=== PATIENT | male | born 1955 | race Caucasian/White ===

== ENCOUNTER 2016-07-22 06:11 | Emergency (ER) | payer OTHER ==
[2016-07-22] MEDS ORDERED: DUONEB (A & A) INH ONE ×2 (06:25→08:02)
--- NOTE | 2016-07-22 07:06 | PROVIDER DOCUMENTATION ---
HPI-Respiratory General - General Chief Complaint: Shortness of Breath Stated Complaint: SOB/COPD Time Seen by Provider: 07/22/16 06:55 Source: patient Allergies/Adverse Reactions: Patient Allergies Allergy/AdvReac Type Severity Reaction Status Date / Time No Known Allergies Allergy Verified 07/09/16 09:13 Home Medications: Home Medication List Medication Instructions Recorded Confirmed Last Taken Type Carvedilol [Coreg] 12.5 mg PO BID 01/11/16 07/22/16 06/25/16 09:00 History 12.5 mg Furosemide [Lasix] 40 mg PO DAILY 01/11/16 07/22/16 06/25/16 08:00 History 40 mg Glimepiride [Amaryl] 4 mg PO BID 01/11/16 07/22/16 06/25/16 08:00 History 4 mg Insulin Aspart [Novolog Flexpen] 20 units PO DAILY 01/11/16 07/22/16 06/25/16 11 :00 History LISINOpril [Prinivil] 20 mg PO DAILY 01/11/16 07/22/16 06/25/16 08:00 History 20 mg Metformin HCl [Glucophage Xr] 2 tab PO BID 01/11/16 07/22/16 06/25/16 08:00 History 2 tabs Potassium Chloride [Klor-Con 10] 1 tab PO DAILY 01/11/16 07/22/16 06/25/16 09: 00 History 1 tab Albuterol 2.5MG/Ipratrop 0.5MG 3 ml INH RTQ6H #120 neb 04/05/16 07/22/16 Rx [Duoneb (A & A)] Fluticasone/Salmeterol [Advair 1 each IH BID #1 disk.w.dev 05/13/16 07/22/16 Unknown Rx 250-50 Diskus] Sitagliptin Phosphate [Januvia] 100 mg PO DAILY #30 tablet 06/30/16 07/22/16 Unknown Rx Doxycycline Hyclate 100 mg PO Q12H #20 tablet 07/22/16 Unknown Rx Ipratropium/Albuterol INH 2 puff INH RTQ6H #1 inhaler 07/22/16 Unknown Rx [Combivent Respimat Inhaler] Prednisone 20 mg PO BID #10 tablet 07/22/16 Unknown Rx - History of Present Illness-Resp Nature of Presenting Problem: has had nasal giselle, drainage, cough with green sputum for 3 days. SOB with coughing. Was worse this am. No fever. no CP Quality of Pain: reports: none Severity in ED: reports: mild Onset/Duration: reports: 3 days ago Timing: reports: getting worse Context: denies: recent foreign travel, insect bite (possible tick), recent chemotherapy Exposure: reports: unknown cause Cough Quality/Degree: reports: productive cough Episode Frequency: occasional episodes Current Respiratory Medication Therapy: Initiated see nurses note Modifying Factors: improves with: coughing Associated Symptoms: reports: cough, nasal congestion, shortness of breath, sore throat (sore throat only with cough). denies: fever/chills, flu-like symptoms, headache Similar Symptoms Previously?: Yes Recently seen or treated by another doctor?: No Review of Systems - Adult - REVIEW OF SYSTEMS - ADULT Constitutional: reports: no symptoms reported Eyes: reports: no symptoms reported Ears, Nose, Mouth & Throat: reports: see HPI Cardiovascular: reports: no symptoms reported, edema (no worse than usual) Respiratory: reports: see HPI Gastrointestinal: reports: no symptoms reported Genitourinary: reports: no symptoms reported Musculoskeletal: reports: no symptoms reported Neurological: reports: no symptoms reported Psychiatric: reports: no symptoms reported Endocrine: reports: no symptoms reported Hematologic/Lymphatic: reports: no symptoms reported Allergic/Immunologic: reports: no symptoms reported Past History - Adult - PAST MEDICAL HISTORY-ADULT Review of Records: reports: Medications Reviewed Cardiovascular: reports: CAD, CHF, HTN, hyperlipidemia, [place] Respiratory: reports: asthma, COPD Gastrointestinal: reports: GERD Musculoskeletal: reports: chronic pain Psychiatric: reports: anxiety Endocrine/Immune: reports: Diabetes - PRIOR SURGERIES/PROCEDURES Surgical/Procedure History: reports: cardiac stent - PRIOR HOSPITALIZATIONS Prior Hospitalizations: reports: for other non-related - IMMUNIZATION STATUS Childhood Immunizations: See Nurse Assessment Flu Vaccine: See Nurse Assessment - FAMILY HISTORY Family History: reviewed, not pertinent - SOCIAL HISTORY Smoking: quit greater than 1 year Alcohol Use Frequency: sober (former use) Physical Exam-General - PHYSICAL EXAM-ADULT Initial Vital Signs Reviewed: Yes - CONSTITUTIONAL General Appearance: appears well, alert, no apparent distress - EYES Eyes: PERRL/EOMI, pink conjunctivae - HEAD, EARS, NOSE, MOUTH & THROAT HENMT: normocephalic/atraumatic, moist mucous membranes, normal ENT inspection, pharynx normal - NECK Neck: non-tender, full range of motion, supple - RESPIRATORY Respiratory: lungs clear, normal breath sounds, no respiratory distress - CARDIOVASCULAR Cardiovascular: no gallop, no murmur, tachycardia, other (3+ pretibial edema bilat) - GASTROINTESTINAL (ABDOMEN) Abdominal Exam: non tender, soft - GENITOURINARY Male Genitalia: deferred Rectal Exam: deferred - MUSCULOSKELETAL Back Exam: normal inspection, no CVA tenderness, no vertebral tenderness Extremity: normal range of motion, non-tender, pedal edema (3+ bilat). negative : no pedal edema - SKIN Integumentary: normal color, normal turgor, warm/dry - NEUROLOGIC Neurologic: pallet stone positioner II-XII nml as tested, grossly normal, no motor/sensory deficits - PSYCHIATRIC Psych/Mental Status: normal mood/affect, normal thought content, normal thought process, oriented x 3 Progress - PLAN OF CARE/RESULTS Progress/Plan/Lab Results: Laboratory Tests 07/22/16 07/22/16 07/22/16 06:15 06:15 06:15 WBC 9.35 RBC 4.94 Hgb 13.2 L Hct 41.2 L MCV 83.4 MCH 26.7 L MCHC 32.0 L RDW Std Deviation 14.2 Plt Count 248 MPV 11.4 H Immature Gran % (Auto) 0.4 Neut % (Auto) 62.8 Lymph % (Auto) 21.6 [place] % (Auto) 8.7 Eos % (Auto) 5.5 Baso % (Auto) 1.0 H Immature Gran # (Auto) 0.04 Neut # (Auto) 5.88 Lymph # (Auto) 2.02 [place] # (Auto) 0.81 H Eos # (Auto) 0.51 Baso # (Auto) 0.09 Segmented Neutrophils 67 Lymphocytes 20 L Monocytes 8 Eosinophils 5 Sodium 136 Potassium 3.8 Chloride 96 L Carbon Dioxide 29 Anion Gap 11 BUN 12 Creatinine 0.9 Estimated GFR/1.73 m2 > 60 BUN/Creatinine Ratio 13 Glucose 389 H Calculated Osmolality 288 Calcium 9.2 Yce-M-Vkwopuqlpcl Pept 243 H Orders Category Date Time Status Oxygen Therapy- ED Nursing DIRECTED Care 07/22/16 06:27 Active Saline Loc DIRECTED Care 07/22/16 06:27 Active CHEST-2 VIEWS [RAD] Stat Exams 07/22/16 07:08 Draft BASIC METABOLIC PANEL [CHEM] Stat Lab 07/22/16 06:15 Completed CBC WITH DIFF [HEME] Stat Lab 07/22/16 06:15 Completed PRO B-NATRIURETIC PEPTIDE Stat Lab 07/22/16 06:15 Completed Albuterol 2.5MG/Ipratrop 0.5MG [Duoneb (A & A)] Med 07/22/16 06:25 Discontinued 3 ml INH NOW ONE Albuterol 2.5MG/Ipratrop 0.5MG [Duoneb (A & A)] Med 07/22/16 08:02 Discontinued 3 ml INH NOW ONE Albuterol [Albuterol Neb] Med 07/22/16 08:02 Discontinued 5 mg INH NOW ONE Budesonide [Pulmicort] Med 07/22/16 08:02 Discontinued 0.5 mg INH NOW ONE Methylprednisolone Sod Succ [Solu-Medrol] Med 07/22/16 08:02 Discontinued 125 mg IV NOW ONE Aerosol Treatments Stat Oth 07/22/16 06:27 Completed Pulse Oximetry Stat Oth 07/22/16 06:27 Active Vital Signs Temp Pulse Resp BP Pulse Ox 07/22/16 08:30 86 20 98 07/22/16 06:36 80 19 97 07/22/16 06:13 97.7 F 117 H 14 204/102 94 L No Known Allergies Allergy (Verified 07/09/16 09:13) Carvedilol [Coreg] 12.5 mg PO BID 01/11/16 Furosemide [Lasix] 40 mg PO DAILY 01/11/16 Glimepiride [Amaryl] 4 mg PO BID 01/11/16 Insulin Aspart [Novolog Flexpen] 20 units PO DAILY 01/11/16 LISINOpril [Prinivil] 20 mg PO DAILY 01/11/16 Metformin HCl [Glucophage Xr] 2 tab PO BID 01/11/16 Potassium Chloride [Klor-Con 10] 1 tab PO DAILY 01/11/16 Albuterol 2.5MG/Ipratrop 0.5MG [Duoneb (A & A)] 3 ml INH RTQ6H #120 neb Fluticasone/Salmeterol [Advair 250-50 Diskus] 1 each IH BID #1 disk.w.dev Sitagliptin Phosphate [Januvia] 100 mg PO DAILY #30 tablet 06/30/16 Laboratory 07/22/16 07/22/16 07/22/16 06:15 06:15 06:15 WBC 9.35 RBC 4.94 Hgb 13.2 L Hct 41.2 L MCV 83.4 MCH 26.7 L MCHC 32.0 L RDW Std Deviation 14.2 Plt Count 248 MPV 11.4 H Immature Gran % (Auto) 0.4 Neut % (Auto) 62.8 Lymph % (Auto) 21.6 [place] % (Auto) 8.7 Eos % (Auto) 5.5 Baso % (Auto) 1.0 H Immature Gran # (Auto) 0.04 Neut # (Auto) 5.88 Lymph # (Auto) 2.02 [place] # (Auto) 0.81 H Eos # (Auto) 0.51 Baso # (Auto) 0.09 Segmented Neutrophils 67 Lymphocytes 20 L Monocytes 8 Eosinophils 5 Sodium 136 Potassium 3.8 Chloride 96 L Carbon Dioxide 29 Anion Gap 11 BUN 12 Creatinine 0.9 Estimated GFR/1.73 m2 > 60 BUN/Creatinine Ratio 13 Glucose 389 H Calculated Osmolality 288 Calcium 9.2 Snb-B-Tvbusqkkiui Pept 243 H - XRAY 1 XRAY Study: Chest Impression: Normal XRAY Interpretation: COPD, no infiltrates Departure - Departure Time of Disposition Order: 10:30 DIAGNOSIS: COPD exacerbation Disposition: HOME 01 Certified Medical Emergency: Emergent Condition: Good Additional Instructions: ED Follow Up Instructions: You have been treated by a care provider in the Emergency Department. These instructions are being provided to you so you can have an understanding of how to care for yourself upon discharge. Upon discharge from the Emergency Department, you are responsible for making arrangements for follow-up care by a physician of your choice. Take all prescribed medications as directed. Return to the Emergency Department immediately for any new or worsening symptoms. You may call the Physician Referral phone number at [phone] to obtain a list of Physicians who are taking new patients. Prescriptions: Ipratropium/Albuterol INH [Combivent Respimat Inhaler] 2 puff INH RTQ6H #1 inhaler Doxycycline Hyclate 100 mg PO Q12H #20 tablet Prednisone 20 mg PO BID #10 tablet Instructions: Chronic Obstructive Pulmonary Disease Exacerbation, [id number]
[2016-07-22 07:32] LABS: EOS# 0.51 X1000 (0.0-0.7); EOS% 5.5 % (0.0-10.0); HEMATOCRIT 41.2 % (42.0-52.0); HEMOGLOBIN 13.2 g/dL (14.0-18.0); IMM GRAN# 0.04 X1000 (0.0-0.04); IMM GRAN% 0.4 % (0.0-0.5); LYMPH# 2.02 X1000 (1.2-3.4); LYMPH% 21.6 % (20.5-51.1); MANUAL DIFF NEEDED? YES; MCH 26.7 PG (27-31); MCV 83.4 FL (81-99); MONO# 0.81 X1000 (0.11-0.59); MONO% 8.7 % (1.7-9.3); MPV 11.4 FL (7.4-10.4); NEUT% 62.8 % (42.2-75.2); PLT 248 X1000 (130-400); RBC 4.94 XMIL (4.7-6.1)
[2016-07-22 07:39] LABS: AGAP 11; BUN 12 mg/dL (8-22); CALCIUM 9.2 mg/dL (8.8-10.2); CHLORIDE 96 mmol/L (98-107); COSMO 288; POTASSIUM 3.8 mmol/L (3.5-5.1); SODIUM 136 mmol/L (136-145); TCO2 29 mmol/L (25-35)
[2016-07-22] MEDS ORDERED: ALBUTEROL NEB INH ONE (08:02)
[2016-07-22] MEDS ORDERED: PULMICORT INH ONE (08:02)
[2016-07-22] MEDS ORDERED: SOLU-MEDROL IV ONE (08:02)
[2016-07-22 08:45] LABS: EOS 5 % (1-10); LYMPHS 20 % (21-51); MONO 8 % (1-9)
--- NOTE | 2016-07-22 09:50 | Diag Imaging Result Document ---
PROCEDURE NAME: CHEST-2 VIEWS - 07/22/2016 CHEST X-RAY 2 VIEWS, 07/22/2016: COMPARISON: 07/09/2016. FINDINGS: The lungs are normally expanded and clear. Heart size and mediastinal contours are normal. No pneumothorax or pleural effusion. IMPRESSION: Negative exam.
[2016-07-22 11:33] VITALS: BP 174/91
== END 2016-07-22 11:32 | disposition home or self-care (01) ==
LOC: P.ED 06:11
DX: J44.1 Chronic obstructive pulmonary disease with (acute) exacerbation (principal); R05 Cough; R06.02 Shortness of breath; R09.81 Nasal congestion; J02.9 Acute pharyngitis, unspecified; R60.9 Edema, unspecified; I25.10 Atherosclerotic heart disease of native coronary artery without angina pectoris; I50.9 Heart failure, unspecified; Z79.899 Other long term (current) drug therapy; E78.5 Hyperlipidemia, unspecified; I10 Essential (primary) hypertension; I25.2 Old myocardial infarction; G89.29 Other chronic pain; E11.9 Type 2 diabetes mellitus without complications; Z95.5 Presence of coronary angioplasty implant and graft; Z87.891 Personal history of nicotine dependence; Z79.4 Long term (current) use of insulin; Z79.51 Long term (current) use of inhaled steroids
CPT/HCPCS: 71020; 80048; 83880; 85025; 94640; J2930

== ENCOUNTER 2016-08-01 13:12 | Emergency (ER) | payer OTHER ==
[2016-08-01 13:30] VITALS: BP 166/88
--- NOTE | 2016-08-01 14:36 | PROVIDER DOCUMENTATION ---
HPI-Respiratory General - General Source: patient - History of Present Illness-Resp Quality of Pain: reports: aching Severity in ED: reports: mild Onset/Duration: reports: 3 days ago Timing: reports: still present, intermittent Exposure: reports: unknown cause Cough Quality/Degree: reports: moderate Episode Frequency: occasional episodes Current Respiratory Medication Therapy: Initiated see nurses note Modifying Factors: improves with: nothing Associated Symptoms: reports: cough, nasal congestion, nasal drainage, shortness of breath, wheezing. denies: chest pain/soreness, dizziness, earache , facial pain, fever/chills, flu-like symptoms, headache, heart racing, hurts to breathe, hyperventilating, lightheadedness, muscle/bodyaches, sinus pain, short of breath, sore throat, sweaty Similar Symptoms Previously?: Yes Recently seen or treated by another doctor?: No <Aislinn Agarwal - Last Filed: 08/01/16 14:30> <Therese Wharton - Last Filed: 08/01/16 15:28> - General Chief Complaint: Shortness of Breath Stated Complaint: SOB Time Seen by Provider: 08/01/16 14:20 Allergies/Adverse Reactions: Patient Allergies Allergy/AdvReac Type Severity Reaction Status Date / Time No Known Allergies Allergy Verified 08/01/16 13:22 Home Medications: Home Medication List Medication Instructions Recorded Confirmed Last Taken Type Carvedilol [Coreg] 12.5 mg PO BID 01/11/16 07/22/16 07/31/16 History Furosemide [Lasix] 40 mg PO DAILY 01/11/16 07/22/16 07/31/16 History Glimepiride [Amaryl] 4 mg PO BID 01/11/16 07/22/16 07/31/16 History Insulin Aspart [Novolog Flexpen] 20 units PO DAILY 01/11/16 07/22/16 07/31/16 History LISINOpril [Prinivil] 20 mg PO DAILY 01/11/16 07/22/16 07/31/16 History Metformin HCl [Glucophage Xr] 2 tab PO BID 01/11/16 07/22/16 07/31/16 History Potassium Chloride [Klor-Con 10] 1 tab PO DAILY 01/11/16 07/22/16 07/31/16 History Albuterol 2.5MG/Ipratrop 0.5MG 3 ml INH RTQ6H #120 neb 04/05/16 07/22/16 Rx [Duoneb (A & A)] Fluticasone/Salmeterol [Advair 1 each IH BID #1 disk.w.dev 05/13/16 07/22/16 Rx 250-50 Diskus] Sitagliptin Phosphate [Januvia] 100 mg PO DAILY #30 tablet 06/30/16 07/22/16 Rx Ipratropium/Albuterol INH 2 puff INH RTQ6H #1 inhaler 07/22/16 07/31/16 Rx [Combivent Respimat Inhaler] Aspirin [Aspirin EC] 1 tab PO DAILY 08/01/16 08/01/16 07/31/16 History Azithromycin [Zithromax Z-Ramon] 250 mg PO DIRECTED #1 pkg 08/01/16 Unknown Rx Insulin Glargine [Lantus] 100 units SQ QHS 08/01/16 08/01/16 07/31/16 History - History of Present Illness-Resp Nature of Presenting Problem: Pt is 61 y/o M presents to the ED with SOB. Pt states SOB worsened three days. Pt denies F. (Aislinn Agarwal) Review of Systems - Adult - REVIEW OF SYSTEMS - ADULT Constitutional: denies: chills, fever Eyes: denies: blurred vision, double vision Ears, Nose, Mouth & Throat: reports: sinus problem (drainage and congestion). denies: ear pain, nose pain, throat pain Cardiovascular: denies: chest pain, heart murmur, irregular heart rate Respiratory: reports: cough, shortness of breath, wheezing Gastrointestinal: denies: abdominal pain, diarrhea, nausea, vomiting Genitourinary: denies: dysuria, hesitency Musculoskeletal: denies: bone pain, joint pain, neck pain Integumentary: denies: hives, itching Neurological: denies: dizziness/vertigo, headache/migraines Psychiatric: reports: no symptoms reported Endocrine: reports: no symptoms reported Hematologic/Lymphatic: reports: no symptoms reported Allergic/Immunologic: reports: no symptoms reported All Other Systems: Reviewed and Negative <Aislinn Agarwal - Last Filed: 08/01/16 14:30> Past History - Adult - PAST MEDICAL HISTORY-ADULT Review of Records: reports: Nursing Assessment Review, Medications Reviewed, Social history reviewed & non-contributory. Major Childhood Illnesses: reports: denies history Cardiovascular: reports: CAD, CHF, HTN, hyperlipidemia, [place] Respiratory: reports: asthma, COPD Gastrointestinal: reports: GERD Obstetrical/Gynecological: reports: denies history Genitourinary: reports: denies history Musculoskeletal: reports: chronic pain Neurological: reports: denies history Psychiatric: reports: anxiety Endocrine/Immune: reports: Diabetes Diabetes Type: Type 2 Other Conditions: reports: denies history - PRIOR SURGERIES/PROCEDURES Surgical/Procedure History: reports: cardiac stent - PRIOR HOSPITALIZATIONS Prior Hospitalizations: reports: for other non-related - IMMUNIZATION STATUS Childhood Immunizations: See Nurse Assessment Flu Vaccine: See Nurse Assessment - FAMILY HISTORY Family History: reviewed, not pertinent - SOCIAL HISTORY Smoking: quit less than 1 year, cigarettes Provider spent 3-5 mins advising pt. on dangers of tobacco.: Discussed manners to quit use, and f/u contacts for add'l counseling. Substance Use: denies Living Situation: family <Aislinn Agarwal - Last Filed: 08/01/16 14:30> Physical Exam-General - PHYSICAL EXAM-ADULT Initial Vital Signs Reviewed: Yes - CONSTITUTIONAL General Appearance: appears well, alert, no apparent distress - EYES Eyes: PERRL/EOMI, pink conjunctivae, fundi clear, no AV nicking - HEAD, EARS, NOSE, MOUTH & THROAT HENMT: normocephalic/atraumatic, moist mucous membranes, normal ENT inspection, TMs normal, pharynx normal - NECK Neck: non-tender, full range of motion, supple, normal inspection - RESPIRATORY Respiratory: chest non-tender, no pleuratic chest pain, no respiratory distress , no accessory muscle use, wheezing, increased rate - CARDIOVASCULAR Cardiovascular: normal peripheral pulses, regular rate, rhythm, no edema, no gallop, no JVD, no murmur - GASTROINTESTINAL (ABDOMEN) Abdominal Exam: normal bowel sounds, non tender, soft, no organomegaly, no pulsatile mass - LYMPHATIC Lymphatic: no adenopathy - MUSCULOSKELETAL Back Exam: normal inspection, no CVA tenderness, no vertebral tenderness Extremity: normal range of motion, non-tender, normal gait, normal inspection, no pedal edema, no calf tenderness, normal capillary refill - SKIN Integumentary: normal color, normal turgor, warm/dry - NEUROLOGIC Neurologic: grossly normal - PSYCHIATRIC Psych/Mental Status: normal mood/affect, oriented x 3 <Aislinn Agarwal - Last Filed: 08/01/16 14:30> Progress <Aislinn Agarwal - Last Filed: 08/01/16 14:30> <Therese Wharton - Last Filed: 08/01/16 15:28> - PLAN OF CARE/RESULTS Progress/Plan/Lab Results: Orders Category Date Time Status BASIC METABOLIC PANEL [CHEM] Stat Lab 08/01/16 14:30 Ordered BNP [PRO B-NATRIURETIC PEPTIDE] Stat Lab 08/01/16 14:30 Ordered CBC WITH ELECTRONIC DIFF [HEME] Stat Lab 08/01/16 14:30 Ordered Vital Signs - 24 hr 08/01/16 13:25 Temperature 99.0 F Pulse Rate 79 Respiratory 24 Rate Blood Pressure 166/88 O2 Sat by Pulse 94 L Oximetry (Aislinn Agarwal) Vital Signs Temp Pulse Resp BP Pulse Ox 08/01/16 13:25 99.0 F 79 24 166/88 94 L No Known Allergies Allergy (Verified 08/01/16 13:22) Carvedilol [Coreg] 12.5 mg PO BID 01/11/16 Furosemide [Lasix] 40 mg PO DAILY 01/11/16 Glimepiride [Amaryl] 4 mg PO BID 01/11/16 Insulin Aspart [Novolog Flexpen] 20 units PO DAILY 01/11/16 LISINOpril [Prinivil] 20 mg PO DAILY 01/11/16 Metformin HCl [Glucophage Xr] 2 tab PO BID 01/11/16 Potassium Chloride [Klor-Con 10] 1 tab PO DAILY 01/11/16 Albuterol 2.5MG/Ipratrop 0.5MG [Duoneb (A & A)] 3 ml INH RTQ6H #120 neb Fluticasone/Salmeterol [Advair 250-50 Diskus] 1 each IH BID #1 disk.w.dev Sitagliptin Phosphate [Januvia] 100 mg PO DAILY #30 tablet 06/30/16 Ipratropium/Albuterol INH [Combivent Respimat Inhaler] 2 puff INH RTQ6H #1 inhaler 07/22/16 Aspirin [Aspirin EC] 1 tab PO DAILY 08/01/16 Insulin Glargine [Lantus] 100 units SQ QHS 08/01/16 Laboratory 08/01/16 08/01/16 08/01/16 14:40 14:40 14:40 WBC 9.24 RBC 4.64 L Hgb 12.5 L Hct 38.9 L MCV 83.8 MCH 26.9 L MCHC 32.1 L RDW Std Deviation 14.8 H Plt Count 260 MPV 10.9 H Immature Gran % (Auto) 0.5 Neut % (Auto) 64.6 Lymph % (Auto) 23.2 [place] % (Auto) 7.3 Eos % (Auto) 3.8 Baso % (Auto) 0.6 Immature Gran # (Auto) 0.05 H Neut # (Auto) 5.97 Lymph # (Auto) 2.14 [place] # (Auto) 0.67 H Eos # (Auto) 0.35 Baso # (Auto) 0.06 Sodium 138 Potassium 3.8 Chloride 101 Carbon Dioxide 29 Anion Gap 9 BUN 14 Creatinine 0.8 Estimated GFR/1.73 m2 > 60 BUN/Creatinine Ratio 18 Glucose 225 H Calculated Osmolality 283 Calcium 8.8 Uzx-C-Yhwbfykmshb Pept 328 H Orders Category Date Time Status BASIC METABOLIC PANEL [CHEM] Stat Lab 08/01/16 14:40 Completed BNP [PRO B-NATRIURETIC PEPTIDE] Stat Lab 08/01/16 14:40 Completed CBC WITH ELECTRONIC DIFF [HEME] Stat Lab 08/01/16 14:40 Completed Orders Category Date Time Status BASIC METABOLIC PANEL [CHEM] Stat Lab 08/01/16 14:40 Completed BNP [PRO B-NATRIURETIC PEPTIDE] Stat Lab 08/01/16 14:40 Completed CBC WITH ELECTRONIC DIFF [HEME] Stat Lab 08/01/16 14:40 Completed Albuterol 2.5MG/Ipratrop 0.5MG [Duoneb (A & A)] Med 08/01/16 15:27 Once 3 ml INH NOW ONE CefTRIAXONE [Rocephin] Med 08/01/16 15:27 Once 1 gm IM NOW ONE Lidocaine 1% Pf [Xylocaine-Mpf 1%] Med 08/01/16 15:27 Once 5 ml INJ NOW ONE Aerosol Treatments Routine Oth 08/01/16 15:27 Ordered Aerosol Treatments Stat Oth 08/01/16 15:27 Ordered (Therese Wharton) Departure <Aislinn Agarwal - Last Filed: 08/01/16 14:30> - Departure Time of Disposition Order: 15:27 Certified Medical Emergency: Emergent <Therese Wharton - Last Filed: 08/01/16 15:28> - Departure DIAGNOSIS: COPD exacerbation Disposition: HOME 01 Condition: Stable Additional Instructions: Follow up with your primary care physician ED Follow Up Instructions: You have been treated by a care provider in the Emergency Department. These instructions are being provided to you so you can have an understanding of how to care for yourself upon discharge. Upon discharge from the Emergency Department, you are responsible for making arrangements for follow-up care by a physician of your choice. Take all prescribed medications as directed. Return to the Emergency Department immediately for any new or worsening symptoms. You may call the Physician Referral phone number at [phone] to obtain a list of Physicians who are taking new patients. Prescriptions: Azithromycin [Zithromax Z-Ramon] 250 mg PO DIRECTED #1 pkg Attestation - Scribe Verification/Attestation Scribe:: Aislinn Agarwal Acting as Scribe for:: Therese Wharton Scribe documention review:: This chart was documented by a scribe and accurately reflects the service the provider performed and the decisions made by the provider. <Aislinn Agarwal - Last Filed: 08/01/16 14:30> Physician Attestation
[2016-08-01 14:45] LABS: MANUAL DIFF NEEDED? NO
[2016-08-01 14:52] LABS: BASO% 0.6 % (0.0-0.8); EOS# 0.35 X1000 (0.0-0.7); EOS% 3.8 % (0.0-10.0); HEMATOCRIT 38.9 % (42.0-52.0); HEMOGLOBIN 12.5 g/dL (14.0-18.0); IMM GRAN# 0.05 X1000 (0.0-0.04); IMM GRAN% 0.5 % (0.0-0.5); LYMPH# 2.14 X1000 (1.2-3.4); LYMPH% 23.2 % (20.5-51.1); MCH 26.9 PG (27-31); MCHC 32.1 g/dL (33-37); MCV 83.8 FL (81-99); MONO# 0.67 X1000 (0.11-0.59); MONO% 7.3 % (1.7-9.3); MPV 10.9 FL (7.4-10.4); NEUT% 64.6 % (42.2-75.2); PLT 260 X1000 (130-400); RBC 4.64 XMIL (4.7-6.1)
[2016-08-01 15:06] LABS: AGAP 9; BUN 14 mg/dL (8-22); CALCIUM 8.8 mg/dL (8.8-10.2); CHLORIDE 101 mmol/L (98-107); COSMO 283; POTASSIUM 3.8 mmol/L (3.5-5.1); SODIUM 138 mmol/L (136-145); TCO2 29 mmol/L (25-35)
[2016-08-01] MEDS ORDERED: DUONEB (A & A) INH ONE (15:27)
[2016-08-01] MEDS ORDERED: XYLOCAINE-MPF 1% INJ ONE (15:27)
[2016-08-01] MEDS ORDERED: ROCEPHIN IM ONE (15:27)
== END 2016-08-01 16:03 | disposition home or self-care (01) ==
LOC: P.ED 13:12
DX: J44.1 Chronic obstructive pulmonary disease with (acute) exacerbation (principal); R06.02 Shortness of breath; R05 Cough; R09.81 Nasal congestion; R06.2 Wheezing; I25.10 Atherosclerotic heart disease of native coronary artery without angina pectoris; I50.9 Heart failure, unspecified; I10 Essential (primary) hypertension; Z79.899 Other long term (current) drug therapy; E78.5 Hyperlipidemia, unspecified; I25.2 Old myocardial infarction; J45.909 Unspecified asthma, uncomplicated; G89.29 Other chronic pain; E11.9 Type 2 diabetes mellitus without complications; Z79.82 Long term (current) use of aspirin; Z79.4 Long term (current) use of insulin; Z95.5 Presence of coronary angioplasty implant and graft; Z87.891 Personal history of nicotine dependence
CPT/HCPCS: 80048; 83880; 85025; 94640; 96372; J0696

== ENCOUNTER 2016-11-20 19:27 | Inpatient (IN) ==
[2016-11-20] MEDS ORDERED: D5 1/2 NS 1,000 ML IV ONE ×2 (20:04→21:58)
[2016-11-20 20:11] LABS: MANUAL DIFF NEEDED? NO
[2016-11-20 20:17] LABS: BASO% 0.9 % (0.0-0.8); EOS# 0.33 X1000 (0.0-0.7); EOS% 3.3 % (0.0-10.0); HEMATOCRIT 38.3 % (42.0-52.0); HEMOGLOBIN 12.2 g/dL (14.0-18.0); IMM GRAN# 0.01 X1000 (0.0-0.04); IMM GRAN% 0.1 % (0.0-0.5); LYMPH# 1.39 X1000 (1.2-3.4); LYMPH% 14.1 % (20.5-51.1); MCH 25.7 PG (27-31); MCHC 31.9 g/dL (33-37); MCV 80.8 FL (81-99); MONO# 0.56 X1000 (0.11-0.59); MONO% 5.7 % (1.7-9.3); MPV 10.7 FL (7.4-10.4); NEUT% 75.9 % (42.2-75.2); PLT 381 X1000 (130-400); RBC 4.74 XMIL (4.7-6.1)
[2016-11-20] MEDS ORDERED: DUONEB (A & A) INH ONE (20:25)
[2016-11-20 20:29] LABS: AGAP 9; ALKALINE PHOSPHATASE 107 U/L (32-122); BUN 14 mg/dL (8-22); CHLORIDE 103 mmol/L (98-107); COSMO 280; GOT 13 U/L (10-34); GPT 6 U/L (10-44); POTASSIUM 3.6 mmol/L (3.5-5.1); SODIUM 141 mmol/L (136-145); TCO2 30 mmol/L (25-35); TOTAL PROTEIN 6.4 g/dL (6.3-8.3)
[2016-11-20 20:41] LABS: BILIRUBIN URINE NEGATIVE (NEGATIVE); BLOOD URINE 3+ (NEGATIVE); CLARITY VERY CLOUDY (CLEAR); COLOR YELLOW; GLUCOSE URINE NEGATIVE (NEGATIVE); LEUKOCYTES URINE 2+ (NEGATIVE); NITRITE URINE NEGATIVE (NEGATIVE); PH URINE 6.5; UROBILINOGEN URINE NORMAL
[2016-11-20 20:48] LABS: URINE CULTURE PL NEEDED? YES; URINE EPITHELIAL CELLS <10 /HPF (<10); URINE WBC TNTC /HPF (<10)
[2016-11-20 20:49] LABS: URINE CAST NONE SEEN /LPF; URINE CRYSTAL NONE SEEN /HPF; URINE SOURCE CLEAN CATCH
--- NOTE | 2016-11-20 21:43 | Diag Imaging Result Doc PS360 ---
EXAM: CHEST-1 VIEW - 11/20/2016 HISTORY: chf TECHNIQUE: Portable chest 8:57 PM COMPARISON: 11/12/2016 FINDINGS: Heart size appears within normal limits. There is been development of small left pleural effusion with left basilar atelectasis. The remainder lungs appear clear of acute changes. There is no gross vascular congestion identified. There is no pneumothorax seen. IMPRESSION: Development of small left pleural effusion and left basilar atelectasis. Electronically signed by Dirk Lu 11/20/2016 9:41 PM
[2016-11-20] MEDS ORDERED: COREG PO SCH (23:15)
[2016-11-21] MEDS: DUONEB (A & A) INH PRN ×3 (00:18→08:14)
[2016-11-21] MEDS ORDERED: PRINIVIL PO SCH (09:00)
[2016-11-21] MEDS: KLOR-CON PO SCH (09:40)
[2016-11-21] MEDS: COREG PO SCH ×2 (09:40→20:40)
[2016-11-21] MEDS: ASPIRIN PO SCH (09:40)
[2016-11-21] MEDS: DEMADEX PO SCH ×3 (09:40→17:32)
[2016-11-21] MEDS ORDERED: ALBUTEROL NEB INH PRN (10:24)
[2016-11-21 11:13] LABS: HEMOGLOBIN A1C 5.5 % (4.8-6.0)
[2016-11-21] MEDS: DUONEB (A & A) INH SCH ×4 (12:16→22:57)
[2016-11-21] MEDS: DIFLUCAN PO SCH (13:37)
[2016-11-21] MEDS: SOLU-MEDROL IV SCH ×2 (13:38→20:40)
[2016-11-21] MEDS: ATROVENT 0.03% NASAL SPRAY NAS SCH (13:38)
--- NOTE | 2016-11-21 15:01 | HISTORY AND PHYSICAL ---
PRIMARY CARE PHYSICIAN: Dr. Brandon Baird. CHIEF COMPLAINT: Of low blood sugar. HISTORY OF PRESENTING ILLNESS: This is a 61-year-old male who presented to [facility] ER via EMS after he was at home. He states yesterday morning around 11:30 he ate a turkey sandwich and around 12 o'clock took his insulin shot and started feeling shaky, weak. They called 911. When they arrived he was noted to have a blood sugar of 32 and he was given D50 amp en route. When he arrived to the emergency room he was noted to have a glucose of 71. Approximately 10 minutes later it dropped again to 58. He was placed on D5 and a half NS and admitted for further evaluation and treatment. PAST MEDICAL HISTORY: Coronary artery disease, congestive heart failure, hypertension, hyperlipidemia, DC, COPD, GERD, chronic pain, anxiety and diabetes type 2. PAST SURGICAL HISTORY: Heart stent placement. FAMILY HISTORY: Noncontributory. SOCIAL HISTORY: Currently lives with his . Denied any tobacco, alcohol or illicit drug use. ALLERGIES: He has no known drug allergies. MEDICATIONS: We will hold the following home medications. Amaryl 4 mg p.o. b.i.d., NovoLog FlexPen 20 units subcutaneous at breakfast and lunch, Lantus 80 units subcutaneous at bedtime, Glucophage XR 2 tablets p.o. b.i.d. We will continue his albuterol nebulizations q.4 hours p.r.n., aspirin 325 mg p.o. daily, Lipitor 40 mg p.o. at bedtime, Coreg 12.5 mg p.o. b.i.d., ipratropium bromide 1 spray nasally daily, Prinivil 20 mg p.o. daily, Klor-Con 10 mEq 1 p.o. daily and Demadex 20 mg p.o. t.i.d. LABORATORY DATA: Showed a white blood cell count of 9.88, hemoglobin of 12.2, hematocrit 38.3, platelets 381,000. Sodium 141, potassium 3.6, chloride 103, CO2 30, BUN of 14, creatinine 1, glucose of 71, but this was after EMS arrived at the home his blood sugar was 32 when he got an amp of D50 IV prior to arriving. Had a proBNP of 2049. His urine showed negative nitrites but 2+ white blood cells, 2+ bacteria and yeast. Chest x-ray showed development of a small left pleural effusion and left basilar atelectasis. REVIEW OF SYSTEMS: He denied any fever, chills, had some mild blurred vision and dizziness yesterday that has resolved at this time. He denied any chest pain, coughing, shortness of breath. He denied any abdominal pain, constipation, diarrhea, burning or hurting with urination. PHYSICAL EXAMINATION: VITAL SIGNS: On arrival he had a pulse of 71, respirations 20, blood pressure was 213/126, saturating 97% on 2 L. Blood pressure is currently at 161/87. GENERAL: This is a 61-year-old morbidly obese male who is lying in the bed and answers questions appropriately. HEENT: Normocephalic and atraumatic. Pupils are equal, round, reactive to light. The extraocular movements are intact. The oropharynx and nares are clear. NECK: Supple. LUNGS: Clear to auscultation bilaterally with equal lung expansion and chest wall movement. HEART: With regular rate and rhythm. No murmurs, rubs, or gallops. ABDOMEN: Soft, nontender, nondistended. Bowel sounds are present x4 quadrants. EXTREMITIES: No clubbing, cyanosis, or edema. NEUROLOGICAL: The cranial nerves 2-12 appear grossly intact. ASSESSMENT: 1. Diabetes type 2 with hypoglycemia secondary to insulin use. 2. Accelerated hypertension. 3. Candidiasis. 4. Gastroesophageal reflux disease. PLAN: He was admitted to the medical unit. Placed on a healthy heart diet. Will check a hemoglobin A1c. He has a urine culture pending. Will continue home medications as previously identified. It is noted his blood sugar is up to 130 this a.m. Will give Diflucan 100 mg p.o. daily. He will receive his antihypertensive this morning so will follow that once he receives his dosage to see if they improve. Dictated by DELTA Johnson for Demetrius Mirza MD cc: DO Demetrius Singletary MD
[2016-11-21] MEDS: APRESOLINE IV PRN (16:13)
[2016-11-21] MEDS: HUMULIN R (PARKWAY) SUBQ SCH ×2 (16:13→20:40)
[2016-11-21] MEDS: LIPITOR PO SCH (20:40)
[2016-11-22] MEDS: APRESOLINE IV PRN (00:14)
[2016-11-22] MEDS: DUONEB (A & A) INH SCH ×6 (02:55→23:44)
[2016-11-22] MEDS: SOLU-MEDROL IV SCH ×2 (04:13→11:57)
[2016-11-22] MEDS: HUMULIN R (PARKWAY) SUBQ SCH ×4 (06:18→21:10)
[2016-11-22 07:44] LABS: BASO% 0.1 % (0.0-0.8); HEMATOCRIT 35.1 % (42.0-52.0); HEMOGLOBIN 11.1 g/dL (14.0-18.0); IMM GRAN# 0.01 X1000 (0.0-0.04); IMM GRAN% 0.1 % (0.0-0.5); LYMPH# 0.83 X1000 (1.2-3.4); LYMPH% 12.2 % (20.5-51.1); MANUAL DIFF NEEDED? YES; MCH 25.3 PG (27-31); MCHC 31.6 g/dL (33-37); MCV 80.1 FL (81-99); MONO# 0.14 X1000 (0.11-0.59); MONO% 2.1 % (1.7-9.3); MPV 10.9 FL (7.4-10.4); NEUT% 85.5 % (42.2-75.2); PLT 378 X1000 (130-400); RBC 4.38 XMIL (4.7-6.1)
[2016-11-22 08:00] LABS: CALCIUM 8.7 mg/dL (8.8-10.2); POTASSIUM 4.2 mmol/L (3.5-5.1)
[2016-11-22] MEDS: ASPIRIN PO SCH (10:26)
[2016-11-22] MEDS: KLOR-CON PO SCH (10:27)
[2016-11-22] MEDS: ATROVENT 0.03% NASAL SPRAY NAS SCH (10:27)
[2016-11-22] MEDS: DEMADEX PO SCH ×3 (10:27→16:55)
[2016-11-22] MEDS: COREG PO SCH ×2 (10:28→21:09)
[2016-11-22] MEDS: PRINIVIL PO SCH ×2 (10:28→21:09)
[2016-11-22] MEDS: DIFLUCAN PO SCH (10:28)
[2016-11-22 11:05] LABS: BANDS 1 % (0-1); LYMPHS 12 % (21-51); MONO 2 % (1-9)
--- NOTE | 2016-11-22 12:30 | DISCHARGE SUMMARY ---
ADMISSION DATE: 11/20/2016 DISCHARGE DATE: 11/22/2016 DIAGNOSES: 1. Diabetes type 2 with hypoglycemia, secondary to insulin use. 2. Accelerated hypertension. 3. Candidiasis. 4. Gastroesophageal reflux disease. DIAGNOSTICS: 1. On 11/20/2016, chest x-ray revealed development of a small left pleural effusion. 2. Microbiology: Urine culture revealed yeast. DISCHARGE VITAL SIGNS: Blood pressure is 170/70 with a heart rate of 81, respirations are 20. Temperature is 97.6, O2 saturations are 97 and 98% on 2 L nasal cannula. DISCHARGE PHYSICAL EXAM: Cardiovascular: Regular rate and rhythm S1, S2 appreciated. Pulmonary: Breath sounds are clear with no increased work of breathing noted. Chest does rise and fall symmetrically with respiration. Gastrointestinal: Abdomen is soft, nontender, nondistended with bowel sounds in all 4 quadrants. Extremities: No clubbing, cyanosis, or edema. Calves are nontender. Pulses are palpable x4. DISCHARGE MEDICATIONS: Aspirin 325 daily. Albuterol nebulizers q.4 hours p.r.n., Coreg 12.5 p.o. b.i.d., lisinopril 20 mg daily, Klor-Con 10 1 tab daily, Demadex 1 tab 3 times a day. Lipitor 1 q.8 at bedtime. Prednisone taper 40 mg daily for 3 days, 30 mg daily for 3 days, 20 mg daily for 3 days, 10 mg daily for 3 days, then discontinue. Atrovent nose spray daily. Humulin R insulin. Pattern blood glucose with sliding scale insulins at a low dose scale. Diflucan 100 mg daily for 10 days. DISCHARGE ACTIVITY: Will be per PT and OT recommendations. FOLLOWUP: He will need to have a CMP and a CBC drawn in 3 days and call results to the medical authorization specialist. He is being discharged to rehab in stable condition. TIME SPENT: This is a greater than 30 minute discharge. Dictated by DELTA Spann for Rusty Reddy MD cc: DELTA Spann MD
--- NOTE | 2016-11-22 14:44 | PROGRESS NOTE ---
DATE: 11/22/2016 SUBJECTIVE: The patient feels better today. He is eating without any nausea or vomiting. He denies any chest pain or palpitations. OBJECTIVE: Vital Signs: Blood pressure is 170/70 with a heart rate of 81, respirations are 20. Temperature is 97.6 degrees oral. Oxygen saturations are 97-98% on 2 L nasal cannula. Cardiovascular: Regular rate and rhythm. S1 and S2 appreciated. Pulmonary: Breath sounds are clear with no increased work of breathing noted. Chest does rise and fall symmetrically with respiration. Gastrointestinal: Abdomen is soft, nontender, nondistended with bowel sounds in all 4 quadrants. Extremities: No clubbing, cyanosis, or edema. Calves are nontender. Pulses are palpable x4. Neurologic: He is alert and oriented x3. LABORATORY: WBC is 6.8 with a hemoglobin of 11.1, hematocrit 35.1, and platelets of 378,000. Sodium is 138, potassium 4.2, BUN 26, creatinine 1.3 with blood sugars in the range of 198-305. MICROBIOLOGY: Urine is growing yeast. ASSESSMENT: 1. Diabetes type 2 with hypoglycemia secondary to insulin use. 2. Accelerated hypertension. 3. Candidiasis. 4. Gastroesophageal reflux disease. 5. Acute kidney injury. PLAN: We will continue with pattern blood glucose and sliding scale insulin with the patient on a diabetic diet. We will continue his current medical regimen. We will trend labs in the morning. Further treatments. Dictated by DELTA Spann for Rusty Reddy MD cc: DELTA Spann MD
[2016-11-22] MEDS ORDERED: APRESOLINE PO SCH (21:00)
[2016-11-22] MEDS: LIPITOR PO SCH (21:08)
[2016-11-22] MEDS ORDERED: SOLU-MEDROL IV SCH (23:30)
[2016-11-23] MEDS: DUONEB (A & A) INH SCH ×6 (03:34→22:41)
[2016-11-23] MEDS: HUMULIN R (PARKWAY) SUBQ SCH ×4 (06:04→20:40)
[2016-11-23 08:18] LABS: HEMATOCRIT 34.4 % (42.0-52.0); HEMOGLOBIN 10.8 g/dL (14.0-18.0); MCH 25.3 PG (27-31); MCHC 31.4 g/dL (33-37); MCV 80.6 FL (81-99); RBC 4.27 XMIL (4.7-6.1)
[2016-11-23] MEDS: KLOR-CON PO SCH (08:36)
[2016-11-23] MEDS: COREG PO SCH ×2 (08:36→20:38)
[2016-11-23] MEDS: PRINIVIL PO SCH ×2 (08:36→20:37)
[2016-11-23] MEDS: APRESOLINE PO SCH ×2 (08:36→20:38)
[2016-11-23] MEDS: ASPIRIN PO SCH (08:36)
[2016-11-23 08:37] LABS: ALBUMIN 2.9 g/dL (3.5-5.0); CALCIUM 8.6 mg/dL (8.8-10.2); POTASSIUM 3.9 mmol/L (3.5-5.1); TOTAL BILIRUBIN 0.3 mg/dL (0.20-1.00)
[2016-11-23] MEDS: DIFLUCAN PO SCH (08:37)
[2016-11-23] MEDS: ATROVENT 0.03% NASAL SPRAY NAS SCH (08:42)
[2016-11-23] MEDS: LASIX IV SCH ×2 (08:42→20:38)
--- NOTE | 2016-11-23 11:16 | PROGRESS NOTE ---
DATE: 11/23/2016 SUBJECTIVE: The patient notes that he starting to feel better. He started to be able to get up and to ambulate to the restroom. Denies any current chest pains or palpitations. Denies any fevers or chills. Overall, states he is feeling better. OBJECTIVE: Vital Signs: On physical, temp 97, pulse 96, respiratory 18, BP 175/76 and 193/77, satting 100% on 2 L. General: Patient is awake, alert, overweight male, who is currently in mild respiratory distress which is an improvement from yesterday's exam. HEENT: Normocephalic, atraumatic. SUKI. Neck: Supple. CV: Regular rate and rhythm. Chest: Relatively clear. Abdomen: Soft. Extremities: Moves all extremities. Neurologic: No focal changes. Skin: Warm and dry. No rashes. ASSESSMENT: 1. Diabetes type 2 with hypoglycemia. 2. Chronic obstructive pulmonary disease with mild exacerbation. Continues to improve. We will continue to wean his Solu-Medrol. 3. Hyperglycemia secondary to Solu-Medrol and diabetes. 4. Hypertension. Blood pressures are better, although still elevated. The patient currently is on Coreg 12.5 twice a day. We have increased his hydralazine this morning to 50 twice a day. Continue lisinopril at 20 twice a day. 5. Candidiasis. 6. Chronic reflux. 7. Chronic edema in bilateral lower extremities. We will add intravenous Lasix today. PLAN: We will add IV Lasix, increase his blood pressure control. We will continue to follow, hopefully home in the a.m. cc: Rusty Reddy MD
[2016-11-23] MEDS: LIPITOR PO SCH (20:38)
[2016-11-24] MEDS: SOLU-MEDROL IV SCH (00:43)
[2016-11-24] MEDS: DUONEB (A & A) INH SCH ×6 (03:01→23:16)
[2016-11-24] MEDS: HUMULIN R (PARKWAY) SUBQ SCH ×4 (06:11→20:27)
[2016-11-24] MEDS: PRINIVIL PO SCH ×2 (07:59→20:27)
[2016-11-24] MEDS: DIFLUCAN PO SCH (07:59)
[2016-11-24] MEDS: LASIX IV SCH (08:00)
[2016-11-24] MEDS: COREG PO SCH ×2 (08:00→20:27)
[2016-11-24] MEDS: ASPIRIN PO SCH (08:00)
[2016-11-24] MEDS: ATROVENT 0.03% NASAL SPRAY NAS SCH (08:00)
[2016-11-24] MEDS: KLOR-CON PO SCH (08:00)
[2016-11-24] MEDS: APRESOLINE PO SCH ×2 (08:01→20:27)
--- NOTE | 2016-11-24 08:57 | PROGRESS NOTE ---
DATE: 11/24/2016 SUBJECTIVE: Patient notes he is starting to feel a little bit better. He is having less swelling in his right hand and less swelling in his bilateral lower extremities. He denies any chest pain, palpitations. States his breathing is getting easier. OBJECTIVE: Vital signs: Temperature 97, pulse 86, respiratory 18, BP 160/73, saturation 100% on 2 L. General: Patient is awake, alert. Currently in no real respiratory distress. Neck: Supple. CV: Regular rate. Chest: Relatively clear. Abdomen: Soft, obese, nondistended. Extremities: Moves all extremities. He has trace to 1+ edema in the lower extremities which is better than 2+ on yesterday's exam. LABS: No current labs today. We will repeat in the a.m. Blood sugars are improved at 229 from yesterday's 337. ASSESSMENT: 1. Acute renal insufficiency. Serum creatinine has gone up since Lasix. He will get one more dose this morning and then will DC it. 2. Bilateral lower extremity edema has improved. 3. Hypertension, stable. 4. Morbid obesity. 5. Accelerated hypertension has improved on Coreg and lisinopril. 6. Diabetes. PLAN: Hopefully patient can discharge home in the a.m. We will continue to follow. We will wean off Lasix and steroids today. Further orders as needed. cc: Rusty Reddy MD
[2016-11-24] MEDS: LIPITOR PO SCH (20:27)
[2016-11-25] MEDS: SOLU-MEDROL IV SCH (01:46)
[2016-11-25] MEDS: DUONEB (A & A) INH SCH ×3 (04:05→11:57)
[2016-11-25] MEDS: HUMULIN R (PARKWAY) SUBQ SCH ×2 (06:14→11:24)
[2016-11-25 06:34] LABS: HEMATOCRIT 35.6 % (42.0-52.0); HEMOGLOBIN 11.2 g/dL (14.0-18.0); MCH 25.7 PG (27-31); MCHC 31.5 g/dL (33-37); MCV 81.8 FL (81-99); MPV 10.9 FL (7.4-10.4); RBC 4.35 XMIL (4.7-6.1)
[2016-11-25 07:02] LABS: AGAP 6; ALBUMIN 2.8 g/dL (3.5-5.0); ALKALINE PHOSPHATASE 84 U/L (32-122); BUN 35 mg/dL (8-22); CALCIUM 8.4 mg/dL (8.8-10.2); CHLORIDE 100 mmol/L (98-107); COSMO 289; GOT 9 U/L (10-34); GPT 12 U/L (10-44); MAGNESIUM 2.4 mg/dL (1.5-2.7); POTASSIUM 4.5 mmol/L (3.5-5.1); SODIUM 136 mmol/L (136-145); TCO2 30 mmol/L (25-35); TOTAL PROTEIN 5.6 g/dL (6.3-8.3)
[2016-11-25] MEDS: ASPIRIN PO SCH (08:05)
[2016-11-25] MEDS: DIFLUCAN PO SCH (08:05)
[2016-11-25] MEDS: KLOR-CON PO SCH (08:05)
[2016-11-25] MEDS: ATROVENT 0.03% NASAL SPRAY NAS SCH (08:05)
[2016-11-25] MEDS: PRINIVIL PO SCH (08:05)
[2016-11-25] MEDS: APRESOLINE PO SCH (08:06)
[2016-11-25] MEDS: COREG PO SCH (08:06)
[2016-11-25 11:43] VITALS: BP 173/76
--- NOTE | 2016-11-26 12:47 | DISCHARGE SUMMARY ---
ADMISSION DATE: 11/20/2016 DISCHARGE DATE: 11/25/2016 DIAGNOSES: 1. Hypoglycemia secondary to insulin use. 2. Diabetes type 2 with chronic insulin use. 3. Accelerated hypertension. This has improved with Coreg and lisinopril. 4. Morbid obesity. 5. Bilateral lower extremity edema, improving. 6. Acute kidney injury that increased due to Lasix DIAGNOSTICS: 1. On 11/20/2016 chest x-ray revealed a small pleural effusion and left basilar atelectasis. 2. Urine culture revealed yeast. HOSPITAL COURSE: Mr. Grove presented to the emergency room feeling shaky and weak. He was found to have a blood sugar of 32. He was given D-50 en route. Blood sugar did return at 71; within 10 minutes it dropped to 58. He was given D 5 normal saline while blood sugars were trended; they have remained in the 190-250 range. This is on sliding scale insulin with no long-acting insulin. His creatinine did bump up to 1.4 on b.i.d. Lasix. Once Lasix was stopped, his creatinine is back down to 1.1. We did continue his home medications. His blood pressures were in the 190-200/80s range. Once we started his Coreg and Prinivil, blood pressures did come down. DISCHARGE PHYSICAL EXAM: Vital signs: Blood pressure 170/70 with a heart rate of 64, respirations are 18, temperature is 97.8 degrees with oxygen saturations of 97% to 100% on 2 L nasal cannula. Cardiovascular: Regular rate and rhythm. S1 and S2 appreciated. Pulmonary: Breath sounds are distant due to body habitus, but clear. No increased work of breathing noted. Gastrointestinal: Abdomen is soft, large, nondistended with bowel sounds in all 4 quadrants. Extremities: No clubbing, cyanosis. He does have 1+ lower extremity edema pretibial down to his foot. This has improved since admission. His calves are nontender. DISCHARGE MEDICATIONS: 1. Aspirin 325 daily. 2. Albuterol nebs q. 4 hours p.r.n. 3. Coreg 12.5 p.o. b.i.d. 4. Prinivil 20 daily. 5. Klor-Con 10 one tab daily. 6. Demadex 20 mg three times a day. 7. Lipitor 40 mg at bedtime. 8. Prednisone taper 40 mg twice a day for 3 days, then 40 mg once a day for 3 days, 30 mg once a day for 3 days, 20 mg once a day for 3 days, 10 mg once a day for 3 days, then discontinue. 9. Novolin-R per sliding scale as per his PCP. 10. Toujeo SoloSTAR 5 units subcutaneous at bedtime. 11. The patient was on 80 units of Toujeo insulin every night, and blood sugars have been in the mid 200s without long-acting insulin. The patient is on steroids at this time. Will decrease this insulin to 5 units at night. He can trend his blood sugars and, once the steroid taper is complete, meet with his primary care physician to decide on any change in doses. DISCHARGE ACTIVITY: As tolerated. FOLLOW UP: 1. He needs to see his primary care physician within a week. 2. He is being discharged home in stable condition with family members. TIME SPENT: This is a greater than 30 minute discharge. Dictated by DELTA Spann for Rusty Reddy MD cc: DELTA Spann MD MTDD
--- NOTE | 2016-11-30 18:26 | PROVIDER DOCUMENTATION ---
This chart was entered by Neris Palencia Scribe, acting as scribe for Andres Long MD. HPI-General Adult - General Chief Complaint: Low Blood Sugar Stated Complaint: unresponsive on scene, blood sugar issues Time Seen by Provider: 11/20/16 19:36 Source: patient Allergies/Adverse Reactions: Patient Allergies Allergy/AdvReac Type Severity Reaction Status Date / Time No Known Allergies Allergy Verified 10/25/16 12:57 Home Medications: Home Medication List Medication Instructions Recorded Confirmed Last Taken Type Carvedilol [Coreg] 12.5 mg PO BID 01/11/16 11/21/16 11/19/16 History LISINOpril [Prinivil] 20 mg PO DAILY 01/11/16 11/21/16 11/19/16 History Potassium Chloride [Klor-Con 10] 1 tab PO DAILY 01/11/16 11/21/16 10/02/16 09: 00 History 1 TAB Albuterol [Albuterol Neb] 2.5 mg INH Q4H PRN PRN #30 neb 09/16/16 11/21/1611/19 Rx ATORVAstatin [Lipitor] 1 tab PO QHS 11/20/16 11/20/16 11/19/16 History Torsemide [Demadex] 1 tab PO TID 11/20/16 11/20/16 11/20/16 History Aspirin 325 mg PO DAILY 11/21/16 11/21/16 Unknown History Fluconazole [Diflucan] 100 mg PO DAILY #10 tablet 11/22/16 Unknown Rx Insulin Regular, Human [Novolin R] See Protocol SUBQ AC + HS #1 vial 11/22/16 Unknown Rx Ipratropium 0.03% Nasal Booker 1 spray NICOLA DAILY bottle 11/22/16 Unknown Rx [Atrovent 0.03% Nasal Booker] Prednisone See Taper PO DIRECTED #54 tablet 11/22/16 Unknown Rx Insulin Glargine,Hum.rec.anlog 5 unit SQ HS #1 insuln.pen 11/25/16 Unknown Rx [Toujeo Solostar] - History of Present Illness -Gen Adult Nature of Presenting Problems: 61 Y/O M presents to ER by EMS with the complain of low blood sugar [employer]. pt is diabetic. EMS was called at pt home and that time pt had BS of 32. pt states that he takes insulin shot at home. pt state that he had not eaten anything form breakfast and after lunch he took his insulin shot. pt denies any other symptom. Onset/Duration: reports: just prior to arrival - Diabetes Related Context Context: reports: low blood sugar Review of Systems - Adult - REVIEW OF SYSTEMS - ADULT Constitutional: reports: no symptoms reported Eyes: reports: no symptoms reported Ears, Nose, Mouth & Throat: reports: no symptoms reported Cardiovascular: reports: no symptoms reported Respiratory: reports: no symptoms reported Gastrointestinal: reports: no symptoms reported Genitourinary: reports: no symptoms reported Musculoskeletal: reports: no symptoms reported Integumentary: reports: no symptoms reported Neurological: reports: no symptoms reported Psychiatric: reports: no symptoms reported Endocrine: reports: other (low blood sugar). denies: excessive sweating, increased thirst Hematologic/Lymphatic: reports: no symptoms reported Allergic/Immunologic: reports: no symptoms reported All Other Systems: Reviewed and Negative Past History - Adult - PAST MEDICAL HISTORY-ADULT Review of Records: reports: Old Records Reviewed, Nursing Assessment Review Major Childhood Illnesses: reports: denies history Cardiovascular: reports: CAD, CHF, HTN, hyperlipidemia, CT Respiratory: reports: asthma, COPD Gastrointestinal: reports: GERD Obstetrical/Gynecological: reports: denies history Genitourinary: reports: denies history Musculoskeletal: reports: chronic pain Neurological: reports: denies history Psychiatric: reports: anxiety Endocrine/Immune: reports: Diabetes Other Conditions: reports: denies history - PRIOR SURGERIES/PROCEDURES Surgical/Procedure History: reports: cardiac stent - PRIOR HOSPITALIZATIONS Prior Hospitalizations: reports: for other non-related - IMMUNIZATION STATUS Childhood Immunizations: See Nurse Assessment Flu Vaccine: See Nurse Assessment - FAMILY HISTORY Family History: reviewed, not pertinent Physical Exam-General - PHYSICAL EXAM-ADULT Initial Vital Signs Reviewed: Yes - CONSTITUTIONAL General Appearance: appears well, alert - EYES Eyes: PERRL/EOMI, pink conjunctivae - NECK Neck: non-tender, full range of motion, supple - RESPIRATORY Respiratory: lungs clear, wheezing - CARDIOVASCULAR Cardiovascular: normal peripheral pulses, regular rate, rhythm - MUSCULOSKELETAL Back Exam: no CVA tenderness, no vertebral tenderness - SKIN Integumentary: normal color, normal turgor, warm/dry - NEUROLOGIC Neurologic: grossly normal, no motor/sensory deficits - PSYCHIATRIC Psych/Mental Status: normal mood/affect, normal thought content, normal thought process, oriented x 3 Progress - PLAN OF CARE/RESULTS Progress/Plan/Lab Results: Vital Signs - 8 hr 11/20/16 19:29 Pulse Rate 71 Respiratory Rate 20 Blood Pressure 213/126 O2 Sat by Pulse Oximetry 97 Orders Category Date Time Status FSBS/Accucheck Result NOW Care 11/20/16 19:37 Active IV [Saline Loc] NOW Care 11/20/16 19:37 Active CBC WITH ELECTRONIC DIFF [HEME] Stat Lab 11/20/16 19:51 Ordered CMP [COMPREHENSIVE METABOLIC PANEL] [CHEM] Stat Lab 11/20/16 19:51 Ordered Result Diagrams: 11/25/16 06:25 11/25/16 06:25 - XRAY 1 XRAY Study: Chest Impression: See EMR Report XRAY Interpretation: development of small L pleural effusion and L basilair atelectasis - CONSULTS/PCP/HOSPITALIST Notification #1 *Consult/PCP/Hospitalist*: Dr. Romero Time Discussed: 22:03 Reason/Comments: discussed about patient Departure - Departure Date of Disposition Decision: 11/25/16 Time of Disposition Decision: 13:15 DIAGNOSIS: Hypoglycemia associated with diabetes Disposition: ADMITTED INPATIENT 09 Certified Medical Emergency: Emergent Condition: Fair - Critical Care Note This patient required my direct & personal management of CC.: No This chart was documented by the indicated scribe, (Neris Palencia Scribe) and accurately reflects the services I performed and decisions made by me, Andres Long MD, as attested by the provider's signature.
== END 2016-11-25 13:10 | disposition home health service (06) ==
LOC: P.ED 19:27 → P.MEDSURG 22:53 → SUATTDRO 22:53
PROVIDERS: ATTEND Family Medicine

== ENCOUNTER 2018-06-12 13:45 | Inpatient (IN) ==
[2018-06-12] MEDS ORDERED: LASIX IV ONE (14:15)
[2018-06-12 14:54] LABS: BASO# 0.05 X1000 (0.0-0.2); BASO% 0.6 % (0.0-0.8); EOS# 0.31 X1000 (0.0-0.7); EOS% 3.4 % (0.0-10.0); HEMATOCRIT 27.8 % (42.0-52.0); HEMOGLOBIN 8.5 g/dL (14.0-18.0); IMM GRAN# 0.02 X1000 (0.0-0.04); IMM GRAN% 0.2 % (0.0-0.5); LYMPH# 1.12 X1000 (1.2-3.4); LYMPH% 12.5 % (20.5-51.1); MCH 26.3 PG (27-31); MCHC 30.6 g/dL (33-37); MCV 86.1 FL (81-99); MONO# 0.63 X1000 (0.11-0.59); MPV 11.4 FL (7.4-10.4); NEUT# 6.86 X1000 (1.4-6.5); NEUT% 76.3 % (42.2-75.2); PLT 205 X1000 (130-400); RBC 3.23 XMIL (4.7-6.1); RDW 15.8 % (11.5-14.5); WBC 8.99 X1000 (4.8-10.8)
[2018-06-12 15:15] LABS: ALBUMIN 2.7 g/dL (3.5-5.0); CALCIUM 8.6 mg/dL (8.8-10.2); CREATININE 1.8 mg/dL (0.7-1.2); POTASSIUM 4.4 mmol/L (3.5-5.1); TOTAL BILIRUBIN 0.2 mg/dL (0.20-1.00)
--- NOTE | 2018-06-12 15:41 | Diag Imaging Result Doc PS360 ---
EXAM: CHEST-PORTABLE HISTORY: shortness of breath TECHNIQUE: Single view of the chest was performed portably. COMPARISON: 06/09/2018 FINDINGS: There is cardiomegaly and pulmonary vascular congestion. Left lower lobe airspace disease and left effusion is slightly increased when compared with prior study. Slight increase in airspace disease medial right lung base. IMPRESSION: Increasing left lower lobe airspace disease and left effusion. Slight increase in airspace disease right medial lung base. Electronically signed by Nimisha Orellana 06/12/2018 3:39 PM
--- NOTE | 2018-06-12 17:33 | PROVIDER DOCUMENTATION ---
This chart was entered by Aislinn Agarwal Scribe, acting as scribe for Montserrat Ivy MD. HPI-Respiratory General - General Chief Complaint: Return/Recheck Stated Complaint: SOB Time Seen by Provider: 06/12/18 14:05 Source: patient Allergies/Adverse Reactions: Patient Allergies Allergy/AdvReac Type Severity Reaction Status Date / Time No Known Allergies Allergy Verified 06/09/18 10:19 Home Medications: Home Medication List Medication Instructions Recorded Confirmed Last Taken Type Potassium Chloride [Klor-Con 10] 10 meq PO DAILY 01/11/16 05/28/18 09/27/17 07: 00 History Aspirin 325 mg PO DAILY 11/21/16 06/12/18 12/09/17 08:00 History Metformin E.r. [Glucophage Xr] 1,000 mg PO BID CC 04/14/17 05/28/18 09/27/17 19: 00 History Hydralazine [Apresoline] 100 mg PO TID@0900,1500,2100 05/27/17 06/12/18 07:30 History ATORVAstatin [Lipitor] 40 mg PO QHS 11/27/17 06/12/18 12/08/17 20:00 History Irbesartan 300 mg PO DAILY 11/27/17 05/28/18 Unknown History Umeclidinium Brm/Vilanterol Tr 1 puff IH DAILY 11/27/17 05/28/18 Unknown History [Anoro Ellipta 62.5-25 Mcg INH] Isosorbide Dinitrate [Isordil] 80 mg PO TID@0900,1500,2100 02/02/18 05/28/18 Unknown History Albuterol 2.5MG/Ipratrop 0.5MG 3 ml INH TID 05/28/18 05/28/18 Unknown History [Duoneb (A & A)] Clonidine [Catapres] 0.2 mg PO BID 05/28/18 06/12/18 Unknown History Ezetimibe [Zetia] 10 mg PO DAILY 05/28/18 05/28/18 Unknown History Furosemide [Lasix] 40 mg PO BID 05/28/18 05/28/18 Unknown History Insulin Glargine,Hum.rec.anlog 60 unit SQ QHS 05/28/18 05/28/18 Unknown History [Pam Jorge Solostar] Ipratropium/Albuterol Sulfate 3 ml IH Q4HR 05/28/18 05/28/18 Unknown History [Iprat-Albut 0.5-3(2.5) mg/3 ml] CefUROXIME [Ceftin] 250 mg PO Q12HR #14 tab 05/30/18 06/12/18 Unknown Rx Diltiazem C.d. [Cardizem Cd] 240 mg PO DAILY #30 cap 05/30/18 06/12/18 Unknown Rx Methylprednisolone [Medrol Dosepak] 4 mg PO DIRECTED #1 pkg 05/30/18 Unknown Rx Albuterol 2.5MG/Ipratrop 0.5MG 3 ml INH Q4H PRN PRN #60 neb 06/09/18 06/12/18 Unknown Rx [Duoneb] Metolazone [Zaroxolyn] 2.5 mg PO QAM #7 tab 06/09/18 Unknown Rx - History of Present Illness-Resp Nature of Presenting Problem: Patient is a 63 year old male who presents to the ED with shortness of breath and cough. Patient states symptoms stared yesterday and has worsened. Patient states was seen in ED 3 days ago for similar symptoms. Patient denies chest pain. Quality of Pain: reports: tightness Severity in ED: reports: mild Onset/Duration: reports: 24 hours ago Timing: reports: still present, getting worse Cough Quality/Degree: reports: mild Current Respiratory Medication Therapy: Initiated see nurses note Modifying Factors: improves with: exertion (worsen) Associated Symptoms: reports: cough, shortness of breath Similar Symptoms Previously?: Yes Recently seen or treated by another doctor?: Yes Review of Systems - Adult - REVIEW OF SYSTEMS - ADULT Constitutional: reports: no symptoms reported Eyes: reports: no symptoms reported Ears, Nose, Mouth & Throat: reports: no symptoms reported Cardiovascular: reports: no symptoms reported Respiratory: reports: cough, shortness of breath. denies: wheezing Gastrointestinal: reports: no symptoms reported Genitourinary: reports: no symptoms reported Musculoskeletal: reports: no symptoms reported Integumentary: reports: no symptoms reported Neurological: reports: no symptoms reported Psychiatric: reports: no symptoms reported Endocrine: reports: no symptoms reported Hematologic/Lymphatic: reports: no symptoms reported Allergic/Immunologic: reports: no symptoms reported All Other Systems: Reviewed and Negative Past History - Adult - PAST MEDICAL HISTORY-ADULT Review of Records: reports: Old Records Reviewed, Nursing Assessment Review, Medications Reviewed, Social history reviewed & non-contributory. Major Childhood Illnesses: reports: denies history Cardiovascular: reports: CAD, CHF, HTN, hyperlipidemia, [place] Respiratory: reports: asthma, COPD Gastrointestinal: reports: GERD, pancreatitis Obstetrical/Gynecological: reports: denies history Genitourinary: reports: denies history Musculoskeletal: reports: chronic pain Neurological: reports: denies history Psychiatric: reports: anxiety Endocrine/Immune: reports: Diabetes Other Conditions: reports: denies history - PRIOR SURGERIES/PROCEDURES Surgical/Procedure History: reports: cardiac stent - PRIOR HOSPITALIZATIONS Prior Hospitalizations: reports: for other non-related - IMMUNIZATION STATUS Childhood Immunizations: See Nurse Assessment Flu Vaccine: See Nurse Assessment - FAMILY HISTORY Family History: reviewed, not pertinent - SOCIAL HISTORY Smoking: cigarettes (former) Substance Use: denies Living Situation: family Physical Exam-General - PHYSICAL EXAM-ADULT Initial Vital Signs Reviewed: Yes - CONSTITUTIONAL General Appearance: alert, mild distress - HEAD, EARS, NOSE, MOUTH & THROAT HENMT: normal ENT inspection - NECK Neck: normal inspection - RESPIRATORY Respiratory: chest non-tender, wheezing (bilateral), increased rate - CARDIOVASCULAR Cardiovascular: normal peripheral pulses, regular rate, rhythm - GASTROINTESTINAL (ABDOMEN) Abdominal Exam: normal bowel sounds, non tender, soft - MUSCULOSKELETAL Back Exam: other (mild sacral edema) Extremity: non-tender, other (1 + pitting edema to bilateral lower extremities) - SKIN Integumentary: normal color, normal turgor, warm/dry - NEUROLOGIC Neurologic: grossly normal - PSYCHIATRIC Psych/Mental Status: normal mood/affect, oriented x 3 Progress - PLAN OF CARE/RESULTS Progress/Plan/Lab Results: Vital Signs - 8 hr 06/12/18 13:47 06/12/18 16:13 06/12/18 16:15 Temperature 98 F Pulse Rate 84 74 74 Respiratory Rate 18 20 16 Blood Pressure 111/66 179/77 159/99 O2 Sat by Pulse Oximetry 97 96 94 L Laboratory Results - last 24 hr 06/12/18 06/12/18 06/12/18 14:35 14:35 14:35 WBC RBC Hgb Hct MCV MCH MCHC RDW Std Deviation Plt Count MPV Immature Gran % (Auto) Neut % (Auto) Lymph % (Auto) [place] % (Auto) Eos % (Auto) Baso % (Auto) Immature Gran # (Auto) Neut # (Auto) Lymph # (Auto) [place] # (Auto) Eos # (Auto) Baso # (Auto) Sodium 143 Potassium 4.4 Chloride 103 Carbon Dioxide 29 Anion Gap 11 BUN 28 H Creatinine 1.8 H Estimated GFR/1.73 m2 38 BUN/Creatinine Ratio 16 Glucose 180 H Calculated Osmolality 295 Calcium 8.6 L Total Bilirubin 0.20 AST 18 ALT 15 Alkaline Phosphatase 91 Troponin T 0.102 H Hyx-Y-Pswhsrmrjgb Pept 1211 H Total Protein 5.0 L Albumin 2.7 L Globulin 2.0 Albumin/Globulin Ratio 1.0 06/12/18 14:35 WBC 8.99 RBC 3.23 L Hgb 8.5 L Hct 27.8 L MCV 86.1 MCH 26.3 L MCHC 30.6 L RDW Std Deviation 15.8 H Plt Count 205 MPV 11.4 H Immature Gran % (Auto) 0.2 Neut % (Auto) 76.3 H Lymph % (Auto) 12.5 L [place] % (Auto) 7.0 Eos % (Auto) 3.4 Baso % (Auto) 0.6 Immature Gran # (Auto) 0.02 Neut # (Auto) 6.86 H Lymph # (Auto) 1.12 L [place] # (Auto) 0.63 H Eos # (Auto) 0.31 Baso # (Auto) 0.05 Sodium Potassium Chloride Carbon Dioxide Anion Gap BUN Creatinine Estimated GFR/1.73 m2 BUN/Creatinine Ratio Glucose Calculated Osmolality Calcium Total Bilirubin AST ALT Alkaline Phosphatase Troponin T Hkz-P-Snmvrgysdty Pept Total Protein Albumin Globulin Albumin/Globulin Ratio Orders Category Date Time Status Admit - [facility] Routine AdmDCTranf 06/12/18 16:10 Active Neurological Check PRN Care 06/12/18 16:10 Active Saline Loc DIRECTED Care 06/12/18 16:10 Active Vital Signs Order ROUTINE Care 06/12/18 16:10 Active Z-Document. for Tele Applied ORDERED Care 06/12/18 16:15 Active CHEST-PORTABLE [RAD] Stat Exams 06/12/18 14:15 Completed CBC WITH DIFF [HEME] Stat Lab 06/12/18 14:35 Completed COMPREHENSIVE METABOLIC PANEL [CHEM] Stat Lab 06/12/18 14:35 Completed PRO B-NATRIURETIC PEPTIDE Stat Lab 06/12/18 14:35 Completed TROPONIN T Stat Lab 06/12/18 14:35 Completed Furosemide [Lasix] Med 06/12/18 14:15 Discontinued 80 mg IV NOW ONE Oxygen Device Routine Oth 06/12/18 16:15 Active Telemetry [OM.EQ] Routine Oth 06/12/18 16:10 Active Transfer/Admit Order [TRANSFER] Routine Transfer 06/12/18 16:09 Ordered Result Diagrams: 06/12/18 14:35 06/12/18 14:35 - XRAY 1 XRAY Study: Chest Impression: See EMR Report - CONSULTS/PCP/HOSPITALIST Notification #1 *Consult/PCP/Hospitalist*: Dr. Howell Time Discussed: 15:49 Reason/Comments: Dr. Ivy consulted with Dr. Howell about patient Consult Disposition: Will see in ED, Admit Departure - Departure Date of Disposition Decision: 06/12/18 Time of Disposition Decision: 15:49 DIAGNOSIS: Elevated troponin, COPD (chronic obstructive pulmonary disease), Nephrotic syndrome, COPD exacerbation, Edema Disposition: ADMITTED INPATIENT 09 Certified Medical Emergency: Emergent Condition: Stable - Critical Care Note This patient required my direct & personal management of CC.: No Attestation - Physician/ SHARIF Attestation The physician spent face to face time with patient:: Yes Advanced Practice Provider documentation review:: Supervising physician onsite and consulted in the evaluation and care of this patient. The physician did have a face to face encounter with the patient. This chart was documented by the indicated scribe, (Aislinn Agarwal Scribe) and accurately reflects the services I performed and decisions made by me, Montserrat Ivy MD, as attested by the provider's signature.
--- NOTE | 2018-06-12 19:18 | HISTORY AND PHYSICAL ---
PRIMARY CARE PHYSICIAN: Dr. Baird. CHIEF COMPLAINT: Shortness of breath and cough for the last few days that has progressively worsened. HISTORY OF PRESENTING ILLNESS: This is a 63-year-old male, well known to the hospitalist service presents to [facility] ER with complaints of worsening shortness of breath and a cough. Was apparently seen 3 days prior in the ED for similar symptoms daily and states that he continued to worsen. Workup in the emergency room showed O2 sat on room air of 97%. Laboratory data showed a BUN of 28, with a creatinine of 1.8. He has underlying chronic kidney disease stage 3B and this is actually an improvement from his creatinine on 05/30/2018 when he was 2.1. He does have an elevation in his troponin at 0.102. He denies any chest pain. This is most likely elevated due to him having chronic kidney disease. His chest x- ray showed increasing left lower lobe airspace disease. a left effusion, slight increase in airspace disease in the right medial lung base. So, he will be admitted to the medical unit for further evaluation and treatment. PAST MEDICAL HISTORY: COPD, CHF, chronic kidney disease stage 3B, hyperlipidemia, diabetes type 2, coronary artery disease, [place], hypertension, chronic reflux and chronic pain. PAST SURGICAL HISTORY: Heart stents in 2009. FAMILY HISTORY: Reviewed and noncontributory. SOCIAL HISTORY: Currently lives with family. Denies any tobacco use, stating he has been quit for 10 years. Denies any alcohol or illicit drug use. ALLERGIES: He has no known drug allergies. HOME MEDICATIONS: A current list will need to be obtained and restarted as appropriate after we review them. I will place an order for nursing to update and confirm home medications. LABORATORY DATA: Showed a white blood cell count of 8.99, hemoglobin 8.5, hematocrit 27.8, and this is around his baseline, with a platelet of 205,000. Sodium of 143, potassium 4.4, chloride 103, CO2 29, BUN of 28, creatinine 1.8, glucose 180, troponin 0.102, proBNP of 1211. A chest x-ray that showed increasing left lower lobe airspace disease and a left effusion, slight increase in airspace disease in the right medial lung base. REVIEW OF SYSTEMS: He denied any fever, chills, blurred vision, dizziness, chest pain. He had a mild nonproductive cough, shortness of breath. Denied any abdominal pain, constipation, diarrhea, burning or hurting with urination. PHYSICAL EXAMINATION: On arrival he had a temp of 98, pulse 84, respirations 18, blood pressure was 111/66, saturating 97% on room air. GENERAL: This is a 63-year-old male who is sitting on the side of the bed and answers questions appropriately. HEENT: Normocephalic, atraumatic. Normal ENT inspection. Oropharynx and nares were clear. EYES: Pupils are equal, round and reactive to light and accommodation. Extraocular movements are intact. NECK: Normal inspection. Normal range of motion. LUNGS: With wheezing throughout entire posterior lung vanessa. Equal lung expansion. Chest wall movement noted. HEART: With regular rate and rhythm. No murmurs, rubs or gallops. ABDOMEN: Soft, nontender, nondistended. Bowel sounds are present x 4 quadrants. MUSCULOSKELETAL: He has 5/5 strength x 4 extremities. NEUROLOGIC: The cranial nerves 2-12 are grossly intact. ASSESSMENT: 1. An acute chronic obstructive pulmonary disease exacerbation. 2. Elevated troponin without chest pain. 3. Chronic kidney disease stage 3B. 4. Diabetes type 2. PLAN: He is being admitted to the medical unit at [facility]. Placed on telemetry, O2 per protocol, diabetic diet. Again, we will have nursing update and confirm home medications, and then we will restart those as appropriate. Place on incentive spirometry. We will do serial cardiac enzymes. Place on Solu-Medrol 80 mg IV q.8 and wean as he improves. Placed on Rocephin 1 gram IV q.24 and azithromycin 500 IV q.24. Will recheck a CBC, BMP in the a.m. Further orders after seen by attending. Dictated by DELTA Johnson for Jc Howell MD cc: DELTA Johnson MD Thomas E. Lockard,
[2018-06-12] MEDS ORDERED: DUONEB (A & A) INH PRN (19:46)
[2018-06-12] MEDS ORDERED: TYLENOL PO PRN (23:23)
[2018-06-12] MEDS ORDERED: ZOFRAN IV PRN (23:23)
--- NOTE | 2018-06-13 00:03 | HISTORY AND PHYSICAL ---
HISTORY AND PHYSICAL ADDENDUM: The patient came in with shortness of breath. He is well-known to our service. He has COPD, diabetes, CAD, CHF, nephrotic syndrome. He came in with worsening shortness of breath. His chest x-ray unfortunately showed deterioration. There is left lower lobe airspace disease, pulmonary vascular congestion, effusion. The patient on exam has end- expiratory wheezes. He was admitted for treatment. 1. Congestive heart failure. We will continue diuresis. 2. Pneumonia. Since this is technically a hospital-acquired pneumonia, I am going to treat him with cefepime, and we will see how he does from that standpoint. I agree with azithromycin just for atypical coverage. 3. Chronic obstructive pulmonary disease exacerbation. We will continue steroids. We will have to be careful because he is diabetic. This is a [id number]-[facility] encounter note with Noreen Meyers. cc: Jc Howell MD
[2018-06-13] MEDS: DUONEB (A & A) INH SCH ×8 (00:22→23:11)
[2018-06-13 00:45] LABS: CK INDEX 1.5 (0.0-2.5); CK-MB 5.48 ng/mL (0.0-5.0)
[2018-06-13] MEDS: SOLU-MEDROL IV SCH ×4 (00:46→23:13)
[2018-06-13] MEDS: HUMULIN N INSULIN (PARKWAY) SUBQ SCH ×5 (00:46→21:37)
[2018-06-13] MEDS: MAXIPIME 1 GM in NS 50 ML IV SCH ×3 (00:46→23:14)
[2018-06-13] MEDS: ZITHROMAX 500 MG/NS 500 MG/250 ML IVPB IV SCH (01:19)
[2018-06-13 07:49] LABS: CALCIUM 8.8 mg/dL (8.8-10.2); CREATININE 1.8 mg/dL (0.7-1.2); POTASSIUM 4.6 mmol/L (3.5-5.1)
[2018-06-13 07:55] LABS: BASO# 0.02 X1000 (0.0-0.2); BASO% 0.2 % (0.0-0.8); EOS# 0.02 X1000 (0.0-0.7); EOS% 0.2 % (0.0-10.0); HEMATOCRIT 30.8 % (42.0-52.0); HEMOGLOBIN 9.6 g/dL (14.0-18.0); IMM GRAN# 0.04 X1000 (0.0-0.04); IMM GRAN% 0.4 % (0.0-0.5); LYMPH# 0.52 X1000 (1.2-3.4); LYMPH% 4.9 % (20.5-51.1); MCH 26.5 PG (27-31); MCHC 31.2 g/dL (33-37); MCV 85.1 FL (81-99); MONO% 0.9 % (1.7-9.3); MPV 10.8 FL (7.4-10.4); NEUT# 10.01 X1000 (1.4-6.5); NEUT% 93.4 % (42.2-75.2); PLT 230 X1000 (130-400); RBC 3.62 XMIL (4.7-6.1); RDW 15.3 % (11.5-14.5); WBC 10.71 X1000 (4.8-10.8)
[2018-06-13 08:04] LABS: ANISOCYTOSIS 2+; LYMPHS 3 % (21-51); MONO 1 % (1-9); SEGS 96 % (42-75)
[2018-06-13 08:28] LABS: CK INDEX 1.7 (0.0-2.5); CK-MB 6.31 ng/mL (0.0-5.0)
--- NOTE | 2018-06-13 15:20 | CONSULTATION ---
DATE OF CONSULTATION: 06/13/2018 SUMMARY: 1. Slightly elevated troponin, probably related to stress of noncardiac illness and renal dysfunction. Doubt acute coronary syndrome. 2. Chronic obstructive pulmonary disease exacerbation with left lower lobe pneumonia. 3. Atherosclerotic coronary disease. The patient is status post previous inferior myocardial infarction in 2009, treated with angioplasty/stenting of the right coronary. Left circumflex coronary and left anterior descending coronary at that time reported normal. The patient has not had recurrence of angina. 4. Chronic kidney disease with GFR in the 30s to 40s range. 5. Diabetes mellitus. 6. Hypertension. 7. Hyperlipidemia. 8. Obesity. RECOMMENDATIONS: 1. Continue medical management of patient's coronary atherosclerosis. Suggest adding low-dose metoprolol. 2. He does seem to have a component of cor pulmonale related to his COPD. Daily Lasix appropriate. 3. Regular cardiology followup needed on an outpatient basis. The patient indicates that he has an appointment with Dr. Tucker in the near future. Reassessment of coronary disease may be considered at that time. HISTORY: This 63-year-old white male with past history of COPD, chronic kidney disease, atherosclerotic coronary disease with previous inferior myocardial infarction and right coronary artery stent, obesity, hypertension, hyperlipidemia, and diabetes mellitus was admitted to the emergency room with shortness of breath and cough productive of yellow to green sputum. He was found to have left lower lobe pneumonia. Troponin was slightly elevated, prompting Cardiology consultation. He reports no recurrence of angina since his previous coronary angioplasty/stent procedure in 2009. He has been having problems with worsening shortness of breath of late, as well as some peripheral swelling. He has had cough productive of yellow to green sputum. He is not aware of any fever. He actually was just here in the hospital 2-1/2 weeks ago with presentation consistent with COPD exacerbation. Interestingly, his troponins were slightly elevated at that time as well. Echocardiography performed earlier this month indicated left ventricular ejection fraction of 55 to 60 percent with a focal area of akinesis in the basal inferior wall. There was mild tricuspid regurgitation and the estimated systolic PA pressure was 32 mmHg. Right ventricular function appeared to be normal. PAST MEDICAL HISTORY: 1. Chronic obstructive pulmonary disease. 2. Atherosclerotic coronary disease. The patient is status post previous inferior myocardial infarction in 2009. He subsequent;y had angioplasty/stenting of the right coronary artery. Left circumflex coronary and left anterior descending coronary reported normal at that time. 3. Chronic kidney disease. 4. Diabetes mellitus. 5. Hypertension. 6. Hyperlipidemia. 7. Obesity. 8. Nephrotic syndrome. 9. Obstructive sleep apnea. PAST SURGICAL HISTORY: None. ALLERGIES: He has no known drug allergies. MEDICATIONS PRIOR TO ADMISSION: As listed. 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 He is . He quit smoking 8 years ago and previously smoked 2 packs of cigarettes per day. He does not use alcohol. FAMILY HISTORY: Negative for premature coronary disease. REVIEW OF SYSTEMS: Pulmonary: Noteworthy for dyspnea and cough productive of yellow to green sputum. Gastrointestinal: Negative. Constitutional: Negative. Remainder of review of systems negative/noncontributory with 14 total systems reviewed. PHYSICAL EXAMINATION: General: This is an obese, older white male in no distress. Vital Signs: Blood pressure 177/74, heart rate 71 and regular, oxygen saturation 94% on nasal cannula oxygen at 2 L/minute. HEENT: Extraocular movements appear intact. Mucous membranes are moist. Neck: Supple without jugular venous distention and no carotid bruits. Chest: Auscultation of the chest reveals diminished breath sounds diffusely. Cardiac: Exam reveals a regular rate and rhythm without appreciable murmur or gallop. Abdomen: Soft, nontender. Bowel sounds are normal. Extremities: Demonstrate mild ankle edema bilaterally. Neurologic: Exam reveals him to be alert and fully oriented. Speech is fluent. He moves all 4 extremities equally well. Skin: Warm and dry. Psychiatric: Exam reveals his mood to be appropriate. PERTINENT DATA: Twelve-lead EKG obtained on admission demonstrates sinus rhythm with first-degree AV block. LABORATORY DATA: White blood cell count 10.71, hematocrit 30.8, hemoglobin 9.6, platelet count 230,000. Sodium 139, potassium 4.6, chloride 97, carbon dioxide 29, BUN 31, creatinine 1.8, glucose 196. CPK 368. Initial troponin T 0.083, followup troponin T 0.117, and third troponin T 0.095. ProB-natriuretic peptide level 1282. Albumin 2.7. cc: Jhonny Aguillon MD
[2018-06-13 16:42] LABS: CK INDEX 1.9 (0.0-2.5); CK-MB 7.38 ng/mL (0.0-5.0)
--- NOTE | 2018-06-13 20:14 | PROGRESS NOTE ---
DATE: 06/13/2018 SUBJECTIVE: He is still having some shortness of breath, productive cough, wheezing. OBJECTIVE: Vital signs: Blood pressure 187/70, heart rate 73, respiratory 16, temperature was 97.6 degrees, 98% on 2 L. Cardiovascular: Regular rate and rhythm. Pulmonary: Bilateral breath sounds clear to auscultation. Gastrointestinal: Soft, nontender, nondistended. Bowel sounds are positive. DIAGNOSTIC DATA: White count 10, hemoglobin 9, hematocrit 30, platelets 230,000. BUN 31, creatinine 1.8, glucose of 332. His next troponin is 0.071. PROBLEM LIST: 1. Congestive heart failure exacerbation, mild. We will continue diuresis. Probably repeat his chest x-ray tomorrow. He had one done yesterday. 2. Pneumonia. He is on empiric therapy with cefepime and azithromycin. 3. Acute chronic obstructive pulmonary disease (COPD) exacerbation. He is on breathing treatments, which we will continue, and steroids. I am not going to wean further. 4. Diabetes. He has not been on his regular medications. That probably explains some degree of his hyperglycemia. I will wean steroids as soon as we can. He is on glargine insulin and metformin. DISPOSITION: He will probably need another day or 2 here until he stabilizes. We will see how things go. cc: Jc Howell MD
[2018-06-13] MEDS: ISORDIL PO SCH (21:36)
[2018-06-13] MEDS: LIPITOR PO SCH (21:36)
[2018-06-13] MEDS: CATAPRES PO SCH (21:36)
[2018-06-13] MEDS: TOUJEO SOLOSTAR SUBQ SCH (21:36)
[2018-06-13] MEDS: APRESOLINE PO SCH (21:36)
[2018-06-14] MEDS: ZITHROMAX 500 MG/NS 500 MG/250 ML IVPB IV SCH (01:20)
[2018-06-14] MEDS: DUONEB (A & A) INH SCH ×6 (03:19→23:53)
[2018-06-14] MEDS: HUMULIN N INSULIN (PARKWAY) SUBQ SCH ×3 (06:23→22:00)
[2018-06-14 07:53] LABS: HEMATOCRIT 26.2 % (42.0-52.0); HEMOGLOBIN 8.2 g/dL (14.0-18.0); IMM GRAN# 0.01 X1000 (0.0-0.04); IMM GRAN% 0.2 % (0.0-0.5); LYMPH# 0.38 X1000 (1.2-3.4); LYMPH% 6.7 % (20.5-51.1); MCH 26.4 PG (27-31); MCHC 31.3 g/dL (33-37); MCV 84.2 FL (81-99); MONO# 0.21 X1000 (0.11-0.59); MONO% 3.7 % (1.7-9.3); MPV 11.5 FL (7.4-10.4); NEUT# 5.07 X1000 (1.4-6.5); NEUT% 89.4 % (42.2-75.2); PLT 190 X1000 (130-400); RBC 3.11 XMIL (4.7-6.1); RDW 15.1 % (11.5-14.5); WBC 5.67 X1000 (4.8-10.8)
[2018-06-14] MEDS: ANORO ELLIPTA 62.5-25 MCG INH INH SCH (07:54)
[2018-06-14 07:55] LABS: HEMOGLOBIN A1C 5.9 % (4.8-6.0)
[2018-06-14 07:57] LABS: CALCIUM 8.2 mg/dL (8.8-10.2); CREATININE 2.1 mg/dL (0.7-1.2); POTASSIUM 4.1 mmol/L (3.5-5.1)
--- NOTE | 2018-06-14 08:20 | Diag Imaging Result Doc PS360 ---
EXAM: CHEST-PORTABLE HISTORY: dyspnea TECHNIQUE: Single view of the chest was performed portably. COMPARISON: 06/12/2018 FINDINGS: There is cardiomegaly. Examination is technically suboptimal due to portable technique and body habitus with suboptimal visualization of the lung bases. Lung volumes appear reduced. Suspect persistent left effusion and airspace disease. Recommend follow-up with PA and lateral the patient is able. IMPRESSION: Suboptimal portable technique. Reduced lung volumes. Suspect persistent left lower lobe airspace disease and effusion. Recommend follow-up with PA and lateral patient is able. Electronically signed by Nimisha Orellana 06/14/2018 8:19 AM
[2018-06-14 09:22] LABS: LYMPHS 5 % (21-51); MONO 3 % (1-9); SEGS 92 % (42-75)
[2018-06-14] MEDS: GLUCOPHAGE XR PO SCH ×2 (10:58→18:51)
[2018-06-14] MEDS: ZAROXOLYN PO SCH (10:58)
[2018-06-14] MEDS: ISORDIL PO SCH ×3 (10:58→21:27)
[2018-06-14] MEDS: CATAPRES PO SCH ×2 (10:58→21:28)
[2018-06-14] MEDS: AVAPRO PO SCH (10:58)
[2018-06-14] MEDS: ASPIRIN PO SCH (10:59)
[2018-06-14] MEDS: ZETIA PO SCH (10:59)
[2018-06-14] MEDS: CARDIZEM CD PO SCH (10:59)
[2018-06-14] MEDS: APRESOLINE PO SCH ×3 (10:59→21:27)
[2018-06-14] MEDS: SOLU-MEDROL IV SCH ×3 (11:00→19:49)
[2018-06-14] MEDS: MAXIPIME 1 GM in NS 50 ML IV SCH ×2 (18:52→23:04)
--- NOTE | 2018-06-14 19:28 | PROGRESS NOTE ---
DATE: 06/14/2018 SUBJECTIVE: Patient has no focal complaints. OBJECTIVE: Vital Signs: Blood pressure is 159/59, heart rate of 70, respiratory rate of 20, temperature 97.6, 100% on 2 L. Cardiovascular: Regular rate and rhythm. Pulmonary: Bilateral breath sounds. Clear to auscultation. GI: Was soft, nontender, nondistended. Bowel sounds are positive. EXTREMITIES: He still has 1+ pitting edema. LABS: White count 5, hemoglobin and hematocrit 8 and 26, platelets 190. BUN and creatinine are 42 and 2.1. Blood sugars still very high 405. His A1c though was only 5.9. PROBLEM LIST: 1. Mild congestive heart failure exacerbation. We will continue treatment he is on low-dose metoprolol. He is on Lasix. 2. Chronic obstructive pulmonary disease exacerbation. Will continue breathing treatments, steroids, antibiotics and follow. 3. Pneumonia. Looks a bit worse on x-ray today. He is on cefepime and azithromycin. We will continue to monitor. I do think we need to work on some pulmonary toilet. Spirometry and ambulation if possible. 4. Diabetes is not completely under control, granted he is on steroids with active infection, so we may need to adjust his medicines accordingly. DISPOSITION: Pending his clinical status. We will continue to follow. cc: Jc Howell MD
[2018-06-14] MEDS ORDERED: HUMULIN R (PARKWAY) SUBQ SCH (21:00)
[2018-06-14] MEDS: LIPITOR PO SCH (21:27)
[2018-06-14] MEDS: HUMULIN R (PARKWAY) SUBQ SCH (22:01)
[2018-06-14] MEDS: TOUJEO SOLOSTAR SUBQ SCH (22:01)
[2018-06-15] MEDS: ZITHROMAX 500 MG/NS 500 MG/250 ML IVPB IV SCH (01:07)
[2018-06-15] MEDS: SOLU-MEDROL IV SCH ×2 (03:13→13:04)
[2018-06-15] MEDS: DUONEB (A & A) INH SCH ×6 (03:34→22:30)
[2018-06-15] MEDS: HUMULIN R (PARKWAY) SUBQ SCH ×4 (06:23→20:43)
[2018-06-15 07:27] LABS: HEMATOCRIT 26.1 % (42.0-52.0); HEMOGLOBIN 8.1 g/dL (14.0-18.0); IMM GRAN# 0.01 X1000 (0.0-0.04); IMM GRAN% 0.2 % (0.0-0.5); LYMPH# 0.35 X1000 (1.2-3.4); LYMPH% 5.6 % (20.5-51.1); MCH 26.5 PG (27-31); MCV 85.3 FL (81-99); MONO# 0.26 X1000 (0.11-0.59); MONO% 4.2 % (1.7-9.3); MPV 11.6 FL (7.4-10.4); NEUT# 5.58 X1000 (1.4-6.5); PLT 194 X1000 (130-400); RBC 3.06 XMIL (4.7-6.1); RDW 15.3 % (11.5-14.5)
[2018-06-15] MEDS: ANORO ELLIPTA 62.5-25 MCG INH INH SCH (07:27)
[2018-06-15 07:36] LABS: CALCIUM 8.3 mg/dL (8.8-10.2); CREATININE 2.2 mg/dL (0.7-1.2); POTASSIUM 4.2 mmol/L (3.5-5.1)
[2018-06-15 08:17] LABS: ANISOCYTOSIS 2+; LYMPHS 5 % (21-51); MONO 3 % (1-9); SEGS 92 % (42-75)
[2018-06-15] MEDS: ZAROXOLYN PO SCH (09:12)
[2018-06-15] MEDS: GLUCOPHAGE XR PO SCH ×2 (09:12→17:22)
[2018-06-15] MEDS: CARDIZEM CD PO SCH (09:12)
[2018-06-15] MEDS: AVAPRO PO SCH (09:15)
[2018-06-15] MEDS: APRESOLINE PO SCH ×3 (09:15→20:39)
[2018-06-15] MEDS: ZETIA PO SCH (09:16)
[2018-06-15] MEDS: ASPIRIN PO SCH (09:16)
[2018-06-15] MEDS: ISORDIL PO SCH ×3 (09:16→20:39)
[2018-06-15] MEDS: CATAPRES PO SCH ×2 (09:16→20:39)
[2018-06-15] MEDS: MAXIPIME 1 GM in NS 50 ML IV SCH ×2 (13:03→23:29)
[2018-06-15] MEDS: LASIX IV SCH (17:21)
--- NOTE | 2018-06-15 17:27 | PROGRESS NOTE ---
DATE: 06/15/2018 SUBJECTIVE: Patient has no major complaints. He feels like his swelling is worse though. OBJECTIVE: Vital signs: Blood pressure 168/66, heart rate 64, respiratory rate 20, temperature 97.4 degrees, 100% on nasal cannula. Cardiovascular: Regular rate and rhythm. Pulmonary: Bilateral breath sounds. Clear to auscultation with some persistent end-expiratory wheezing. GI: Soft, nontender, nondistended. Bowel sounds are positive. LABORATORY DATA: White count is 6, hemoglobin and hematocrit 8 and 26, platelets 194,000. Creatinine is 2.2 with his BUN up to 51. PROBLEM LIST: 1. Congestive heart failure. He is on Lasix which he is complaining his swelling is worse, which is probably not helping the situation here. But I am going to decrease his Solu-Medrol and we will continue diuresis for the time being. 2. Chronic obstructive pulmonary disease exacerbation. Continue nebulizer treatments, steroids, and follow closely. 3. Type 2 diabetes. We will continue insulin regimen and follow. 4. Pneumonia. He is on cefepime and azithromycin. We will continue pulmonary toilet and monitor. DISPOSITION: Pending improvement in clinical status. It may be another day or 2, will see. cc: Jc Howell MD
[2018-06-15] MEDS: TOUJEO SOLOSTAR SUBQ SCH (20:37)
[2018-06-15] MEDS: LIPITOR PO SCH (20:39)
[2018-06-16] MEDS: SOLU-MEDROL IV SCH ×2 (00:36→12:00)
[2018-06-16] MEDS: ZITHROMAX 500 MG/NS 500 MG/250 ML IVPB IV SCH (02:00)
[2018-06-16] MEDS: DUONEB (A & A) INH SCH ×6 (03:18→23:07)
[2018-06-16] MEDS: LASIX IV SCH ×2 (04:38→17:01)
[2018-06-16] MEDS: HUMULIN R (PARKWAY) SUBQ SCH ×4 (06:17→22:04)
[2018-06-16] MEDS: ANORO ELLIPTA 62.5-25 MCG INH INH SCH (07:46)
[2018-06-16 08:06] LABS: CALCIUM 8.1 mg/dL (8.8-10.2); CREATININE 2.3 mg/dL (0.7-1.2); POTASSIUM 4.2 mmol/L (3.5-5.1)
[2018-06-16 08:07] LABS: HEMATOCRIT 26.1 % (42.0-52.0); HEMOGLOBIN 8.1 g/dL (14.0-18.0); IMM GRAN# 0.03 X1000 (0.0-0.04); IMM GRAN% 0.5 % (0.0-0.5); LYMPH# 0.37 X1000 (1.2-3.4); LYMPH% 6.5 % (20.5-51.1); MCH 26.6 PG (27-31); MCV 85.6 FL (81-99); MONO# 0.28 X1000 (0.11-0.59); MONO% 4.9 % (1.7-9.3); MPV 11.7 FL (7.4-10.4); NEUT# 5.04 X1000 (1.4-6.5); NEUT% 88.1 % (42.2-75.2); PLT 193 X1000 (130-400); RBC 3.05 XMIL (4.7-6.1); RDW 15.2 % (11.5-14.5); WBC 5.72 X1000 (4.8-10.8)
[2018-06-16] MEDS: AVAPRO PO SCH (08:08)
[2018-06-16] MEDS: GLUCOPHAGE XR PO SCH ×2 (08:08→17:01)
[2018-06-16] MEDS: CARDIZEM CD PO SCH (08:08)
[2018-06-16] MEDS: APRESOLINE PO SCH ×3 (08:08→22:06)
[2018-06-16] MEDS: ASPIRIN PO SCH (08:09)
[2018-06-16] MEDS: ZAROXOLYN PO SCH (08:09)
[2018-06-16] MEDS: ISORDIL PO SCH ×3 (08:09→22:05)
[2018-06-16] MEDS: ZETIA PO SCH (08:09)
[2018-06-16] MEDS: CATAPRES PO SCH ×2 (08:09→22:06)
[2018-06-16 09:05] LABS: ANISOCYTOSIS 1+; LYMPHS 6 % (21-51); MONO 2 % (1-9); SEGS 92 % (42-75)
[2018-06-16] MEDS: MAXIPIME 1 GM in NS 50 ML IV SCH (12:00)
--- NOTE | 2018-06-16 21:39 | PROGRESS NOTE ---
DATE: 06/16/2018 SUBJECTIVE: Patient has no focal complaints. He is still having some swelling but it is a little bit better. OBJECTIVE: Blood pressure is 144/53, heart rate 58, respiratory rate 18, temperature 97.2 degrees, 96% on 2 L.Cardiovascular: Regular rate and rhythm. Pulmonary: Bilateral breath sounds. Clear to auscultation. GI: Soft, nontender, nondistended. Bowel sounds were positive. LABORATORY DATA: White count 5, hemoglobin and hematocrit 8 and 26, platelets 193,000. BUN and creatinine of 60 and 2.3. PROBLEM LIST: 1. CHF with exacerbation also in the setting of nephrotic syndrome. We will continue diuretics and follow closely. 2. Chronic obstructive pulmonary disease exacerbation. We will continue nebulizer treatments. I am going to wean steroids. 3. Diabetes is not completely controlled. We will continue to monitor although overall blood sugars have at least been below 200. 4. Pneumonia. He is on cefepime and azithromycin. We will continue to follow. DISPOSITION: Pending clinical status. Possible discharge in next couple of days. cc: Jc Howell MD
[2018-06-16] MEDS: TOUJEO SOLOSTAR SUBQ SCH (22:05)
[2018-06-16] MEDS: LIPITOR PO SCH (22:06)
[2018-06-16] MEDS: ZITHROMAX PO SCH (22:06)
[2018-06-17] MEDS: MAXIPIME 1 GM in NS 50 ML IV SCH ×2 (00:47→12:06)
[2018-06-17] MEDS: SOLU-MEDROL IV SCH ×2 (00:47→15:20)
[2018-06-17] MEDS: DUONEB (A & A) INH SCH ×6 (03:22→23:31)
[2018-06-17] MEDS: LASIX IV SCH ×2 (04:24→17:37)
[2018-06-17] MEDS: HUMULIN R (PARKWAY) SUBQ SCH ×4 (06:19→21:07)
[2018-06-17] MEDS: PROTONIX PO SCH (06:19)
[2018-06-17 06:52] LABS: CALCIUM 8.3 mg/dL (8.8-10.2); CREATININE 2.5 mg/dL (0.7-1.2); POTASSIUM 4.5 mmol/L (3.5-5.1)
[2018-06-17 06:56] LABS: HEMATOCRIT 28.1 % (42.0-52.0); HEMOGLOBIN 8.5 g/dL (14.0-18.0); IMM GRAN# 0.04 X1000 (0.0-0.04); IMM GRAN% 0.6 % (0.0-0.5); LYMPH# 0.44 X1000 (1.2-3.4); LYMPH% 6.3 % (20.5-51.1); MCH 25.6 PG (27-31); MCHC 30.2 g/dL (33-37); MCV 84.6 FL (81-99); MONO# 0.44 X1000 (0.11-0.59); MONO% 6.3 % (1.7-9.3); MPV 11.9 FL (7.4-10.4); NEUT# 6.08 X1000 (1.4-6.5); NEUT% 86.8 % (42.2-75.2); PLT 222 X1000 (130-400); RBC 3.32 XMIL (4.7-6.1); RDW 15.1 % (11.5-14.5)
[2018-06-17 07:12] LABS: LYMPHS 4 % (21-51); MONO 4 % (1-9); SEGS 92 % (42-75)
[2018-06-17 07:13] LABS: POIKILOCYTOSIS 1+
[2018-06-17 07:14] LABS: OVALOCYTES 1+
[2018-06-17] MEDS: ZETIA PO SCH (08:39)
[2018-06-17] MEDS: ISORDIL PO SCH ×3 (08:39→21:08)
[2018-06-17] MEDS: GLUCOPHAGE XR PO SCH ×2 (08:39→17:37)
[2018-06-17] MEDS: ASPIRIN PO SCH (08:40)
[2018-06-17] MEDS: ZAROXOLYN PO SCH (08:40)
[2018-06-17] MEDS: APRESOLINE PO SCH ×3 (08:40→21:08)
[2018-06-17] MEDS: CATAPRES PO SCH ×2 (08:40→21:09)
[2018-06-17] MEDS: AVAPRO PO SCH (08:40)
[2018-06-17] MEDS: CARDIZEM CD PO SCH (08:43)
--- NOTE | 2018-06-17 15:41 | Diag Imaging Result Doc PS360 ---
EXAM: US ABDOMEN-COMPLETE 06/17/2018 HISTORY: abdominal pain TECHNIQUE: Abdominal ultrasound COMMENT: The head and body the pancreas are unremarkable. The visualized portions of the aorta and inferior vena cava are within normal limits. There is very poor detail seen in portions of the liver due to the patient's body habitus. The kidneys are without evidence of hydronephrosis or mass. There is antegrade flow in the portal vein. The common bile duct measures less than 6 mm. The spleen is slightly enlarged measuring almost 15 cm in greatest dimension. The gallbladder is clear and nontender. There is a left pleural effusion. IMPRESSION: Left pleural effusion. Mild splenomegaly. Electronically signed by Brian Madera 06/17/2018 3:39 PM
[2018-06-17] MEDS ORDERED: LACTULOSE PO PRN (17:48)
[2018-06-17] MEDS ORDERED: ALBUMIN 25% IV ONE (18:29)
[2018-06-17] MEDS: ANORO ELLIPTA 62.5-25 MCG INH INH SCH (20:00)
[2018-06-17] MEDS: HEPARIN SUBQ SCH (21:07)
[2018-06-17] MEDS: ZITHROMAX PO SCH (21:08)
[2018-06-17] MEDS: TOUJEO SOLOSTAR SUBQ SCH (21:08)
[2018-06-17] MEDS: LIPITOR PO SCH (21:09)
[2018-06-17] MEDS: MIRALAX PO SCH (21:19)
[2018-06-18] MEDS: MAXIPIME 1 GM in NS 50 ML IV SCH ×2 (00:54→11:52)
--- NOTE | 2018-06-18 01:13 | PROGRESS NOTE ---
DATE: 06/17/2018 OBJECTIVE: Blood pressure is 137/47, heart rate 62, respiratory rate 20, temperature 97.7 degrees, 97% on 2 L. Cardiovascular: Regular rate and rhythm. Pulmonary: Bilateral breath sounds. Clear to auscultation. Gastrointestinal: Soft, nontender, nondistended. Bowel sounds are positive. LABORATORY DATA: White count is 7, hemoglobin 8, hematocrit 28, platelets 222,000. BUN has climbed to 72, and creatinine has climbed to 2.5. PROBLEM LIST: 1. Acute congestive heart failure exacerbation, which I believe is diastolic. We will continue diuresis. Unfortunately, he is developing cardiorenal syndrome, or at least some intravascular depletion, that may be affecting his creatinine, renal function, but according his last echo, he does not have CHF and he does not have diastolic dysfunction. This was an echo by Dr. Tucker this year, so his right-sided pressures are not particularly elevated, either, so I guess his real major issue now is his nephrotic syndrome which I think is contributing to his persistent swelling. We have to be careful with that. We may give him some albumin. 2. Chronic obstructive pulmonary disease exacerbation. Continue to wean steroids. Breathing has improved somewhat. 3. Diabetes. Still not completely under control, but we will continue to follow. Should improve his steroids are weaned. 4. Pneumonia, putative gram-negative type pneumonia. He is on cefepime and azithromycin. DISPOSITION: Hopefully home soon within the next couple days. We will continue to follow. cc: Jc Howell MD
[2018-06-18] MEDS: SOLU-MEDROL IV SCH ×2 (03:53→15:03)
[2018-06-18] MEDS: DUONEB (A & A) INH SCH ×6 (04:00→22:55)
[2018-06-18] MEDS: HUMULIN R (PARKWAY) SUBQ SCH ×4 (06:24→22:59)
[2018-06-18] MEDS: PROTONIX PO SCH (06:25)
[2018-06-18 07:21] LABS: CALCIUM 8.4 mg/dL (8.8-10.2); CREATININE 2.4 mg/dL (0.7-1.2); POTASSIUM 4.5 mmol/L (3.5-5.1)
[2018-06-18 07:27] LABS: HEMATOCRIT 26.1 % (42.0-52.0); HEMOGLOBIN 8.1 g/dL (14.0-18.0); IMM GRAN# 0.03 X1000 (0.0-0.04); IMM GRAN% 0.6 % (0.0-0.5); LYMPH# 0.33 X1000 (1.2-3.4); LYMPH% 6.7 % (20.5-51.1); MCH 26.6 PG (27-31); MCV 85.6 FL (81-99); MONO# 0.48 X1000 (0.11-0.59); MONO% 9.8 % (1.7-9.3); MPV 12.2 FL (7.4-10.4); NEUT# 4.05 X1000 (1.4-6.5); NEUT% 82.9 % (42.2-75.2); PLT 184 X1000 (130-400); RBC 3.05 XMIL (4.7-6.1); RDW 15.1 % (11.5-14.5); WBC 4.89 X1000 (4.8-10.8)
[2018-06-18] MEDS: ANORO ELLIPTA 62.5-25 MCG INH INH SCH (08:12)
[2018-06-18] MEDS: AVAPRO PO SCH (08:33)
[2018-06-18] MEDS: ISORDIL PO SCH ×3 (08:33→21:35)
[2018-06-18] MEDS: APRESOLINE PO SCH ×3 (08:33→21:36)
[2018-06-18] MEDS: ASPIRIN PO SCH (08:33)
[2018-06-18] MEDS: GLUCOPHAGE XR PO SCH ×2 (08:34→16:33)
[2018-06-18] MEDS: CATAPRES PO SCH ×2 (08:34→21:35)
[2018-06-18] MEDS: CARDIZEM CD PO SCH (08:34)
[2018-06-18] MEDS: ZETIA PO SCH (08:34)
[2018-06-18] MEDS: MIRALAX PO SCH (08:34)
[2018-06-18] MEDS: HEPARIN SUBQ SCH ×2 (08:34→21:37)
[2018-06-18] MEDS ORDERED: LASIX IV SCH (09:00)
--- NOTE | 2018-06-18 19:00 | PROGRESS NOTE ---
DATE: 06/18/2018 SUBJECTIVE: Patient has no focal complaints. OBJECTIVE: Vital Signs: Blood pressure is 158/60, heart rate 64, respiratory rate 20, temperature 97.6, 100% on 2 L. Cardiovascular: Regular rate and rhythm. Pulmonary: Bilateral breath sounds. Clear to auscultation. Gastrointestinal: Soft, nontender, nondistended. Bowel sounds are positive. Extremity: No clubbing or cyanosis. Lymphatic: No peripheral edema. Neurologic: Nonfocal. He still has some pitting edema, but is a little bit better. He still has not had a bowel movement and I think that is what is contributing to his abdominal distention. LABORATORY DATA: His white count is 4, hemoglobin and hematocrit 8 and 26, platelets 184,000. BUN and creatinine are 76 and 2.4, glucose 229. PROBLEM LIST: 1. Acute diastolic heart failure. We will continue diuretics. Got to be careful because he has nephrotic syndrome and he has kidney failure. His creatinine has been relatively stable. His BUN is a bit elevated. His last echocardiogram showed an EF of 55-60%, with no diastolic dysfunction. So, not clear he has true CHF, but he is definitely volume overloaded. 2. COPD exacerbation. We will continue to wean steroids. His wheezing is better today and he is down to very minimal steroids. 3. Diabetes, which has been a major issue. We will continue to follow, probably going to be an issue as long as he has been on that. 4. Nephrotic syndrome, which can be a complicated issue to manage, likely related to diabetes, hypertension. We will continue to follow. 5. Pneumonia, gram-negative type. He is on cefepime and azithromycin. DISPOSITION: Likely home in the next 1 to 2 days pending his clinical status. cc: Jc Howell MD
[2018-06-18] MEDS: LASIX IV SCH (21:35)
[2018-06-18] MEDS: ZITHROMAX PO SCH (21:36)
[2018-06-18] MEDS: LIPITOR PO SCH (21:37)
[2018-06-18] MEDS: TOUJEO SOLOSTAR SUBQ SCH (21:37)
[2018-06-19] MEDS: MAXIPIME 1 GM in NS 50 ML IV SCH ×2 (01:11→12:41)
[2018-06-19] MEDS: DUONEB (A & A) INH SCH ×6 (03:30→22:56)
[2018-06-19] MEDS: SOLU-MEDROL IV SCH ×2 (04:09→16:49)
[2018-06-19] MEDS: PROTONIX PO SCH (06:42)
[2018-06-19] MEDS: HUMULIN R (PARKWAY) SUBQ SCH ×5 (06:42→22:26)
[2018-06-19 07:19] LABS: HEMATOCRIT 26.6 % (42.0-52.0); HEMOGLOBIN 8.3 g/dL (14.0-18.0); IMM GRAN# 0.03 X1000 (0.0-0.04); IMM GRAN% 0.5 % (0.0-0.5); LYMPH# 0.38 X1000 (1.2-3.4); LYMPH% 6.4 % (20.5-51.1); MCH 26.4 PG (27-31); MCHC 31.2 g/dL (33-37); MCV 84.7 FL (81-99); MONO# 0.52 X1000 (0.11-0.59); MONO% 8.8 % (1.7-9.3); MPV 12.2 FL (7.4-10.4); NEUT# 5.01 X1000 (1.4-6.5); NEUT% 84.3 % (42.2-75.2); PLT 203 X1000 (130-400); RBC 3.14 XMIL (4.7-6.1); RDW 15.1 % (11.5-14.5); WBC 5.94 X1000 (4.8-10.8)
[2018-06-19 07:32] LABS: CALCIUM 8.5 mg/dL (8.8-10.2); POTASSIUM 4.6 mmol/L (3.5-5.1)
[2018-06-19] MEDS: ANORO ELLIPTA 62.5-25 MCG INH INH SCH (08:21)
[2018-06-19] MEDS: LASIX IV SCH ×2 (09:39→21:48)
[2018-06-19] MEDS: HEPARIN SUBQ SCH ×2 (09:39→21:49)
[2018-06-19] MEDS: MIRALAX PO SCH (09:39)
[2018-06-19] MEDS: CARDIZEM CD PO SCH (09:40)
[2018-06-19] MEDS: CATAPRES PO SCH ×2 (09:40→21:51)
[2018-06-19] MEDS: ISORDIL PO SCH ×3 (09:40→21:50)
[2018-06-19] MEDS: GLUCOPHAGE XR PO SCH ×2 (09:41→16:50)
[2018-06-19] MEDS: ZETIA PO SCH (09:41)
[2018-06-19] MEDS: APRESOLINE PO SCH ×3 (09:42→21:50)
[2018-06-19] MEDS: ASPIRIN PO SCH (09:42)
[2018-06-19] MEDS: AVAPRO PO SCH (09:42)
[2018-06-19] MEDS: TOUJEO SOLOSTAR SUBQ SCH (21:50)
[2018-06-19] MEDS: ZITHROMAX PO SCH (21:50)
[2018-06-19] MEDS: LIPITOR PO SCH (21:50)
--- NOTE | 2018-06-19 23:46 | PROGRESS NOTE ---
DATE: 06/19/2018 SUBJECTIVE: The patient himself notes he is feeling okay. States that he wants to stay in the hospital until he is completely well. PHYSICAL EXAMINATION: Vital Signs: Temperature 97.6, pulse 63, respiratory rate 18, blood pressure 176/86. General: Patient is an awake, alert, morbidly obese male, who is currently in no respiratory distress. Very pleasant to talk with. Sitting on the side of the bed, with legs draped over the edge. HEENT: Normocephalic. Cardiovascular: Regular rate. Chest: Clear. No crackles, although diminished breath sounds bilaterally. Abdomen: Soft, nondistended. Obese. Extremities: Moves all extremities. He has 1+ edema in his bilateral hands, left greater than right. ASSESSMENT: 1. [id number] diastolic congestive heart failure. 2. Chronic obstructive pulmonary disease exacerbation. 3. Diabetes. 4. Nephrotic syndrome. 5. Pneumonia. PLAN: Overall, patient has actually improved. He is very close to his baseline. Discussed with him that unfortunately, given his chronic nephrotic syndrome, as well as COPD and obesity, that it is unlikely that he will ever "be well," and that he will chronically have issues with his medical problems. We will continue to tune him up, and hopefully home over the next few days. cc: Rusty Reddy MD
[2018-06-20] MEDS: MAXIPIME 1 GM in NS 50 ML IV SCH ×3 (00:11→23:26)
[2018-06-20] MEDS: SOLU-MEDROL IV SCH ×2 (03:00→16:51)
[2018-06-20] MEDS: DUONEB (A & A) INH SCH ×6 (03:27→23:15)
[2018-06-20] MEDS: PROTONIX PO SCH ×2 (05:43→06:16)
[2018-06-20] MEDS: HUMULIN R (PARKWAY) SUBQ SCH ×4 (06:18→23:12)
[2018-06-20] MEDS: ANORO ELLIPTA 62.5-25 MCG INH INH SCH (07:40)
[2018-06-20 07:48] LABS: HEMATOCRIT 28.4 % (42.0-52.0); HEMOGLOBIN 8.9 g/dL (14.0-18.0); MCH 26.3 PG (27-31); MCHC 31.3 g/dL (33-37); MPV 11.6 FL (7.4-10.4); RBC 3.38 XMIL (4.7-6.1); RDW 14.9 % (11.5-14.5); WBC 7.25 X1000 (4.8-10.8)
[2018-06-20 08:03] LABS: ALBUMIN 2.8 g/dL (3.5-5.0); CALCIUM 8.6 mg/dL (8.8-10.2); CREATININE 1.8 mg/dL (0.7-1.2); POTASSIUM 4.8 mmol/L (3.5-5.1); TOTAL BILIRUBIN 0.2 mg/dL (0.20-1.00)
[2018-06-20] MEDS: ISORDIL PO SCH ×3 (09:38→22:03)
[2018-06-20] MEDS: CATAPRES PO SCH ×2 (09:39→22:04)
[2018-06-20] MEDS: ASPIRIN PO SCH (09:39)
[2018-06-20] MEDS: CARDIZEM CD PO SCH (09:39)
[2018-06-20] MEDS: HEPARIN SUBQ SCH ×2 (09:39→22:06)
[2018-06-20] MEDS: ZETIA PO SCH (09:39)
[2018-06-20] MEDS: LASIX IV SCH ×2 (09:39→23:13)
[2018-06-20] MEDS: GLUCOPHAGE XR PO SCH ×2 (09:40→16:51)
[2018-06-20] MEDS: APRESOLINE PO SCH ×3 (09:40→22:05)
[2018-06-20] MEDS: MIRALAX PO SCH (09:40)
[2018-06-20] MEDS: AVAPRO PO SCH (09:44)
[2018-06-20] MEDS ORDERED: INSULIN PEN NEEDLES ONE (21:58)
[2018-06-20] MEDS: ZITHROMAX PO SCH (22:04)
[2018-06-20] MEDS: LIPITOR PO SCH (22:05)
[2018-06-20] MEDS: TOUJEO SOLOSTAR SUBQ SCH (22:05)
--- NOTE | 2018-06-20 23:39 | PROGRESS NOTE ---
DATE: 06/20/2018 SUBJECTIVE: Patient notes that he is feeling a little bit better still having some swelling in his left hand as well as bilateral feet although notes that overall has improved. PHYSICAL: Temperature 95 degrees, pulse 61, respiratory 20, BP 158/77.General: Patient is awake, alert, currently in no distress. HEENT: Normocephalic. Neck: Supple. CV: Regular rate. Chest: Clear. Abdomen: Soft, nondistended. Extremities: Moves all extremities. ASSESSMENT: 1. Acute diastolic heart failure . 2. Chronic obstructive pulmonary disease with mild exacerbation. 3. Diabetes. 4. Nephrotic syndrome. 5. Pneumonia with gram-negative rods. PLAN: Will continue patient in the hospital, continue IV Lasix, continue to follow. Overall he is improving and very close to his baseline. Hopefully can be discharged home over the next day or 2. cc: Rusty Reddy MD
[2018-06-21] MEDS: DUONEB (A & A) INH SCH ×2 (03:43→07:31)
[2018-06-21] MEDS: SOLU-MEDROL IV SCH (04:25)
[2018-06-21 05:48] VITALS: BP 163/59
[2018-06-21] MEDS: HUMULIN R (PARKWAY) SUBQ SCH (06:15)
[2018-06-21] MEDS: PROTONIX PO SCH (06:42)
[2018-06-21] MEDS: ANORO ELLIPTA 62.5-25 MCG INH INH SCH (07:32)
[2018-06-21] MEDS: MIRALAX PO SCH (08:35)
[2018-06-21] MEDS: HEPARIN SUBQ SCH (08:36)
[2018-06-21] MEDS: AVAPRO PO SCH (08:36)
[2018-06-21] MEDS: ZETIA PO SCH (08:36)
[2018-06-21] MEDS: ISORDIL PO SCH (08:36)
[2018-06-21] MEDS: GLUCOPHAGE XR PO SCH (08:36)
[2018-06-21] MEDS: APRESOLINE PO SCH (08:36)
[2018-06-21] MEDS: ASPIRIN PO SCH (08:36)
[2018-06-21] MEDS: CATAPRES PO SCH (08:36)
[2018-06-21] MEDS: CARDIZEM CD PO SCH (08:36)
[2018-06-21] MEDS: LASIX IV SCH (08:46)
--- NOTE | 2018-06-22 04:45 | DISCHARGE SUMMARY ---
ADMISSION DATE: 06/12/2018 DISCHARGE DATE: 06/21/2018 DIAGNOSES: 1. Acute on chronic obstructive pulmonary disease exacerbation, resolved. 2. Chronic kidney disease stage IIIB. 3. Diabetes mellitus type 2. 4. Nephrotic syndrome. 5. Acute diastolic heart failure. 6. Pneumonia. DIAGNOSTICS: 1. On 06/12/2018, chest x-ray reveals increasing left lower lobe airspace disease and left effusion. 2. Abdominal ultrasound revealed left pleural effusion and mild splenomegaly. CONSULTS: Dr. Jhonny Aguillon, cardiology. HOSPITAL COURSE: Mr. Grove presented to the emergency room complaining of progressive shortness of breath and cough over 3 to 4 days. He was found to be in acute COPD exacerbation for which he was treated with steroids to taper as well as DuoNebs and incentive spirometer. Thankfully, he has improved. He was initially placed on Rocephin and azithromycin for antibiotic coverage. He was discharged on Zithromax and Omnicef. In regards to his heart failure exacerbation, he was treated with Lasix and a low-dose beta elaine, metoprolol. We monitored blood sugars and covered with sliding scale insulin. Thankfully, today he is ready for discharge. PHYSICAL EXAMINATION: Discharge Vital Signs: Blood pressure is 160/59, with a heart rate of 67, respirations 18, temperature is 97.8 degrees oral, with O2 saturations that are 98-100% on 2 L nasal cannula. Cardiovascular: Regular rate and rhythm. S1 and S2 are appreciated. He has no lower extremity edema with peripheral pulses palpable x4 extremities. Pulmonary: He had diminished breath sounds throughout. Chest rises and falls symmetrically with respiration. Chest wall is nontender to palpation. Gastrointestinal: Abdomen is soft, nontender, and nondistended with bowel sounds in all 4 quadrants. Neurologic: He is alert and oriented x3. DISCHARGE MEDICATIONS: Cardizem 240 mg p.o. daily, Zetia 10 mg p.o. daily, Lasix 80 mg p.o. b.i.d., hydralazine 100 mg p.o. t.i.d., irbesartan 300 mg p.o. daily, Isordil 80 mg p.o. t.i.d., Glucophage XR 1000 mg p.o. b.i.d., Protonix 40 mg p.o. daily, Klor-Con 10 p.o. daily, Minipress 2 mg p.o. b.i.d., Aldactone 25 mg p.o. b.i.d., Anoro Ellipta inhaler 62.5/25 one puff daily, Omnicef 300 mg p.o. b.i.d. for 5 days, azithromycin 500 mg p.o. at bedtime for 3 days. FOLLOWUP: 1. Dr. Brandon Baird on July 05 at [address] Jhonny Aguillon on June 23 at 10:45 a.m. 3. The patient will be followed by Vishal Todd. 4. He has been instructed to call to be seen sooner or return to the ER for chest pain, palpitations, any syncope or dizziness, any increasing shortness of breath, a temperature greater than 101, or for any questions or concerns that he may have. DISPOSITION: He is being discharged home in stable condition with family members. TIME SPENT: This is a greater than 30 minute discharge. Dictated by DELTA Spann for Rusty Reddy MD This chart was documented by, DELTA Spann and accurately reflects the services performed, treatment plan and medical decisions as attested by the providers signature Rusty Reddy MD. cc: DELTA Spann MD
--- NOTE | 2018-06-22 05:28 | PROGRESS NOTE ---
DATE: 06/21/2018 SUBJECTIVE: Patient overall notes that he is feeling fine. Overall, his symptoms have improved. PLAN: We will discharge patient home. He will follow up outpatient with primary care. Certainly, may need to consider IV infusions of Lasix at home. Patient has chronic congestive heart failure as well as nephrotic syndrome. We will discharge him home. Continue his Lasix as well as other medicines. He will follow up outpatient with primary care. cc: Rusty Reddy MD
== END 2018-06-21 11:04 | disposition home health service (06) | DRG 177 ==
LOC: P.ED 13:45 → SUATTDRO 16:39 → P.EDIPHOLD 16:39
PROVIDERS: ATTEND Family Medicine
CPT/HCPCS: 36415; 71010; 71020; 71045; 71046; 76700; 80048; 80053; 82550; 82553; 82948; 83036; 83605; 83880; 84484; 85025; 85027; 85379; 85610; 85730; 93005; 94640; 94668; 94761; 94799; 96374; 99284; 99285; A9270; J0456; J0692; J1644; J1815; J1940; J2920; J2930; P9047; XXXXX

== ENCOUNTER 2018-09-22 13:16 | Inpatient (IN) ==
[2018-09-22 13:47] LABS: BASO# 0.03 X1000 (0.0-0.2); BASO% 0.2 % (0.0-0.8); EOS# 0.07 X1000 (0.0-0.7); EOS% 0.6 % (0.0-10.0); HEMATOCRIT 27.6 % (42.0-52.0); HEMOGLOBIN 8.9 g/dL (14.0-18.0); IMM GRAN# 0.17 X1000 (0.0-0.04); IMM GRAN% 1.4 % (0.0-0.5); LYMPH# 0.56 X1000 (1.2-3.4); LYMPH% 4.6 % (20.5-51.1); MCH 27.3 PG (27-31); MCHC 32.2 g/dL (33-37); MCV 84.7 FL (81-99); MONO# 0.61 X1000 (0.11-0.59); MPV 10.7 FL (7.4-10.4); NEUT# 10.78 X1000 (1.4-6.5); NEUT% 88.2 % (42.2-75.2); PLT 304 X1000 (130-400); RBC 3.26 XMIL (4.7-6.1); RDW 14.9 % (11.5-14.5); WBC 12.22 X1000 (4.8-10.8)
[2018-09-22 13:59] LABS: INR 0.85
[2018-09-22 14:13] LABS: ALBUMIN 2.8 g/dL (3.5-5.0); CALCIUM 7.7 mg/dL (8.8-10.2); POTASSIUM 4.7 mmol/L (3.5-5.1); TOTAL BILIRUBIN 0.2 mg/dL (0.20-1.00); TOTAL PROTEIN 5.3 g/dL (6.3-8.3)
--- NOTE | 2018-09-22 14:19 | Diag Imaging Result Doc PS360 ---
EXAM: CHEST-2 VIEWS - 09/22/2018 HISTORY: SOB TECHNIQUE: Chest two views COMPARISON: 09/11/2018, 07/10/2018, 06/09/2018, 05/28/2018 FINDINGS: Heart size appears within normal limits. There is chronic atelectasis/scarring at the left lower lobe. There is subsegmental atelectasis at the lateral left base. There is no discrete acute consolidation, vascular congestion, pleural effusion, or pneumothorax identified. IMPRESSION: Chronic atelectasis/scarring at left lower lobe. Subsegmental atelectasis at lateral left base. No other discrete acute changes. Electronically signed by Dirk Lu 09/22/2018 2:17 PM
[2018-09-22 14:36] LABS: CK INDEX 3.1 (0.0-2.5); CK-MB 7.14 ng/mL (0.0-5.0)
[2018-09-22] MEDS ORDERED: ROCEPHIN 1 GM in NS 50 ML IV ONE ×2 (14:47→15:22)
[2018-09-22] MEDS ORDERED: LASIX IV ONE (14:47)
[2018-09-22] MEDS ORDERED: MOTRIN LIQUID ONE (15:03)
[2018-09-22] MEDS ORDERED: SOLU-MEDROL IV ONE (15:22)
[2018-09-22] MEDS ORDERED: DUONEB (A & A) INH ONE (15:22)
[2018-09-22 15:45] LABS: BE 2.8 mmoll (-3.0-3.0); BLOOD TYPE ARTERIAL; HCO3-(ACT) 27.1 mmoll (20.0-26.0); METHB 1.5 % (0.0-1.5); O2(CT) 12.4 mL/dL (15.0-23.0); O2HB 95.7 % (95.0-99.0); PCO2(98.6) 40 mmHg (35-45); PO2(98.6) 93 mmHg (60-100); SAMPLE BLOOD; SAO2 99.2 % (95.0-100.0); THB 9.1 g/dL (11.5-17.4); pH(98.6) 7.44 (7.35-7.45)
[2018-09-22 15:49] LABS: ALLEN TEST YES; MODALITY CANNULA
--- NOTE | 2018-09-22 16:36 | PROVIDER DOCUMENTATION ---
This chart was entered by Aislinn Agarwal Scribe, acting as scribe for Camilo Hernandez MD. HPI-Respiratory General - General Chief Complaint: Shortness of Breath Stated Complaint: SOB Time Seen by Provider: 09/22/18 14:32 Source: patient Allergies/Adverse Reactions: Patient Allergies Allergy/AdvReac Type Severity Reaction Status Date / Time morphine AdvReac ANAPHYLAXIS Verified 09/22/18 13:24 Home Medications: Home Medication List Medication Instructions Recorded Confirmed Last Taken Type Potassium Chloride [Klor-Con 10] 10 meq PO DAILY 01/11/16 06/13/18 09/27/17 07:00 History Aspirin 325 mg PO DAILY 11/21/16 06/12/18 12/09/17 08:00 History Metformin E.r. [Glucophage Xr] 1,000 mg PO BID CC 04/14/17 06/13/18 09/27/17 19:00 History Hydralazine [Apresoline] 100 mg PO TID@0900,1500,2100 05/27/17 06/12/18 09/28/17 07:30 History ATORVAstatin [Lipitor] 40 mg PO QHS 11/27/17 06/12/18 12/08/17 20:00 History Irbesartan 300 mg PO DAILY 11/27/17 06/13/18 Unknown History Isosorbide Dinitrate [Isordil] 80 mg PO TID@0900,1500,2100 02/02/18 06/13/18 Unknown History Ezetimibe [Zetia] 10 mg PO DAILY 05/28/18 06/13/18 Unknown History Furosemide [Lasix] 80 mg PO BID 05/28/18 06/15/18 Unknown History Insulin Glargine,Hum.rec.anlog 60 unit SQ QHS 05/28/18 06/13/18 Unknown History [Toujeo Max Solostar] Ipratropium/Albuterol Sulfate 3 ml IH Q4HR 05/28/18 06/13/18 Unknown History [Iprat-Albut 0.5-3(2.5) mg/3 ml] Diltiazem HCl [Cartia Xt] 240 mg PO DAILY 06/13/18 06/13/18 Unknown History Pantoprazole [Protonix] 40 mg PO DAILY@0700 06/15/18 06/15/18 Unknown History Prazosin [Minipress] 2 mg PO BID 06/15/18 06/15/18 Unknown History Acetaminophen [Tylenol] 650 mg PO Q6H PRN PRN tablet 06/21/18 Unknown Rx Albuterol 2.5MG/Ipratrop 0.5MG 3 ml INH Q4H PRN PRN neb 06/21/18 Unknown Rx [Duoneb (A & A)] Azithromycin [Zithromax] 500 mg PO QHS #3 tab 06/21/18 Unknown Rx CefDINIR [Omnicef] 300 mg PO BID #10 cap 06/21/18 Unknown Rx Diltiazem C.d. [Cardizem Cd] 240 mg PO DAILY capsule 06/21/18 Unknown Rx Spironolactone [Aldactone] 25 mg PO BID #60 tab 06/21/18 Unknown Rx Umeclidinium/Vilanterol [Anoro 1 puff INH RTDAILY inhaler 06/21/18 Unknown Rx Ellipta 62.5-25 Mcg INH] Albuterol 2.5MG/Ipratrop 0.5MG 3 ml .SEE ORDER Q4-6H PRN PRN #120 09/11/18 Unknown Rx [Duoneb (A & A)] neb Azithromycin [Zithromax Z-Ramon] 250 mg PO DIRECTED #1 pkg 09/11/18 Unknown Rx Benzonatate [Tessalon] 100 mg PO TID PRN PRN #30 cap 09/11/18 Unknown Rx Budesonide [Pulmicort] 0.5 mg INHALATION BID #60 ampul.neb 09/11/18 Unknown Rx Montelukast [Singulair] 10 mg PO DAILY #30 tab 09/11/18 Unknown Rx Prednisone 50 mg PO DAILY #5 tab 09/11/18 Unknown Rx - History of Present Illness-Resp Nature of Presenting Problem: Patient is a 63 year old male who presents to the ED via EMS with shortness of breath, cough and weight gain. Patient states he is currently on 40 mg of Lasix daily. Denies chest pain. Quality of Pain: reports: tightness Severity in ED: reports: mild Onset/Duration: reports: gradual Timing: reports: still present Cough Quality/Degree: reports: moderate, productive cough, sputum Episode Frequency: frequent episodes Current Respiratory Medication Therapy: Initiated see nurses note Associated Symptoms: reports: cough, shortness of breath, other (weight gain) Similar Symptoms Previously?: Yes Recently seen or treated by another doctor?: Yes Review of Systems - Adult - REVIEW OF SYSTEMS - ADULT Constitutional: reports: weight gain. denies: chills, fever Eyes: reports: no symptoms reported Ears, Nose, Mouth & Throat: reports: no symptoms reported Cardiovascular: reports: no symptoms reported. denies: chest pain, heart murmur, irregular heart rate Respiratory: reports: see HPI, cough, shortness of breath. denies: wheezing Gastrointestinal: reports: no symptoms reported Genitourinary: reports: no symptoms reported Musculoskeletal: reports: no symptoms reported Integumentary: reports: no symptoms reported Neurological: reports: no symptoms reported Psychiatric: reports: no symptoms reported Endocrine: reports: no symptoms reported Hematologic/Lymphatic: reports: no symptoms reported Allergic/Immunologic: reports: no symptoms reported All Other Systems: Reviewed and Negative Past History - Adult - PAST MEDICAL HISTORY-ADULT Review of Records: reports: Nursing Assessment Review, Medications Reviewed, Social history reviewed & non-contributory. Major Childhood Illnesses: reports: denies history Cardiovascular: reports: CAD, CHF, HTN, hyperlipidemia, [place] Respiratory: reports: asthma, COPD Gastrointestinal: reports: GERD, pancreatitis Obstetrical/Gynecological: reports: denies history Genitourinary: reports: kidney disease Musculoskeletal: reports: chronic pain Neurological: reports: denies history Psychiatric: reports: anxiety Endocrine/Immune: reports: Diabetes Other Conditions: reports: denies history - PRIOR SURGERIES/PROCEDURES Surgical/Procedure History: reports: cardiac stent - PRIOR HOSPITALIZATIONS Prior Hospitalizations: reports: for other non-related - IMMUNIZATION STATUS Childhood Immunizations: See Nurse Assessment Flu Vaccine: See Nurse Assessment - FAMILY HISTORY Family History: reviewed, not pertinent - SOCIAL HISTORY Smoking: cigarettes (former) Substance Use: denies Living Situation: family Physical Exam-General - PHYSICAL EXAM-ADULT Initial Vital Signs Reviewed: Yes - CONSTITUTIONAL General Appearance: alert, no apparent distress. negative: lethargic, slow to respond - RESPIRATORY Respiratory: chest non-tender, rales. negative: respiratory distress, crackles, rhonchi - CARDIOVASCULAR Cardiovascular: normal peripheral pulses, regular rate, rhythm. negative: tachycardia, systolic murmur - GASTROINTESTINAL (ABDOMEN) Abdominal Exam: normal bowel sounds, non tender, soft. negative: distended, rebound - MUSCULOSKELETAL Extremity: non-tender, normal inspection. negative: deformity, erythema - SKIN Integumentary: normal color, normal turgor, warm/dry. negative: diaphoresis, ecchymosis, erythema, jaundice - NEUROLOGIC Neurologic: grossly normal. negative: aphasia, facial droop - PSYCHIATRIC Psych/Mental Status: normal mood/affect, oriented x 3. negative: anxious Progress - PLAN OF CARE/RESULTS Progress/Plan/Lab Results: Vital Signs - 8 hr 09/22/18 13:17 09/22/18 15:30 09/22/18 15:57 Temperature 98.1 F Pulse Rate 87 78 78 Respiratory Rate 22 18 22 Blood Pressure 192/83 179/80 O2 Sat by Pulse Oximetry 100 98 99 Laboratory Results - last 24 hr 09/22/18 09/22/18 09/22/18 13:30 13:30 13:30 WBC 12.22 H RBC 3.26 L Hgb 8.9 L Hct 27.6 L MCV 84.7 MCH 27.3 MCHC 32.2 L RDW Std Deviation 14.9 H Plt Count 304 MPV 10.7 H Immature Gran % (Auto) 1.4 H Neut % (Auto) 88.2 H Lymph % (Auto) 4.6 L Winkler % (Auto) 5.0 Eos % (Auto) 0.6 Baso % (Auto) 0.2 Immature Gran # (Auto) 0.17 H Neut # (Auto) 10.78 H Lymph # (Auto) 0.56 L Winkler # (Auto) 0.61 H Eos # (Auto) 0.07 Baso # (Auto) 0.03 PT INR PTT (Actin FS) Specimen Type Sample Site pH pCO2 pO2 HCO3 Base Excess Oxyhemoglobin ABG O2 Sat (Calculated) ABG O2 Saturation ABG Carboxyhemoglobin ABG Methemoglobin Lincoln Test A-a O2 Difference Total Hemoglobin Lactate Liter Flow Blood Gas Modality FiO2 % Sodium 138 Potassium 4.7 Chloride 102 Carbon Dioxide 22 L Anion Gap 14 BUN 33 H Creatinine 2.0 H Estimated GFR/1.73 m2 34 BUN/Creatinine Ratio 17 Glucose 235 H Calculated Osmolality 291 Calcium 7.7 L Total Bilirubin 0.20 AST 16 ALT 13 Alkaline Phosphatase 88 Creatine Kinase 231 H Creatine Kinase Index 3.1 H CK-MB (CK-2) 7.14 H Troponin T Qod-M-Pnrgzyhdlyn Pept 5695 H Total Protein 5.3 L Albumin 2.8 L Globulin 3.0 Albumin/Globulin Ratio 1.0 09/22/18 09/22/18 09/22/18 13:30 13:30 15:17 WBC RBC Hgb Hct MCV MCH MCHC RDW Std Deviation Plt Count MPV Immature Gran % (Auto) Neut % (Auto) Lymph % (Auto) Winkler % (Auto) Eos % (Auto) Baso % (Auto) Immature Gran # (Auto) Neut # (Auto) Lymph # (Auto) Winkler # (Auto) Eos # (Auto) Baso # (Auto) PT 12.0 INR 0.85 PTT (Actin FS) 23.0 Specimen Type ARTERIAL Sample Site R RADIAL pH 7.44 pCO2 40 pO2 93 HCO3 27.1 H Base Excess 2.8 Oxyhemoglobin 95.7 ABG O2 Sat (Calculated) 12.4 L ABG O2 Saturation 99.2 ABG Carboxyhemoglobin 2.10 ABG Methemoglobin 1.5 Lincoln Test YES A-a O2 Difference 57.0 Total Hemoglobin 9.1 L Lactate 2.40 H Liter Flow 2.0 Blood Gas Modality CANNULA FiO2 % 28.0 Sodium Potassium Chloride Carbon Dioxide Anion Gap BUN Creatinine Estimated GFR/1.73 m2 BUN/Creatinine Ratio Glucose Calculated Osmolality Calcium Total Bilirubin AST ALT Alkaline Phosphatase Creatine Kinase Creatine Kinase Index CK-MB (CK-2) Troponin T 0.077 Geb-W-Bfinqpolnti Pept Total Protein Albumin Globulin Albumin/Globulin Ratio Orders Category Date Time Status Cardiac Monitoring DIRECTED Care 09/22/18 13:25 Active Oxygen Therapy- ED Nursing DIRECTED Care 09/22/18 13:25 Active Saline Loc NOW Care 09/22/18 13:25 Active CHEST-2 VIEWS [RAD] Stat Exams 09/22/18 13:25 Completed ABG [RESP] Routine Lab 09/22/18 15:17 Completed BLOOD CULTURE [BLDCUL] Stat Lab 09/22/18 14:48 Ordered CBC WITH ELECTRONIC DIFF [HEME] Stat Lab 09/22/18 13:30 Completed CK PROFILE [SP CHEM] Stat Lab 09/22/18 13:30 Completed COMPREHENSIVE METABOLIC PANEL [CHEM] Stat Lab 09/22/18 13:30 Completed PRO B-NATRIURETIC PEPTIDE Stat Lab 09/22/18 13:30 Completed PROTIME WITH INR [COAG] Stat Lab 09/22/18 13:30 Completed PTT [COAG] Stat Lab 09/22/18 13:30 Completed TROPONIN T Stat Lab 09/22/18 13:30 Completed Albuterol 2.5MG/Ipratrop 0.5MG [Duoneb (A & A)] Med 09/22/18 15:22 Discontinued 3 ml INH NOW ONE CefTRIAXONE [Rocephin] 1 gm Med 09/22/18 14:47 Discontinued 0.9% Sodium Chloride Inj [Ns] 50 ml IV NOW CefTRIAXONE [Rocephin] 1 gm Med 09/22/18 15:22 Discontinued 0.9% Sodium Chloride Inj [Ns] 50 ml IV NOW Furosemide [Lasix] Med 09/22/18 14:47 Discontinued 40 mg IV NOW ONE Ibuprofen [Motrin Liquid] Med 09/22/18 15:03 Discontinued 200 mg .ROUTE .STK-MED ONE Methylprednisolone Sod Succ [Solu-Medrol] Med 09/22/18 15:22 Discontinued 125 mg IV NOW ONE Aerosol Treatments Routine Oth 09/22/18 15:23 Active Aerosol Treatments Stat Oth 09/22/18 15:23 Active CP/SOB/Palp >45 yrs of Age Stat Oth 09/22/18 13:24 Ordered EKG [EKG] Stat Ther 09/22/18 13:25 Ordered Result Diagrams: 09/22/18 13:30 09/22/18 13:30 - EKG 1 Time of EKG reading by physician:: 13:12 EKG Read and Signed by:: Camilo Hernandez EKG Interpretation (*Must complete 3 of following elements*): Abnormal Rate: 91 Rhythm: atrial fibrillation Comments: abnormal ECG - XRAY 1 XRAY Study: Chest Impression: See EMR Report ( EXAM: CHEST-2 VIEWS - 09/22/2018 HISTORY: SOB TECHNIQUE: Chest two views COMPARISON: 09/11/2018, 07/10/2018, 06/09/2018, 05/28/2018 FINDINGS: Heart size appears within normal limits. There is chronic atelectasis/scarring at the left lower lobe. There is subsegmental atelectasis at the lateral left base. There is no discrete acute consolidation, vascular congestion, pleural effusion, or pneumothorax identified. IMPRESSION: Chronic atelectasis/scarring at left lower lobe. Subsegmental atelectasis at lateral left base. No other discrete acute changes. Electronically signed by Dirk Lu 09/22/2018 2:17 PM 09/22/18 1417 Interpreting Physician: Dirk Lu MD Dictated Date/Time: 09/22/18 1413 cc: Ty Hernandez DO;) - CONSULTS/PCP/HOSPITALIST Notification #1 *Consult/PCP/Hospitalist*: Dr. Voss Time Discussed: 16:29 Departure - Departure Date of Disposition Decision: 09/22/18 Time of Disposition Decision: 16:34 DIAGNOSIS: COPD exacerbation, Chronic anemia, Renal insufficiency, CHF (congestive heart failure) Disposition: ADMITTED INPATIENT 09 Certified Medical Emergency: Emergent Condition: Stable Referrals and Follow-Ups: Brandon Baird DO [Primary Care Provider] - - Critical Care Note This patient required my direct & personal management of CC.: No Attestation - Physician/ SHARIF Attestation The physician spent face to face time with patient:: Yes Advanced Practice Provider documentation review:: Supervising physician onsite and consulted in the evaluation and care of this patient. The physician did have a face to face encounter with the patient. This chart was documented by the indicated scribe, (Aislinn Agarwal Scribe) and ac curately reflects the services I performed and decisions made by me, Camilo Hernandez MD, as attested by the provider's signature.
[2018-09-22] MEDS ORDERED: DUONEB (A & A) INH PRN (17:01)
[2018-09-22] MEDS ORDERED: ZOFRAN IV PRN (17:01)
[2018-09-22] MEDS: MAXIPIME 1 GM in NS 50 ML IV SCH (17:47)
[2018-09-22] MEDS: LOVENOX SUBQ SCH (17:49)
[2018-09-22] MEDS ORDERED: TYLENOL PO PRN (18:03)
[2018-09-22] MEDS: ZYVOX 600 MG/D5W 600 MG/300 ML IVPB IV SCH (18:49)
--- NOTE | 2018-09-22 19:15 | EKG Report ---
Test Performed on : 09/22/2018 1:12:35 PM Test Reason : SOB Blood Pressure : / mmHG Vent. Rate : 091 BPM Atrial Rate : 096 BPM P-R Int : 000 ms QRS Dur : 090 ms QT Int : 370 ms P-R-T Axes : 000 069 066 degrees QTc Int : 455 ms Atrial fibrillation. Abnormal ECG When compared with ECG of 09-JUN-2018 13:47, Atrial fibrillation. has replaced Sinus rhythm. Unconfirmed Result
[2018-09-22] MEDS: DUONEB (A & A) INH SCH (19:30)
[2018-09-22] MEDS: ISORDIL PO SCH (20:13)
[2018-09-22] MEDS: LIPITOR PO SCH (20:14)
[2018-09-22] MEDS: LASIX IV SCH (20:15)
[2018-09-22] MEDS: APRESOLINE PO SCH (20:15)
[2018-09-22] MEDS: TOUJEO SOLOSTAR SUBQ SCH (20:15)
[2018-09-23] MEDS: DUONEB (A & A) INH SCH ×6 (00:03→20:32)
[2018-09-23] MEDS: MAXIPIME 1 GM in NS 50 ML IV SCH ×2 (05:24→16:37)
[2018-09-23] MEDS: ZYVOX 600 MG/D5W 600 MG/300 ML IVPB IV SCH ×2 (06:09→17:34)
[2018-09-23] MEDS: PRILOSEC PO SCH (06:15)
[2018-09-23 07:15] LABS: BASO# 0.01 X1000 (0.0-0.2); BASO% 0.1 % (0.0-0.8); HEMATOCRIT 26.4 % (42.0-52.0); HEMOGLOBIN 8.4 g/dL (14.0-18.0); IMM GRAN# 0.15 X1000 (0.0-0.04); IMM GRAN% 1.5 % (0.0-0.5); LYMPH# 0.58 X1000 (1.2-3.4); LYMPH% 5.9 % (20.5-51.1); MCH 26.6 PG (27-31); MCHC 31.8 g/dL (33-37); MCV 83.5 FL (81-99); MONO# 0.36 X1000 (0.11-0.59); MONO% 3.7 % (1.7-9.3); MPV 10.6 FL (7.4-10.4); NEUT# 8.76 X1000 (1.4-6.5); NEUT% 88.8 % (42.2-75.2); PLT 316 X1000 (130-400); RBC 3.16 XMIL (4.7-6.1); RDW 14.6 % (11.5-14.5); WBC 9.86 X1000 (4.8-10.8)
[2018-09-23 07:33] LABS: CREATININE 2.1 mg/dL (0.7-1.2); POTASSIUM 4.8 mmol/L (3.5-5.1)
[2018-09-23 09:00] LABS: HYPOCHROM 1+; LYMPHS 8 % (21-51); MONO 2 % (1-9); SEGS 90 % (42-75)
[2018-09-23 09:01] LABS: BURR CELLS 1+
--- NOTE | 2018-09-23 09:24 | HISTORY AND PHYSICAL ---
DATE OF EVALUATION: 09/22/2018 at 4:30 p.m. CHIEF COMPLAINT: Shortness of breath. HISTORY OF PRESENT ILLNESS: This is a 63-year-old male with multiple admissions to [facility], [place], who presented to the emergency department complaining of 2-day history of shortness of breath. He reports that he noticed some yellowish-greenish sputum production, along with mild grade fever, but he did not check temperature. For the last 7 days, he noticed more swelling in both legs as well. he was checking his weight; he apparently has gained 10 to 15 pounds during the last 2 months. Here in the ER, he was found to be in mild respiratory distress. The x-ray showed possible left lower lobe pneumonia. So, we were called for admission. PAST MEDICAL HISTORY: 1. COPD, but not on any oxygen. 2. Congestive heart failure. 3. Chronic kidney disease stage IIIB. 4. Hyperlipidemia. 5. Diabetes mellitus type 2. 6. Coronary artery disease. 7. History of previous [place]. 8. Hypertension. 9. Gastroesophageal reflux disease. PAST SURGICAL HISTORY: Patient had stents placed in 2009. SOCIAL HISTORY: Patient does not smoke tobacco, he quit smoking 10 years ago approximately. He denies drinking any alcohol or abusing any illicit drugs. Patient lives with number. ALLERGIES: The patient is allergic to morphine. REVIEW OF SYSTEMS: The patient reports having had weight gain, fevers at night for the last 2 days. PHYSICAL EXAMINATION: Vital Signs: Temperature 98.1 degrees, heart rate 87, respiratory rate 22, blood pressure 132/80, O2 saturation 98% 2 L nasal cannula. General examination: This is a chronically ill-appearing, 63-year-old male, lying in bed in no acute distress. HEENT: Head is normocephalic, atraumatic. Neck: No JVD noted. No carotid bruits. No lymphadenopathy. No thyromegaly. Cardiovascular exam: S1, S2 heard. No murmurs, gallops or rubs. Regular rate and rhythm. Respiratory exam: Coarse breath sounds and crackles noted in both pulmonary bases. Patient is not using any accessory muscles or having work of breathing. Abdomen: Soft, nontender to palpation. Bowel sounds present. No organomegaly. Extremities: 2+ pedal edema of the mid legs. Peripheral pulses present, but faint. Neurological exam: Patient alert and oriented x3. Moves 4 extremities. LABORATORY DATA: White cell count is 12.22, hemoglobin 8.9, hematocrit 27.7, platelets 304. ABG that shows pH 7.44 with pCO2 40, PO2 93. BMP remarkable for creatinine 2.0 and glucose 234. ASSESSMENT: 1. Acute hypoxemic respiratory failure. 2. Left lower lobe pneumonia. 3. Congestive heart failure exacerbation. 4. Uncontrolled hypertension. 5. Diabetes mellitus type 2. 6. CKD stage 3b PLAN: The patient basically is being admitted to the hospital for left lower lobe pneumonia that has triggered this acute respiratory failure. In that regard, we are going to order broad spectrum antibiotics, in this case Zyvox and cefepime. We will provide breathing treatments. Also because he was reporting gaining weight on physical examination and also it seems that he has a mild CHF exacerbation, will start Lasix 60 mg IV twice daily. We will monitor in's and out's strictly. For diabetes mellitus, type 2, we will do sliding scale insulin and Accu-Cheks before meals and also at bedtime. We are going to check hemoglobin A1c as well. We will do diabetic diet. For his chronic atrial fibrillation, we will continue with Cardizem CD. We will continue with aspirin. We will monitor this patient closely. cc: Obed Avendaño MD [facility]OSPITALKim
[2018-09-23] MEDS: ISORDIL PO SCH ×3 (10:42→20:55)
[2018-09-23] MEDS: AVAPRO PO SCH (10:43)
[2018-09-23] MEDS: KLOR-CON PO SCH (10:43)
[2018-09-23] MEDS: ZETIA PO SCH (10:43)
[2018-09-23] MEDS: SINGULAIR PO SCH (10:43)
[2018-09-23] MEDS: ASPIRIN PO SCH (10:43)
[2018-09-23] MEDS: CARDIZEM CD PO SCH (10:43)
[2018-09-23] MEDS: APRESOLINE PO SCH ×3 (10:44→20:49)
[2018-09-23] MEDS: LASIX IV SCH ×2 (10:44→20:50)
[2018-09-23] MEDS: HUMALOG (PARKWAY) SUBQ SCH ×3 (11:12→20:50)
[2018-09-23] MEDS ORDERED: LABETALOL IV PRN (11:14)
[2018-09-23 11:33] LABS: HEMOGLOBIN A1C 5.6 % (4.8-6.0)
--- NOTE | 2018-09-23 12:53 | PROGRESS NOTE ---
DATE: 09/23/2018 SUBJECTIVE: Patient reports still feeling short of breath. A little bit better in comparing with yesterday. Denies any chest pain or any shortness of breath. OBJECTIVE: Vital Signs: Temperature 97.3, heart rate 70, respiratory rate 18, blood pressure 192/93, O2 saturation 100% 2 L nasal cannula. General examination: This is a chronically ill appearing, morbidly obese, 63-year-old male, lying in bed in no acute distress. Cardiovascular exam: S1, S2 heard. Tachycardic. No murmurs, gallops, or rubs noted. Respiratory exam: Wheezing and rhonchi in both pulmonary vanessa, mostly noted in both bases. The patient is not using any accessory muscles or having work of breathing. Abdomen: Soft, a little bit distended, but nontender to palpation. No signs of peritoneal irritation. Extremities: 3+ pitting edema in both lower extremities. Peripheral pulses present in both legs. Neurological exam: Patient alert and oriented x3. Moves 4 extremities. LABORATORY DATA REVIEWED: White cell count 9.86, hemoglobin 8.4, hematocrit 26.4, platelets 316 with BMP that shows creatinine at baseline 2.1 with glucose 201. ASSESSMENT AND PLAN: 1. Acute hypoxemic respiratory failure secondary to lower lobe pneumonia. The x-ray done on admission showed chronic atelectasis versus scarring in the left lower lobe. Considering that he has mild degree of fever and elevation of white cell count, and considering all his comorbidities, we are treating this like a left lower lobe pneumonia. The patient is currently on Zyvox and cefepime. White cell count is back to normal today. He is not spiking any fever. He reports still feeling some shortness of breath. His physical examination disclosed still some rhonchi and minimal wheezing in both pulmonary bases. We will continue with DuoNeb every 4 hours as scheduled and every 2 hours as needed. Considering her diabetes, I do not prefer to start any steroids. We will continue to monitor this patient closely. 2. Congestive heart failure exacerbation. The patient reports that during the last few weeks he started noticing weight gain, and his lower extremities get more swollen. The proBNP was elevated at 5000. In order to rule out any acute coronary syndrome, likely factor that could have triggered this problem, we have checked troponins 3 times and those are within normal limits. At this point, we are going to continue with Lasix 60 mg intravenous every 12 hours. His usual doses of Lasix at home is 40 mg oral daily. We will continue to monitor. 3. Chronic kidney disease stage IIIB. Will continue checking basic metabolic panel daily. I think this patient is on his baseline. 4. Diabetes mellitus type 2. We will continue with sliding scale insulin and Accu-Cheks before meals and also at bedtime. Hemoglobin A1c is still pending. 5. Uncontrolled hypertension. Blood pressure is still high. I am not quite sure he received his home doses of medications. I am going to add labetalol 20 mg intravenous every 6 hours as needed to systolic blood pressure greater than 180 or diastolic greater than 100. We will continue to monitor this patient closely. 6. Hyperlipidemia. We will continue home medications. cc: Obed Avendaño MD
[2018-09-23] MEDS: LOVENOX SUBQ SCH (17:34)
[2018-09-23] MEDS: LIPITOR PO SCH (20:49)
[2018-09-23] MEDS: TOUJEO SOLOSTAR SUBQ SCH (20:50)
[2018-09-24] MEDS: DUONEB (A & A) INH SCH ×7 (00:10→23:56)
[2018-09-24] MEDS: PRILOSEC PO SCH ×2 (05:05→06:06)
[2018-09-24] MEDS: MAXIPIME 1 GM in NS 50 ML IV SCH ×2 (05:05→17:18)
[2018-09-24] MEDS: ZYVOX 600 MG/D5W 600 MG/300 ML IVPB IV SCH ×2 (05:48→17:18)
[2018-09-24] MEDS: HUMALOG (PARKWAY) SUBQ SCH ×4 (06:06→21:24)
[2018-09-24 07:18] LABS: BASO# 0.02 X1000 (0.0-0.2); BASO% 0.2 % (0.0-0.8); EOS# 0.14 X1000 (0.0-0.7); EOS% 1.2 % (0.0-10.0); HEMATOCRIT 27.9 % (42.0-52.0); HEMOGLOBIN 8.9 g/dL (14.0-18.0); IMM GRAN# 0.13 X1000 (0.0-0.04); IMM GRAN% 1.1 % (0.0-0.5); LYMPH# 2.06 X1000 (1.2-3.4); LYMPH% 17.3 % (20.5-51.1); MCHC 31.9 g/dL (33-37); MCV 84.5 FL (81-99); MONO% 10.1 % (1.7-9.3); MPV 10.4 FL (7.4-10.4); NEUT# 8.38 X1000 (1.4-6.5); NEUT% 70.1 % (42.2-75.2); PLT 367 X1000 (130-400); RDW 14.8 % (11.5-14.5); WBC 11.93 X1000 (4.8-10.8)
[2018-09-24 07:36] LABS: CREATININE 2.3 mg/dL (0.7-1.2); POTASSIUM 4.1 mmol/L (3.5-5.1)
[2018-09-24] MEDS: ISORDIL PO SCH ×3 (09:28→21:22)
[2018-09-24] MEDS: KLOR-CON PO SCH (09:29)
[2018-09-24] MEDS: SINGULAIR PO SCH (09:29)
[2018-09-24] MEDS: LASIX PO SCH (09:29)
[2018-09-24] MEDS: CATAPRES PO SCH ×2 (09:29→21:22)
[2018-09-24] MEDS: APRESOLINE PO SCH ×3 (09:29→21:22)
[2018-09-24] MEDS: ZETIA PO SCH (09:29)
[2018-09-24] MEDS: CARDIZEM CD PO SCH (09:29)
[2018-09-24] MEDS: ASPIRIN PO SCH (09:29)
[2018-09-24] MEDS: AVAPRO PO SCH (09:29)
--- NOTE | 2018-09-24 11:49 | PROGRESS NOTE ---
DATE: 09/24/2018 SUBJECTIVE: As per the patient, he is feeling a little bit better, but he is still short of breath. His blood pressure is still uncontrolled. I checked his previous home medications, and it looks like he was on clonidine before, which for some reason has been stopped. Usually, he was taking 0.2 mg twice a day, but at this moment I will start him on 0.1 mg twice a day to see how he does, and hopefully we will increase it if the blood pressure is still elevated. OBJECTIVE: Vital Signs: Temperature 97.8 degrees, pulse 66, respiratory rate 18, blood pressure 186/85, oxygen saturation 98 on 2 L of nasal cannula. HEENT: Head normocephalic. No trauma. PERRLA. Neck: Supple. No JVD. No masses. Central trachea. Chest: Decreased breath sounds globally with prolonged expiratory phase and bilateral wheezing and rhonchi in both pulmonary vanessa. Abdomen: Soft, protuberant, a little bit distended. No tenderness to palpation. No signs of peritoneal irritation. Extremities: There is 3+ pitting edema. No clubbing. No cyanosis. Neurological: The patient is alert and oriented x3. No focal deficits. LABORATORY DATA: WBC 11.9, hemoglobin 8.9, hematocrit 27.9, platelets 367,000. Sodium 141, potassium 4.1, chloride 105, bicarbonate 24, BUN 44, creatinine 2.3, glucose 101, calcium 8. ASSESSMENT AND PLAN: 1. Acute on chronic hypoxemic respiratory failure, likely secondary to left lower lobe pneumonia and chronic obstructive pulmonary disease. Continue with the same management. I believe he is getting better. He has been placed on Zyvox and cefepime. No fever. 2. Congestive heart failure exacerbation. This patient has been placed on Lasix 60 mg intravenously twice a day. Since his BUN and creatinine are going up, will stop the intravenous treatment, and I will put him back on his home dose of 40 mg by mouth daily to see how he does. If we keep a negative balance, probably we can continue with these. So far, we have a negative balance of almost 2.4 liters. 3. Chronic kidney disease stage IIIB. Will continue with the same management, but I will decrease the dose of Lasix. Will monitor. 4. Type 2 diabetes. Continue sliding scale insulin and pattern blood sugar. Hemoglobin A1c 5.6, so the blood sugar is being well controlled. 5. Chronic obstructive pulmonary disease exacerbation. Continue with the same management. 6. Uncontrolled hypertension. Like I mentioned before, his blood pressure is still high. I checked his previous hospitalization, and he has been on clonidine before, but I do not know why this medication has been stopped prior to this hospitalization. I will restart this patient on clonidine 0.1 mg twice a day to see how he does. If his blood pressure is still elevated, I will probably increase it to 0.2 mg twice a day and monitor. I will stop the labetalol as needed, and I will put him on hydralazine as needed due to his history of chronic obstructive pulmonary disease. 7. Hyperlipidemia. Continue with home medications. cc: Demetrius Mirza MD
[2018-09-24] MEDS: LOVENOX SUBQ SCH (17:18)
[2018-09-24] MEDS: LIPITOR PO SCH (21:22)
[2018-09-24] MEDS: TOUJEO SOLOSTAR SUBQ SCH (21:22)
[2018-09-25] MEDS: DUONEB (A & A) INH SCH ×6 (03:49→23:05)
[2018-09-25] MEDS: APRESOLINE IV PRN (04:12)
[2018-09-25] MEDS: PRILOSEC PO SCH (06:02)
[2018-09-25] MEDS: HUMALOG (PARKWAY) SUBQ SCH ×4 (06:02→20:44)
[2018-09-25] MEDS: MAXIPIME 1 GM in NS 50 ML IV SCH ×2 (06:02→17:23)
[2018-09-25 07:37] LABS: BASO# 0.04 X1000 (0.0-0.2); BASO% 0.4 % (0.0-0.8); EOS# 0.29 X1000 (0.0-0.7); EOS% 2.7 % (0.0-10.0); HEMATOCRIT 26.8 % (42.0-52.0); HEMOGLOBIN 8.4 g/dL (14.0-18.0); IMM GRAN# 0.05 X1000 (0.0-0.04); IMM GRAN% 0.5 % (0.0-0.5); LYMPH# 1.74 X1000 (1.2-3.4); LYMPH% 16.5 % (20.5-51.1); MCH 26.8 PG (27-31); MCHC 31.3 g/dL (33-37); MCV 85.6 FL (81-99); MONO# 0.94 X1000 (0.11-0.59); MONO% 8.9 % (1.7-9.3); MPV 10.5 FL (7.4-10.4); PLT 278 X1000 (130-400); RBC 3.13 XMIL (4.7-6.1); RDW 14.9 % (11.5-14.5); WBC 10.56 X1000 (4.8-10.8)
[2018-09-25 07:52] LABS: CALCIUM 7.8 mg/dL (8.8-10.2); CREATININE 2.3 mg/dL (0.7-1.2); POTASSIUM 4.2 mmol/L (3.5-5.1)
--- NOTE | 2018-09-25 08:50 | Diag Imaging Result Doc PS360 ---
EXAM: CHEST-2 VIEWS HISTORY: hypoxia TECHNIQUE: PA and Lateral chest x-ray COMPARISON: 09/22/2018 FINDINGS: The cardiomediastinal silhouette is within normal limits. The pulmonary vasculature is not congested. There is stable left pleural effusion or thickening and stable left basilar opacity. No pneumothorax. Pulmonary vasculature is not congested. IMPRESSION: Stable left pleural fluid/thickening and left basilar opacity. No new findings. Electronically signed by Nimisha Orellana 09/25/2018 8:48 AM
[2018-09-25] MEDS ORDERED: ALDACTONE PO SCH (09:00)
[2018-09-25] MEDS: ZYVOX 600 MG/D5W 600 MG/300 ML IVPB IV SCH ×2 (10:06→20:45)
[2018-09-25] MEDS: ISORDIL PO SCH ×3 (10:11→20:43)
[2018-09-25] MEDS: CARDIZEM CD PO SCH (10:11)
[2018-09-25] MEDS: APRESOLINE PO SCH ×3 (10:12→20:44)
[2018-09-25] MEDS: KLOR-CON PO SCH (10:12)
[2018-09-25] MEDS: CATAPRES PO SCH ×2 (10:12→20:44)
[2018-09-25] MEDS: ZETIA PO SCH (10:12)
[2018-09-25] MEDS: AVAPRO PO SCH (10:12)
[2018-09-25] MEDS: SINGULAIR PO SCH (10:12)
[2018-09-25] MEDS: ASPIRIN PO SCH (10:12)
[2018-09-25] MEDS: LASIX PO SCH (10:13)
--- NOTE | 2018-09-25 14:24 | PROGRESS NOTE ---
DATE: 09/25/2018 SUBJECTIVE: The patient notes that he is feeling a lot better. He is having less swelling. Notes that his weight was 318 when he left the hospital last time on Lasix and Aldactone, had actually gotten down to 266. Stated that when he came back to the hospital this time he noted his weight was up to 281. Notes he stopped taking his Aldactone but he is unsure as to why. PHYSICAL: Vital Signs: Reviewed. Temperature 97.6 degrees, pulse 60, respiratory 18, BP 202/79. General: Patient is awake. He is in no current respiratory distress. He is sitting on side of the bed. He is very pleasant talk with. HEENT: Normocephalic. Neck: Supple. CV: Regular rate. Chest: Clear although distant. No crackles. No wheezing. Abdomen: Soft. Extremities: Moves all extremities. Neuro: No changes. ASSESSMENT: 1. Pneumonia. 2. Edema. 3. Obesity. 4. Chronic obstructive pulmonary disease. PLAN: Will continue patient in the hospital today. We will add back low-dose Aldactone at 12.5 mg. We will continue to follow his blood pressures and daily weights. Further orders as needed. Hopefully he can be discharged home over the next few days. cc: Rusty Reddy MD
[2018-09-25] MEDS: LOVENOX SUBQ SCH (17:24)
[2018-09-25] MEDS: LIPITOR PO SCH (20:44)
[2018-09-25] MEDS: TOUJEO SOLOSTAR SUBQ SCH (22:30)
[2018-09-26] MEDS: DUONEB (A & A) INH SCH ×6 (03:19→22:50)
[2018-09-26] MEDS: MAXIPIME 1 GM in NS 50 ML IV SCH ×2 (05:45→17:15)
[2018-09-26] MEDS: PRILOSEC PO SCH (06:18)
[2018-09-26] MEDS: APRESOLINE IV PRN (06:19)
[2018-09-26 06:51] LABS: HEMATOCRIT 26.8 % (42.0-52.0); HEMOGLOBIN 8.4 g/dL (14.0-18.0); MCH 26.8 PG (27-31); MCHC 31.3 g/dL (33-37); MCV 85.6 FL (81-99); RBC 3.13 XMIL (4.7-6.1); RDW 14.6 % (11.5-14.5); WBC 11.26 X1000 (4.8-10.8)
[2018-09-26] MEDS: HUMALOG (PARKWAY) SUBQ SCH ×4 (06:54→20:28)
[2018-09-26 07:11] LABS: ALBUMIN 2.6 g/dL (3.5-5.0); CALCIUM 7.7 mg/dL (8.8-10.2); CREATININE 2.2 mg/dL (0.7-1.2); POTASSIUM 4.4 mmol/L (3.5-5.1); TOTAL BILIRUBIN 0.2 mg/dL (0.20-1.00); TOTAL PROTEIN 5.3 g/dL (6.3-8.3)
[2018-09-26] MEDS: ZYVOX 600 MG/D5W 600 MG/300 ML IVPB IV SCH (08:26)
[2018-09-26] MEDS: ZETIA PO SCH (08:26)
[2018-09-26] MEDS: AVAPRO PO SCH (08:26)
[2018-09-26] MEDS: CARDIZEM CD PO SCH (08:26)
[2018-09-26] MEDS: KLOR-CON PO SCH (08:26)
[2018-09-26] MEDS: ASPIRIN PO SCH (08:27)
[2018-09-26] MEDS: LASIX PO SCH (08:27)
[2018-09-26] MEDS: APRESOLINE PO SCH ×3 (08:27→20:30)
[2018-09-26] MEDS: CATAPRES PO SCH ×2 (08:27→20:30)
[2018-09-26] MEDS: ALDACTONE PO SCH (08:27)
[2018-09-26] MEDS: SINGULAIR PO SCH (08:27)
[2018-09-26] MEDS: ISORDIL PO SCH ×3 (08:27→20:29)
[2018-09-26] MEDS: LOVENOX SUBQ SCH (17:15)
[2018-09-26] MEDS: TOUJEO SOLOSTAR SUBQ SCH (20:29)
[2018-09-26] MEDS: LIPITOR PO SCH (20:30)
[2018-09-26] MEDS: ZYVOX PO SCH (20:33)
--- NOTE | 2018-09-26 22:13 | PROGRESS NOTE ---
DATE: 09/26/2018 SUBJECTIVE: The patient states overall he is feeling a little bit better. Notes that his breathing is improved. He does not have any swelling of his left hand, lower extremity edema. Also is improved. PHYSICAL EXAMINATION: Vital Signs: Temperature 97.6, pulse 60, respiratory rate 20. BP is elevated at 172/61, but actually better than yesterday at 202. HEENT: Normocephalic. Neck: Supple. Cardiovascular: Regular rate. No murmurs. Chest: Greatly decreased but equal breath sounds bilaterally. Decreased due to body habitus. No current wheezing. No crackles. Abdomen: Soft, obese, nondistended. Extremities: Moves all extremities. He has trace edema bilateral lower extremities. ASSESSMENT: 1. Chronic diastolic congestive heart failure with acute worsening. 2. Acute on chronic respiratory failure. 3. Chronic kidney disease. 4. Morbid obesity. 5. Hypertension. 6. Chronic obstructive pulmonary disease. PLAN: Continue patient in the hospital. We will decrease his Aldactone to 25 mg from 12.5, see if this will help his blood pressure any better. Continue breathing treatments. Continue Lasix. Hopefully, he can discharge home over the next 1 or 2 days if he continues to improve. cc: Rusty Reddy MD
[2018-09-27] MEDS: DUONEB (A & A) INH SCH ×2 (03:10→07:35)
[2018-09-27] MEDS: MAXIPIME 1 GM in NS 50 ML IV SCH (05:34)
[2018-09-27] MEDS: PRILOSEC PO SCH ×2 (05:34→06:03)
[2018-09-27] MEDS: HUMALOG (PARKWAY) SUBQ SCH (06:16)
[2018-09-27 07:47] VITALS: BP 166/62
[2018-09-27] MEDS: ASPIRIN PO SCH (08:47)
[2018-09-27] MEDS: ZYVOX PO SCH (08:47)
[2018-09-27] MEDS: AVAPRO PO SCH (08:47)
[2018-09-27] MEDS: APRESOLINE PO SCH (08:47)
[2018-09-27] MEDS: ISORDIL PO SCH (08:48)
[2018-09-27] MEDS: SINGULAIR PO SCH (08:48)
[2018-09-27] MEDS: KLOR-CON PO SCH (08:48)
[2018-09-27] MEDS: LASIX PO SCH (08:49)
[2018-09-27] MEDS: ALDACTONE PO SCH (08:49)
[2018-09-27] MEDS: CARDIZEM CD PO SCH (08:49)
[2018-09-27] MEDS: CATAPRES PO SCH (08:49)
[2018-09-27] MEDS: ZETIA PO SCH (08:49)
[2018-09-27] MEDS ORDERED: OMNICEF PO SCH (09:00)
--- NOTE | 2018-09-28 07:36 | DISCHARGE SUMMARY ---
ADMISSION DATE: 09/23/2018 DISCHARGE DATE: 09/27/2018 DISCHARGE ADDENDUM: On discharge, patient is awake, alert. He is in no distress. He is tolerating oral antibiotics. He has been on Lasix and Aldactone for the past 2 days without any worsening of her symptoms. We will discharge him home. He will follow up outpatient with his primary care to continue treatment. cc: Rusty Redyd MD
--- NOTE | 2018-10-04 12:58 | DISCHARGE SUMMARY ---
ADMISSION DATE: 09/23/2018 DISCHARGE DATE: 09/27/2018 DISCHARGE DIAGNOSES: 1. Diastolic congestive heart failure. 2. Chronic kidney disease stage IIIB. 3. Hyperlipidemia. 4. Diabetes type 2. 5. Coronary artery disease. 6. Morbid obesity. 7. Chronic reflux. 8. Acute hypoxic respiratory failure secondary to left lower lobe pneumonia. 9. Left lower lobe pneumonia. 10. Uncontrolled hypertension. CONSULTATIONS: None. PROCEDURES: None. BRIEF HOSPITAL COURSE: The patient is a 63-year-old male who presented to the hospital with increased cough, congestion, shortness of breath. He has had multiple admissions over the past several months, and will continue to have multiple admissions in the future. He is morbidly obese, which is certainly affecting the breathing. He was admitted, diagnosed with left lower lobe pneumonia, placed on antibiotics. He had been on Aldactone in the past, but somehow this had been dropped off. Uncertain if he developed any electrolyte issues. The patient is completely unaware as to why this was stopped. While in the hospital, he was noted to have anasarca, which has been a problem for him in the past. He was started back on Aldactone, and had a marked urine output. His electrolytes were followed during the next 2 to 3 days without any complications. He was on IV Lasix. This was changed over to p.o. Lasix. He continued to have good urine output, continued to have improved breathing. PLAN: The patient will be discharged home. He will follow up outpatient with his primary care. He will continue Lasix and Aldactone currently. He also will be discharged home on antibiotics. Discussed with the patient to check his blood pressures, blood sugars, and check his weight daily. Follow up with his primary care if these change. MEDICATIONS: Zyvox 600 twice a day for 5 days, Omnicef 300 twice a day for 5 days, Lasix 40, Aldactone 12.5. He will continue aspirin, metformin, hydralazine at 100 three times a day. Continue irbesartan at 300, Lipitor, isosorbide, diltiazem 240, insulin, Protonix, Singulair, and budesonide. Discussed with him to leave his potassium off until he follows up with his primary care to have his potassium level rechecked in the next few days. cc: Rusty Reddy MD
== END 2018-09-27 10:27 | disposition home health service (06) | DRG 291 ==
LOC: P.ED 13:16 → P.MEDSURG 17:52 → SUATTDRO 17:52 → INTOOBSV 17:52
PROVIDERS: ATTEND Family Medicine
CPT/HCPCS: 71020; 71046; 80048; 80053; 82550; 82553; 82805; 82948; 83036; 83735; 83880; 84443; 84484; 85025; 85027; 85610; 85730; 87040; 89220; 93005; 94640; 94761; 96365; 96367; 96372; 96375; 99285; A9270; J0360; J0692; J0696; J1650; J1815; J1940; J2020; J2930; XXXXX

== ENCOUNTER 2019-04-30 11:42 | Inpatient (IN) ==
[2019-04-30] MEDS ORDERED: ASPIRIN PO ONE (11:54)
[2019-04-30 12:20] LABS: BASO% 1.3 % (0.0-0.8); EOS% 6.5 % (0.0-10.0); HEMATOCRIT 27.9 % (42.0-52.0); HEMOGLOBIN 8.5 g/dL (14.0-18.0); IMM GRAN# 0.02 X1000 (0.0-0.04); IMM GRAN% 0.3 % (0.0-0.5); LYMPH# 1.04 X1000 (1.2-3.4); LYMPH% 13.5 % (20.5-51.1); MCH 26.1 PG (27-31); MCHC 30.5 g/dL (33-37); MCV 85.6 FL (81-99); MONO# 0.67 X1000 (0.11-0.59); MONO% 8.7 % (1.7-9.3); NEUT# 5.39 X1000 (1.4-6.5); NEUT% 69.7 % (42.2-75.2); PLT 225 X1000 (130-400); RBC 3.26 XMIL (4.7-6.1); RDW 14.1 % (11.5-14.5); WBC 7.72 X1000 (4.8-10.8)
--- NOTE | 2019-04-30 12:34 | Diag Imaging Result Doc PS360 ---
CHEST-2 VIEWS - 04/30/2019 INDICATION: sob chf COMPARISON: 04/04/2019 FINDINGS: There is a small focal infiltrate at the lateral left lung base probably in the left lower lobe. This is similar to prior. Heart size is normal. No pneumothorax or pleural effusion. IMPRESSION: Small focal infiltrate at the lateral left lung base. Recommend treatment for pneumonia and follow-up until clear. Electronically signed by Alden Arenas 04/30/2019 12:31 PM
--- NOTE | 2019-04-30 12:36 | EKG Report ---
Test Performed on : 04/30/2019 12:00:44 PM Test Reason : sob chest pressure Blood Pressure : / mmHG Vent. Rate : 082 BPM Atrial Rate : 082 BPM P-R Int : 264 ms QRS Dur : 090 ms QT Int : 376 ms P-R-T Axes : 040 042 097 degrees QTc Int : 439 ms Sinus rhythm. with 1st degree AV block. Otherwise normal ECG When compared with ECG of 24-DEC-2018 21:06, T wave inversion no longer evident in Lateral leads Unconfirmed Result
[2019-04-30 12:40] LABS: ALBUMIN 3.1 g/dL (3.5-5.0); CALCIUM 7.7 mg/dL (8.8-10.2); CREATININE 2.5 mg/dL (0.7-1.2); POTASSIUM 4.9 mmol/L (3.5-5.1); TOTAL BILIRUBIN 0.3 mg/dL (0.20-1.00)
[2019-04-30 12:47] LABS: INR 0.95; PROTIME 13.1 Seconds (11.0-16.0); PTT 32.6 Seconds (22.3-41.8)
--- NOTE | 2019-04-30 12:48 | PROVIDER DOCUMENTATION ---
HPI-General Adult - General Chief Complaint: Shortness of Breath Stated Complaint: SOB Time Seen by Provider: 04/30/19 12:41 Source: patient Allergies/Adverse Reactions: Patient Allergies Allergy/AdvReac Type Severity Reaction Status Date / Time morphine AdvReac ANAPHYLAXIS Verified 04/30/19 12:27 Home Medications: Home Medication List Medication Instructions Recorded Confirmed Last Taken Type Aspirin 325 mg PO DAILY 11/21/16 04/30/19 12/08/18 08:00 History Hydralazine [Apresoline] 100 mg PO TID@0900,1500,2100 05/27/17 04/30/19 09/28/17 07:30 History ATORVAstatin [Lipitor] 40 mg PO QHS 11/27/17 04/30/19 12/07/18 21:00 History Irbesartan 300 mg PO DAILY 11/27/17 04/30/19 Unknown History Isosorbide Dinitrate [Isordil] 80 mg PO TID@0900,1500,2100 02/02/18 04/30/19 Unknown History Albuterol 2.5MG/Ipratrop 0.5MG 3 ml INH Q4H PRN PRN neb 06/21/18 04/30/19 Unknown Rx [Duoneb (A & A)] Diltiazem C.d. [Cardizem Cd] 240 mg PO DAILY capsule 06/21/18 04/30/19 Unknown Rx Umeclidinium/Vilanterol [Anoro 1 puff INH RTDAILY inhaler 06/21/18 04/30/19 Unknown Rx Ellipta 62.5-25 Mcg INH] Budesonide [Pulmicort] 0.5 mg INHALATION BID #60 ampul.neb 09/11/18 04/30/19 Unknown Rx Ezetimibe [Zetia] 10 tab PO DAILY 09/22/18 04/30/19 12/08/18 08:00 History Linezolid [Zyvox] 600 mg PO BID #10 tab 09/27/18 04/30/19 Unknown Rx Insulin Glargine,Hum.rec.anlog 20 units SQ DAILY 12/15/18 04/30/19 Unknown History [Toujeo Max Solostar] Ipratropium/Albuterol Sulfate 3 ml INHALATION Q4HR #60 ampul.neb 12/24/18 04/30/19 Unknown Rx [Iprat-Albut 0.5-3(2.5) mg/3 ml] Prednisone 20 mg PO DIRECTED #18 tab 01/29/19 04/30/19 Unknown Rx - History of Present Illness -Gen Adult Nature of Presenting Problems: Pt. is 64 yom that presents with c/o SOB. Pt. states his oxygen is not helping and he cannot lay down. He reports some sinus congestion and cough. He denies any other complaints. He states his feet are beginning to swell. He reports chest tightness to triage but denies at time of exam. Location of Pain/Injury: reports: none. denies: head, face, mouth, neck, chest, upper extremity, hand(s), abdomen, back, pelvis, genitalia, lower extremity, feet, upper body, lower body, generalized, other Pain Radiation: reports: no radiation. denies: arm(s), back, buttocks, chest, epigastric, feet, groin, jaw, flank (L), legs (lower), LLQ, LUQ, neck, periumbilical, flank (R), RLQ, RUQ, shoulder(s), scapula, scrotal, sternal n otch, suprapubic, legs (upper), urethral, vaginal, other Quality of Pain: reports: none. denies: aching, indigestion, throbbing Severity: reports: moderate. denies: mild, severe Onset/Duration: reports: gradual, 2 days ago Timing: reports: still present. denies: improving, intermittent, getting worse Context/Activities at Onset: reports: none. denies: light activity, moderate activity, vigorous activity, recent emotional stress, recent physical stress, recent trauma history, possible bad food, cold exposure, eating, out of country travel, rest, sleep, sexual activity, other Modifying Factors: worse with: coughing, lying down Associated Symptoms: reports: chest pain, cough, shortness of breath. denies: denies symptoms, anxiety, arm pain, back/neck pain, constipation, diaphoresis, diarrhea, dizziness, EENT symptoms, fatigue, fever/chills, genitourinary problem s, headaches, heartburn, joint pain, loss of appetite, malaise, muscle aches, sinus congestion/drainage, nausea, rash, seizure, sensory/motor loss, pain with inspiration, swelling/mass in abdomen, syncope, vomiting, weakness, trouble walking, other Similar Symptoms Previously?: Yes Recently seen or treated by another doctor?: No Review of Systems - Adult - REVIEW OF SYSTEMS - ADULT Constitutional: reports: no symptoms reported Eyes: reports: no symptoms reported Ears, Nose, Mouth & Throat: reports: see HPI, sinus problem. denies: ear pain, loose teeth, throat pain Cardiovascular: reports: see HPI, chest pain. denies: irregular heart rate, syncope Respiratory: reports: see HPI, cough, dyspnea on exertion, shortness of breath. denies: hemoptysis, pleurisy, wheezing Gastrointestinal: reports: no symptoms reported Genitourinary: reports: no symptoms reported Musculoskeletal: reports: no symptoms reported Integumentary: reports: no symptoms reported Neurological: reports: no symptoms reported Psychiatric: reports: no symptoms reported Past History - Adult - PAST MEDICAL HISTORY-ADULT Review of Records: reports: Old Records Reviewed, Nursing Assessment Review, Medications Reviewed, Social history reviewed & non-contributory. Major Childhood Illnesses: reports: denies history Cardiovascular: reports: CAD, CHF, HTN, hyperlipidemia, [place] Respiratory: reports: asthma, COPD Gastrointestinal: reports: GERD, pancreatitis Obstetrical/Gynecological: reports: denies history Genitourinary: reports: denies history Musculoskeletal: reports: chronic pain Neurological: reports: denies history Psychiatric: reports: anxiety Endocrine/Immune: reports: Diabetes Other Conditions: reports: denies history - PRIOR SURGERIES/PROCEDURES Surgical/Procedure History: reports: cardiac stent - PRIOR HOSPITALIZATIONS Prior Hospitalizations: reports: for other non-related - IMMUNIZATION STATUS Childhood Immunizations: See Nurse Assessment Flu Vaccine: See Nurse Assessment - FAMILY HISTORY Family History: reviewed, not pertinent - SOCIAL HISTORY Smoking: quit greater than 1 year Physical Exam-General - PHYSICAL EXAM-ADULT Initial Vital Signs Reviewed: Yes - CONSTITUTIONAL General Appearance: alert, moderate distress, obese. negative: anxious, lethargic, obtunded, combative - EYES Eyes: PERRL/EOMI, pink conjunctivae - HEAD, EARS, NOSE, MOUTH & THROAT HENMT: normocephalic/atraumatic, moist mucous membranes, TMs normal, pharynx normal. negative: angioedema, frontal tenderness, maxillary tenderness - NECK Neck: non-tender, full range of motion, supple, normal inspection - RESPIRATORY Respiratory: crackles (Bilaterally). negative: rales, rhonchi, stridor - CARDIOVASCULAR Cardiovascular: normal peripheral pulses, regular rate, rhythm, no edema - GASTROINTESTINAL (ABDOMEN) Abdominal Exam: normal bowel sounds - LYMPHATIC Lymphatic: no adenopathy - MUSCULOSKELETAL Back Exam: normal inspection, no CVA tenderness, no vertebral tenderness Extremity: swelling. negative: deformity, erythema, inflammation, tenderness Peripheral Pulses: radial (R): 2+, radial (L): 2+ - SKIN Integumentary: pallor. negative: cyanosis, jaundice, tenderness - NEUROLOGIC Neurologic: grossly normal, no motor/sensory deficits - PSYCHIATRIC Psych/Mental Status: normal mood/affect, normal thought content, normal thought process, oriented x 3. negative: anxious, paranoid, tearful Progress - PLAN OF CARE/RESULTS Progress/Plan/Lab Results: Vital Signs - 8 hr 04/30/19 11:50 Temperature 98 F Pulse Rate 84 Respiratory Rate 20 Blood Pressure 188/84 O2 Sat by Pulse Oximetry 96 Laboratory Results - last 24 hr 04/30/19 04/30/19 04/30/19 12:08 12:08 12:08 WBC 7.72 RBC 3.26 L Hgb 8.5 L Hct 27.9 L MCV 85.6 MCH 26.1 L MCHC 30.5 L RDW Std Deviation 14.1 Plt Count 225 MPV 11.0 H Immature Gran % (Auto) 0.3 Neut % (Auto) 69.7 Lymph % (Auto) 13.5 L Moca % (Auto) 8.7 Eos % (Auto) 6.5 Baso % (Auto) 1.3 H Immature Gran # (Auto) 0.02 Neut # (Auto) 5.39 Lymph # (Auto) 1.04 L Moca # (Auto) 0.67 H Eos # (Auto) 0.50 Baso # (Auto) 0.10 PT 13.1 INR 0.95 PTT (Actin FS) 32.6 Sodium 141 Potassium 4.9 Chloride 107 Carbon Dioxide 21 L Anion Gap 13 BUN 35 H Creatinine 2.5 H Estimated GFR/1.73 m2 26 BUN/Creatinine Ratio 14 Glucose 118 H Calculated Osmolality 290 Calcium 7.7 L Total Bilirubin 0.30 AST 17 ALT 15 Alkaline Phosphatase 87 Creatine Kinase 339 H Troponin T Total Protein 5.0 L Albumin 3.1 L Globulin 2.0 Albumin/Globulin Ratio 2.0 04/30/19 12:08 WBC RBC Hgb Hct MCV MCH MCHC RDW Std Deviation Plt Count MPV Immature Gran % (Auto) Neut % (Auto) Lymph % (Auto) Moca % (Auto) Eos % (Auto) Baso % (Auto) Immature Gran # (Auto) Neut # (Auto) Lymph # (Auto) Moca # (Auto) Eos # (Auto) Baso # (Auto) PT INR PTT (Actin FS) Sodium Potassium Chloride Carbon Dioxide Anion Gap BUN Creatinine Estimated GFR/1.73 m2 BUN/Creatinine Ratio Glucose Calculated Osmolality Calcium Total Bilirubin AST ALT Alkaline Phosphatase Creatine Kinase Troponin T 0.117 H Total Protein Albumin Globulin Albumin/Globulin Ratio Orders Category Date Time Status Cardiac Monitoring DIRECTED Care 04/30/19 11:54 Active Oxygen Therapy- ED Nursing DIRECTED Care 04/30/19 11:54 Active Saline Loc NOW Care 04/30/19 11:54 Active CHEST-2 VIEWS [RAD] Stat Exams 04/30/19 11:54 Completed CBC WITH ELECTRONIC DIFF [HEME] Stat Lab 04/30/19 12:08 Completed CK PROFILE [SP CHEM] Stat Lab 04/30/19 12:08 Results COMPREHENSIVE METABOLIC PANEL [CHEM] Stat Lab 04/30/19 12:08 Results PRO B-NATRIURETIC PEPTIDE Stat Lab 04/30/19 12:08 Received PROTIME WITH INR [COAG] Stat Lab 04/30/19 12:08 Completed PTT [COAG] Stat Lab 04/30/19 12:08 Completed TROPONIN T Stat Lab 04/30/19 12:08 Completed Aspirin Med 04/30/19 11:54 Discontinued 325 mg PO NOW ONE CP/SOB/Palp >45 yrs of Age Stat Oth 04/30/19 11:54 Ordered EKG [EKG] Stat Ther 04/30/19 11:54 Draft Result Diagrams: 04/30/19 12:08 04/30/19 12:08 - EKG 1 Time of EKG reading by physician:: 12:03 EKG Read and Signed by:: Camilo Hernandez EKG Interpretation (*Must complete 3 of following elements*): Abnormal Rate: 82 Rhythm: Sinus with 1st degree block ST Wave: normal - XRAY 1 XRAY Study: Chest ([facility] - [address], [address], [place] [address] [place] [address] Department of Imaging Patient: KIRSTIE FRIEDMAN Date: 04/30/19#: [id number] : 1955DM Status: PRE ERAcct#: [id number] Age/Sex: 64/MRoom/Bed: Loc: P.ED Ordering Physician: Camilo Hernandez MD Family Physician: Brandon Baird DO Reason for Procedure: sob chf ____ Signed CHEST-2 VIEWS - 04/30/2019 INDICATION: sob chf COMPARISON: 04/04/2019 FINDINGS: There is a small focal infiltrate at the lateral left lung base probably in the left lower lobe. This is similar to prior. Heart size is normal. No pneumothorax or pleural effusion. IMPRESSION: Small focal infiltrate at the lateral left lung base. Recommend treatment for pneumonia and follow-up until clear. Electronically signed by Alden Arenas 04/30/2019 12:31 PM 04/30/19 1231 Interpreting Physician: Alden Arenas MD Dictated Date/Time: 04/30/19 1229 cc: Camilo Hernandez MD; Brandon Baird DO) XRAY Interpretation: See note - CONSULTS/PCP/HOSPITALIST Notification #1 *Consult/PCP/Hospitalist*: Dr. Reddy Time Discussed: 12:59 Reason/Comments: Admission Consult Disposition: Will see in ED, Admit Departure - Departure Date of Disposition Decision: 04/30/19 Time of Disposition Decision: 12:58 DIAGNOSIS: Chronic anemia, Elevated troponin LLL pneumonia Qualifiers: Pneumonia type: due to unspecified organism Qualified Code(s): J18.1 - Lobar pneumonia, unspecified organism COPD (chronic obstructive pulmonary disease) Qualifiers: COPD type: chronic bronchitis Chronic bronchitis type: unspecified Qualified Code(s): J42 - Unspecified chronic bronchitis Edema Qualifiers: Edema type: unspecified Qualified Code(s): R60.9 - Edema, unspecified Chronic renal insufficiency Qualifiers: Chronic kidney disease stage: unspecified stage Qualified Code(s): N18.9 - Chronic kidney disease, unspecified Disposition: ADMITTED INPATIENT 09 Certified Medical Emergency: Emergent Condition: Stable Referrals and Follow-Ups: Brandon Baird DO [Primary Care Provider] - - Critical Care Note This patient required my direct & personal management of CC.: No Attestation - Physician/ SHARIF Attestation Patient care was provided by Advanced Practice Provider:: Yes Advanced Practice Provider:: Marguerite Stark Advanced Practice Provider documentation review:: The Mid-level provider documentation, treatment plan and medical decision making was reviewed by the physician who agrees with all treatment and medical decision making by the MLP. The physician spent face to face time with patient:: No Advanced Practice Provider documentation review:: Supervising physician onsite and consulted in the evaluation and care of this patient. The physician did not have a face to face encounter with the patient.
[2019-04-30] MEDS ORDERED: ROCEPHIN 1 GM in NS 50 ML IV ONE (12:52)
[2019-04-30] MEDS ORDERED: ZITHROMAX 500 MG/NS 500 MG/250 ML IVPB IV ONE (12:52)
[2019-04-30 13:14] LABS: CK INDEX 2.7 (0.0-2.5); CK-MB 9.02 ng/mL (0.0-5.0)
[2019-04-30] MEDS ORDERED: DUONEB (A & A) INH PRN (13:31)
--- NOTE | 2019-04-30 14:40 | HISTORY AND PHYSICAL ---
PRIMARY CARE PROVIDER: Dr. Brandon Baird. PRIMARY EMPLOYEE BENEFITS INSURANCE AGENT: Dr. Tucker. CHIEF COMPLAINT: Sinus congestion, yellow phlegm. HISTORY OF PRESENT ILLNESS: Mr. Pascual Grove is a 64-year-old male with multiple medical admissions to [facility] with complaints of shortness of breath, but this time he is here with complaints of sinus congestion that has been going on for at least 6 days. He has been also coughing up yellow and green phlegm. Imaging shows he has a left lower lobe pneumonia. There is no obvious respiratory distress at this time. He does have expiratory wheezes. Troponin is elevated, but is chronically elevated. He denies any chest pain. There are no ST changes on the EKG. So, we will admit. We will treat for COPD exacerbation and pneumonia. PAST MEDICAL HISTORY: 1. COPD on 2 L of oxygen at home. 2. Reported congestive heart failure, but really it appears that maybe there is just some pulmonary artery hypertension with a reading of 32 mmHg. His EF was preserved at 55 to 60 percent, and there was no diastolic dysfunction from an echocardiogram report May 2018. 3. CKD stage IIIB. 4. Hyperlipidemia. 5. Diabetes mellitus type 2. 6. Coronary artery disease, history of SC and cardiac stents in 2019. 7. Hypertension. 8. GERD. 9. Chronic Troponinemia. SURGICAL HISTORY: Cardiac stents in 2009. SOCIAL HISTORY: Started smoking at the age of 18. He smoked over a pack per day. He said at least 1-1/2 packs per days until the year of 1998. He also used to drink a 6 pack of beer every other day, bu quit that 25+ years ago. Denies any illicit drug use. Lives at home with his . FAMILY HISTORY: Mother had breast cancer. Father had skin cancer and stroke. ALLERGIES: Morphine causes anaphylaxis. HOME MEDICATIONS: 1. Atorvastatin 40 mg p.o. nightly. 2. Apresoline 100 mg p.o. t.i.d. 3. Aspirin 325 mg p.o. daily. 4. Irbesartan 300 mg p.o. daily. 5. Isosorbide dinitrate 80 mg p.o. t.i.d. 6. Insulin glargine 20 units subcutaneous daily. 7. Zetia 10 mg p.o. daily. 8. Albuterol/Atrovent nebulizers as needed. 9. Ellipta 62.5/25 inhaled daily, 1 puff. 10. Cardizem 240 mg p.o. daily. 11. Prednisone taper that was back in January. 12. Pulmicort inhaled twice a day. 13. Back in September, he took Zyvox twice a day. REVIEW OF SYSTEMS: Fourteen point review of systems are complete and all were negative, except for those mentioned in above HPI. PHYSICAL EXAMINATION: VITAL SIGNS: Temperature 98.2 degrees, heart rate 85, respiratory rate 22, blood pressure 153/64, O2 saturation 96% on 2 L nasal cannula. GENERAL: Pascual Grove is a 64-year-old male. He is in no acute distress. He is able answer questions appropriately. HEENT: Atraumatic, normocephalic. Pupils equal, round, reactive to light. Extraocular movements intact. Mucous membranes moist. NECK: Trachea midline. CARDIOVASCULAR: S1, S2. Regular rate and rhythm. No rubs, gallops, or murmurs. He has 1+ pitting lower extremity edema, +2 dorsalis and radial pulses. Negative JVD or carotid bruits. PULMONARY: He has actually got expiratory wheezes noted throughout, decreased in the bases. No accessory muscle use or work of breathing noted. Tolerating nasal cannula. GI: Soft, round, nondistended. Positive bowel sounds x4. EXTREMITIES: Moves all extremities equally. Full range of motion. NEUROLOGIC: A and O x3. Follows commands. Sensory is intact. SKIN: Warm, dry, intact. LABORATORY DATA: White blood cells 7000, hemoglobin 8, hematocrit 27, platelet count 225. INR 0.95, PTT is 32.6. Sodium 141, potassium 4.9. BUN 35, creatinine 2.5, glucose 118, calcium 7.7, bilirubin 0.30. AST 17, ALT 15, CK 339, index 2.7, MB is 9.02. Troponin 0.117. ProBNP 1993. Albumin is 3.1. IMAGIN. Chest x-ray: Small focal infiltrate in the left lateral lung base. Recommend treatment for pneumonia and follow up until clear. 2. EKG: Sinus rhythm with a first-degree heart block. Rate is 82, QTc is 439. ASSESSMENT AND PLAN: 1. Complaints of sinus congestion, found to have a left lower lobe pneumonia. Symptoms for at least 6 days with yellow-green phlegm. Denies fever. Denies chest pains or shortness of breath. He does have some expiratory wheezes noted. We will get a sputum culture. Antibiotic coverage will consist of Rocephin 1 gram intravenous every 24 hours. 2. Chronic obstructive pulmonary disease with mild exacerbation secondary to the pneumonia. He is on antibiotic therapy and nebulizers. 3. Diabetes mellitus type 2. Pattern blood glucoses, home insulin dosing, We will add a sliding scale insulin, and he is on a diabetic diet. 4. Hyperlipidemia. Continue statin. 5. Chronic Troponinemia along with a history of coronary artery disease and myocardial infarction. Denies any chest pain. No ST changes on the electrocardiogram. Continue aspirin, statin and isosorbide. 6. Hypertension. Continue hydralazine, isosorbide, and irbesartan. 7. Deep venous thrombosis prophylaxis. Sequential compression devices. Dictated by DELTA Ya for Rusty Reddy MD cc: DELTA Ya MD
[2019-04-30] MEDS ORDERED: TYLENOL PO PRN (14:51)
[2019-04-30] MEDS ORDERED: ZOFRAN IV PRN (14:51)
[2019-04-30] MEDS ORDERED: FLU VACCINE IM ONE (15:07)
[2019-04-30] MEDS: APRESOLINE PO SCH ×2 (15:20→21:36)
[2019-04-30] MEDS: ISORDIL PO SCH ×2 (15:20→21:37)
[2019-04-30] MEDS: DUONEB (A & A) INH PRN ×3 (15:36→23:07)
[2019-04-30] MEDS: HUMULIN R (PARKWAY) SUBQ SCH ×2 (17:40→21:45)
[2019-04-30] MEDS: AYR NASAL SPRAY NAS PRN (18:43)
[2019-04-30] MEDS: PULMICORT INH SCH (19:42)
[2019-04-30] MEDS: LIPITOR PO SCH (21:37)
[2019-05-01] MEDS: AFRIN NASAL SPRAY NAS PRN ×2 (04:35→17:16)
[2019-05-01 06:43] LABS: MCH 26.4 PG (27-31); MCHC 30.8 g/dL (33-37); MCV 85.8 FL (81-99); MPV 11.4 FL (7.4-10.4); RBC 3.03 XMIL (4.7-6.1); RDW 14.1 % (11.5-14.5); WBC 7.83 X1000 (4.8-10.8)
[2019-05-01] MEDS: HUMULIN R (PARKWAY) SUBQ SCH ×4 (06:43→22:49)
[2019-05-01 07:09] LABS: CALCIUM 7.9 mg/dL (8.8-10.2); CREATININE 2.6 mg/dL (0.7-1.2); MAGNESIUM 1.5 mg/dL (1.5-2.7); POTASSIUM 4.7 mmol/L (3.5-5.1); TOTAL BILIRUBIN 0.3 mg/dL (0.20-1.00); TOTAL PROTEIN 4.8 g/dL (6.3-8.3)
[2019-05-01] MEDS: DUONEB (A & A) INH PRN ×2 (07:53→11:19)
[2019-05-01] MEDS: PULMICORT INH SCH ×2 (07:53→18:35)
[2019-05-01] MEDS: ANORO ELLIPTA 62.5-25 MCG INH INH SCH (07:56)
[2019-05-01] MEDS: ISORDIL PO SCH ×3 (08:30→21:52)
[2019-05-01] MEDS: AVAPRO PO SCH (08:31)
[2019-05-01] MEDS: CARDIZEM CD PO SCH (08:31)
[2019-05-01] MEDS: ZETIA PO SCH (08:32)
[2019-05-01] MEDS: APRESOLINE PO SCH ×3 (08:32→21:52)
[2019-05-01] MEDS: INSULIN PEN NEEDLES ONE ×2 (08:32→16:49)
[2019-05-01] MEDS: ASPIRIN PO SCH (08:32)
[2019-05-01] MEDS: TOUJEO SOLOSTAR SUBQ SCH (08:35)
[2019-05-01] MEDS: ROCEPHIN 1 GM in NS 50 ML IV SCH (11:36)
--- NOTE | 2019-05-01 12:57 | HISTORY AND PHYSICAL ---
ADDENDUM: Patient seen and examined by myself while in the ER. He actually has lost a significant amount of weight, approximately 50 pounds. He notes that he has been trying. He is watching his diet. Blood sugars have been much improved. His swelling actually is much better than the last time I saw him in the hospital. Both hands swelling has disappeared. He has 1+ edema in his lower extremities. However, he presented to the hospital with increased cough, congestion, and yellow sputum. His chest x-ray does not appear to have pneumonia. His notes that he has been sick for several days, and she has been unable to get him to come to the hospital. Currently, he is sitting up on the side of the bed. He is in no current respiratory distress. We are going to admit him to the hospital and place him on antibiotics. Continue his home medications, and follow. cc: Rusty Reddy MD
[2019-05-01] MEDS: DUONEB (A & A) INH SCH ×4 (14:23→22:44)
[2019-05-01] MEDS: LEVAQUIN 750 MG/D5W 750 MG/150 ML IVPB IV SCH (17:12)
--- NOTE | 2019-05-01 18:17 | PROGRESS NOTE ---
DATE: 05/01/2019 SUBJECTIVE: The patient reports breathing better, less cough. OBJECTIVE: Vital signs: Temperature 97.9 degrees, heart rate 64, respiratory rate 22, blood pressure 173/68, O2 saturation 100% on 2 L nasal cannula. On general examination this is a 64- year-old male lying in bed, in no acute distress.Cardiovascular: S1, S2 heard. No murmurs, gallops or rubs. Regular rate and rhythm. Respiratory exam: Expiratory wheezing in both pulmonary bases. The patient is not using any accessory muscles or having work of breathing. Abdomen is soft, nontender to palpation. Bowel sounds present. No organomegaly. Extremities: No clubbing, cyanosis or edema. Peripheral pulses present in both legs. Neurological: Patient alert and oriented x3. Moves all 4 extremities. LABORATORY DATA: Reviewed. ASSESSMENT AND PLAN: 1. Left lower lobe pneumonia. The patient is on Levaquin. We will add ceftriaxone to his current treatment. Patient clinically is feeling better. I am planning to continue with antibiotics and breathing treatments, and if tomorrow he is feeling better and white cell count and labs are okay, we will let him go home with oral antibiotics. 2. Chronic obstructive pulmonary disease exacerbation. We will continue with breathing treatments and antibiotics. 3. Diabetes mellitus type 2. We will continue with sliding scale insulin and Accu-Chek before meals and also at bedtime. 4. Hyperlipidemia. We will continue with the statin. 5. Hypertension. Blood pressure is a little bit elevated. We will continue to monitor. 6. Chronic troponinemia with history of coronary artery disease. At this point the patient is not complaining of any chest pain. No ST changes noted in the electrocardiogram. We will continue with aspirin, statin and isosorbide. 7. Disposition: We will continue to monitor this patient closely. cc: Obed Avendaño MD
[2019-05-01] MEDS: LIPITOR PO SCH (21:52)
[2019-05-01] MEDS: AYR NASAL SPRAY NAS PRN (23:09)
[2019-05-02] MEDS: DUONEB (A & A) INH SCH ×6 (02:50→23:30)
[2019-05-02 06:25] LABS: ALBUMIN 2.8 g/dL (3.5-5.0); CALCIUM 8.2 mg/dL (8.8-10.2); CREATININE 2.8 mg/dL (0.7-1.2); MAGNESIUM 1.5 mg/dL (1.5-2.7); POTASSIUM 4.4 mmol/L (3.5-5.1); TOTAL BILIRUBIN 0.2 mg/dL (0.20-1.00); TOTAL PROTEIN 5.3 g/dL (6.3-8.3)
[2019-05-02] MEDS: HUMULIN R (PARKWAY) SUBQ SCH ×4 (06:31→22:39)
[2019-05-02 06:34] LABS: BASO# 0.08 X1000 (0.0-0.2); BASO% 1.1 % (0.0-0.8); EOS# 0.45 X1000 (0.0-0.7); EOS% 6.3 % (0.0-10.0); HEMATOCRIT 26.1 % (42.0-52.0); IMM GRAN# 0.02 X1000 (0.0-0.04); IMM GRAN% 0.3 % (0.0-0.5); LYMPH% 18.1 % (20.5-51.1); MCH 26.2 PG (27-31); MCHC 30.7 g/dL (33-37); MCV 85.6 FL (81-99); MONO# 0.67 X1000 (0.11-0.59); MONO% 9.3 % (1.7-9.3); MPV 11.5 FL (7.4-10.4); NEUT# 4.66 X1000 (1.4-6.5); NEUT% 64.9 % (42.2-75.2); PLT 183 X1000 (130-400); RBC 3.05 XMIL (4.7-6.1); RDW 13.8 % (11.5-14.5); WBC 7.18 X1000 (4.8-10.8)
[2019-05-02] MEDS: PULMICORT INH SCH ×2 (07:48→20:01)
[2019-05-02] MEDS: ANORO ELLIPTA 62.5-25 MCG INH INH SCH (07:48)
[2019-05-02] MEDS: APRESOLINE PO SCH ×3 (09:54→20:29)
[2019-05-02] MEDS: ISORDIL PO SCH ×3 (09:56→20:30)
[2019-05-02] MEDS: CARDIZEM CD PO SCH (09:57)
[2019-05-02] MEDS: ZETIA PO SCH (09:57)
[2019-05-02] MEDS: AVAPRO PO SCH (09:57)
[2019-05-02] MEDS: TOUJEO SOLOSTAR SUBQ SCH (09:57)
[2019-05-02] MEDS: ASPIRIN PO SCH (09:57)
[2019-05-02] MEDS: AYR NASAL SPRAY NAS PRN (10:01)
--- NOTE | 2019-05-02 10:55 | PROGRESS NOTE ---
DATE: 05/02/2019 SUBJECTIVE: The patient reports breathing better. Less short of breath. Less cough. Still feeling some shortness of breath when he walks to the bathroom, OBJECTIVE: Vital Signs: Temperature 97.8 degrees, heart rate 63, respiratory rate 18, blood pressure 169/69, O2 saturation 100% on 2 L nasal cannula. General Examination: This is a 64-year- old, male, lying in bed, in no acute distress. Cardiovascular Examination: S1 and S2 heard. No murmurs, gallops, or rubs. Regular rate and rhythm. Respiratory Examination: Minimal expiratory wheezing and rhonchi in both pulmonary bases. Patient is not using any accessory muscles or having work of breathing. Abdomen: Soft, nontender to palpation. Bowel sounds present. No organomegaly. Extremities: No clubbing, cyanosis, or edema. Peripheral pulses present in both legs. Neurological Examination: The patient is alert and oriented x3. Moves 4 extremities. Laboratory Data: Reviewed. ASSESSMENT AND PLAN: 1. Left lower lobe pneumonia. Patient is on Levaquin and ceftriaxone. Clinically, the patient is feeling better but still a little bit short of breath when he walks around. I am planning to continue with current antibiotic management and breathing treatments. I think tomorrow, if he is feeling better and less short of breath, and also white cell count normal, we will discharge this patient. 2. Chronic obstructive pulmonary disease exacerbation. We will continue with breathing treatments; in this case, DuoNeb every 4 hours as scheduled and intravenous antibiotics. 3. Diabetes mellitus type 2. We will continue with sliding scale insulin, and Accu-Chek before meals and also at bedtime. 4. Hyperlipidemia. We will continue with the statin. 5. Hypertension. Blood pressure is a little bit elevated. The patient is on hydralazine and irbesartan. We will continue with current management. 6. Chronic troponinemia with history of coronary artery disease, stable. Not complaining of any chest pain. No ST-segment changes noted on the electrocardiogram. We will continue to monitor. 7. Disposition. I think if this patient continues to improve clinically, he will be discharged tomorrow. cc: Obed Avendaño MD
[2019-05-02] MEDS: LEVAQUIN 750 MG/D5W 750 MG/150 ML IVPB IV SCH (12:22)
[2019-05-02] MEDS: ROCEPHIN 1 GM in NS 50 ML IV SCH (14:08)
[2019-05-02] MEDS: LIPITOR PO SCH (20:30)
[2019-05-02] MEDS: AFRIN NASAL SPRAY NAS PRN (20:31)
[2019-05-03] MEDS: DUONEB (A & A) INH SCH ×2 (04:10→07:29)
[2019-05-03 04:22] VITALS: BP 162/64
[2019-05-03 06:22] LABS: BASO# 0.08 X1000 (0.0-0.2); EOS# 0.44 X1000 (0.0-0.7); EOS% 5.7 % (0.0-10.0); HEMATOCRIT 25.3 % (42.0-52.0); HEMOGLOBIN 7.8 g/dL (14.0-18.0); IMM GRAN# 0.02 X1000 (0.0-0.04); IMM GRAN% 0.3 % (0.0-0.5); LYMPH# 1.41 X1000 (1.2-3.4); LYMPH% 18.1 % (20.5-51.1); MCH 26.4 PG (27-31); MCHC 30.8 g/dL (33-37); MCV 85.5 FL (81-99); MONO# 0.81 X1000 (0.11-0.59); MONO% 10.4 % (1.7-9.3); MPV 11.3 FL (7.4-10.4); NEUT# 5.01 X1000 (1.4-6.5); NEUT% 64.5 % (42.2-75.2); PLT 190 X1000 (130-400); RBC 2.96 XMIL (4.7-6.1); RDW 13.8 % (11.5-14.5); WBC 7.77 X1000 (4.8-10.8)
[2019-05-03 06:32] LABS: ALBUMIN 2.7 g/dL (3.5-5.0); CALCIUM 8.3 mg/dL (8.8-10.2); CREATININE 2.9 mg/dL (0.7-1.2); MAGNESIUM 1.5 mg/dL (1.5-2.7); POTASSIUM 4.4 mmol/L (3.5-5.1); TOTAL BILIRUBIN 0.3 mg/dL (0.20-1.00); TOTAL PROTEIN 5.2 g/dL (6.3-8.3)
[2019-05-03] MEDS: HUMULIN R (PARKWAY) SUBQ SCH (06:54)
[2019-05-03] MEDS: PULMICORT INH SCH (07:29)
[2019-05-03] MEDS: ANORO ELLIPTA 62.5-25 MCG INH INH SCH (07:30)
[2019-05-03] MEDS: TOUJEO SOLOSTAR SUBQ SCH (09:07)
[2019-05-03] MEDS: ZETIA PO SCH (09:07)
[2019-05-03] MEDS: ISORDIL PO SCH (09:07)
[2019-05-03] MEDS: CARDIZEM CD PO SCH (09:08)
[2019-05-03] MEDS: AVAPRO PO SCH (09:08)
[2019-05-03] MEDS: APRESOLINE PO SCH (09:08)
[2019-05-03] MEDS: ASPIRIN PO SCH (09:08)
--- NOTE | 2019-05-04 07:57 | DISCHARGE SUMMARY ---
ADMISSION DATE: 04/30/2019 DISCHARGE DATE: 05/03/2019 ADMISSION DIAGNOSES: 1. Complaints of sinus congestion, found to have a left lower lobe pneumonia. 2. Chronic obstructive pulmonary disease mild exacerbation secondary to pneumonia. 3. Diabetes mellitus type 2. 4. Hyperlipidemia. 5. Chronic troponinemia along with a history of coronary artery disease and myocardial infarction. 6. Hypertension. DISCHARGE DIAGNOSES: 1. Left lower lobe pneumonia. 2. Chronic obstructive pulmonary disease exacerbation. 3. Diabetes mellitus type 2. 4. Hyperlipidemia. 5. Hypertension. 6. Chronic troponinemia with history of coronary artery disease, stable. CONSULTATIONS: 1. Case Management. 2. Home health care. 3. Palliative Care. 4. Social Service. 5. Social Work home health agency which is [facility]. HOSPITAL COURSE: On 04/30/2019, Mr. Pascual Grove, a 64-year-old male with multiple medical admissions to [facility] with complaints of shortness of breath, was having complaints of sinus congestion that had been going on for at least 6 days prior to admission. He was coughing up yellow-green phlegm. Imaging showed that he had a left lower lobe pneumonia. There was no other really obvious signs of respiratory distress. There was some expiratory wheezes noted. He denied any chest pain but had elevation in his troponins but reviewing past troponins, they have all been elevated. No ST changes were on his EKG, so he is being treated for COPD exacerbation and pneumonia. He was on Levaquin and ceftriaxone, only had a little bit of shortness of breath when he was walking around, but felt better. Breathing treatments made him feel better as well. Now he is discharged home. DISCHARGE VITAL SIGNS: Temperature 98.2 degrees, heart rate 64, respiratory rate 16, blood pressure 162/64, O2 saturation 98 to 100 percent on 2 L nasal cannula. DISCHARGE LABORATORY DATA: White blood cells 7000, hemoglobin 7, hematocrit 25, platelet count 190,000. Sodium 137, potassium 4.4, BUN 39, creatinine 2.9, glucose 141, calcium 8.3, magnesium 1.5. Bilirubin 0.30, AST 16, ALT 11, albumin 2.7. PERTINENT IMAGING: Chest x-ray, a small focal infiltrate in the at the lateral left lung base. EKG, sinus rhythm, first-degree AV block, rate 82. DISCHARGE MEDICATIONS: 1. Lipitor 40 mg p.o. nightly. 2. Hydralazine 100 mg p.o. t.i.d. 3. Aspirin 325 mg p.o. daily. 4. Isosorbide dinitrate 80 mg p.o. t.i.d. 5. Insulin glargine 20 units subcutaneous daily. 6. Zetia 10 mg p.o. daily. 7. Albuterol Atrovent. 8. Anoro Ellipta 62.5-25 mcg inhaled daily. 9. Cardizem 240 mg p.o. daily. 10. Cefdinir 300 mg p.o. twice daily for 10 days. 11. Medrol Dosepak. 12. Norvasc 5 mg p.o. twice daily. 13. Pulmicort inhaled. DISCHARGE DIET: Heart healthy, diabetic. DISCHARGE ACTIVITY: As tolerated. PHYSICIAN FOLLOWUP: Dr. Baird. DISCHARGE INSTRUCTIONS: If your condition changes, contact physician and/or return to the emergency department. Changes may include but are not limited to shortness of breath, increased fatigue, excessive bleeding, unexplained weight loss or gain, unmanageable pain, signs or symptoms of infection. DISCHARGE DISPOSITION: Home with [facility]. Dictated by DELTA Ya for Obed Avendaño MD Addendum: Patient seen and examined by myself. Agree with DELTA note. It reflects my assessment and plan. Patient is being discharged in stable condition. Will be seen by PCP in a week. cc: DELTA Ya MD [facility]
== END 2019-05-03 11:57 | disposition home health service (06) | DRG 194 ==
LOC: P.ED 11:42 → SUATTDRO 11:44 → P.MEDSURG 13:58
PROVIDERS: ATTEND Internal Medicine

== ENCOUNTER 2019-05-26 12:06 | Inpatient (IN) ==
[2019-05-26] MEDS ORDERED: DUONEB (A & A) ONE (12:26)
[2019-05-26] MEDS ORDERED: ALBUTEROL NEB ONE (12:26)
[2019-05-26] MEDS ORDERED: ALBUTEROL NEB INH ONE (12:31)
[2019-05-26] MEDS ORDERED: DUONEB (A & A) INH ONE (12:31)
[2019-05-26] MEDS ORDERED: PULMICORT INH ONE (12:31)
--- NOTE | 2019-05-26 12:34 | PROVIDER DOCUMENTATION ---
HPI-Respiratory General - General Chief Complaint: Shortness of Breath Stated Complaint: SOB Time Seen by Provider: 05/26/19 12:23 Source: patient Allergies/Adverse Reactions: Patient Allergies Allergy/AdvReac Type Severity Reaction Status Date / Time morphine AdvReac ANAPHYLAXIS Verified 04/30/19 12:27 Home Medications: Home Medication List Medication Instructions Recorded Confirmed Last Taken Type Aspirin 325 mg PO DAILY 11/21/16 04/30/19 12/08/18 08:00 History Hydralazine [Apresoline] 100 mg PO TID@0900,1500,2100 05/27/17 04/30/19 09/28/17 07:30 History ATORVAstatin [Lipitor] 40 mg PO QHS 11/27/17 04/30/19 12/07/18 21:00 History Isosorbide Dinitrate [Isordil] 80 mg PO TID@0900,1500,2100 02/02/18 04/30/19 Unknown History Diltiazem C.d. [Cardizem Cd] 240 mg PO DAILY capsule 06/21/18 04/30/19 Unknown Rx Umeclidinium/Vilanterol [Anoro 1 puff INH RTDAILY inhaler 06/21/18 04/30/19 Unknown Rx Ellipta 62.5-25 Mcg INH] Budesonide [Pulmicort] 0.5 mg INHALATION BID #60 ampul.neb 09/11/18 04/30/19 Unknown Rx Ezetimibe [Zetia] 10 tab PO DAILY 09/22/18 04/30/19 12/08/18 08:00 History Insulin Glargine,Hum.rec.anlog 20 units SQ DAILY 12/15/18 04/30/19 Unknown History [Toujeo Max Solostar] Ipratropium/Albuterol Sulfate 3 ml INHALATION Q4HR #60 ampul.neb 12/24/18 04/30/19 Unknown Rx [Iprat-Albut 0.5-3(2.5) mg/3 ml] Amlodipine [Norvasc] 5 mg PO BID #60 tab 05/03/19 Unknown Rx Cefdinir 300 mg PO BID #20 cap 05/03/19 Unknown Rx Methylprednisolone [Medrol Dosepak] 4 mg PO DIRECTED #1 pkg 05/03/19 Unknown Rx Albuterol 2.5MG/Ipratrop 0.5MG 3 ml INH Q4H PRN PRN #60 neb 05/21/19 Unknown Rx [Duoneb (A & A)] Azithromycin 250 mg PO DAILY #1 packet 05/21/19 Unknown Rx Methylprednisolone [Medrol Dosepak] 4 mg PO DIRECTED #1 pkg 05/21/19 Unknown Rx - History of Present Illness-Resp Nature of Presenting Problem: 64 YOM WITH FREQUENT ADMISSIONS FOR COPD/CHF, PRESENTS WITH SUDDEN ONSET SOB, SHIVERING AND CHILLS THAT BEGAN THIS MORNING. HE WAS SEEN ON 05/21 FOR COPD. HE WAS GIVEN ZPACK, MEDROL DOSE PACK AND REFIL OF HOME NEBS. HE REPORTS GENERALIZED PAIN ALL OVER. IT WAS REPORTED BY EMS THAT HE HAD CHEST PAIN HOWEVER HE REPORTS IT IS ALL OVER PAIN THAT COMES AND GOES Quality of Pain: reports: aching Severity in ED: reports: moderate Onset/Duration: reports: 1-3 hours ago Timing: reports: still present Context: reports: recent URI Cough Quality/Degree: reports: moderate, productive cough Episode Frequency: chronic episodes Current Respiratory Medication Therapy: Not Used A/A nebulizer, Not Used other oral steroid Modifying Factors: improves with: nothing Associated Symptoms: reports: cough, muscle/bodyaches, shortness of breath, short of breath, sweaty, wheezing, other (BODY ACHES) Similar Symptoms Previously?: Yes Recently seen or treated by another doctor?: No Review of Systems - Adult - REVIEW OF SYSTEMS - ADULT Constitutional: reports: no symptoms reported. denies: see HPI, chills, fever, fatique, night sweats, weight gain, weight loss, other Eyes: reports: no symptoms reported. denies: see HPI, discharge, dry eyes, decreased vision, blurred vision, double vision, eye pain, redness, other Ears, Nose, Mouth & Throat: reports: no symptoms reported. denies: see HPI, ear discharge, ear pain, hearing loss, tinnitus, epistaxis, sinus problem, nose pain, loose teeth, mouth/dental pain, mouth swelling, hoarseness, throat pain, throat swelling, other Cardiovascular: reports: chest pain (COMES WHEN THE WHOLE BODY ACHES HAPPEN) Respiratory: reports: see HPI, chronic cough, cough, excessive sputum production , shortness of breath, wheezing Gastrointestinal: reports: no symptoms reported. denies: see HPI, abdominal pain, hematemesis, constipation, diarrhea, difficulty swallowing, frequent heartburn, nausea, poor appetite, rectal bleeding, vomiting, other Genitourinary: reports: no symptoms reported. denies: see HPI, dysuria, discharge, frequency, flank pain, frequent UTI's, hematuria, hesitency, incontinence, urinary retention, urgency, other Musculoskeletal: reports: see HPI. denies: no symptoms reported, bone pain, albert k pain, frequent leg cramps, joint pain, joint swelling, muscle aches, muscle weakness, neck pain, other Integumentary: reports: no symptoms reported. denies: see HPI, hives, hair loss, itching, mole changes, nail changes, rash, skin sores/ulcer, skin thickening, other Neurological: reports: no symptoms reported. denies: see HPI, ataxia, dizzines s/vertigo, headache/migraines, loss of balance, numbness, paresthesia, seizure, slurred speech, syncope, tremors, other Psychiatric: reports: no symptoms reported. denies: see HPI, anxiety, anti- depressant use, alcohol/drug dependence, depression, emotional problems, insomn ia, panic attacks, suicidal thoughts, other Endocrine: reports: no symptoms reported. denies: see HPI, change in skin pigment, excessive sweating, goiter, cold intolerance, heat intolerance, increased hunger, increased thirst, polyuria, other Hematologic/Lymphatic: reports: no symptoms reported. denies: see HPI, blood clots, easy bruising, low blood count, lymphedema, prolonged bleeding, swollen lymph nodes, transfusions, other Allergic/Immunologic: reports: no symptoms reported. denies: see HPI, allergic reactions, allergic rhinitis, asthma, eczema, food allergy, frequent infections, hay fever, hives, positive PPD, urticaria, other Past History - Adult - PAST MEDICAL HISTORY-ADULT Review of Records: reports: Nursing Assessment Review, Social history reviewed & non-contributory. Major Childhood Illnesses: reports: denies history Cardiovascular: reports: CAD, CHF, HTN, hyperlipidemia, [place] Respiratory: reports: asthma, COPD Gastrointestinal: reports: GERD, pancreatitis Obstetrical/Gynecological: reports: denies history Genitourinary: reports: denies history Musculoskeletal: reports: chronic pain Neurological: reports: denies history Psychiatric: reports: anxiety Endocrine/Immune: reports: Diabetes Other Conditions: reports: denies history - PRIOR SURGERIES/PROCEDURES Surgical/Procedure History: reports: cardiac stent - PRIOR HOSPITALIZATIONS Prior Hospitalizations: reports: for other non-related - IMMUNIZATION STATUS Childhood Immunizations: See Nurse Assessment Flu Vaccine: See Nurse Assessment - FAMILY HISTORY Family History: reviewed, not pertinent Physical Exam-General - PHYSICAL EXAM-ADULT Initial Vital Signs Reviewed: Yes - CONSTITUTIONAL General Appearance: alert, moderate distress - EYES Eyes: PERRL/EOMI, pink conjunctivae - HEAD, EARS, NOSE, MOUTH & THROAT HENMT: normocephalic/atraumatic, moist mucous membranes, normal ENT inspection - NECK Neck: non-tender, full range of motion, supple - RESPIRATORY Respiratory: chest non-tender, respiratory distress (MODERATE IMPROVING WITH NEBS), wheezing - CARDIOVASCULAR Cardiovascular: normal peripheral pulses, no gallop, no JVD, no murmur, tachycardia - GASTROINTESTINAL (ABDOMEN) Abdominal Exam: normal bowel sounds, non tender, soft, no organomegaly, no pulsatile mass, other (OBESE) - LYMPHATIC Lymphatic: no adenopathy - MUSCULOSKELETAL Back Exam: normal inspection, no CVA tenderness, no vertebral tenderness Extremity: normal range of motion, non-tender Peripheral Pulses: radial (R): 2+, radial (L): 2+ - SKIN Integumentary: normal color, normal turgor, warm/dry - NEUROLOGIC Neurologic: grossly normal - PSYCHIATRIC Psych/Mental Status: normal mood/affect, oriented x 3 Progress - PLAN OF CARE/RESULTS Progress/Plan/Lab Results: Vital Signs - 8 hr 05/26/19 12:04 05/26/19 12:39 05/26/19 13:20 Temperature 101.4 F H Pulse Rate 105 H 94 H 93 H Respiratory Rate 27 H 14 16 Blood Pressure 204/63 155/69 O2 Sat by Pulse Oximetry 95 97 97 Laboratory Results - last 24 hr 05/26/19 05/26/19 05/26/19 12:14 12:15 12:15 WBC 10.62 RBC 3.17 L Hgb 8.4 L Hct 27.1 L MCV 85.5 MCH 26.5 L MCHC 31.0 L RDW Std Deviation 13.7 Plt Count 220 MPV 10.9 H Immature Gran % (Auto) 0.6 H Neut % (Auto) 95.1 H Lymph % (Auto) 2.7 L [place] % (Auto) 1.5 L Eos % (Auto) 0.1 Baso % (Auto) 0.0 Immature Gran # (Auto) 0.06 H Neut # (Auto) 10.10 H Lymph # (Auto) 0.29 L [place] # (Auto) 0.16 Eos # (Auto) 0.01 Baso # (Auto) 0.00 PT INR PTT (Actin FS) Specimen Type Sample Site pH pCO2 pO2 HCO3 Base Excess Oxyhemoglobin ABG O2 Sat (Calculated) ABG O2 Saturation ABG Carboxyhemoglobin ABG Methemoglobin [place] Test A-a O2 Difference Total Hemoglobin Lactate Liter Flow Blood Gas Modality FiO2 % Sodium 136 Potassium 4.6 Chloride 102 Carbon Dioxide 17 L Anion Gap 17 BUN 51 H Creatinine 2.6 H Estimated GFR/1.73 m2 25 BUN/Creatinine Ratio 20 Glucose 246 H Calculated Osmolality 294 Calcium 7.7 L Total Bilirubin 0.20 AST 15 ALT 15 Alkaline Phosphatase 90 Creatine Kinase 292 H Creatine Kinase Index 3.2 H CK-MB (CK-2) 9.23 H Troponin T High Sens Total Protein 5.5 L Albumin 3.2 L Globulin 2.0 Albumin/Globulin Ratio 1.0 Plasma Lactate Urine Source Urine Color Urine Turbidity Urine pH Ur Specific [place] Urine Protein Ur Glucose (Stick) Ur Ketones (Stick) Urine Blood Urine Nitrite Urine Bilirubin Urobilinogen Dipstick Urine Leukocytes Urine WBC (Auto) Urine RBC (Auto) U Epithel Cells (Auto) Urine Bacteria (Auto) Urine Crystals Small Round Cells Urine Casts Urine Yeast-like Cells Influenza A (Rapid) NEGATIVE Influenza B (Rapid) NEGATIVE 05/26/19 05/26/19 05/26/19 12:15 12:15 12:15 WBC RBC Hgb Hct MCV MCH MCHC RDW Std Deviation Plt Count MPV Immature Gran % (Auto) Neut % (Auto) Lymph % (Auto) [place] % (Auto) Eos % (Auto) Baso % (Auto) Immature Gran # (Auto) Neut # (Auto) Lymph # (Auto) [place] # (Auto) Eos # (Auto) Baso # (Auto) PT 13.0 INR 0.94 PTT (Actin FS) 25.2 Specimen Type Sample Site pH pCO2 pO2 HCO3 Base Excess Oxyhemoglobin ABG O2 Sat (Calculated) ABG O2 Saturation ABG Carboxyhemoglobin ABG Methemoglobin [place] Test A-a O2 Difference Total Hemoglobin Lactate Liter Flow Blood Gas Modality FiO2 % Sodium Potassium Chloride Carbon Dioxide Anion Gap BUN Creatinine Estimated GFR/1.73 m2 BUN/Creatinine Ratio Glucose Calculated Osmolality Calcium Total Bilirubin AST ALT Alkaline Phosphatase Creatine Kinase Creatine Kinase Index CK-MB (CK-2) Troponin T High Sens 66 H* Total Protein Albumin Globulin Albumin/Globulin Ratio Plasma Lactate 2.8 H Urine Source Urine Color Urine Turbidity Urine pH Ur Specific [place] Urine Protein Ur Glucose (Stick) Ur Ketones (Stick) Urine Blood Urine Nitrite Urine Bilirubin Urobilinogen Dipstick Urine Leukocytes Urine WBC (Auto) Urine RBC (Auto) U Epithel Cells (Auto) Urine Bacteria (Auto) Urine Crystals Small Round Cells Urine Casts Urine Yeast-like Cells Influenza A (Rapid) Influenza B (Rapid) 05/26/19 05/26/19 13:00 13:04 WBC RBC Hgb Hct MCV MCH MCHC RDW Std Deviation Plt Count MPV Immature Gran % (Auto) Neut % (Auto) Lymph % (Auto) [place] % (Auto) Eos % (Auto) Baso % (Auto) Immature Gran # (Auto) Neut # (Auto) Lymph # (Auto) [place] # (Auto) Eos # (Auto) Baso # (Auto) PT INR PTT (Actin FS) Specimen Type ARTERIAL Sample Site R RADIAL pH 7.42 pCO2 31 L pO2 97 HCO3 22.0 Base Excess -3.8 L Oxyhemoglobin 96.0 ABG O2 Sat (Calculated) 11.5 L ABG O2 Saturation 99.5 ABG Carboxyhemoglobin 1.90 ABG Methemoglobin 1.6 H [place] Test YES A-a O2 Difference 64.0 Total Hemoglobin 8.4 L Lactate 1.40 Liter Flow 2.0 Blood Gas Modality CANNULA FiO2 % 28.0 Sodium Potassium Chloride Carbon Dioxide Anion Gap BUN Creatinine Estimated GFR/1.73 m2 BUN/Creatinine Ratio Glucose Calculated Osmolality Calcium Total Bilirubin AST ALT Alkaline Phosphatase Creatine Kinase Creatine Kinase Index CK-MB (CK-2) Troponin T High Sens Total Protein Albumin Globulin Albumin/Globulin Ratio Plasma Lactate Urine Source CLEAN CATCH Urine Color YELLOW Urine Turbidity HAZY Urine pH 6.5 Ur Specific [place] 1.013 Urine Protein 600 A Ur Glucose (Stick) >1000 A Ur Ketones (Stick) NEGATIVE Urine Blood SMALL A Urine Nitrite NEGATIVE Urine Bilirubin NEGATIVE Urobilinogen Dipstick NORMAL Urine Leukocytes LARGE A Urine WBC (Auto) TNTC A Urine RBC (Auto) TNTC A U Epithel Cells (Auto) <10 Urine Bacteria (Auto) 1+ Urine Crystals NONE SEEN Small Round Cells NONE SEEN Urine Casts NONE SEEN Urine Yeast-like Cells PRESENT Influenza A (Rapid) Influenza B (Rapid) Orders Category Date Time Status Cardiac Monitoring DIRECTED Care 05/26/19 12:12 Active IV Insertion ORDERED Care 05/26/19 12:12 Completed Notify MD of + Sepsis Screen NOW Care 05/26/19 12:12 Active Notify Physician As Ordered Care 05/26/19 12:12 Active cxr [CHEST-PORTABLE] [RAD] Stat Exams 05/26/19 12:09 Ordered ABG [RESP] Routine Lab 05/26/19 13:00 Completed BLOOD CULTURE [BLDCUL] Stat Lab 05/26/19 12:12 Ordered BNP [PRO B-NATRIURETIC PEPTIDE] Stat Lab 05/26/19 12:15 Received CBC WITH DIFF [HEME] Stat Lab 05/26/19 12:15 Completed CK PROFILE [SP CHEM] Stat Lab 05/26/19 12:15 Completed COMPREHENSIVE METABOLIC PANEL [CHEM] Stat Lab 05/26/19 12:15 Completed Flu [INFLUENZA SCREEN PL] Stat Lab 05/26/19 12:14 Completed LACTATE, PLASMA [CHEM] Lab 05/26/19 15:15 Uncollected LACTATE, PLASMA [CHEM] Lab 05/26/19 18:15 Uncollected LACTATE, PLASMA [CHEM] Q3H Lab 05/26/19 12:15 Completed PROTIME WITH INR [COAG] Stat Lab 05/26/19 12:15 Completed PTT [COAG] Stat Lab 05/26/19 12:15 Completed TROPONIN T HIGH SENSITIVITY Stat Lab 05/26/19 12:15 Completed URINALYSIS W/POSS RFLX CULT [URINALYSIS] Stat Lab 05/26/19 13:04 Completed URINE CULTURE [RM] Routine Lab 05/26/19 13:38 Ordered URINE MANUAL MICROSCOPIC [URINALYSIS] Stat Lab 05/26/19 13:04 Completed Acetaminophen [Tylenol] Med 05/26/19 13:07 Discontinued 1,000 mg PO NOW ONE Albuterol 2.5MG/Ipratrop 0.5MG [Duoneb (A & A)] Med 05/26/19 12:26 Discontin ued 3 ml .ROUTE .STK-MED ONE Albuterol 2.5MG/Ipratrop 0.5MG [Duoneb (A & A)] Med 05/26/19 12:31 Discontinued 3 ml INH NOW ONE Albuterol [Albuterol Neb] Med 05/26/19 12:31 Discontinued 2.5 mg INH NOW ONE Albuterol [Albuterol Neb] Med 05/26/19 12:26 Discontinued 5 mg .ROUTE .STK-MED ONE Budesonide [Pulmicort] Med 05/26/19 12:31 Discontinued 0.25 mg INH NOW ONE CefTRIAXONE [Rocephin] 2 gm Med 05/26/19 13:32 Active 0.9% Sodium Chloride Inj [Ns] 50 ml IV NOW Methylprednisolone Sod Succ [Solu-Medrol] Med 05/26/19 13:17 Discontinued 125 mg IV NOW ONE Aerosol Treatments Routine Oth 05/26/19 12:31 Completed Aerosol Treatments Stat Oth 05/26/19 12:31 Completed Oxygen Device Stat Oth 05/26/19 12:12 Active 1320, D/W DR KEVIN THE PATIENT HAS CHRONIC CHF WITH FVO, WE WILL NOT GIVE THE 30MG KG BOLUS BUT WILLL GENTLY HYDRATE THE PATIENT. HE HAS NO ELEVATED WBC COUNT, IS NOT HYPOTENSIVE, NO ACUTE ELEVATION IN RENAL FUNCTION. THE RISK OF OVERLOAD IS HIGH IN THIS PATIENT Result Diagrams: 05/26/19 12:15 05/26/19 12:15 - EKG 1 Time of EKG reading by physician:: 12:16 EKG Read and Signed by:: Wiley Kevin Rate: 103 Rhythm: ST WITH 1ST DEGREE AV BLOCK [place]: normal QRS: normal [place] Interval: normal ST Wave: non-specific ST changes Prior EKG Comparison: changes noted (NOW TACHY) - CONSULTS/PCP/HOSPITALIST Notification #1 *Consult/PCP/Hospitalist*: DR KAUFMAN Time Discussed: 13:16 Consult Disposition: Admit Departure - Departure Date of Disposition Decision: 05/26/19 Time of Disposition Decision: 13:39 DIAGNOSIS: COPD (chronic obstructive pulmonary disease), CHF (congestive heart failure), Elevated troponin, Hypertension, UTI (urinary tract infection) Disposition: ADMITTED INPATIENT 09 Certified Medical Emergency: Emergent Condition: Fair Referrals and Follow-Ups: None,PCP [Primary Care Provider] - - Critical Care Note This patient required my direct & personal management of CC.: No Attestation - Physician/ SHARIF Attestation Patient care was provided by Advanced Practice Provider:: Yes Advanced Practice Provider:: Viviane Raza Advanced Practice Provider documentation review:: The Mid-level provider documentation, treatment plan and medical decision making was reviewed by the physician who agrees with all treatment and medical decision making by the MLP. The physician spent face to face time with patient:: No Advanced Practice Provider documentation review:: Supervising physician onsite a nd consulted in the evaluation and care of this patient. The physician did not have a face to face encounter with the patient.
[2019-05-26 12:46] LABS: EOS# 0.01 X1000 (0.0-0.7); EOS% 0.1 % (0.0-10.0); HEMATOCRIT 27.1 % (42.0-52.0); HEMOGLOBIN 8.4 g/dL (14.0-18.0); IMM GRAN# 0.06 X1000 (0.0-0.04); IMM GRAN% 0.6 % (0.0-0.5); LYMPH# 0.29 X1000 (1.2-3.4); LYMPH% 2.7 % (20.5-51.1); MCH 26.5 PG (27-31); MCV 85.5 FL (81-99); MONO# 0.16 X1000 (0.11-0.59); MONO% 1.5 % (1.7-9.3); MPV 10.9 FL (7.4-10.4); NEUT% 95.1 % (42.2-75.2); PLT 220 X1000 (130-400); RBC 3.17 XMIL (4.7-6.1); RDW 13.7 % (11.5-14.5); WBC 10.62 X1000 (4.8-10.8)
[2019-05-26 13:01] LABS: INFLUENZA A NEGATIVE (NEGATIVE); INFLUENZA B NEGATIVE (NEGATIVE)
[2019-05-26 13:02] LABS: INR 0.94
[2019-05-26 13:03] LABS: PTT 25.2 Seconds (22.3-41.8)
[2019-05-26] MEDS ORDERED: TYLENOL PO ONE (13:07)
[2019-05-26 13:14] LABS: URINE SOURCE CLEAN CATCH
[2019-05-26 13:14] LABS: ALBUMIN 3.2 g/dL (3.5-5.0); CALCIUM 7.7 mg/dL (8.8-10.2); CREATININE 2.6 mg/dL (0.7-1.2); POTASSIUM 4.6 mmol/L (3.5-5.1); TOTAL BILIRUBIN 0.2 mg/dL (0.20-1.00); TOTAL PROTEIN 5.5 g/dL (6.3-8.3)
[2019-05-26 13:15] LABS: BILIRUBIN URINE NEGATIVE (NEGATIVE); BLOOD URINE SMALL (NEGATIVE); COLOR YELLOW; GLUCOSE URINE >1000 mg/dL (NEGATIVE); KETONE URINE NEGATIVE (NEGATIVE); LEUKOCYTES URINE LARGE (NEGATIVE); NITRITE URINE NEGATIVE (NEGATIVE); PH URINE 6.5; PROTEIN URINE 600 mg/dL (NEGATIVE); SP GRAVITY URINE 1.013; TURBIDITY URINE HAZY (CLEAR); UROBILINOGEN URINE NORMAL (NORMAL)
[2019-05-26 13:17] LABS: BE -3.8 mmoll (-3.0-3.0); BLOOD TYPE ARTERIAL; METHB 1.6 % (0.0-1.5); O2(CT) 11.5 mL/dL (15.0-23.0); PCO2(98.6) 31 mmHg (35-45); PO2(98.6) 97 mmHg (60-100); SAMPLE BLOOD; SAO2 99.5 % (95.0-100.0); THB 8.4 g/dL (11.5-17.4); pH(98.6) 7.42 (7.35-7.45)
[2019-05-26] MEDS ORDERED: SOLU-MEDROL IV ONE (13:17)
[2019-05-26 13:19] LABS: ALLEN TEST YES; MODALITY CANNULA
[2019-05-26 13:31] LABS: CK INDEX 3.2 (0.0-2.5); CK-MB 9.23 ng/mL (0.0-5.0)
[2019-05-26] MEDS ORDERED: ROCEPHIN 2 GM in NS 50 ML IV ONE (13:32)
[2019-05-26 13:36] LABS: UR EPITHELIAL CELLS <10 /HPF (<10); URINE BACTERIA 1+ /HPF; URINE CASTS NONE SEEN; URINE RBC TNTC /HPF (<10); URINE WBC TNTC /HPF (<10); URINE YEAST PRESENT
[2019-05-26 13:37] LABS: URINE CRYSTALS NONE SEEN; URINE SMALL ROUND CELLS NONE SEEN
[2019-05-26 13:48] LABS: ANISOCYTOSIS 1+; LYMPHS 11 % (21-51); MONO 2 % (1-9); SEGS 87 % (42-75)
--- NOTE | 2019-05-26 13:56 | Diag Imaging Result Doc PS360 ---
EXAM: CHEST-PORTABLE 05/26/2019 HISTORY: SOB TECHNIQUE: AP portable erect at 1215 COMMENT: The inspiration is suboptimal. Compared to 05/21/2019 there is more ill-defined opacity in the medial lung bases which may be a function of the degree of inspiration. The possibility of minimal atelectasis or pneumonia cannot be excluded however. IMPRESSION: Questionable bibasilar atelectasis. Electronically signed by Brian Madera 05/26/2019 1:54 PM
[2019-05-26] MEDS ORDERED: DUONEB (A & A) INH PRN (15:06)
[2019-05-26] MEDS ORDERED: DUONEB (A & A) INH SCH (15:30)
[2019-05-26] MEDS ORDERED: DOXYCYCLINE 100 MG in NS 250 ML IV SCH (16:00)
[2019-05-26] MEDS ORDERED: HUMALOG (PARKWAY) SUBQ SCH (16:00)
--- NOTE | 2019-05-26 16:01 | EKG Report ---
Test Performed on : 05/26/2019 12:10:34 PM Test Reason : SOB/CP Blood Pressure : / mmHG Vent. Rate : 103 BPM Atrial Rate : 103 BPM P-R Int : 250 ms QRS Dur : 094 ms QT Int : 302 ms P-R-T Axes : 062 074 027 degrees QTc Int : 395 ms Sinus tachycardia. with 1st degree AV block. Nonspecific ST abnormality Abnormal ECG When compared with ECG of 21-MAY-2019 18:57, (Unconfirmed) ST now depressed in Inferior leads ST now depressed in Lateral leads Unconfirmed Result
[2019-05-26] MEDS: MAXIPIME 1 GM in NS 50 ML IV SCH ×2 (18:08→20:18)
[2019-05-26] MEDS: ZYVOX 600 MG/D5W 600 MG/300 ML IVPB IV SCH ×3 (18:08→20:18)
[2019-05-26] MEDS: DIFLUCAN 100 MG/NS 100 MG/50 ML IVPB IV SCH (18:25)
[2019-05-26] MEDS: DUONEB (A & A) INH SCH ×2 (19:42→22:42)
[2019-05-26] MEDS: HUMALOG SUBQ SCH (20:22)
[2019-05-26] MEDS ORDERED: SOLU-MEDROL IV SCH (22:00)
--- NOTE | 2019-05-26 22:37 | HISTORY AND PHYSICAL ---
ADDENDUM: Patient seen and examined by myself. Full note dictated and discussed with nurse practitioner. Patient presented to the hospital with increased cough, congestion, increased work of breathing. States he had been doing well until this morning, but since this morning he has been unable to catch his breath, unable to get restful. We are going to admit him to the hospital, treat as usual for COPD exacerbation and we will follow his congestive heart failure as well. cc: Rusty Reddy MD
--- NOTE | 2019-05-26 23:11 | HISTORY AND PHYSICAL ---
CHIEF COMPLAINT: Shortness of breath, fever, generalized body aches. HISTORY OF PRESENT ILLNESS: This is a 64-year-old gentleman with a history of COPD, congestive heart failure, who presents to the emergency room complaining of a sudden onset of shortness of breath, shivering chills and generalized body aches that began earlier in the morning. He was admitted to [facility] with pneumonia from April 30 to the and has had ER visits on May 16, May 21 and today for essentially the same symptoms. Chest x-rays have been clear with white count within normal limits. On the , he was given azithromycin, Medrol Dosepak and a prescription for his DuoNebs. Today, he states that symptoms have not improved since the visit on the . In fact, over the last 24 hours they have increased. He is noted to have a fever of 101.4 with a urinalysis with too numerous to count microscopic white blood cells and red blood cells with 1+ bacteria as well as yeast. He denies any voiding symptoms at this time. PAST MEDICAL HISTORY: 1. COPD with chronic use 2 L oxygen at home. 2. Chronic kidney disease stage IIIB. 3. Hyperlipidemia. 4. Coronary artery disease status post DC and stents in 2019. 5. Hypertension. 6. Gastroesophageal reflux disease. 7. Chronic elevated troponin. PAST SURGICAL HISTORY: Cardiac stents in 2009. SOCIAL HISTORY: He denies any alcohol, tobacco, or illicit drug use. He does live at home with his . ALLERGIES: Morphine which causes anaphylaxis. FAMILY HISTORY: Father had skin cancer and a stroke. Mother had breast cancer. HOME MEDICATIONS: A list will be obtained by the nursing staff and once verified we will review and restart as appropriate. REVIEW OF SYSTEMS: Discussed with the patient with pertinent positives stated in the HPI. He denied any syncope or dizziness, any palpitations, a productive cough, any palpitations, any nausea, vomiting, diarrhea, constipation, black or bloody vomitus or stools, any hematuria, dysuria, frequency or urgency. PHYSICAL EXAMINATION: GENERAL: This is a 64-year-old gentleman who is sitting up on the stretcher in the emergency room in no distress. VITAL SIGNS: Blood pressure is 133/77 with a heart rate of 90, respirations are 18, temperature is 99.5 degrees with O2 saturations 97% on 2 L nasal cannula. EYES: Pupils are equal, round, react to light. EOMs are intact. HENT: Head is normocephalic, atraumatic. Mucous membranes are moist. NECK: Supple with trachea midline. CARDIOVASCULAR: Regular rate and rhythm. S1, S2 are noted. No murmurs appreciated. He has bilateral lower extremity edema with peripheral pulses palpable x4 extremities. Calves are nontender. PULMONARY: He has expiratory wheezes scattered throughout all lung vanessa. Chest rises and falls symmetric with respiration. He has prolonged expiratory phase. Chest wall is nontender to palpation. GASTROINTESTINAL: Abdomen is soft, nontender, nondistended with bowel sounds in all 4 quadrants. NEUROLOGIC: He is alert and oriented x3. SKIN: Warm and dry. LABORATORIES: WBC is 10.6 with hemoglobin 8.4, hematocrit 27.1, platelets of 220,000. INR is 0.94. Sodium 136, potassium 4.6, BUN 51, creatinine 2.6 with a glucose of 246. Troponin is 66. Lactate is 2.8. Urinalysis has greater than 1000 glucose with too numerous to count microscopic white blood cells and red blood cells with 1+ bacteria and yeast. Influenza A and B are negative. Blood cultures are pending. Chest x-ray reveals questionable bibasilar atelectasis. ASSESSMENT AND PLAN: 1. Chronic obstructive pulmonary disease acute exacerbation. 2. Congestive heart failure. 3. Elevated troponin. 4. Hypertension. 5. Chronically elevated troponin. 6. Hypertension. 7. Urinary tract infection with yeast present. 8. Chronic kidney disease stage IIIB. 9. Diabetes mellitus type 2. 10. History of coronary artery disease. 11. Hypertension. 12. Questionable bibasilar atelectasis. PLAN: The patient will be admitted to the hospital placed on telemetry. We will continue with supplemental oxygen with incentive spirometer every 4 hours, DuoNebs q.4 hours with q.2 hours p.r.n. and steroids to taper. We will order a sputum culture as well as a urine culture. IV antibiotic coverage of cefepime and Zyvox, Diflucan. Pattern blood glucose with sliding scale insulin. We will have staff identify his home medications and once they are confirmed we will review and restart as appropriate. Plan was discussed with Dr. Reddy. Further treatments pending hospital course. Dictated by DELTA Spann for Rusty Reddy MD cc: DELTA Spann MD
[2019-05-26] MEDS ORDERED: HUMALOG SUBQ ONE (23:34)
[2019-05-27] MEDS: DUONEB (A & A) INH SCH ×7 (03:27→23:37)
--- NOTE | 2019-05-27 05:30 | Diag Imaging Result Doc PS360 ---
EXAM: CT THORAX W/O CONTRAST HISTORY: dyspnea. ? Pneumonia TECHNIQUE: CT chest without intravenous contrast COMPARISON: 12/03/2017 FINDINGS: No pleural effusions. No aortic aneurysm. No cardiomegaly. Mildly prominent mediastinal nodes. There are several partially calcified mediastinal and right hilar lymph nodes and there are scattered granuloma. No consolidation. Mild vascular distention. Atelectasis or scarring in the left lower lobe. IMPRESSION: 1.There is evidence of a prior granulomatous infection 2.Mildly prominent mediastinal nodes fairly similar to the prior exam 3.Left lower lobe scarring 4.A preliminary report was given at 11:52 PM on 05/26/2019 This exam was performed using automated exposure control, adjustment of mA or kV according to patient size, and/or use of iterative reconstruction technique. Electronically signed by Leno Cloud 05/27/2019 5:27 AM
[2019-05-27] MEDS: PRILOSEC PO SCH (06:21)
[2019-05-27] MEDS: HUMALOG SUBQ SCH ×4 (06:22→21:37)
[2019-05-27] MEDS ORDERED: PRILOSEC PO SCH (07:00)
[2019-05-27 07:40] LABS: HEMATOCRIT 25.3 % (42.0-52.0); HEMOGLOBIN 7.9 g/dL (14.0-18.0); IMM GRAN# 0.08 X1000 (0.0-0.04); IMM GRAN% 0.4 % (0.0-0.5); LYMPH# 0.42 X1000 (1.2-3.4); LYMPH% 2.3 % (20.5-51.1); MCH 26.1 PG (27-31); MCHC 31.2 g/dL (33-37); MCV 83.5 FL (81-99); MONO# 0.33 X1000 (0.11-0.59); MONO% 1.8 % (1.7-9.3); MPV 11.2 FL (7.4-10.4); NEUT% 95.5 % (42.2-75.2); PLT 200 X1000 (130-400); RBC 3.03 XMIL (4.7-6.1); RDW 13.4 % (11.5-14.5); WBC 18.43 X1000 (4.8-10.8)
[2019-05-27 07:58] LABS: MONO 2 % (1-9); SEGS 96 % (42-75)
--- NOTE | 2019-05-27 08:06 | Diag Imaging Result Doc PS360 ---
EXAM: LUNG SCAN / VQ HISTORY: R/O PE TECHNIQUE: Nuclear medicine ventilation/perfusion lung scan COMPARISON: Recent plain films and a prior VQ scan from 06/28/2017 FINDINGS: 40.1 mCi DTPA used for the ventilation images. 6.1 mCi MAA given intravenously for the perfusion images. There are patchy areas on the ventilation images. No wedge shaped perfusion defects. IMPRESSION: Low probability for pulmonary embolus. Electronically signed by Leno Cloud 05/27/2019 8:04 AM
[2019-05-27 08:20] LABS: ALB/GLOB RATIO 1.1; ALBUMIN 2.9 g/dL (3.5-5.0); CALCIUM 7.7 mg/dL (8.8-10.2); CREATININE 2.9 mg/dL (0.7-1.2); POTASSIUM 4.5 mmol/L (3.5-5.1); TOTAL BILIRUBIN 0.25 mg/dL (0.20-1.00); TOTAL PROTEIN 5.5 g/dL (6.3-8.3)
[2019-05-27] MEDS: SOLU-MEDROL IV SCH ×2 (08:40→21:38)
[2019-05-27] MEDS: MAXIPIME 1 GM in NS 50 ML IV SCH ×2 (08:40→21:28)
[2019-05-27] MEDS: ZYVOX 600 MG/D5W 600 MG/300 ML IVPB IV SCH ×2 (08:40→21:33)
[2019-05-27] MEDS: NORVASC PO SCH (12:40)
[2019-05-27] MEDS: LANTUS INSULIN SUBQ SCH (12:41)
[2019-05-27] MEDS ORDERED: ROCEPHIN 1 GM in NS 50 ML IV SCH (14:00)
--- NOTE | 2019-05-27 15:28 | PROGRESS NOTE ---
DATE: 05/27/2019 INTERVAL HISTORY: The patient reports some ongoing mild dyspnea, which is approaching baseline. No further fevers. No new complaints. No acute events overnight. Back pain improved. REVIEW OF SYSTEMS: Twelve point review of systems negative except as per interval history. LABS: WBC 18.4, hemoglobin 7.9, hematocrit 25.3, platelets 200,000. Sodium 133, potassium 4.5, BUN 69, creatinine 2.9, glucose 347-486. Troponin 57 which is trending down from previous. Blood and urine cultures negative so far. VITAL SIGNS: T-max 99.5 degrees today, 101.4 yesterday afternoon. Pulse 76, respirations 15, blood pressure 168/69, O2 saturation 100% on 2 L by nasal cannula. IMAGING: CT of the chest with prior granulomatous disease but nothing active. Left lower lobe scarring which is chronic. Mildly prominent mediastinal nodes similar to previous but no evidence of mass. Lung V/Q scan, low probability for pulmonary embolism. PHYSICAL EXAMINATION: General: No acute distress. Vitals: As above. HEENT: Normocephalic, atraumatic. Moist mucous membranes. No cervical adenopathy. Cardiovascular: Regular rate and rhythm. No murmurs noted. Pulmonary: Mildly decreased breath sounds throughout. Faint expiratory wheezing, improved from previous. Abdomen: Soft, nontender, nondistended. Bowel sounds positive. Extremities: Peripheral pulses intact. Trace bilateral lower extremity edema, unchanged. Neurologic: Cranial nerves grossly intact. No focal deficits identified. Psychiatric: Normal mood and affect. Awake, alert, and oriented x3. ASSESSMENT AND PLAN: 1. Chronic hypoxic respiratory failure, with chronic obstructive pulmonary disease exacerbation. The patient's oxygenation is pretty stable from home but has had some wheezing and dyspnea. Likely mild chronic obstructive pulmonary disease exacerbation. Improving with steroids and nebulizers, which we will continue. Judging from the medical record and patient's own history, he appears to have some level of dyspnea with exertion continuously. Beginning to approach baseline. 2. Likely urinary tract infection versus pyelonephritis. Patient with fever and tachycardia on admission. Not really much in the way of urinary symptoms but appeared to have sepsis and did have some mid back pain, although he did not have any danni costovertebral angle tenderness. Mid back pain is improved. He has had no further fevers and tachycardia has resolved with treatment with antibiotics. Currently on Zyvox and cefepime but given lack of evidence of pneumonia on CT, we will discontinue Zyvox and continue with just cefepime. We will see if his urine culture grows out anything. If it does not, then can likely go home on Levaquin or Rocephin. 3. Chronic kidney disease 4. Slight up-trend in creatinine today but essentially stable from previous. Monitor. 4. Mildly elevated troponin. This was only mildly elevated and trended down. It is similar to what he has had in the past, essentially a chronically elevated troponin since at least 2019. No evidence for acute coronary syndrome. 5. Diabetes mellitus. Patient with pretty significant hyperglycemia, which is likely because of steroids. Starting back on some long-acting insulin with Lantus. May end up having to go up on sliding scale as well. We will see what the Lantus does. A1c pending. 6. Leukocytosis, likely due to steroids. 7. Disposition. If respiratory status continues to stabilize, then likely home tomorrow on oral antibiotics and oral steroids.
[2019-05-27] MEDS: DIFLUCAN 100 MG/NS 100 MG/50 ML IVPB IV SCH (16:11)
[2019-05-28] MEDS: DUONEB (A & A) INH SCH ×6 (03:47→23:39)
[2019-05-28] MEDS: PRILOSEC PO SCH (06:18)
[2019-05-28] MEDS: HUMALOG SUBQ SCH ×6 (06:18→20:51)
[2019-05-28 07:18] LABS: HEMOGLOBIN A1C 7.7 % (4.8-6.0)
[2019-05-28] MEDS: NORVASC PO SCH (08:30)
[2019-05-28] MEDS: MAXIPIME 1 GM in NS 50 ML IV SCH ×2 (08:30→20:45)
[2019-05-28] MEDS: SOLU-MEDROL IV SCH ×2 (08:30→20:46)
[2019-05-28] MEDS: ZYVOX 600 MG/D5W 600 MG/300 ML IVPB IV SCH (08:30)
[2019-05-28] MEDS: LANTUS INSULIN SUBQ SCH (08:33)
[2019-05-28] MEDS ORDERED: NON-FORMULARY BULK MED INH PRN (14:57)
[2019-05-28] MEDS ORDERED: LASIX IV ONE (15:08)
[2019-05-28] MEDS ORDERED: VANCOMYCIN IV PER PHARMACY MISC SCH (15:15)
[2019-05-28] MEDS: APRESOLINE PO SCH ×2 (16:40→21:05)
[2019-05-28] MEDS: ISORDIL PO SCH ×2 (16:41→21:05)
[2019-05-28] MEDS: DIFLUCAN 100 MG/NS 100 MG/50 ML IVPB IV SCH (16:41)
[2019-05-28] MEDS: VANCOMYCIN 1,500 MG in NS 250 ML IV SCH (18:01)
[2019-05-28] MEDS: LIPITOR PO SCH (21:05)
[2019-05-29] MEDS: DUONEB (A & A) INH SCH ×6 (04:00→23:45)
[2019-05-29] MEDS: PRILOSEC PO SCH (06:12)
[2019-05-29] MEDS: HUMALOG SUBQ SCH ×4 (06:12→20:44)
[2019-05-29 07:15] LABS: BASO# 0.01 X1000 (0.0-0.2); BASO% 0.1 % (0.0-0.8); HEMATOCRIT 27.6 % (42.0-52.0); LYMPH# 0.54 X1000 (1.2-3.4); LYMPH% 3.6 % (20.5-51.1); MCH 26.8 PG (27-31); MCHC 32.6 g/dL (33-37); MCV 82.1 FL (81-99); MONO# 0.68 X1000 (0.11-0.59); MONO% 4.6 % (1.7-9.3); MPV 11.2 FL (7.4-10.4); NEUT# 13.35 X1000 (1.4-6.5); NEUT% 89.7 % (42.2-75.2); PLT 311 X1000 (130-400); RBC 3.36 XMIL (4.7-6.1); RDW 13.3 % (11.5-14.5); WBC 14.88 X1000 (4.8-10.8)
[2019-05-29 07:38] LABS: CALCIUM 8.1 mg/dL (8.8-10.2); CREATININE 2.9 mg/dL (0.7-1.2); POTASSIUM 4.2 mmol/L (3.5-5.1)
[2019-05-29] MEDS: MAXIPIME 1 GM in NS 50 ML IV SCH ×2 (08:33→20:44)
[2019-05-29] MEDS: CARDIZEM CD PO SCH (08:34)
[2019-05-29] MEDS: APRESOLINE PO SCH ×3 (08:34→20:43)
[2019-05-29] MEDS: LANTUS INSULIN SUBQ SCH (08:34)
[2019-05-29] MEDS: ISORDIL PO SCH ×3 (08:34→20:44)
[2019-05-29] MEDS: SOLU-MEDROL IV SCH ×2 (08:34→20:44)
[2019-05-29] MEDS: NORVASC PO SCH (08:34)
[2019-05-29] MEDS: ZETIA PO SCH (08:34)
[2019-05-29] MEDS ORDERED: INSULIN GLARGINE HUM REC ANLOG 20 UNIT SQ SCH (09:00)
[2019-05-29] MEDS ORDERED: NORVASC PO SCH (09:00)
[2019-05-29] MEDS: DIFLUCAN PO SCH (15:31)
[2019-05-29] MEDS ORDERED: XARELTO PO ONE (16:49)
[2019-05-29] MEDS: LIPITOR PO SCH (20:43)
[2019-05-29] MEDS: ELIQUIS PO SCH (20:43)
--- NOTE | 2019-05-29 21:43 | Extremity Venous Study ---
PROCEDURE NAME: Venous U/S Left Arm - 05/28/2019 PROCEDURE: Left upper extremity venous duplex and color flow imaging study using the GE vivid E9 Ultrasound System with a 9L-D transducer. REFERRING PHYSICIAN: Jc Howell MD PHYSICAL EDUCATION TEACHER: Marianne Pierre RVT. INDICATIONS: A 64-year-old male with swelling and pain left upper extremity suggestive of deep venous thrombosis. FINDINGS: The left internal jugular vein was compressible throughout its length without evidence of thrombus. The left subclavian axillary and brachial veins of the left arm were all compressible and had flow through them. There was evidence of a nonocclusive superficial venous thrombosis involving the cephalic vein superficially involving the distal upper arm on the left. It extended into the antecubital fossa. INTERPRETATION: No evidence of acute deep venous thrombosis involving the left upper extremity, but there is superficial venous thrombosis involving the distal cephalic vein, left arm and extending into the left antecubital fossa. cc: MD Jc Macedo MD
[2019-05-30] MEDS: DUONEB (A & A) INH SCH ×6 (04:08→23:34)
[2019-05-30] MEDS ORDERED: XARELTO PO SCH (06:00)
[2019-05-30] MEDS: PRILOSEC PO SCH (06:08)
[2019-05-30] MEDS: HUMALOG SUBQ SCH ×4 (06:08→21:16)
[2019-05-30] MEDS: VANCOMYCIN 1,500 MG in NS 250 ML IV SCH (06:08)
[2019-05-30 08:18] LABS: BASO# 0.02 X1000 (0.0-0.2); BASO% 0.2 % (0.0-0.8); EOS# 0.01 X1000 (0.0-0.7); EOS% 0.1 % (0.0-10.0); HEMOGLOBIN 8.7 g/dL (14.0-18.0); IMM GRAN# 0.46 X1000 (0.0-0.04); IMM GRAN% 4.3 % (0.0-0.5); LYMPH# 0.79 X1000 (1.2-3.4); LYMPH% 7.4 % (20.5-51.1); MCH 26.7 PG (27-31); MCHC 32.2 g/dL (33-37); MCV 82.8 FL (81-99); MONO# 0.46 X1000 (0.11-0.59); MONO% 4.3 % (1.7-9.3); MPV 11.5 FL (7.4-10.4); NEUT# 8.88 X1000 (1.4-6.5); NEUT% 83.7 % (42.2-75.2); PLT 281 X1000 (130-400); RBC 3.26 XMIL (4.7-6.1); RDW 13.6 % (11.5-14.5); WBC 10.62 X1000 (4.8-10.8)
[2019-05-30] MEDS: ZETIA PO SCH (08:36)
[2019-05-30] MEDS: ISORDIL PO SCH ×3 (08:36→21:17)
[2019-05-30] MEDS: CARDIZEM CD PO SCH (08:36)
[2019-05-30] MEDS: APRESOLINE PO SCH ×3 (08:37→21:16)
[2019-05-30] MEDS: NORVASC PO SCH (08:37)
[2019-05-30] MEDS: MAXIPIME 1 GM in NS 50 ML IV SCH (08:37)
[2019-05-30] MEDS: ELIQUIS PO SCH ×2 (08:37→21:17)
[2019-05-30] MEDS: SOLU-MEDROL IV SCH (08:37)
[2019-05-30] MEDS: DIFLUCAN PO SCH (08:37)
[2019-05-30] MEDS: LANTUS INSULIN SUBQ SCH (08:38)
[2019-05-30 09:27] LABS: CALCIUM 7.7 mg/dL (8.8-10.2); CREATININE 3.1 mg/dL (0.7-1.2); MAGNESIUM 2.1 mg/dL (1.5-2.7); POTASSIUM 4.6 mmol/L (3.5-5.1)
[2019-05-30] MEDS ORDERED: ROCEPHIN 2 GM in NS 50 ML IV SCH (11:15)
[2019-05-30] MEDS ORDERED: LANTUS INSULIN SUBQ ONE (11:31)
[2019-05-30] MEDS ORDERED: HUMULIN R IV ONE (15:50)
[2019-05-30] MEDS ORDERED: NS 1,000 ML IV ONE (15:51)
--- NOTE | 2019-05-30 18:13 | PROGRESS NOTE ---
DATE: 05/30/2019 SUBJECTIVE: He has no major complaints. OBJECTIVE: Blood pressure 173/54, heart rate 73, respiratory rate 22, temperature 97.8 degrees and 98% on 2 L.Cardiovascular: Regular rate and rhythm. Pulmonary: Bilateral breath sounds. Clear to auscultation. GI: Soft, nontender, and nondistended. Bowel sounds are positive. LABORATORY DATA: White count is 10, hemoglobin and hematocrit 8 and 27, and platelets 281,000. Sodium 131, creatinine is up to 3.1. Glucose is 302 and 439, just not very well controlled. His blood culture from the showed Streptococcus intermedius which is a Streptococcus angionisus group D strep that is not a contaminant. ASSESSMENT AND PLAN: 1. I have consulted Dr. Richter, and he is concerned about endocarditis. I do hear a possible soft systolic murmur, but he is fairly large so strep intermedius bacteremia with concern over endocarditis. Again, I agree with Dr. Richter. He is on Rocephin at high dose which he has further increased the dose to 2 g IV q.12 waiting on other treatments. 2. Acute on chronic renal failure. We will continue to monitor. We stopped anything really nephrotoxic on him. We will continue to follow. 3. Hypertension which is still not very well controlled. We will continue to monitor closely. 4. Diabetes which long-term control has been good, but he is still very hyperglycemic which may be infection or it may be related to the steroids. I have titrated up on his Lantus to 30 daily, and we will follow. 5. Chronic obstructive pulmonary disease exacerbation. We will wean steroids and follow. cc: cJ Howell MD [facility]ENTERKim
[2019-05-30] MEDS: ABREVA CREAM TOP SCH ×2 (18:29→21:16)
--- NOTE | 2019-05-30 20:56 | INFECTIOUS DISEASE CONSULT REP ---
DATE: 05/30/2019 CONCLUSION: The patient has a streptococcal bacteremia which I think could be due to endocarditis. The patient also has cold sores on his lips which are due to herpes simplex virus. The patient does have very poor oral hygiene and thus I think the possibility of a streptococcal endocarditis is certainly positive. RECOMMENDATIONS: I agree with treating the patient with Rocephin. I have increased the dose to 2 grams IV every 12 hours and I have also ordered an echocardiogram. Sputum culture has been ordered and it has not been collected and I told the head nurse to please get one collected as soon as possible. I have ordered Abreva cream to be put on the patient's lips every six hours. Some of the side effects of Rocephin, including rash and diarrhea have been explained to the patient who agrees with treatment. As mentioned above, I have increased the dose to 2 grams every 12 hours. DISCUSSION: The patient tells me for approximately five days he has been having cough of yellow sputum and some shivers and fevers. He has also become dyspneic and he has also noticed blisters on his lips. He also has generalized aching. Laboratory studies thus far show a CBC with a white count of 10,620, hemoglobin 8.7, platelet count is 281,000. The chest x-ray shows bibasilar atelectasis. The patient's creatinine is 3.1. GFR is 20. Liver function studies are negative. Urinalysis showed bacteria, yeast, and white cells. Urine culture grew yeast and both blood cultures grew Streptococcus intermedius. PAST MEDICAL HISTORY/REVIEW OF SYSTEMS: Eyes and Ears: Patient's hearing is good, but his vision, he says, is decreased. Neck: No stiffness. Respiratory: See present illness. Cardiac: No chest pain or palpitations. Gastrointestinal: No nausea, vomiting, or diarrhea. Genitourinary: No dysuria or flank pain. Neurologic: No seizures. No loss of motor or sensory function. PREVIOUS HOSPITALIZATIONS AND OPERATIONS: He has had placement of an arterial stent in the right groin. He has had a myocardial infarction and he has also been admitted with pneumonia. MEDICAL DISEASES: Positive for diabetes mellitus, hypertension, myocardial infarction, and peripheral vascular disease. INFECTIOUS DISEASE HISTORY: Positive for pneumonia. Negative for UTI. FAMILY HISTORY: Positive for hypertension, myocardial infarction, and cancer. SOCIAL HISTORY[place] . He has a dog as a pet. He has stopped smoking cigarettes 10 years ago. He stopped drinking alcoholic beverages 25 years ago and he has never used illicit drugs. 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 ALLERGIES: Morphine. HOME MEDICATIONS: Include, albuterol inhaler, Norvasc, Lipitor, Pulmicort, Cardizem, furosemide, hydralazine, insulin, and Isordil. The patient is also on Anoro Ellipta. PHYSICAL EXAMINATION: Vital Signs: Temperature is 98.1 degrees. Pulse 78, respirations 23, blood pressure is 193/60, patient weighs 280 pounds. General: This is an obese, middle-aged male. He is in no acute distress. Head/eyes/ears/nose/throat: He can hear my spoken words and he can see near objects. He has very poor oral hygiene. He is missing many teeth and many teeth are decayed. Neck: No meningismus. Lungs: Clear to auscultation. Cardiovascular: Regular heart rate with a systolic murmur. Abdomen: Soft and nontender. Neurologic: The patient is alert. He can move his extremities. There is no tremor. His sensation is intact to touch. Memory as regarding his medical history seemed to be intact also. Thank you for the consult. cc: Jeronimo Richter MD
[2019-05-30] MEDS: LIPITOR PO SCH (21:17)
[2019-05-30] MEDS: ROCEPHIN 2 GM in NS 50 ML IV SCH (23:39)
[2019-05-31] MEDS: ABREVA CREAM TOP SCH ×4 (03:18→20:39)
[2019-05-31] MEDS: DUONEB (A & A) INH SCH ×6 (03:57→23:47)
[2019-05-31] MEDS: PRILOSEC PO SCH (06:33)
[2019-05-31] MEDS: HUMALOG SUBQ SCH ×5 (06:34→23:56)
[2019-05-31] MEDS ORDERED: LANTUS INSULIN SUBQ SCH (09:00)
[2019-05-31 09:01] LABS: BASO# 0.06 X1000 (0.0-0.2); BASO% 0.4 % (0.0-0.8); EOS# 0.06 X1000 (0.0-0.7); EOS% 0.4 % (0.0-10.0); HEMATOCRIT 29.6 % (42.0-52.0); HEMOGLOBIN 9.5 g/dL (14.0-18.0); IMM GRAN% 5.2 % (0.0-0.5); LYMPH# 1.94 X1000 (1.2-3.4); LYMPH% 12.7 % (20.5-51.1); MCH 26.8 PG (27-31); MCHC 32.1 g/dL (33-37); MCV 83.4 FL (81-99); MONO# 1.65 X1000 (0.11-0.59); MONO% 10.8 % (1.7-9.3); NEUT# 10.78 X1000 (1.4-6.5); NEUT% 70.5 % (42.2-75.2); PLT 354 X1000 (130-400); RBC 3.55 XMIL (4.7-6.1); RDW 13.8 % (11.5-14.5); WBC 15.29 X1000 (4.8-10.8)
[2019-05-31] MEDS: ELIQUIS PO SCH ×2 (09:01→20:38)
[2019-05-31] MEDS: DIFLUCAN PO SCH (09:01)
[2019-05-31] MEDS: ZETIA PO SCH (09:01)
[2019-05-31] MEDS: APRESOLINE PO SCH ×3 (09:01→20:38)
[2019-05-31] MEDS: CARDIZEM CD PO SCH (09:01)
[2019-05-31] MEDS: ISORDIL PO SCH ×3 (09:01→20:38)
[2019-05-31] MEDS: NORVASC PO SCH (09:01)
[2019-05-31] MEDS: LANTUS INSULIN SUBQ SCH (09:03)
[2019-05-31 09:23] LABS: CALCIUM 8.2 mg/dL (8.8-10.2); CREATININE 2.8 mg/dL (0.7-1.2); POTASSIUM 4.1 mmol/L (3.5-5.1)
[2019-05-31] MEDS: ROCEPHIN 2 GM in NS 50 ML IV SCH ×2 (12:00→23:56)
--- NOTE | 2019-05-31 14:33 | Diag Imaging Result Doc PS360 ---
EXAM: CHEST-PORTABLE HISTORY: dyspnea TECHNIQUE: Two views COMPARISON: 05/26/2019 FINDINGS: The lungs are well expanded. The heart is not enlarged. The vessels are not distended. There are no infiltrates. No effusion identified. IMPRESSION: Negative exam. Electronically signed by Leno Cloud 05/31/2019 2:30 PM
[2019-05-31] MEDS: LONITEN PO SCH (15:00)
--- NOTE | 2019-05-31 16:48 | ECHO REPORT ---
ORDER DATE: 05/30/2019 INTERPRETING PHYSICIAN: Dr. Eber Huynh. ECHOCARDIOGRAPHIC MEASUREMENTS: 1. Interventricular septum: 1.3 cm. 2. Left ventricular posterior wall: 1.4 cm. 3. Diastolic diameter: 5.6 cm. 4. Left atrium: 4.7 cm. SUMMARY OF THE 2-DIMENSIONAL IMAGIN. Mitral valve was normal. 2. Tricuspid valve was normal. 3. Pulmonic valve was normal. 4. There is mild mitral regurgitation. 5. Mild tricuspid regurgitation. 6. Peak velocity across the tricuspid valve less than 2 meters per second. 7. There is no aortic stenosis or regurgitation. 8. Technically suboptimal study. 9. Normal left ventricular cavity size. 10. Estimated ejection fraction of 60%. 11. There is concentric left ventricular hypertrophy. 12. There is no pericardial effusion or obvious intracardiac mass or thrombus seen. cc: MD Jeronimo Caldera MD
[2019-05-31] MEDS: SOLU-MEDROL IV SCH (17:20)
--- NOTE | 2019-05-31 17:37 | PROGRESS NOTE ---
DATE: 05/31/2019 SUBJECTIVE: Patient has no major complaints. OBJECTIVE: Vital Signs: Blood pressure 202/55, heart rate 78, respiratory rate 18, temperature 97.6 degrees, and 97% on 2 L. Cardiovascular: Regular rate and rhythm. Pulmonary: Bilateral breath sounds. Clear to auscultation. He has diffuse end-expiratory wheezes. He has some rales. GI: Soft, nontender, and nondistended. Bowel sounds are positive. LABORATORY DATA: White count is 15, hemoglobin and hematocrit 9 and 29, and platelets 354,000. Creatinine is 2.8. PROBLEMS: 1. Streptococcus intermedius bacteremia. We are still waiting on repeat blood cultures. We are still waiting on his echo. We will continue to monitor ruling out endocarditis. 2. Acute on chronic renal failure, somewhat improved today. I stopped his Lasix but Dr. Richter is concerned about volume overload. He definitely has upper extremity swelling. I am going to stop his Norvasc. We may need to change him secondary blood pressure medications. 3. Hypertension is still not well controlled. He is on Lasix, Cardizem, hydralazine, and Imdur. We will add low minoxidil and see how he does for blood pressure control. 4. Type 2 diabetes is improved since we titrated on Lantus. I am going to resume steroid so we will continue to follow. 5. Chronic obstructive pulmonary disease exacerbation. We will continue steroids and monitor. 6. Right cephalic thrombophlebitis. He is on low-dose Xarelto. DISPOSITION: Pending clinical status. cc: Jc Howell MD
[2019-05-31] MEDS: LASIX IV SCH (19:00)
--- NOTE | 2019-05-31 20:31 | INFECTIOUS DISEASE PROGRESS NO ---
DATE: 05/31/2019 PRESENT ILLNESS: The patient has Streptococcal bacteremia which I think could be caused by endocarditis. He also has cold sores on his lips. And finally, he has very poor oral hygiene, which would also favor the patient having endocarditis. MEDICATIONS: The patient is receiving Rocephin. He also is getting fluconazole. PHYSICAL EXAMINATION: Vital Signs: Temperature is 97.6 degrees, pulse 78, respirations 18, blood pressure 202/55. General: This is a morbidly obese, middle-aged male. He seems to be having some dyspnea. Head/eyes/ears/nose/throat: He can hear my spoken words and see near objects. He has very poor oral hygiene. The blister-like lesions on his lips are getting better. Neck: No pain with movement. Lungs: Bilateral wheezes. Cardiovascular: Heart rate regular with a systolic murmur. Abdomen: Soft and nontender. Extremities: The patient has swelling in both arms. His legs are much less swollen. Neurologic: Patient is alert. He can move his extremities. There is no tremor. LABS AND X-RAY: The patient just had an x-ray now. His CBC shows a white count of 15,290, hemoglobin 9.5, platelet count 354,000. Creatinine is 2.8. GFR is 23. Repeat blood cultures are pending. ASSESSMENT AND PLAN: 1. The patient has Streptococcal bacteremia which could be due to endocarditis. On his vascular studies, he does have some superficial clots in the left arm which could explains the swelling in the left arm, but not the right arm. The patient's venous study was only of the left arm and not the right arm, so possibly the right arm has clots too. 2. Regarding his infection, I am going to continue with Rocephin 2 g IV every 12 hours pending the results of repeat blood cultures. Also, I am anxious to see the echocardiogram report to see if the patient has endocarditis. 3. As regarding his cold sores on his lips, I plan on continuing with Abreva cream. COMORBIDITIES: Patient is a diabetic. He also has hypertension, myocardial infarction, peripheral vascular disease, and morbid obesity. cc: Jeronimo Richter MD
[2019-05-31] MEDS: LIPITOR PO SCH (20:38)
[2019-06-01] MEDS: DUONEB (A & A) INH SCH ×6 (03:20→23:50)
[2019-06-01] MEDS: SOLU-MEDROL IV SCH ×2 (03:55→15:10)
[2019-06-01] MEDS: ABREVA CREAM TOP SCH ×4 (03:58→21:13)
[2019-06-01] MEDS: PRILOSEC PO SCH (06:29)
[2019-06-01] MEDS: HUMALOG SUBQ SCH ×4 (06:29→21:12)
[2019-06-01 07:44] LABS: BASO# 0.02 X1000 (0.0-0.2); BASO% 0.2 % (0.0-0.8); EOS# 0.01 X1000 (0.0-0.7); EOS% 0.1 % (0.0-10.0); HEMATOCRIT 28.5 % (42.0-52.0); HEMOGLOBIN 9.1 g/dL (14.0-18.0); IMM GRAN# 0.56 X1000 (0.0-0.04); IMM GRAN% 5.3 % (0.0-0.5); LYMPH# 0.38 X1000 (1.2-3.4); LYMPH% 3.6 % (20.5-51.1); MCH 26.5 PG (27-31); MCHC 31.9 g/dL (33-37); MCV 83.1 FL (81-99); MONO# 0.14 X1000 (0.11-0.59); MONO% 1.3 % (1.7-9.3); MPV 11.1 FL (7.4-10.4); NEUT# 9.46 X1000 (1.4-6.5); NEUT% 89.5 % (42.2-75.2); PLT 293 X1000 (130-400); RBC 3.43 XMIL (4.7-6.1); RDW 13.7 % (11.5-14.5); WBC 10.57 X1000 (4.8-10.8)
[2019-06-01 08:04] LABS: LYMPHS 6 % (21-51); MONO 2 % (1-9); SEGS 92 % (42-75)
[2019-06-01 08:05] LABS: CALCIUM 8.2 mg/dL (8.8-10.2); CREATININE 2.6 mg/dL (0.7-1.2)
[2019-06-01 08:15] LABS: POTASSIUM 4.8 mmol/L (3.5-5.1)
[2019-06-01] MEDS: CARDIZEM CD PO SCH (09:24)
[2019-06-01] MEDS: ISORDIL PO SCH ×3 (09:25→21:11)
[2019-06-01] MEDS: LONITEN PO SCH (09:25)
[2019-06-01] MEDS: ELIQUIS PO SCH ×2 (09:25→21:12)
[2019-06-01] MEDS: ZETIA PO SCH (09:25)
[2019-06-01] MEDS: LASIX IV SCH (09:25)
[2019-06-01] MEDS: APRESOLINE PO SCH ×3 (09:25→21:11)
[2019-06-01] MEDS: DIFLUCAN PO SCH (09:25)
[2019-06-01] MEDS: LANTUS INSULIN SUBQ SCH (09:28)
[2019-06-01] MEDS ORDERED: LONITEN PO ONE (11:18)
[2019-06-01] MEDS: ROCEPHIN 2 GM in NS 50 ML IV SCH (12:30)
--- NOTE | 2019-06-01 17:12 | INFECTIOUS DISEASE PROGRESS NO ---
DATE: 06/01/2019 PRESENT ILLNESS: Mr. Grove is being treated for a streptococcal bacteremia the origin of which is unclear. He does have poor oral hygiene, which may be the cause. Echocardiogram shows no evidence of obvious intracardiac mass or thrombus. MEDICATIONS: Mr. Grove is receiving ceftriaxone 2 g IV every 12 hours. based on his sterile blood cultures, today is day 2 of treatment for his bacteremia. Patient is also received Abreva to his cold sores. PHYSICAL EXAM: Vital Signs: Temperature is 97.5 degrees, pulse rate 70, respiratory rate 16, blood pressure 202/51. O2 saturation is 96% on 2 L nasal cannula. General: This is a chronically ill- appearing, obese, middle-aged gentleman. He is sitting up in the bed, currently in no acute distress. HEENT: Atraumatic, normocephalic. Oral mucous membranes are pink and moist. Dentition is poor. There are some areas of cold sores on his lips, which are mild. Neck: Supple. Trachea is midline. Cardiovascular: Heart rate and rhythm are regular. Normal sinus rhythm on the monitor. Systolic murmur noted. Respiratory: Lung sounds have wheezing throughout. No work of breathing is noted. Abdomen: Soft, obese and nontender. Bowel sounds are active. Integumentary: Skin is warm and dry. Extremities: Have 2+ edema noted to the upper extremities bilaterally with trace edema pretibially. Neurologic: He is awake, alert, oriented, able to move all extremities in bed independently without tremors. LABORATORY AND X-RAY: Today his white count is 10.5, hemoglobin 9.1, platelet count 293,000. Creatinine is 2.6 with a GFR of 25. Blood cultures initially grew Streptococcus intermedius, and they have shown no growth after 48 hours at last check. No imaging reports today. ASSESSMENT AND PLAN: Mr. Grove has a streptococcal bacteremia and is receiving Rocephin, which we will continue at this time. Based on his sterile blood cultures, today is day 2 of a 14-day treatment. The patient tells me they have had trouble drawing his blood. Also there are superficial clots in the left arm and possibly in the right, with considerable amount of edema to his bilateral upper extremities. Because he is a patient of Dr. Mart, we know that we do not want to put a PICC line in due to his low GFR. We will go ahead and consult Dr. Zarate for central line placement to finish out the treatment for his bacteremia. Also we will continue the Abreva, which is being applied to his cold sores. These plans been discussed with and recommended by Dr. Richter. COMORBIDITIES: For Mr. Grove include that he is obese with diabetes mellitus, uncontrolled hypertension, peripheral vascular disease and coronary artery disease. Dictated by DELTA Larson for Jeronimo Richter MD cc: Jeronimo Richter MD [facility]
[2019-06-01] MEDS ORDERED: ALBUMIN 25% IV SCH (21:00)
[2019-06-01] MEDS: ALBUMIN 25% IV SCH (21:11)
[2019-06-01] MEDS: LIPITOR PO SCH (21:14)
--- NOTE | 2019-06-02 02:47 | GENERAL SURGERY CONSULTATION ---
DATE: 06/01/2019 REASON FOR CONSULTATION: Evaluate for possible IV access. HISTORY OF PRESENT ILLNESS: This is a 64-year-old gentleman who has got multiple medical issues. He has left what sounds like iliac stents, has a history of myocardial infarction. He has had recurrent pneumonias and bacteremia. He denies any upper extremity venous access procedures. He had planned, given his bacteremia, to treat him with approximately 2 weeks of IV antibiotics. He has had difficulty with peripheral IVs and has chronic renal insufficiency prohibiting PICC line placement and I was consulted. MEDICAL HISTORY: 1. Coronary artery disease. 2. Chronic kidney disease. 3. COPD with 2 L nasal cannula at home. 4. Hyperlipidemia. 5. History of SD. 6. Hypertension. 7. Gastroesophageal reflux disease. SURGICAL HISTORY: 1. Coronary stents 2009. 2. He has had left lower extremity peripheral arterial stents as well. SOCIAL HISTORY: Denies any current tobacco, alcohol, or drugs. He lives at home with his . FAMILY HISTORY: Reviewed, breast cancer and skin cancer in his. REVIEW OF SYSTEMS: Ten-point review of systems was performed and negative other than what is mentioned HPI. PHYSICAL EXAMINATION: Vital signs: He is afebrile, pulse 71, blood pressure 190/51, it has been as high as 229. Oxygen saturation 100% on nasal cannula. General: He is alert, in no acute distress. HEENT: No scleral icterus. No cervical mass. Cardiovascular: Normal rate. Pulmonary: No increased work of breathing. He is on nasal cannula. Abdomen: Obese but soft, nontender. Integument: Warm and dry without jaundice. Psychiatric: Appropriate affect. Vascular: Peripheral, he has no upper extremity edema, he is well perfused. He does have some lower extremity edema. LABORATORY DATA: White count 10, hematocrit 28, platelets 293,000. Creatinine is 2.6. Glucose has been as high as 343. He has strep intermedius growing out in blood cultures from 05/26. I reviewed the imaging. ASSESSMENT AND PLAN: A 62-year-old gentleman who needs IV access. Dr. Howell, I have discussed with him, he is unsure whether he is going to need a tunneled catheter or possible PICC line. We are available and can place this as needed, but the plan is for him to be here through the weekend prior to discharge on IV antibiotics. He is on Eliquis. I would hold this in anticipation of tunnel catheter placement. We could plan to pursue this on Tuesday, if needed. Sooner if his condition indicates. We will continue to follow along. cc: Tobi Zarate MD
[2019-06-02] MEDS: DUONEB (A & A) INH SCH ×6 (03:09→22:51)
[2019-06-02] MEDS: ABREVA CREAM TOP SCH ×4 (06:21→23:25)
[2019-06-02] MEDS: HUMALOG SUBQ SCH ×4 (06:29→20:58)
[2019-06-02] MEDS: ROCEPHIN 2 GM in NS 50 ML IV SCH ×2 (06:29→17:00)
[2019-06-02] MEDS: SOLU-MEDROL IV SCH ×2 (06:29→17:01)
[2019-06-02] MEDS: PRILOSEC PO SCH (06:29)
[2019-06-02 07:19] LABS: BASO# 0.03 X1000 (0.0-0.2); BASO% 0.3 % (0.0-0.8); HEMATOCRIT 26.7 % (42.0-52.0); HEMOGLOBIN 8.5 g/dL (14.0-18.0); IMM GRAN# 0.58 X1000 (0.0-0.04); IMM GRAN% 4.8 % (0.0-0.5); LYMPH# 0.46 X1000 (1.2-3.4); LYMPH% 3.8 % (20.5-51.1); MCH 26.6 PG (27-31); MCHC 31.8 g/dL (33-37); MCV 83.4 FL (81-99); MONO% 7.5 % (1.7-9.3); NEUT# 10.03 X1000 (1.4-6.5); NEUT% 83.6 % (42.2-75.2); PLT 288 X1000 (130-400); RDW 13.7 % (11.5-14.5)
[2019-06-02 07:45] LABS: CALCIUM 7.9 mg/dL (8.8-10.2); CREATININE 2.9 mg/dL (0.7-1.2); POTASSIUM 4.8 mmol/L (3.5-5.1)
[2019-06-02] MEDS: ELIQUIS PO SCH ×2 (08:54→20:58)
[2019-06-02] MEDS: ZETIA PO SCH (08:54)
[2019-06-02] MEDS: ISORDIL PO SCH ×3 (08:54→20:58)
[2019-06-02] MEDS: CARDIZEM CD PO SCH (08:54)
[2019-06-02] MEDS: APRESOLINE PO SCH ×3 (08:54→20:58)
[2019-06-02] MEDS: DIFLUCAN PO SCH (08:54)
[2019-06-02] MEDS: LASIX IV SCH ×2 (08:55→17:01)
[2019-06-02] MEDS: ALBUMIN 25% IV SCH (08:55)
[2019-06-02] MEDS: LANTUS INSULIN SUBQ SCH (08:55)
[2019-06-02] MEDS: LONITEN PO SCH ×2 (08:58)
--- NOTE | 2019-06-02 15:39 | GENERAL SURGERY PROGRESS NOTE ---
DATE: 06/02/2019 SUBJECTIVE: Says he feels some better but still not feeling great enough. No fevers. OBJECTIVE: Vital signs: Pulse 72, blood pressure 189/51, oxygen saturation 100% on 2 L. General: He is alert. He is sitting in the chair. Cardiovascular: Normal rate. Pulmonary: No increased work of breathing. Extremities: Upper extremities are well-perfused. No edema LABORATORY: White count is 12, hematocrit is 26, creatinine is 2.9, glucose is as high as 315. ASSESSMENT/PLAN: A 64-year-old gentleman. He has got bacteremia related to pneumonia. He has got chronic renal insufficiency. Apparently, the plan is for intravenous antibiotics for approximately 14 days course. I have not heard the final on plans for intravenous access, whether he is going to stay inpatient and needs tunneled catheter or PICC line. I will be available for whatever the patient needs, could do this on Tuesday if needed. cc: Tobi Zarate MD
[2019-06-02] MEDS ORDERED: LANTUS INSULIN SUBQ ONE (16:32)
[2019-06-02] MEDS ORDERED: LONITEN PO ONE (16:32)
--- NOTE | 2019-06-02 16:53 | PROGRESS NOTE ---
DATE: 06/02/2019 SUBJECTIVE: Patient is doing okay. OBJECTIVE: Blood pressure is 212/62, heart rate of 79, respiratory 16, temperature 97.7 degrees, 99% on 2 L.Cardiovascular: Regular rate and rhythm. Pulmonary: Bilateral breath sounds clear to auscultation. GI: Soft, nontender, nondistended. Bowel sounds were positive. LAB: White count is 12, hemoglobin and hematocrit 8 and 26, platelets 288,000. BUN and creatinine are going up to 90 and 2.9, sugar 260. 1. Streptococcus intermedius bacteremia. Waiting on blood cultures. Echocardiogram is negative. So far repeat blood cultures are negative. He should be due for a Johnson on Tuesday. 2. Acute on chronic renal failure. His creatinine is stable but his BUN is steadily increasing. It is probably a combination of steroids and diuretics. We will continue to monitor. I may get a renal input shortly. 3. Hypertension is still just not well controlled. I have been steadily increasing Lasix, minoxidil, and his blood pressure is just not under control. 4. Chronic obstructive pulmonary disease exacerbation. He is still having a lot of wheezing so we are going to continue treatments. I am going to increase his steroids and we will see how things look. 5. Type 2 diabetes is also not completely under control but with the intravenous steroids there may be some issues there. We will titrate up on his Lantus and follow. cc: Jc Howell MD
[2019-06-02] MEDS: LIPITOR PO SCH (20:58)
[2019-06-03] MEDS: HUMALOG SUBQ SCH ×6 (00:27→21:05)
[2019-06-03] MEDS: SOLU-MEDROL IV SCH ×3 (00:27→16:23)
[2019-06-03] MEDS: DUONEB (A & A) INH SCH ×6 (03:25→23:07)
[2019-06-03] MEDS: ABREVA CREAM TOP SCH ×4 (04:27→21:03)
[2019-06-03] MEDS: PRILOSEC PO SCH (06:38)
[2019-06-03] MEDS: LASIX IV SCH ×3 (06:38→17:23)
[2019-06-03] MEDS: ROCEPHIN 2 GM in NS 50 ML IV SCH ×2 (06:38→16:23)
[2019-06-03] MEDS: ZETIA PO SCH (08:15)
[2019-06-03] MEDS: APRESOLINE PO SCH ×3 (08:15→21:04)
[2019-06-03] MEDS: DIFLUCAN PO SCH (08:15)
[2019-06-03] MEDS: CARDIZEM CD PO SCH (08:15)
[2019-06-03] MEDS: ISORDIL PO SCH ×3 (08:16→21:03)
[2019-06-03] MEDS: ELIQUIS PO SCH (08:16)
[2019-06-03] MEDS: LONITEN PO SCH (08:17)
[2019-06-03 08:47] LABS: BASO# 0.03 X1000 (0.0-0.2); BASO% 0.2 % (0.0-0.8); HEMATOCRIT 26.6 % (42.0-52.0); HEMOGLOBIN 8.8 g/dL (14.0-18.0); IMM GRAN# 0.78 X1000 (0.0-0.04); IMM GRAN% 6.3 % (0.0-0.5); LYMPH# 0.59 X1000 (1.2-3.4); LYMPH% 4.7 % (20.5-51.1); MCH 27.4 PG (27-31); MCHC 33.1 g/dL (33-37); MCV 82.9 FL (81-99); MONO# 0.23 X1000 (0.11-0.59); MONO% 1.8 % (1.7-9.3); MPV 11.2 FL (7.4-10.4); NEUT# 10.81 X1000 (1.4-6.5); PLT 335 X1000 (130-400); RBC 3.21 XMIL (4.7-6.1); RDW 13.8 % (11.5-14.5); WBC 12.44 X1000 (4.8-10.8)
[2019-06-03] MEDS ORDERED: LANTUS INSULIN SUBQ SCH (09:00)
[2019-06-03 09:22] LABS: CALCIUM 7.9 mg/dL (8.8-10.2); CREATININE 2.9 mg/dL (0.7-1.2); POTASSIUM 4.8 mmol/L (3.5-5.1)
[2019-06-03 09:47] LABS: BANDS 4 % (0-1); LYMPHS 2 % (21-51); MONO 4 % (1-9); SEGS 90 % (42-75)
--- NOTE | 2019-06-03 14:44 | GENERAL SURGERY PROGRESS NOTE ---
DATE: 06/03/2019 SUBJECTIVE: Clinically about the same. I do not see any fevers or tachycardia documented. Oxygen saturation 100% on 2 L. OBJECTIVE: General: He is alert. His right neck is without swelling. Upper extremities are well perfused. White count remains elevated at 12. His glucose is high at 447. ASSESSMENT/PLAN: This is a 64-year-old gentleman who has got bacteremia related to pneumonia. Plan is for outpatient antibiotics. He needs access. The PICC line is not an option given his chronic renal insufficiency. I will plan for Johnson catheter tomorrow, I have held his Eliquis. We discussed risks of bleeding, infection, damage to surrounding structures, vascular injury, pneumothorax, malfunction of the catheter. He understands and consents. cc: Tobi Zarate MD
--- NOTE | 2019-06-03 15:11 | INFECTIOUS DISEASE PROGRESS NO ---
DATE: 06/03/2019 PRESENT ILLNESS: The patient has streptococcal bacteremia. He also has cold sores on his lips. He also has poor oral hygiene, which could have been the origin of the patient's bacteremia. MEDICATIONS: This is the 4th day of Rocephin treatment with day 1 being the first day that the repeat blood cultures were drawn. Dr. Howell has placed the patient on fluconazole and he has managed it. PHYSICAL EXAMINATION: Vital Signs: Temperature is 98 degrees, pulse 81, respirations 16, blood pressure is 164/62. General: This is an obese, middle-aged male. He is less dyspneic than he was last week, but he still is somewhat dyspneic even at rest. Head/eyes/ears/nose/throat: He can hear my spoken words and see near objects. He has poor oral hygiene. He does not have any white patches on his tongue. All the blister-like lesions he had on his lips have cleared. Neck: No pain with movement. Lungs: There were bilateral wheezes and rhonchi. Cardiovascular: Heart rate is regular with a systolic murmur. Abdomen: Soft and nontender. Extremities: There is less swelling in both the patient's legs and arms. Neurologic: Patient is alert. He can move his extremities and there is no tremor. LAB AND X-RAY: There is no new radiographic study. The CBC shows a white count of 12,440, hemoglobin 8.8, platelet count 335,000, creatinine is 2.9. GFR is 22. Echocardiogram shows no vegetations. ASSESSMENT AND PLAN: Patient has streptococcal bacteremia. He has 10 more days of Rocephin starting from today. He does not require any more treatment of his lips because the cold sores have cleared. The patient is going to have placement of an IV catheter tomorrow to complete the patient's Rocephin therapy for his streptococcal bacteremia. It is uncertain whether the patient will have a PICC or a tunneled IV catheter site in the chest. COMORBIDITIES: The patient is a diabetic and he has hypertension, peripheral vascular disease, morbid obesity, and myocardial infarction. cc: Jeronimo Richter MD
[2019-06-03] MEDS ORDERED: HUMULIN R IV ONE (17:22)
--- NOTE | 2019-06-03 17:42 | PROGRESS NOTE ---
DATE: 06/03/2019 SUBJECTIVE: Patient has no major complaints. Breathing is okay. He does not look as labored to me. OBJECTIVE: Vital Signs: Blood pressure is 167/47, which is an improvement. Heart rate 82, respiratory rate 16, temperature 97.6 degrees, 100% on 2 L. Cardiovascular: Regular rate and rhythm. Pulmonary: Bilateral breath sounds clear to auscultation. GI: Soft, nontender, nondistended. Bowel sounds are positive. His right arm is less swollen. His left arm is still very swollen, but overall improved. LABORATORY DATA: White count is 12, hemoglobin 8 and hematocrit 26, platelets of 335,000. Sodium 131, glucose is 447, BUN 96 and creatinine 2.9. PROBLEM LIST: 1. Streptococcus intermedius bacteremia. Repeat blood cultures are negative. Echo was negative. Plan is for 12 days or 2 weeks total of Rocephin per Dr. Richter. Plan for Johnson tomorrow. 2. Acute on chronic renal failure. He has got worsening azotemia. Creatinine is stable. We are going to continue diuretics for now because he is still fairly volume overloaded. Nephrology is going to evaluate. I think the BUN going up is likely due to diuretics and then also possibly corticosteroids. 3. Hypertension. He is on Lasix, minoxidil, Cardizem and stopped his Norvasc because of the amount of swelling he was having, hydralazine, Isordil. The minoxidil is new. We may need to add more. DISPOSITION: 1. Pending clinical status. Home soon hopefully. 2. Type 2 diabetes is still not well controlled. We will titrate up on his insulin. cc: Jc Howell MD
[2019-06-03] MEDS: LIPITOR PO SCH (21:03)
[2019-06-04] MEDS: DUONEB (A & A) INH SCH ×6 (03:26→23:16)
[2019-06-04] MEDS: LASIX IV SCH ×2 (05:19→16:46)
[2019-06-04] MEDS: SOLU-MEDROL IV SCH ×2 (05:19→16:49)
[2019-06-04] MEDS: ROCEPHIN 2 GM in NS 50 ML IV SCH ×2 (05:19→16:41)
[2019-06-04] MEDS: PRILOSEC PO SCH (06:38)
[2019-06-04] MEDS: ABREVA CREAM TOP SCH ×4 (06:38→21:50)
[2019-06-04] MEDS: HUMALOG SUBQ SCH ×4 (06:39→21:51)
[2019-06-04] MEDS: ISORDIL PO SCH ×4 (08:27→21:50)
[2019-06-04] MEDS: APRESOLINE PO SCH ×4 (08:27→21:50)
[2019-06-04 08:46] LABS: CALCIUM 8.7 mg/dL (8.8-10.2); CREATININE 3.1 mg/dL (0.7-1.2); POTASSIUM 5.1 mmol/L (3.5-5.1)
[2019-06-04 08:59] LABS: BASO# 0.03 X1000 (0.0-0.2); BASO% 0.2 % (0.0-0.8); HEMATOCRIT 28.2 % (42.0-52.0); IMM GRAN# 0.99 X1000 (0.0-0.04); IMM GRAN% 5.2 % (0.0-0.5); LYMPH# 1.42 X1000 (1.2-3.4); LYMPH% 7.4 % (20.5-51.1); MCH 26.3 PG (27-31); MCHC 31.9 g/dL (33-37); MCV 82.5 FL (81-99); MONO# 1.06 X1000 (0.11-0.59); MONO% 5.5 % (1.7-9.3); MPV 11.1 FL (7.4-10.4); NEUT# 15.61 X1000 (1.4-6.5); NEUT% 81.7 % (42.2-75.2); PLT 346 X1000 (130-400); RBC 3.42 XMIL (4.7-6.1); RDW 13.7 % (11.5-14.5); WBC 19.11 X1000 (4.8-10.8)
[2019-06-04] MEDS: ZETIA PO SCH (09:03)
[2019-06-04] MEDS: DIFLUCAN PO SCH (09:03)
[2019-06-04] MEDS: LONITEN PO SCH (09:03)
[2019-06-04] MEDS: CARDIZEM CD PO SCH (09:03)
[2019-06-04 09:44] LABS: LYMPHS 1 % (21-51); MONO 3 % (1-9); SEGS 93 % (42-75)
[2019-06-04 09:46] LABS: HYPOCHROM 1+
--- NOTE | 2019-06-04 10:29 | Diag Imaging Result Doc PS360 ---
US RENAL 2 (RETROPER) COMPLETE - 06/04/2019 INDICATION: decreased renal function TECHNIQUE: COMPARISON: 06/17/2018 FINDINGS: The kidneys are normal in echotexture. No hydronephrosis. The right kidney measures 10.6 x 5.7 x 6.1 cm. The left kidney measures 13.2 x 7.3 x 6.1 cm. The urinary bladder is normal and filled with clear urine. IMPRESSION: Negative exam. Electronically signed by Alden Arenas 06/04/2019 10:26 AM
[2019-06-04] MEDS: ALBUMIN 25% IV SCH (11:04)
[2019-06-04 11:31] LABS: ALBUMIN 3.4 g/dL (3.5-5.0); CALCIUM 8.4 mg/dL (8.8-10.2); CREATININE 3.1 mg/dL (0.7-1.2); PHOSPHORUS 5.6 mg/dL (2.7-4.5)
[2019-06-04] MEDS ORDERED: XYLOCAINE 1%/EPI 1:100,000 ONE (12:14)
[2019-06-04] MEDS ORDERED: XYLOCAINE-MPF 2% ONE (12:20)
[2019-06-04] MEDS ORDERED: DIPRIVAN 1% ONE ×2 (12:20→14:11)
[2019-06-04] MEDS ORDERED: ROBINUL ONE (12:20)
[2019-06-04] MEDS ORDERED: NS 250 ML ONE (12:21)
[2019-06-04] MEDS ORDERED: FENTANYL ONE (12:21)
[2019-06-04] MEDS ORDERED: DUONEB (A & A) INH ONE (12:38)
[2019-06-04] MEDS ORDERED: VERSED ONE (12:44)
--- NOTE | 2019-06-04 13:02 | NEPHROLOGY CONSULTATION ---
DATE: 06/04/2019 REASON FOR ADMISSION: Fever with increased work of breathing and pneumonia. REASON FOR CONSULT: Acute kidney injury on chronic kidney disease stage 3B. Baseline creatinine previously known to be 1.8 to 2.4. CONSULTING PHYSICIAN: Dr. Howell. HISTORY OF PRESENT ILLNESS: This is a 64-year-old, white male who had been seen by our practice approximately 1 year ago for multiple medical issues with chronic kidney disease stage 3B. The patient has known cardiac stents with myocardial infarction in the past. Currently has been hospitalized for recurrent pneumonias and bacteremia. The patient has been treated by Dr. Jeronimo Richter and is currently on Rocephin 1 g and Diflucan per Dr. Howell for cold sore ulcers to his mouth. The patient is requiring outpatient IV antibiotics. He has poor IV access veins. Dr. Zarate has been consulted for placement of a Johnson catheter today for possible discharge. In the last 24 to 48 hours, it is noted that his BUN and creatinine have continued to elevate. He is being treated for bacteremia. He has a history of nephrotic syndrome dating back to April of 2017. He continues to have lower and upper extremity swelling, more greater than left upper arm than the right. He denies any nausea or vomiting, though poor appetite. No fever or chills. The patient's highest temperature during his hospital stay has been 98.6. Last temperature noted at 97.6. The patient has been receiving large doses of Lasix. He is also on Solu- Medrol. Renal ultrasound completed this a.m. shows the right kidney measuring 10.6, left measuring 13.2. We are awaiting urine electrolytes. The patient is awaiting to go down for Johnson catheter placement to surgery. His is at his bedside. PAST MEDICAL HISTORY: Chronic kidney disease stage 3B with previous history of acute kidney injury which had resolved, obesity, obstructive sleep apnea, COPD, hypertension, congestive heart failure, diabetes mellitus type 2, previous MIs with cardiac stenting, chronic reflux, chronic pain, home O2, history of congestive heart failure. SOCIAL HISTORY: He is . He lives with his spouse. She is currently at his bedside. Long history of tobacco abuse, quit approximately 2 years ago. Denies any alcohol or illicit drug use. FAMILY HISTORY: Notable for heart disease and hypertension. No end-stage renal disease. Father also had skin cancer and a stroke. Mother had breast cancer. ALLERGIES: Listed as morphine which causes anaphylaxis. HOME MEDICATIONS: Aspirin, hydralazine, Lipitor, Isordil, Cardizem CD, Anoro Ellipta, Pulmicort, Zetia, Toujeo Max SoloStar, ipratropium albuterol, Norvasc, DuoNeb ProAir, furosemide, and Trelegy Ellipta. REVIEW OF SYSTEMS: Times 10 with pertinent positives listed above in the HPI. VITAL SIGNS: Patient's most recent vital signs, temperature 97.7 degrees, blood pressure 209/67, heart rate 84, respirations 17. He is on 2 L nasal cannula. Last recorded saturation is 97%. He has had 650 in, 1200 out per Ashby. LABORATORY DATA: Sodium 139, potassium 5.1, chloride is 104, CO2 is 18, BUN 101, creatinine 3.1, glucose 145, his anion gap is 17, calcium 8.7. Previous albumin of 2.9. Albumin this a.m. is currently pending. His white count is up to 19.11, hemoglobin 9, hematocrit 28.2, with a platelet count of 346,000. The patient had a V/Q scan completed on his initial admission on 05/26/2019. BUN and creatinine have continued to climb since that period of time. Adequate urine output is documented. PHYSICAL EXAMINATION: General: This is a 64-year-old, elderly, white male who appears older than his stated age. He appears in no acute distress, though chronically ill. Skin is warm and dry. HEENT: Normocephalic, atraumatic. Conjunctivae are pale. Mucous membranes are dry. The patient appears to have some poor dentition. He also has cold sores noted to his exterior lips, left greater than right, also at the side creases bilateral. Neck: Supple. Trachea midline. He appears to have slight JVD. Cardiovascular: Regular rate and rhythm. S1, S2 noted. No appreciable gallop. Lungs: He has expiratory wheezes bilateral. No crackles noted. He remains on O2 support. Abdomen: Large, obese, soft, nontender. Positive bowel sounds. Genitourinary: Not inspected. Patient has a Ashby catheter in place. Extremities: Continues with 2+ lower extremity edema, also noted 2+ to the left upper hand greater than right. The patient states that he has a noted DVT to the left lower extremity secondary to an infiltrated IV since his admission. Neurological: He is alert and oriented to person and place, assist with exam. ASSESSMENT AND PLAN: 1. Acute kidney injury on chronic kidney disease stage 3B. Patient's baseline creatinine is noted at 1.8 to 2.4 since 2018. Creatinine has elevated over the last 48 hours, with a BUN of 101. He remains on Solu-Medrol. Adequate urine output has been documented. We await urine electrolytes. No indications for any intervention at this time. We will continue to monitor labs. 2. Electrolytes and acid-base balance. These are acceptable. CO2 of 18. We will monitor. Minimal tire changer the last 48 hours. 3. Anemia. This remains stable. 4. Bacteremia with sepsis. Patient remains on renal dosed antibiotics of Rocephin 1 g and Diflucan, followed by Dr. Richter and the primary care, with placement of a Johnson catheter this morning for home antibiotic use. I would like to thank you for allowing us to follow with this patient. Dictated by DELTA Sheffield for Artemio Mart MD Face to face encounter, data reviewed, discussed with Leonidas Greene on 06/04/19. I agree with the above assessment and plan of care. cc: DELTA Sheffield MD [facility] CENTERKim
[2019-06-04 13:52] LABS: UR CREAT RANDOM 72.3 mg/dL (14-26); UR PROT RANDOM 480.9 mg/dL
[2019-06-04] MEDS: NORCO-10 ONE ×2 (15:30→16:43)
--- NOTE | 2019-06-04 16:12 | Diag Imaging Result Doc PS360 ---
EXAM: CHEST-1 VIEW HISTORY: pneumonia TECHNIQUE: Single view COMPARISON: 05/31/2019 FINDINGS: The lungs are well expanded. There is a right jugular line on the current exam. The tip overlies the mid superior vena cava. No pneumothorax. The heart is not enlarged. The vessels are not distended. There are no infiltrates. No effusion identified. IMPRESSION: No definite pneumonia Electronically signed by Leno Cloud 06/04/2019 4:10 PM
[2019-06-04] MEDS: LANTUS INSULIN SUBQ SCH (16:44)
--- NOTE | 2019-06-04 17:21 | INFECTIOUS DISEASE PROGRESS NO ---
DATE: 06/04/2019 PRESENT ILLNESS: Patient has streptococcal bacteremia which I think could have arisen from his poor oral hygiene. MEDICATIONS: This is the 5th day of Rocephin treatment for the streptococcal bacteremia. PHYSICAL EXAMINATION: Vital Signs: Temperature is 98.1 degrees, pulse 74, respirations 16, blood pressure is 201/56. General: This is an obese, middle-aged male. He has just gotten out of surgery and he is a little sleepy. I saw him in the recovery room. Head/eyes/ears/nose/throat: He can hear my spoken words and see near objects. As mentioned above, he has very poor oral hygiene. He does not have any white coating of his tongue and the blister-like lesions on his lips have cleared. Neck: No pain with movement. Thorax: The patient has a right-sided Johnson catheter in place which was just put in at surgery. The site is not erythematous or bleeding. Lungs: Clear to auscultation. Cardiovascular: Heart rate is regular with a systolic murmur. Abdomen: Soft and nontender. Extremities: The patient's legs and arms are less edematous than they were when he came in. Neurologic: As mentioned above, he is lethargic. He was seen in the recovery room. He does not have a tremor. LAB AND X-RAY: There is no new radiographic study. CBC shows a white count of 19,110, hemoglobin 9, platelet count 346,000. Creatinine is 3.1. GFR is 20. ASSESSMENT AND PLAN: Patient has streptococcal bacteremia and will be treated for 9 more days with Rocephin. His white blood cell count is up today, so I am going to go ahead and order blood cultures and a portable chest x-ray. COMORBIDITIES: The patient is diabetic. He also has hypertension, peripheral vascular disease, morbid obesity, and a prior myocardial infarction. cc: Jeronimo Richter MD
--- NOTE | 2019-06-04 21:00 | OPERATIVE NOTE ---
PROCEDURE DATE: 06/04/2019 PREOPERATIVE DIAGNOSIS: Bacteremia. POSTOPERATIVE DIAGNOSIS: Bacteremia. PROCEDURE PERFORMED: Ultrasound-guided right internal jugular vein Johnson catheter placement 9- [place] with fluoroscopy less than 1 hour. ESTIMATED BLOOD LOSS: 20 mL. SPECIMENS: None. ANESTHESIA: MAC with local. INDICATIONS: A 60-year-old gentleman who had pneumonia and bacteremia and plans for outpatient antibiotics for treatment of his bacteremia. OPERATIVE FINDINGS: 1. Small internal jugular vein is compressed with no thrombus. 2. Final fluoroscopic image showed good position of the catheter in superior vena cava-atrial junction with no kinking of the catheter and no pneumothorax. OPERATIVE NOTE: Risks, benefits, and alternatives were discussed with patient who consented to the procedure, seen preoperatively, and the surgical site was confirmed. He was taken to the operating room and placed in supine position. Bilateral neck and chest prepped with Betadine and draped in usual fashion. After time-out, he was placed in Trendelenburg, and focused ultrasound was performed. We accessed the vein on first pass. Dark, nonpulsatile venous blood was noted on return. The vein was very compressible. The wire then threaded easily. As such, we re-accessed, and we were able to gain wire access on the next go. We made a counterincision in the chest and tunneled a 9-[place] catheter from the incision in chest. Incision was made larger in the neck, and the dilator peel-away introducer sheath was advanced, but prior to this we trimmed the catheter based off fluoroscopic images to the appropriate length. We passed the catheter, peeled away the sheath, and confirmed that we withdrew blood and flushed without resistance. We closed the incision in the neck and chest with 4-0 Monocryl and secured the catheter with nylon suture. Dermabond was applied on the neck, and dressing was applied to the chest. Sterile caps were applied and flushed with heparinized saline. He tolerated it well. He was awakened and transferred to recovery room. I spoke with family. cc: Tobi Zarate MD
[2019-06-04] MEDS: LIPITOR PO SCH (21:50)
[2019-06-05] MEDS: TYLENOL PO PRN ×4 (00:09→22:45)
[2019-06-05] MEDS: DUONEB (A & A) INH SCH ×6 (03:36→23:10)
[2019-06-05] MEDS: LASIX IV SCH ×2 (05:24→16:11)
[2019-06-05] MEDS: ABREVA CREAM TOP SCH ×4 (05:27→20:51)
[2019-06-05] MEDS: ROCEPHIN 2 GM in NS 50 ML IV SCH ×2 (05:27→16:11)
[2019-06-05] MEDS: SOLU-MEDROL IV SCH ×3 (05:27→18:26)
[2019-06-05] MEDS: PRILOSEC PO SCH (06:00)
[2019-06-05] MEDS: HUMALOG SUBQ SCH ×4 (06:00→20:52)
[2019-06-05 08:05] LABS: ALBUMIN 3.4 g/dL (3.5-5.0); CALCIUM 8.4 mg/dL (8.8-10.2); CREATININE 3.3 mg/dL (0.7-1.2); PHOSPHORUS 6.4 mg/dL (2.7-4.5); POTASSIUM 5.4 mmol/L (3.5-5.1)
[2019-06-05] MEDS: ISORDIL PO SCH ×3 (08:09→20:51)
[2019-06-05] MEDS: LONITEN PO SCH (08:10)
[2019-06-05] MEDS: CARDIZEM CD PO SCH (08:10)
[2019-06-05] MEDS: ZETIA PO SCH (08:10)
[2019-06-05] MEDS: APRESOLINE PO SCH ×3 (08:10→20:51)
[2019-06-05] MEDS: DIFLUCAN PO SCH (08:10)
[2019-06-05] MEDS: LANTUS INSULIN SUBQ SCH (08:11)
[2019-06-05] MEDS: ALBUMIN 25% IV SCH (10:31)
--- NOTE | 2019-06-05 11:33 | NEPHROLOGY PROGRESS NOTE ---
DATE: 06/05/2019 TIME SEEN: 0710 hours. SUBJECTIVE: Mr. Garcia is sitting up in a chair. He states that he has been unable to sleep in his bed during the night. He denies any discomfort. OBJECTIVE: Most Recent Vital Signs: Temperature 98.7 degrees, blood pressure 166/55, heart rate 79, respirations 18, he is on 2 L nasal cannula. Last recorded saturation 100%. He has had 1835 in. They have only collected 360 mL to void. LABORATORY DATA: This morning, sodium is 134, potassium is 5.4, chloride 100, CO2 19, his BUN is 119 with a creatinine of 3.3, glucose of 308. The patient has an anion gap of 15, calcium 8.4 phosphorus 6.4, albumin 3.4. Previous hemoglobin of 9. The patient had urine collection yesterday indicating a fractionated urea score of 22.25%. Blood cultures show no growth after 5 days. PHYSICAL EXAMINATION: General: This is a 64-year-old white male resting quietly in bed in a recliner. He appears chronically ill. He is in no acute distress. Skin: Warm and dry. HEENT: Normocephalic, atraumatic. Conjunctiva is pale. He has SUKI. Mucous membranes are dry. Neck: Supple. Trachea midline. Unable to determine JVD in the upright position. Cardiovascular: Regular rate and rhythm. No appreciable gallop. Lungs: Have continual expiratory wheezes bilateral. He remains on O2 support. Abdomen: Large, obese, soft, nontender. Positive bowel sounds. Genitourinary: Not inspected. The patient's total void in the last 24 hours is 1150. Extremities: Continues with 2+ lower extremity edema and left upper arm edema. Integumentary: Patient has a Johnson catheter to the right upper chest wall. ASSESSMENT AND PLAN: 1. Acute kidney injury on chronic kidney disease stage 3B/4. The patient's baseline creatinine is 1.8 to 2.4. His creatinine at this time is elevated to 3.3 with a BUN of 119. Chest x-ray yesterday morning showed definite pneumonia with no pulmonary edema. Urine output remains stable. I am treating his with albumin and furosemide in an attempt to mobilize some of the third-space fluid that has accumulated. Continue current care and monitor his B/Cr. rg 2. Electrolytes and acid-base balance. These remain fairly stable. The patient is acidotic. No indications for intervention. Anion gap is at 15. 3. Anemia. Hemoglobin remains stable at 9. 4. Bacteremia with sepsis. Patient remains on renal dosed antibiotics now to Johnson line preparation for home discharge. I would like to thank you for allowing us to follow with this patient. Dictated by DELTA Sheffield for Artemio Mart MD Face to face encounter, data reviewed, discussed with Leonidas Greene on 06/05/19. I agree with the above assessment and plan of care. cc: DELTA Sheffield MD [facility]
[2019-06-05] MEDS: DUONEB (A & A) INH PRN (14:39)
--- NOTE | 2019-06-05 15:42 | PROGRESS NOTE ---
DATE: 06/05/2019 SUBJECTIVE: The patient is breathing a little bit better but still somewhat wheezy, still somewhat swollen. OBJECTIVE: Vital signs: Blood pressure 198/52, heart rate 76, respiratory rate 18, temperature 97.8 degrees. Cardiovascular: Regular rate and rhythm. Pulmonary: Bilateral breath sounds. Clear to auscultation. GI: Soft, nontender, nondistended. Extremities: He has 2+ pitting edema. LABS: Creatinine is up to 3.3, BUN is 119, sugar of 308, potassium of 5.4. PROBLEM LIST: 1. Streptococcus intermedius bacteremia. He seems to be doing okay. He is on Rocephin. Dr. Richter has a plan where we are going to do 2 weeks of IV antibiotics. 2. Acute on chronic renal failure. He has worsening azotemia. He seems to be stable, but his BUN is getting worse. I think he may have nephrotic syndrome. I thought we had documented he had nephrotic syndrome, but I do not see a 24-hour urine, so I am going to do that. Nephrology is following and adjusting his medications. 3. Type 2 diabetes. He still has significant, not well, well controlled. I am slowly titrating up on his Lantus. So we will continue treatment and follow. 4. Disposition. Pending his clinical status. We will continue to follow closely. cc: Jc Howell MD
[2019-06-05] MEDS: LOKELMA POWDER PACKET PO SCH (16:11)
--- NOTE | 2019-06-05 17:24 | INFECTIOUS DISEASE PROGRESS NO ---
DATE: 06/05/2019 PRESENT ILLNESS: The patient has streptococcal bacteremia which I think might have originated from his poor oral hygiene. MEDICATIONS: This is day 6 of treatment with Rocephin 2 g IV every 12 hours. PHYSICAL EXAMINATION: Vital Signs: Temperature is 97.8 degrees, pulse 76, respirations 18, blood pressure 198/52. General: This is an obese, middle-aged male. He in no acute distress. Head/eyes/ears/nose/throat: He can hear my spoken words and see near objects. He has very poor oral hygiene. He does not have any white patches in his mouth. Neck: No stiffness. Thorax: Patient has a right-sided Johnson catheter in place. There is no erythema or bleeding. Lungs: Clear to auscultation. Cardiovascular: Heart rate is regular with a systolic murmur. Abdomen: Soft and nontender. Extremities: The patient's arms and legs are edematous but less than when he came in. Neurologic: The patient is alert. He can move his extremities. There is no tremor. LAB AND RADIOLOGY: Chest x-ray shows no pneumonia. There are no new laboratory studies today. The patient's echocardiogram did not show any vegetations present. ASSESSMENT AND PLAN: The patient has streptococcal bacteremia. He will need 8 more days of his Rocephin. I put in a consult for [facility] to supply his antibiotic at home and I have requested that the patient come to my office in 9 days. If everything is going well, we can consider removing his Johnson catheter, although the patient does have poor renal function and maybe the Johnson catheter needs to be continued. Some of the side effects of Rocephin including rash and diarrhea have been explained to the patient. He agrees with treatment. I think the patient needs to see either a dentist or an oral surgeon and most likely I think most of his teeth will have to be removed and also the patient will need to be instructed in good oral hygiene. COMORBIDITIES: The patient is a diabetic and he also has hypertension, peripheral vascular disease, morbid obesity, myocardial infarction, and poor oral hygiene. cc: Jeronimo Richter MD
[2019-06-05] MEDS: LIPITOR PO SCH (20:51)
[2019-06-06] MEDS: LOKELMA POWDER PACKET PO SCH ×3 (01:52→13:35)
[2019-06-06] MEDS: DUONEB (A & A) INH SCH ×6 (02:55→23:02)
[2019-06-06] MEDS: SOLU-MEDROL IV SCH ×2 (04:59→17:08)
[2019-06-06] MEDS: ROCEPHIN 2 GM in NS 50 ML IV SCH ×2 (04:59→17:08)
[2019-06-06] MEDS: LASIX IV SCH (04:59)
[2019-06-06] MEDS: PRILOSEC PO SCH (06:20)
[2019-06-06] MEDS: ABREVA CREAM TOP SCH ×4 (06:20→21:37)
[2019-06-06] MEDS: HUMALOG SUBQ SCH ×4 (06:20→21:37)
[2019-06-06] MEDS ORDERED: LASIX IV SCH (07:15)
[2019-06-06 07:46] LABS: BASO# 0.02 X1000 (0.0-0.2); BASO% 0.1 % (0.0-0.8); HEMATOCRIT 25.1 % (42.0-52.0); HEMOGLOBIN 8.1 g/dL (14.0-18.0); IMM GRAN# 0.53 X1000 (0.0-0.04); IMM GRAN% 3.8 % (0.0-0.5); LYMPH# 1.01 X1000 (1.2-3.4); LYMPH% 7.3 % (20.5-51.1); MCH 26.6 PG (27-31); MCHC 32.3 g/dL (33-37); MCV 82.6 FL (81-99); MONO# 0.37 X1000 (0.11-0.59); MONO% 2.7 % (1.7-9.3); MPV 11.2 FL (7.4-10.4); NEUT# 11.88 X1000 (1.4-6.5); NEUT% 86.1 % (42.2-75.2); PLT 250 X1000 (130-400); RBC 3.04 XMIL (4.7-6.1); RDW 13.9 % (11.5-14.5); WBC 13.81 X1000 (4.8-10.8)
[2019-06-06] MEDS ORDERED: LASIX 120 MG in NS 25 ML IV ONE (08:00)
[2019-06-06 08:34] LABS: BANDS 4 % (0-1); LARGE PLATELETS 1+; MONO 6 % (1-9); SEGS 90 % (42-75)
[2019-06-06 08:52] LABS: ALBUMIN 3.7 g/dL (3.5-5.0); CALCIUM 8.7 mg/dL (8.8-10.2); CREATININE 3.7 mg/dL (0.7-1.2); PHOSPHORUS 6.7 mg/dL (2.7-4.5); POTASSIUM 5.2 mmol/L (3.5-5.1)
[2019-06-06] MEDS: LONITEN PO SCH (08:56)
[2019-06-06] MEDS: LANTUS INSULIN SUBQ SCH (08:56)
[2019-06-06] MEDS: DIFLUCAN PO SCH (08:58)
[2019-06-06] MEDS: APRESOLINE PO SCH ×3 (08:58→21:35)
[2019-06-06] MEDS: ZETIA PO SCH (08:58)
[2019-06-06] MEDS: CARDIZEM CD PO SCH (08:58)
[2019-06-06] MEDS: ISORDIL PO SCH ×3 (08:58→21:36)
--- NOTE | 2019-06-06 09:28 | Diag Imaging Result Doc PS360 ---
CHEST-2 VIEWS - 06/06/2019 INDICATION: sob, ?pulm edema COMPARISON: 06/04/2019 FINDINGS: Stable tunneled central line. The lungs are clear. Heart size is normal. No pneumothorax or pleural effusion. IMPRESSION: Negative exam. Electronically signed by Alden Arenas 06/06/2019 9:26 AM
[2019-06-06] MEDS: ALBUMIN 25% IV SCH (09:44)
--- NOTE | 2019-06-06 11:52 | NEPHROLOGY PROGRESS NOTE ---
DATE: 06/06/2019 TIME SEEN: 0735. SUBJECTIVE: Mr. Grove remains quiet, resting in a chair. He states that he had a better night last night. He is more awake and alert. He is currently receiving a breathing treatment. LABORATORY DATA: His labs are currently pending. His white count is 13.81, hemoglobin 8.1, hematocrit 25.1, with a platelet count of 250,000. It is noted that the patient had a potassium of 5.4 yesterday, with a BUN of 119 and a creatinine of 3.3. OBJECTIVE: Most Recent Vital Signs: Temperature 98.2 degrees, blood pressure 193/56, heart rate 72, respirations 20. He is on 2 L nasal cannula. Last recorded saturation 96%. He has had 870 in, 1250 out to void. General: This is a 64-year-old, white male, who is currently resting quietly in a recliner. Skin: Warm and dry. HEENT: Normocephalic, atraumatic. Conjunctiva is pale. He has SUKI. Mucous membranes are dry. Neck: Supple. Trachea midline. Unable to determine JVD in the upright position. Cardiovascular: Regular rate and rhythm. No appreciable gallop. Lungs: Clear to auscultation bilaterally, though he does have an expiratory wheeze that clears with cough. Currently on O2 support. Abdomen: Large, obese, soft, nontender. Positive bowel sounds. Genitourinary: Not inspected. The patient has been voiding adequate amount, documented 1250 in the last 24 hours. Extremities: Continue with 2+ lower extremity edema and left upper arm edema. Integumentary: The patient has a Johnson catheter to the right upper chest wall. He does have some drainage noted to the left upper arm, clear serous. ASSESSMENT AND PLAN: 1. Acute kidney injury on chronic kidney disease stage 3b/4. The patient's baseline creatinine high of 2.4. BUN and creatinine were elevated yesterday. He did have a low FENa score. We will continue to monitor his BUN and creatinine. We will continue albumin and furosemide in attempt to mobilize his third space fluid. No changes at this time. 2. Electrolytes and acid-base balance. These are currently pending. These were stable yesterday. 3. Anemia. Hemoglobin has dropped to 8.1 from 9. We will check an anemia panel in the morning. 4. Bacteremia with sepsis. The patient now has a Johnson catheter. This is being followed by Dr. Richter and by Dr. Zarate and the primary care. I would like to thank you for allowing us to follow with this patient. Dictated by DELTA Sheffield for Artemio Mart MD Face to face encounter, data reviewed, discussed with Leonidas Greene on 06/06/19. I agree with the above assessment and plan of care. cc: DELTA Sheffield MD [facility]
[2019-06-06] MEDS: TYLENOL PO PRN ×2 (13:35→21:36)
[2019-06-06] MEDS ORDERED: ARIXTRA SUBQ ONE (15:43)
--- NOTE | 2019-06-06 16:21 | PROGRESS NOTE ---
DATE: 06/06/2019 SUBJECTIVE: Patient has no major complaints. OBJECTIVE: Blood pressure 179/56, heart rate 74, respiratory rate 18, temperature 97.5 degrees, and 96% on room air.Cardiovascular: Regular rate and rhythm. Pulmonary: Bilateral breath sounds clear with rhonchi and wheezing. GI: Soft, nontender, and nondistended. Bowel sounds are positive. LABORATORY DATA: White count is 13, hemoglobin and hematocrit 8 and 25, and platelets 250,000. Potassium 5.2, BUN is up to 133 with a creatinine of 3.7. Sugar 305. PROBLEM LIST: 1. Acute on chronic respiratory failure due to COPD. Volume overload. He looks like he is working harder to breathe. I am going to increase his Solu-Medrol. He is already on high- dose Lasix. He is getting breathing treatments around the clock, sometimes he needs them sooner than every 4 hours. I am going to get a pulmonary consult. His chest x-ray is clear. He does have a superficial thrombophlebitis, but no DVT. He has been on blood thinner since we diagnosed the superficial thrombophlebitis, but they may have been stopped because of his surgery. Now, with his progressive renal failure, I am going to put him on some Arixtra and we will see how he does. I have ordered V/Q scan. We cannot do a CTA because of his kidney insufficiency, and we will follow. I may go ahead and move him to the [facility]. 2. Streptococcus intermedius bacteremia. We will continue antibiotics. He is on Rocephin for a total of 2 weeks. 3. Type 2 diabetes is still not well controlled because of multiple issues. We are titrating up on his Lantus. 4. Acute on chronic renal failure. This continues to deteriorate unfortunately with everything going on. I think he probably does have nephrotic syndrome. We are collecting urine to evaluate that, and then also Dr. Mart is working on it. He may benefit from ultrafiltration. We will continue to follow closely. cc: Jc Howell MD
[2019-06-06] MEDS: LASIX 200 MG in NS 25 ML IV SCH (17:07)
[2019-06-06] MEDS: DUONEB (A & A) INH PRN (17:39)
[2019-06-06 18:01] LABS: UR CREATININE 70.1 mg/dL (14-26); UR CREATININE TOTAL 981.4 mg/24 (800-1800)
[2019-06-06 18:17] LABS: CREATININE 3.1 mg/dL (0.7-1.2)
--- NOTE | 2019-06-06 19:04 | Diag Imaging Result Doc PS360 ---
EXAM: LUNG SCAN / VQ 06/06/2019 HISTORY: hypoxia TECHNIQUE: Ventilation/perfusion scan, 40.4 mCi of technetium 99m DTPA aerosol and 5.8 mCi of technetium 99m MAA COMMENT: There is matched patchy defects in the posterior lower lobes bilaterally. This was not the case at the time the previous study of 05/27/2019. There are no unmatched defects. IMPRESSION: Low probability for pulmonary embolus. Electronically signed by Brian Madera 06/06/2019 7:01 PM
--- NOTE | 2019-06-06 19:49 | GENERAL SURGERY PROGRESS NOTE ---
DATE: 06/06/2019 SUBJECTIVE: He is doing well. Catheter is functioning fine with no issues. OBJECTIVE: On exam, he is alert. His catheter is in place. No cellulitis. No bruising. He is hooked to IV fluids and is functioning. No upper extremity edema. ASSESSMENT AND PLAN: This gentleman is status post tunnel catheter placement, is doing well. We will see him as an outpatient when he has completed his therapy, and we can remove the catheter in the office. cc: Tobi Zarate MD
--- NOTE | 2019-06-06 20:38 | INFECTIOUS DISEASE PROGRESS NO ---
DATE: 06/06/2019 PRESENT ILLNESS: Mr. Grove is being treated for a streptococcal bacteremia, which we think may have come from poor oral hygiene. MEDICATIONS: He is receiving Rocephin 2 g IV every 12 hours. Based on his sterile blood cultures, today is day 7 of a 14-day treatment for his bacteremia. PHYSICAL EXAMINATION: Vital Signs: Temperature is 97.5 degrees, pulse rate 74, respiratory rate 18, blood pressure 179/56, O2 saturation is 96% on 2 L nasal cannula. General: This is a chronically ill-appearing, middle-aged gentleman. He is sitting up in the chair, currently in no acute distress. HEENT: Atraumatic, normocephalic. Oral mucous membranes are pink and moist. Conjunctivae are pale. Neck: Supple. Trachea is midline. Cardiovascular: Heart rate is irregular. Appears to be sinus rhythm with ectopic beats on the monitor. Respiratory: Lung sounds have coarse wheezes bilaterally with work of breathing noted. He does have a congested cough and is unable to sleep in the bed due to shortness of breath. Abdomen: Soft, obese, and nontender. Bowel sounds are active. Extremities: Pitting edema 2+ to the left upper extremity and bilateral lower extremities. Integumentary: Johnson catheter in place to the right chest. That site is covered with an occlusive dressing, but no erythema or drainage is noted. Neurologic: Awake, alert, oriented, and able to move around in the chair independently. LABORATORY AND X-RAY: Today, his white count is 13.81, hemoglobin 8.1, platelet count 250,000. Creatinine 3.7, GFR 17. Blood cultures originally grew a strep intermedius and have been sterile since 05/30/2019. Chest x-ray today is negative with clear lungs. ASSESSMENT AND PLAN: Mr. Grove is being treated for streptococcal bacteremia and has finished 7 of the 14 days of treatment required for clearance of the bacteremia. He is receiving Rocephin which we will continue. After talking with Dr. Howell, the plan is to keep him here in the hospital for now due to his poor renal function and fluid overload, with some respiratory distress. These plans have been discussed with and recommended by Dr. Richter. COMORBIDITIES: For Mr. Grove include diabetes mellitus, peripheral vascular disease, poor oral hygiene, coronary artery disease, and acute kidney injury on chronic kidney disease. Dictated by DELTA Larson for Jeronimo Richter MD cc: Jeronimo Richter MD
[2019-06-06] MEDS: LIPITOR PO SCH (21:36)
[2019-06-07] MEDS: LOKELMA POWDER PACKET PO SCH ×3 (00:11→13:31)
[2019-06-07] MEDS: SOLU-MEDROL IV SCH ×3 (02:40→17:16)
[2019-06-07] MEDS: DUONEB (A & A) INH SCH ×5 (03:27→19:45)
[2019-06-07] MEDS: ABREVA CREAM TOP SCH ×2 (04:25→09:11)
--- NOTE | 2019-06-07 05:40 | PULMONOLOGY CONSULTATION ---
DATE: 06/06/2019 SUBJECTIVE: The patient is awake, alert, and conversant. He was initially met in the V/Q scanner, and then interview and exam took place when he returned to his room. He was diagnosed with COPD approximately 10 years ago. He has been on oxygen for the last 7 to 8 years. He has a history of chronic renal disease. He presented to the emergency room on 05/26/2019 with increasing shortness of breath along with fevers and chills. Subsequent blood cultures revealed 2 positive cultures for Streptococcus intermedius. No specific source was identified. It is currently felt to be related to poor oral hygiene. The patient has had difficulty with progressive renal dysfunction, and now has nephrotic range proteinuria. He is having periods of significant bronchospasm and wheezing. Currently, he reports his shortness of breath is near his baseline when he is at home. He underwent a V/Q scan on presentation to the hospital which revealed patchy areas on ventilation images without matched defects. He has repeated his V/Q scan today which reveals patchy defects in the bases, but no unmatched defects. PAST MEDICAL HISTORY: 1. Chronic obstructive pulmonary disease. 2. Morbid obesity. 3. Chronic hypoxemic respiratory failure. 4. Hypertension. 5. Diabetes. 6. Coronary artery disease with prior stent placement. 7. Acute on chronic renal disease. 8. Gastroesophageal reflux disease. SOCIAL HISTORY: Remote history of tobacco use but none for at least 10 years. No alcohol use. No drug use. FAMILY HISTORY: Positive for breast cancer, strokes, and skin cancers. REVIEW OF SYSTEMS: Notable for increasing upper and lower extremity edema, increasing shortness of breath, wheezing, and increasing cough. PHYSICAL EXAMINATION: General: Reveals a morbidly obese male with a BMI of 36, blood pressure 169/50, but has been as high as 212 systolic over the last 24 hours. HEENT: Pupils are equal and reactive. Oropharynx appears clear. Neck: Supple. Chest: Reveals wheezing bilaterally. Cardiac: S1-S2. Abdomen: Obese and soft. Extremities: Reveal upper and lower extremity edema. LABORATORIES: White blood count 13.8, hemoglobin 8.1, and platelet count 250,000. Sodium 136, potassium 5.2, chloride 101, bicarbonate 20, BUN 133, and creatinine 3.7. Urinalysis reveals 6.3 g of protein in 24 hours with a creatinine clearance of 22. IMPRESSION: A 64-year-old with: 1. Chronic obstructive pulmonary disease exacerbation. 2. Nephrotic range proteinuria. 3. Acute on chronic renal failure. 4. Djypmvjxz-ry-flfygfu blood pressure with significant hypertension. 5. Morbid obesity. 6. Abnormal V/Q scan. DISCUSSION: A 64-year-old with problems outlined above. He has significant wheezing and work of breathing. This would not be typical for a pulmonary embolus. V/Q scan is most consistent with bronchospasm. He is at increased risk for blood clots with his nephrotic range proteinuria. His current presentation may be complicated by hypertension, which may also give him a cardiac asthma component. I will keep this in mind as we follow his course to see if he has more symptoms with significant elevation in his systolic pressures. He may require dialysis to adequately control his blood pressure. PLAN: 1. Agree with steroids. 2. Agree with bronchodilators. 3. Antibiotics per Infectious Disease. 4. Anticipate the need for hemodialysis if his BUN and creatinine continue to climb, and his blood pressure remains uncontrolled. cc: Pascual Villafana MD
[2019-06-07] MEDS: LASIX 200 MG in NS 25 ML IV SCH ×2 (05:46→17:11)
[2019-06-07] MEDS: ROCEPHIN 2 GM in NS 50 ML IV SCH ×2 (05:52→17:13)
[2019-06-07] MEDS: PRILOSEC PO SCH (06:03)
[2019-06-07] MEDS: HUMALOG SUBQ SCH ×5 (06:03→21:38)
[2019-06-07 08:07] LABS: BASO# 0.01 X1000 (0.0-0.2); BASO% 0.1 % (0.0-0.8); HEMATOCRIT 25.3 % (42.0-52.0); IMM GRAN# 0.21 X1000 (0.0-0.04); IMM GRAN% 1.8 % (0.0-0.5); LYMPH# 0.33 X1000 (1.2-3.4); LYMPH% 2.8 % (20.5-51.1); MCH 26.3 PG (27-31); MCHC 31.6 g/dL (33-37); MCV 83.2 FL (81-99); MONO# 0.23 X1000 (0.11-0.59); MPV 11.7 FL (7.4-10.4); NEUT# 10.85 X1000 (1.4-6.5); NEUT% 93.3 % (42.2-75.2); PLT 235 X1000 (130-400); RBC 3.04 XMIL (4.7-6.1); RDW 14.2 % (11.5-14.5); WBC 11.63 X1000 (4.8-10.8)
[2019-06-07 08:40] LABS: IRON SATURATION 46 %; TIBC 138 ug/dL; TOTAL IRON 64 ug/dL (53-167); UNBOUND IRON 74 ug/dL (112-346)
[2019-06-07 08:42] LABS: ALBUMIN 3.7 g/dL (3.5-5.0); CALCIUM 8.4 mg/dL (8.8-10.2); CREATININE 3.6 mg/dL (0.7-1.2); PHOSPHORUS 6.7 mg/dL (2.7-4.5)
[2019-06-07] MEDS: ZETIA PO SCH (09:10)
[2019-06-07] MEDS: APRESOLINE PO SCH ×3 (09:10→21:39)
[2019-06-07] MEDS: DIFLUCAN PO SCH (09:10)
[2019-06-07] MEDS: ISORDIL PO SCH ×3 (09:10→21:39)
[2019-06-07] MEDS: CARDIZEM CD PO SCH (09:10)
[2019-06-07] MEDS: LONITEN PO SCH (09:11)
[2019-06-07] MEDS: ZAROXOLYN PO SCH (09:13)
[2019-06-07] MEDS: ARIXTRA SUBQ SCH (09:14)
[2019-06-07] MEDS: LANTUS INSULIN SUBQ SCH (09:14)
[2019-06-07 09:27] LABS: FERRITIN 872 ng/mL (30-400)
--- NOTE | 2019-06-07 13:33 | EKG Report ---
Test Performed on : 06/07/2019 1:21:57 PM Test Reason : Baseline EKG. H/o CAD Blood Pressure : / mmHG Vent. Rate : 079 BPM Atrial Rate : 088 BPM P-R Int : 000 ms QRS Dur : 092 ms QT Int : 378 ms P-R-T Axes : 000 090 095 degrees QTc Int : 433 ms Atrial fibrillation. Rightward axis Abnormal ECG When compared with ECG of 26-MAY-2019 12:10, (Unconfirmed) Atrial fibrillation. has replaced Sinus rhythm. Confirmed by Tyrone VELAZQUEZ, Kvng Duran ([id number]) on 06/07/2019 2:36:36 PM
--- NOTE | 2019-06-07 15:16 | NEPHROLOGY PROGRESS NOTE ---
DATE: 06/07/2019 TIME SEEN: 0720. SUBJECTIVE: Mr. Grove is sitting up in a chair. States that he had a better evening last night. His day did not do well, with increased work of breathing and just in general did not feel well. OBJECTIVE: Vital Signs: Temperature 97.5 degrees, blood pressure 173/60, heart rate 82, respirations 14. He is on 2 L nasal cannula. Last recorded saturation 99%. He has had 340 in, 2,000 out to void. Labs: Sodium is 134. His potassium is 5, chloride 98, CO2 23. His BUN is 135, creatinine is 3.6, glucose is 217. The patient has an anion gap of 13. His calcium is 8.4 phosphorus 6.7. His albumin is 3.7. The patient's total iron-binding capacity saturation is 46% with an iron of 64. I do not see any ferritin recorded. White count 11.63, hemoglobin 8, hematocrit 25.3, with a platelet count of 235,000. Blood cultures show no growth after 48 hours. PHYSICAL EXAMINATION: General: This is a 64-year-old white male. He is resting in a chair in the upright position. He has no acute distress. Skin: Warm and dry. HEENT: Normocephalic, atraumatic. Conjunctiva is pale. He has SUKI. Mucous membranes are dry. Neck: Supple. Trachea midline. Unable to determine JVD in the upright position. Cardiovascular: Regular rate and rhythm. No appreciable gallop, though he has a systolic murmur today. Lungs: Basically clear to auscultation anterior with an isolated expiratory wheeze. He does become dyspneic on exertion. Abdomen: This is large, obese, soft, nontender. Positive bowel sounds. Genitourinary: Patient has been voiding adequate amounts. He has had 2 L out yesterday with increase in his Lasix. Extremities: The patient has 2 to 3+ lower extremity edema up into the mid thighs and also edema has improved to the left arm, greater than right. Integumentary: Patient has a Johnson to the right IJ. Neurological: He is alert and oriented x3. ASSESSMENT AND PLAN: 1. Acute kidney injury on chronic kidney disease stage 4. The patient's BUN and creatinine continue to elevate, more than likely related to large doses of Lasix of 200 mg q.12 hours. We have also given him albumin. This completed yesterday. We will add Zaroxolyn 10 mg to his dose this a.m. and re-evaluate his labs in the a.m. Counseled that the only other option I have is dialysis. 2. Electrolytes and acid-base balance. These are acceptable. 3. Anemia. This is stable. 4. Increased work of breathing. Patient states that he is breathing well, though he does dyspneic on exertion. I would like to thank you for allowing us to follow with this patient. Dictated by DELTA Sheffield for Artemio Mart MD cc: DELTA Sheffield MD [facility]
--- NOTE | 2019-06-07 15:59 | EKG Report ---
Test Performed on : 06/07/2019 3:48:01 PM Test Reason : A-flutter Blood Pressure : / mmHG Vent. Rate : 084 BPM Atrial Rate : 084 BPM P-R Int : 282 ms QRS Dur : 100 ms QT Int : 358 ms P-R-T Axes : 066 073 099 degrees QTc Int : 423 ms Sinus rhythm. with sinus arrhythmia. with 1st degree AV block. Nonspecific ST and T wave abnormality Abnormal ECG When compared with ECG of 07-JUN-2019 13:21, Sinus rhythm. has replaced Atrial fibrillation. Confirmed by Tyrone VELAZQUEZ, Kvng Duran ([id number]) on 06/11/2019 5:53:02 PM
[2019-06-07] MEDS: PHOSLO PO SCH (17:15)
--- NOTE | 2019-06-07 17:40 | PROGRESS NOTE ---
DATE: 06/07/2019 INTERVAL HISTORY: No acute events overnight. His pressure was anywhere between 160-170 systolic. He does have increasing BUN and creatinine, hyperglycemia, hyperphosphatemia. He had 2 L of urine output yesterday. SUBJECTIVE: Mr. Grove is feeling slightly better than yesterday. He denies new complaints. He states he is still feeling a little short of breath. We discussed about kidney disease. We discussed about hypertension. We discussed about nephrotic syndrome. All of his questions have been answered. His family is at bedside. VITAL SIGNS: Temperature 97.8 degrees, pulse 70, respiratory rate 22, blood pressure 168/69. He is saturating 99% on 2 L nasal cannula. PHYSICAL EXAMINATION: General: Morbidly obese not in acute distress. HEENT: Oral cavity is moist. Lungs: Air entry bilaterally equal. He has bilateral end-expiratory wheeze. No rhonchi. Mild crackles in infrascapular region. Heart: S1, S2 normal. Regular. No murmur, rub, or gallop. Abdomen: Soft, obese. Dullness to percussion in lower quadrants in sitting position, likely because of ascites. Active bowel sounds. Extremities: He has lower extremity edema extending up to bilateral thigh level. INTAKE AND OUTPUT: Suggests 2 L of urine output yesterday. LABORATORY DATA: Suggestive of hemoglobin of 8, platelet of 235,000, WBC of 11.63. His BUN has increased to 135, creatinine of 3.6. His blood glucose is 389. He does have hyperphosphatemia with phosphorus of 6.7. No new microbiological positive data. His 24 hour urine had 6.3 g of protein. Lung V/Q scan performed yesterday had low probability for pulmonary embolism. ASSESSMENT AND PLAN: 1. Acute on chronic respiratory failure due to acute chronic obstructive pulmonary disease exacerbation. Triggers for chronic obstructive pulmonary disease exacerbation could include volume overload due to worsening kidney dysfunction, component of cardiac asthma. Chest x-ray did not have any consolidation to suggest pneumonia. Continue inhaled bronchodilators, intravenous methylprednisolone and intravenous ceftriaxone. Follow oxygen saturations closely. 2. Acute kidney injury on chronic kidney disease stage 3B with generalized anasarca. He has been started on high dose of intravenous Lasix which I will continue with close monitoring of input and output; continue Lokelma for hypokalemia; calcium acetate has been started for hyperphosphatemia. He may be heading towards needing ultrafiltration. 3. History of coronary artery disease requiring stent in year 2010, with ejection fraction of 60% and uncontrolled essential hypertension. Continue current dose of diltiazem, hydralazine, and metolazone. He is not listed to be taking beta blockers. I will continue him on his home atorvastatin and ezetimibe. 4. Insulin-dependent diabetes mellitus with now uncontrolled hyperglycemia likely in the setting of intravenous steroid use. Continue current dose of insulin glargine, add mealtime insulin and continue sliding scale insulin. 5. Deep venous thrombosis prophylaxis. He has been on fondaparinux renally dosed, for his superficial thrombophlebitis and superficial venous thrombosis involving distal cephalic vein extending to left antecubital fossa, 6. Others. He has EKG obtained for an irregular pulse suggests atrial fibrillation versus flutter. I will repeat his EKG. Plan of care discussed with the patient. His questions have been satisfactorily answered. cc: Duncan Prieto MD
[2019-06-07] MEDS: LIPITOR PO SCH (21:39)
[2019-06-07] MEDS: TYLENOL PO PRN (21:39)
[2019-06-08] MEDS: DUONEB (A & A) INH SCH ×7 (00:05→23:31)
--- NOTE | 2019-06-08 00:40 | PULMONOLOGY PROGRESS NOTE ---
DATE: 06/07/2019 SUBJECTIVE: The patient is awake, alert, and conversant. He reports he has decreased his liquid intake. He continues to have some dyspnea, but reports it is less severe than yesterday. OBJECTIVE: Vital Signs: The patient has been afebrile for the last 24 hours. Blood pressure with better control. BP 161/65, heart rate 88, oxygen saturation 100% on 2 L per nasal cannula. HEENT: Pupils are equal and reactive. Oropharynx appears clear. Neck: Supple. Chest: Reveals crackles bilaterally with diffuse wheeze. Cardiac: S1-S2. Abdomen: Obese and soft. Extremities: Reveal 2+ pitting edema but slight decrease in the hands and arms. LABORATORIES: White blood count 11.6, hemoglobin 8.0, platelet count 235,000. Sodium 134, potassium 5.0, chloride 98, BUN 135, creatinine 3.6. IMPRESSION: A 64-year-old with: 1. Chronic obstructive pulmonary disease exacerbation. 2. Mujepxnaa-ap-patnezu hypertension with improvement over the last 24 hours. 3. Nephrotic range proteinuria. 4. Acute on chronic renal failure. 5. Morbid obesity. PLAN: 1. Continue diuresis as tolerated. 2. Continue steroids. 3. Continue bronchodilators. 4. Prognosis is guarded. cc: Pascual Villafana MD
[2019-06-08] MEDS: LOKELMA POWDER PACKET PO SCH ×4 (01:40→21:09)
[2019-06-08] MEDS: SOLU-MEDROL IV SCH ×3 (01:40→17:05)
--- NOTE | 2019-06-08 02:09 | INFECTIOUS DISEASE PROGRESS NO ---
DATE: 06/07/2019 ASSESSMENT AND PLAN: The patient has a streptococcal bacteremia. He needs 6 more days of Rocephin. I have, in the orders, ordered that the patient will have his Rocephin discontinued after 6 more days of treatment. I am signing off on the patient's case. cc: Jeronimo Richter MD
[2019-06-08] MEDS: LASIX 200 MG in NS 25 ML IV SCH ×2 (05:30→16:24)
[2019-06-08] MEDS: ROCEPHIN 2 GM in NS 50 ML IV SCH ×2 (05:42→16:25)
[2019-06-08] MEDS: TYLENOL PO PRN ×2 (05:46→21:09)
[2019-06-08] MEDS: PRILOSEC PO SCH (06:19)
[2019-06-08] MEDS: HUMALOG SUBQ SCH ×7 (06:19→21:08)
[2019-06-08] MEDS ORDERED: DUONEB (A & A) ONE (07:18)
[2019-06-08 08:09] LABS: ALBUMIN 3.5 g/dL (3.5-5.0); CALCIUM 8.8 mg/dL (8.8-10.2); CREATININE 3.8 mg/dL (0.7-1.2); PHOSPHORUS 7.4 mg/dL (2.7-4.5); POTASSIUM 4.5 mmol/L (3.5-5.1)
[2019-06-08] MEDS: ISORDIL PO SCH ×3 (09:39→21:06)
[2019-06-08] MEDS: APRESOLINE PO SCH ×3 (09:39→21:07)
[2019-06-08] MEDS: PHOSLO PO SCH ×3 (09:39→16:26)
[2019-06-08] MEDS: CARDIZEM CD PO SCH (09:39)
[2019-06-08] MEDS: ARIXTRA SUBQ SCH (09:40)
[2019-06-08] MEDS: LONITEN PO SCH (09:40)
[2019-06-08] MEDS: ZETIA PO SCH (09:40)
[2019-06-08] MEDS: ZAROXOLYN PO SCH (09:40)
[2019-06-08] MEDS: LANTUS INSULIN SUBQ SCH (09:41)
--- NOTE | 2019-06-08 20:10 | PROGRESS NOTE ---
DATE: 06/08/2019 INTERVAL HISTORY: No acute events overnight. His vitals were unremarkable except hypertension. SUBJECTIVE: Mr. Grove is feeling the same. He is still feeling short of breath. He is needing oxygen. He is sitting at the edge of the bed. VITALS: Temperature 98 degrees, pulse 81, respiratory rate 20, blood pressure 150/54. He is saturating 100% on 2 L nasal cannula. PHYSICAL EXAMINATION: Morbidly obese in mild distress because of shortness of breath. Oral cavity is moist. He has bilateral end-expiratory wheezes, more pronounced on right infrascapular region. Inspiratory crackles as well. Rhonchi as well. S1, S2 normal, no murmur, rub or gallop. The abdomen is obese, soft, dullness to percussion bilateral lower quadrants in sitting position. He has a bilateral lower extremity edema. He is alert and oriented x3. Intake and output suggest he had 2.1 L urine yesterday with -1.9 L. LABORATORIES AND IMAGING: No CBC today. BMP suggestive of increasing BUN and creatinine, hyperglycemia. Microbiology: No new data. No new imaging. ASSESSMENT AND PLAN: 1. Acute on chronic respiratory failure due to acute chronic obstructive pulmonary disease exacerbation due to volume overload due to worsening kidney function and a component of cardiac arrhythmia. Continue inhaled bronchodilators, intravenous methylprednisolone, intravenous ceftriaxone and continue to monitor oxygen status. 2. Acute kidney injury on chronic kidney disease stage IIIB with generalized anasarca. This is likely progression of his chronic kidney disease. He has been on intravenous Lasix with adequate urine output. Nephrology team on board. I will continue Lokelma for hypokalemia, calcium acetate for hyperphosphatemia. He may need dialysis in future, depending on his kidney function. 3. History of coronary artery disease with stent in 2009, and ejection fraction of 60% and uncontrolled essential hypertension due to volume overload. Continue current diltiazem, hydralazine. He has also getting intravenous furosemide and oral metolazone, which I will continue. He is on isosorbide dinitrate, minoxidil, as well as atorvastatin and ezetimibe, which I will continue. 4. Insulin-dependent diabetes mellitus with now uncontrolled hyperglycemia due to intravenous steroid use. Continue current dose of insulin glargine, mealtime insulin sliding scale insulin. 5. Deep venous thrombosis (DVT) prophylaxis and history of superficial venous thrombosis. Continue fondaparinux for distal cephalic vein superficial venous thrombosis of left antecubital fossa. DISPOSITION: Continue to monitor the patient inside the hospital for his breathing status and need for intravenous diuretics. Plan of care discussed with patient and his family at bedside. Their questions have been satisfactorily answered. cc: Duncan Prieto MD
--- NOTE | 2019-06-08 20:19 | NEPHROLOGY PROGRESS NOTE ---
DATE: 06/08/2019 SUBJECTIVE: He states his shortness of breath is improved, and swelling has improved some today as well. Improved urine output. OBJECTIVE: Vital signs: Blood pressure 154/54, heart rate 81, respirations 20. Afebrile. General: Sitting up in a chair. No acute distress. Skin is warm and dry. Neck: Neck vein distention remains. Trachea is midline. Cardiovascular: Heart is regular. Lungs: Equal but coarse. Few scattered crackles. No wheezes. Abdomen: Soft, nontender. Bowel sounds are present. Extremities: With 3+ edema but clearly softer than yesterday with less edema in the arms. IMPRESSION: Chronic kidney disease with overlying prerenal azotemia. His volume status is improving, and his urine output is acceptable. I will continue the diuretic therapy for 1 more day. cc: Artemio Mart MD
[2019-06-08] MEDS: LIPITOR PO SCH (21:07)
[2019-06-09] MEDS: SOLU-MEDROL IV SCH ×3 (01:52→18:45)
[2019-06-09] MEDS: HUMALOG SUBQ SCH ×8 (01:58→21:43)
[2019-06-09] MEDS: DUONEB (A & A) INH SCH ×6 (03:32→22:46)
[2019-06-09] MEDS: ROCEPHIN 2 GM in NS 50 ML IV SCH ×2 (04:20→16:10)
[2019-06-09] MEDS: LASIX 200 MG in NS 25 ML IV SCH (05:09)
[2019-06-09] MEDS: PRILOSEC PO SCH (06:16)
[2019-06-09 09:10] LABS: ALBUMIN 3.4 g/dL (3.5-5.0); CALCIUM 8.2 mg/dL (8.8-10.2); CREATININE 3.8 mg/dL (0.7-1.2); PHOSPHORUS 7.8 mg/dL (2.7-4.5); POTASSIUM 4.6 mmol/L (3.5-5.1)
[2019-06-09] MEDS: ISORDIL PO SCH ×3 (09:32→21:42)
[2019-06-09] MEDS: APRESOLINE PO SCH ×3 (09:32→21:43)
[2019-06-09] MEDS: ZETIA PO SCH (09:33)
[2019-06-09] MEDS: LOKELMA POWDER PACKET PO SCH ×3 (09:33→21:42)
[2019-06-09] MEDS: ARIXTRA SUBQ SCH (09:33)
[2019-06-09] MEDS: ZAROXOLYN PO SCH (09:34)
[2019-06-09] MEDS: CARDIZEM CD PO SCH (09:35)
[2019-06-09] MEDS: LANTUS INSULIN SUBQ SCH ×2 (09:35→21:43)
[2019-06-09] MEDS: LONITEN PO SCH (09:35)
[2019-06-09] MEDS: PHOSLO PO SCH ×3 (09:35→16:14)
[2019-06-09] MEDS: TYLENOL PO PRN ×2 (09:54→21:46)
--- NOTE | 2019-06-09 12:30 | PROGRESS NOTE ---
DATE: 06/09/2019 INTERVAL HISTORY: No acute events overnight. He states that he was not able to lie down flat on the bed yesterday and had remained in the chair by the side of the bed most of the times, which caused swelling in his legs. SUBJECTIVE: He also states that the upper extremity swelling is decreasing, though he continues to have extreme swelling of bilateral lower extremities. We discussed about increasing insulin dose, continuing intravenous Lasix, worsening kidney numbers. His is at bedside. I answered all of their questions. VITALS: Temperature 97.5 degrees, pulse 79, respiratory rate 16, blood pressure 200/49. He is saturating 100% on 2 L nasal cannula. PHYSICAL EXAMINATION: Morbidly obese, not in any acute distress except because of shortness of breath. HEENT: Oral cavity is moist. Lungs: He has diffuse wheezes bilateral lung vanessa. Inspiratory crackles in infrascapular region. Heart: S1, S2 normal. Regular rhythm. Not tachycardic. No murmur, rub, or gallop. Abdomen: Soft. He has significant dullness to percussion in bilateral flank and hypogastric region suggestive of fluid. He also has positive fluid thrill. He has active bowel sounds. Extremities: He has extreme edema of bilateral lower extremity affecting up to thigh. Neurologic: He is alert and oriented x3. Input and output suggests -1.9 L yesterday, -1 L so far today. LABS: No CBC today. No BMP today. Microbiology, no new data. ASSESSMENT AND PLAN: 1. Acute on chronic respiratory failure due to acute chronic obstructive pulmonary disease exacerbation due to volume overload due to worsening kidney function and a component of cardiac asthma. Continue inhaled bronchodilators, intravenous methylprednisolone, intravenous ceftriaxone and continue to monitor oxygen saturation through nasal cannula. 2. Acute kidney injury on chronic kidney disease stage 3B with now progression towards probably stage 4 with nephrotic syndrome. He also has generalized anasarca because of hypoalbuminemia. Continue intravenous Lasix, metolazone as per Nephrology recommendations. Continue Lokelma for hypokalemia; calcium acetate for hyperphosphatemia. Appreciate Nephrology team's recommendation. 3. Streptococcal bacteremia likely originating form from poor dental hygiene. First day of negative blood culture is 05/30/2019. Continue intravenous ceftriaxone through right-sided chest Johnson catheter for total of 2 weeks. ID team on board. 3. History of coronary artery disease with stent in 2009, with ejection fraction of 60% and uncontrolled hypertension due to volume overload and intravenous steroid use. Continue diltiazem, hydralazine, isosorbide dinitrate, minoxidil. Continue atorvastatin and ezetimibe. 4. Insulin-dependent diabetes mellitus with uncontrolled hyperglycemia due to intravenous steroid use. I will add nighttime Lantus and increase mealtime insulin. Continue sliding scale insulin and morning tab Lantus. 5. DVT prophylaxis and history of superficial venous thrombosis of left antecubital fossa. Continue fondaparinux. DISPOSITION: I will continue to monitor patient inside the hospital. Plan of care extensively discussed with the patient and his daughter at bedside. He also has streptococcal bacteremia, which is likely originating from his poor dental hygiene. I will continue to monitor patient inside the hospital as we await further nephrology plan and improvement in the respiratory status and chronic obstructive pulmonary disease exacerbation. cc: Duncan Prieto MD MTDD
[2019-06-09] MEDS: CATAPRES PO SCH ×2 (16:21→16:23)
--- NOTE | 2019-06-09 19:53 | NEPHROLOGY PROGRESS NOTE ---
DATE: 06/09/2019 SUBJECTIVE: He is lying in bed at the time of my exam. He states that he does have some problem with shortness of breath when he tries to exert himself. Swelling is better overall, but he is still weeping some. OBJECTIVE: Blood pressure 178/56, heart rate 74, respirations 16, afebrile. Generally no acute distress. Skin is warm and dry. Neck veins are not visible. Heart is regular. Lungs are equal with a few scattered wheezes and crackles. Abdomen soft, nontender. Bowel sounds present. Extremities with 3+ edema, about the same as yesterday. No clubbing or cyanosis. IMPRESSION AND PLAN: Chronic kidney disease stage 4 with overlying prerenal azotemia. I will stop his diuretics today and observe over the weekend. Minoxidil may worsen his swelling, so I discontinued this medication. Added clonidine 0.1 t.i.d. and we will observe blood pressure and fluid retention. cc: Artemio Mart MD
[2019-06-09] MEDS: LIPITOR PO SCH (21:42)
[2019-06-10] MEDS: DUONEB (A & A) INH SCH ×6 (03:22→23:10)
[2019-06-10] MEDS: ROCEPHIN 2 GM in NS 50 ML IV SCH ×2 (06:19→16:54)
[2019-06-10] MEDS: PRILOSEC PO SCH (06:19)
[2019-06-10] MEDS: HUMALOG SUBQ SCH ×7 (06:20→21:05)
[2019-06-10] MEDS: SOLU-MEDROL IV SCH ×3 (06:20→21:05)
[2019-06-10 07:36] LABS: BASO# 0.01 X1000 (0.0-0.2); BASO% 0.1 % (0.0-0.8); HEMOGLOBIN 7.7 g/dL (14.0-18.0); IMM GRAN# 0.14 X1000 (0.0-0.04); IMM GRAN% 1.3 % (0.0-0.5); LYMPH# 0.74 X1000 (1.2-3.4); LYMPH% 6.6 % (20.5-51.1); MCH 26.4 PG (27-31); MCHC 32.1 g/dL (33-37); MCV 82.2 FL (81-99); MONO# 0.31 X1000 (0.11-0.59); MONO% 2.8 % (1.7-9.3); MPV 12.2 FL (7.4-10.4); NEUT# 9.98 X1000 (1.4-6.5); NEUT% 89.2 % (42.2-75.2); PLT 186 X1000 (130-400); RBC 2.92 XMIL (4.7-6.1); RDW 13.9 % (11.5-14.5); WBC 11.18 X1000 (4.8-10.8)
[2019-06-10] MEDS: APRESOLINE PO SCH ×3 (10:43→21:05)
[2019-06-10] MEDS: ZETIA PO SCH (10:44)
[2019-06-10] MEDS: ISORDIL PO SCH ×3 (10:45→21:05)
[2019-06-10] MEDS: CATAPRES PO SCH ×3 (10:45→16:55)
[2019-06-10] MEDS: PHOSLO PO SCH ×3 (10:46→16:55)
[2019-06-10] MEDS: LOKELMA POWDER PACKET PO SCH ×3 (10:46→21:04)
[2019-06-10] MEDS: ARIXTRA SUBQ SCH (10:48)
[2019-06-10] MEDS: CARDIZEM CD PO SCH (10:56)
[2019-06-10] MEDS: LANTUS INSULIN SUBQ SCH ×2 (11:10→21:05)
--- NOTE | 2019-06-10 15:19 | PROGRESS NOTE ---
DATE: 06/10/2019 The patient was admitted on 05/26/2019, came in with shortness of breath, fever, generalized body aches. A 64-year-old with history of COPD, congestive heart failure, presented to the emergency room complaining of sudden onset of shortness of breath, shivering chills, and generalized body aches early in the morning. He was admitted to [facility] with pneumonia April 30 through the . Had an ER visit on May 16, May 21, and then 05/26/2019. Chest x-rays have been clear. White blood cell count within normal limits. On the he was given azithromycin, Medrol Dosepak, and a prescription for DuoNeb. States his symptoms have not improved since his visit on the . In fact, in the last 24 hours they have increased. Noted to have a fever 101.4. Urinalysis [id number]-[id number]-count microscopic white blood cells, red blood cells, and 1+ bacteria. PAST MEDICAL HISTORY: 1. COPD, chronic use of 2 L at home. 2. Chronic kidney disease stage 3B. 3. Hyperlipidemia. 4. Coronary artery disease, status post myocardial infarction, stents placed in 2019. 5. Hypertension. 6. Gastroesophageal reflux disease. 7. Chronic elevated troponin. ADMISSION DIAGNOSES: 1. Chronic obstructive pulmonary disease, pulmonary disease, acute exacerbation. 2. Congestive heart failure. 3. Elevated troponin. 4. Hypertension. 5. Chronic elevated troponin. 6. Urinary tract infection with yeast present. 7. Chronic kidney disease stage 3B. 8. Diabetes mellitus type 2. 9. History of coronary artery disease. 10. Questionable bibasilar atelectasis. He reports that he is breathing a little better today. He remains afebrile. He was sitting at bedside. I think he spent the night in the recliner. He is breathing better in the recliner. OBJECTIVE: Vital signs: Temperature 97.5 degrees, pulse 80, respirations 16, blood pressure 176/55. HEENT: Pupils are equal and round. Lungs: Clear in all lung vanessa. Cardiovascular: Regular rhythm and rate without murmur or S3. Urine output was 1450 mL. IMAGING: Renal ultrasound done on the , negative exam. No sign of obstruction. ASSESSMENT AND PLAN: 1. Acute on chronic respiratory failure due to acute chronic obstructive pulmonary disease exacerbation due to volume overload due to worsening kidney function and component of cardiac asthma. Continue inhaled bronchodilators, intravenous methylprednisone, intravenous ceftriaxone, and supplementary O2 per nasal cannula. Clinically he seems better. 2. Acute kidney injury overlying chronic kidney disease stage 3B, now progressing towards probable stage 4 with nephrotic syndrome. He has generalized anasarca because of hypoalbuminemia. Continue intravenous Lasix, metolazone as per Nephrology. Continue to watch his potassium, calcium acetate for his hyperphosphatemia. 3. Streptococcal bacteremia. Likely originating from his poor dental hygiene. First day of negative cultures was 05/30/2019. Continue intravenous ceftriaxone through his right-sided chest Johnson catheter. 4. History of coronary artery disease, stent placed in 2009. ejection fraction 60%. Uncontrolled hypertension due to volume overload, intravenous steroid use. Continue diltiazem, hydralazine, isosorbide dinitrate, minoxidil. 5. Insulin-dependent diabetes mellitus type 2. Continue to monitor sugars, pattern scale. 6. Hypercholesterolemia. He is on atorvastatin. REVIEW OF ORDERS: Lipitor 40 mg a day, Lantus insulin 15 units subcutaneous at bedtime, calcium acetate 667 mg p.o. t.i.d., Klonopin 0.1 mg p.o. t.i.d., Cardizem CD 240 mg daily, Zetia 10 mg daily, Arixtra 2.5 mg subcutaneous daily, hydralazine 100 mg p.o. t.i.d., insulin glargine which is Lantus 50 units subcutaneous daily, isosorbide dinitrate 80 mg p.o. t.i.d., methylprednisone 40 mg IV q.8 hours, Prilosec 40 mg daily, ceftriaxone 2 g IV q.24 hours. LABORATORY: This morning, white count 11,180, hematocrit is 24, hemoglobin 7.7, with an MCV of 82. Blood sugars, the last several were 427, 500, 432, and the last was 264, so hopefully they will start coming down. Dr. Mart is following chronic kidney disease stage 4 with overlying prerenal azotemia, so stopped his diuretics and going to observe over the weekend. Minoxidil may worsen his swelling, so I discontinued that medication and added Klonopin 0.1 mg t.i.d. Blood pressure is improving. cc: Lincoln Rosas MD
[2019-06-10] MEDS: TYLENOL PO PRN (17:37)
[2019-06-10] MEDS: LIPITOR PO SCH (21:05)
[2019-06-11] MEDS: DUONEB (A & A) INH SCH ×6 (02:53→23:02)
[2019-06-11] MEDS: SOLU-MEDROL IV SCH ×3 (05:58→21:37)
[2019-06-11] MEDS: ROCEPHIN 2 GM in NS 50 ML IV SCH ×2 (05:58→16:50)
[2019-06-11] MEDS: PRILOSEC PO SCH ×2 (05:58→07:29)
[2019-06-11] MEDS: HUMALOG SUBQ SCH ×8 (05:58→21:39)
[2019-06-11 07:22] LABS: HEMATOCRIT 23.2 % (42.0-52.0); HEMOGLOBIN 7.5 g/dL (14.0-18.0); MCH 26.3 PG (27-31); MCHC 32.3 g/dL (33-37); MCV 81.4 FL (81-99); MPV 12.5 FL (7.4-10.4); RBC 2.85 XMIL (4.7-6.1); RDW 13.9 % (11.5-14.5); WBC 8.95 X1000 (4.8-10.8)
[2019-06-11 07:44] LABS: ALBUMIN 3.1 g/dL (3.5-5.0); CALCIUM 8.4 mg/dL (8.8-10.2); PHOSPHORUS 8.4 mg/dL (2.7-4.5); POTASSIUM 4.6 mmol/L (3.5-5.1)
--- NOTE | 2019-06-11 07:58 | Diag Imaging Result Doc PS360 ---
EXAM: CHEST-1 VIEW INDICATION: SOB TECHNIQUE: One view COMPARISON: 06/06/2019 FINDINGS: The right central line is stable. The lungs are grossly clear. There is no discrete pleural fluid collection or pneumothorax. The central vasculature may be slightly prominent suggesting possible mild pulmonary venous congestion. Cardiac silhouette is stable. IMPRESSION: Possible mild pulmonary venous congestion. Stable chest, otherwise. Electronically signed by Seven Jernigan 06/11/2019 7:56 AM
[2019-06-11] MEDS: ZETIA PO SCH (08:50)
[2019-06-11] MEDS: PHOSLO PO SCH ×3 (08:50→16:45)
[2019-06-11] MEDS: CATAPRES PO SCH ×4 (08:50→16:45)
[2019-06-11] MEDS: APRESOLINE PO SCH ×3 (08:50→21:35)
[2019-06-11] MEDS: CARDIZEM CD PO SCH (08:50)
[2019-06-11] MEDS: LOKELMA POWDER PACKET PO SCH ×2 (08:51→14:09)
[2019-06-11] MEDS: ARIXTRA SUBQ SCH (08:51)
[2019-06-11] MEDS: LANTUS INSULIN SUBQ SCH ×2 (08:51→21:39)
[2019-06-11] MEDS: TYLENOL PO PRN ×2 (09:03→16:53)
--- NOTE | 2019-06-11 09:26 | NEPHROLOGY PROGRESS NOTE ---
DATE: 06/11/2019 TIME SEEN: 0740. SUBJECTIVE: Mr. Grove is sitting up in a chair. He states that he has not had a good weekend, that he has continued to get increased work of breathing. States that he is trying to watch his fluid volume intake. He has been reminded that he is on a 1 L fluid restriction. OBJECTIVE: His most recent vital signs, temperature 97.6 degrees, blood pressure 162/47, heart rate 65, respirations are 14, up to 18 during exertion. He is on 2 L nasal cannula. Last recorded saturation 99%. He has had 600 in. He has had 775 out to void. Laboratory Data: Sodium is 134, potassium 4.6, chloride is 95, CO2 is 21, BUN 187, creatinine 4, glucose 135, the patient has an anion gap of 18 which has remained stable for about the last 48-72 hours, his calcium is 8.4, phosphorus 8.4, albumin is 3.1. The patient has a hemoglobin of 7.5, hematocrit 23.2, platelet count of 164,000, with a white count of 8.95. Physical Examination: General: This is a 64-year-old, white male. He is resting quietly in a chair. He appears in moderate distress secondary to dyspnea on exertion. His skin is warm and dry. HEENT: Normocephalic, atraumatic. Conjunctivae are pale pink. He has SUKI. Mucous membranes are moist. Neck: Supple. Trachea midline. He does have positive JVD. Cardiovascular: Irregularly irregular rate and rhythm today. He has a systolic murmur that is present. Lungs: Clear to auscultation bilaterally with a faint expiratory wheeze to the left upper lobe. Abdomen: Large, obese, soft, nontender. Positive bowel sounds. Genitourinary: Not inspected. Patient has been voiding adequate amounts, though this has diminished after his Lasix has had been on hold. Integumentary: The patient has weeping to the left upper arm. Johnson catheter to the right IJ. Lower Extremities: The patient has 3+ edema up into the mid hip, thigh region, 3+ pitting. Neurological: Alert and oriented x3. ASSESSMENT AND PLAN: 1. Acute kidney injury on chronic kidney disease stage 4. Patient's BUN has continued to elevate in spite of holding the Lasix over the last 48-72 hours. Now up to 187. His creatinine is now up to 4. Urine output has dropped off with Lasix being held. We had placed him on a 1 L fluid restriction. We have counseled in regards with options for hemodialysis. His is at the bedside and states that they have discussed this and he is willing to proceed if needed. We will have this discussion later with Dr. Mart for possible start on dialysis. 2. Electrolytes and acid-base balance. The patient's anion gap has continued to elevate but has been stable for the last 48 hours. We will continue to monitor. 3. Anemia. This is low but stable with a hemoglobin of 7.5. No indications for transfusion. 4. Increased work of breathing. Patient's Lasix has been on hold. He has been cautioned to stay at 1 L fluid restriction, though he has already had a half a cup of coffee of 12 ounces and he has 2 L in his water container at the bedside. I would like to thank you for allowing us to follow with this patient. I discussed dialysis with them and they are willing to proceed if required. SOB is stable. Eating. I will decide about dialysis in the morning. rg Dictated by DELTA Sheffield for Artemio Mart MD Face to face encounter, data reviewed, discussed with Leonidas Greene on 06/11/19. I agree with the above assessment and plan of care. rg cc: DELTA Sheffield MD [facility]
[2019-06-11] MEDS: ISORDIL PO SCH ×3 (09:48→21:35)
--- NOTE | 2019-06-11 13:28 | PROGRESS NOTE ---
DATE: 06/11/2019 SUBJECTIVE: Mr. Grove sitting up in a chair. He does not feel like he is breathing much better, but the swelling has gone down in his legs, and it feels like a general swelling is diminished. OBJECTIVE: Temperature is 97.5 degrees, pulse 68, respirations 18, blood pressure 156/43.Eyes: Pupils are equal and round. Lungs: Clear in all lung vanessa. Cardiovascular exam: Regular rhythm and rate without murmur or S3. Abdomen: Soft. : Urine output is 575 mL. X-RAYS: Chest x-ray: Possible mild pulmonary venous congestion. Stable chest otherwise. ASSESSMENT AND PLAN: 1. Acute kidney injury on chronic kidney disease stage IV. Patient's BUN continues to elevate in spite of holding Lasix over the last 48-72 hours, it is now up to 187. His creatinine is up to 4. Urine output has dropped off. He has been placed on 1 liter fluid restriction, and he was counseled regarding options for hemodialysis. They are discussing and willing to proceed if needed. 2. Electrolytes, acid base: BUN going up. Otherwise stable. 3. Anemia, which is low, but stable. 4. Acute on chronic respiratory failure due to acute chronic obstructive pulmonary disease exacerbation with volume overload during worsening kidney function, component of cardiac asthma. Has inhaled bronchodilators and intravenous methylprednisone, intravenous ceftriaxone, supplementary oxygen. 5. Streptococcal bacteremia likely originating from his poor dental hygiene. Cultures were done 05/30/2019. He is on ceftriaxone through his right-sided Johnson catheter. 6. Diabetes mellitus type 2. Continue pattern sugars, sliding scale. 7. Hypercholesterolemia. He is on atorvastatin. LAB WORK: Today sodium 134, potassium 4.6, chloride 95. BUN 187, creatinine 4.0. CBC: White blood count 8950 which has come down, hematocrit 23, hemoglobin 7.4, platelet count 164,000. REVIEW OF HIS ORDERS: He is on Lipitor 40 mg a day, Lantus insulin 15 units at bedtime, calcium acetate 667 mg p.o. t.i.d., Catapres 0.1 mg p.o. t.i.d., Cardizem CD 240 mg a day, Zetia 10 mg a day, Arixtra 2.5 mg subcutaneous daily Apresoline 100 mg p.o. t.i.d., Lantus insulin 50 units subcutaneous daily, methylprednisone 40 mg IV q. 8 hours, Prilosec 40 mg a day, ceftriaxone 2 mg q. 12 hours. cc: Lincoln Rosas MD
[2019-06-11] MEDS: LIPITOR PO SCH (21:35)
--- NOTE | 2019-06-11 22:19 | PULMONOLOGY PROGRESS NOTE ---
DATE: 06/11/2019 SUBJECTIVE: The patient is awake and alert. He denies shortness of breath as long as he is sitting upright in a chair. He does have shortness of breath with any movement. OBJECTIVE: Vital Signs: BP 177/55, heart rate 77, respiratory rate 18, oxygen saturation 100% on 2 L per nasal cannula. HEENT: Pupils are equal and reactive. Oropharynx appears clear. Neck: Supple. Chest: Scattered wheezing bilaterally. Cardiac: S1, S2. Abdomen: Obese and soft. Extremities: Reveal 3+ pitting edema. IMPRESSION: A 64 year old with: 1. Chronic obstructive pulmonary disease with active wheezing and exacerbation. 2. Acute on chronic renal failure. 3. Nephrotic range proteinuria. 4. Morbid obesity. PLAN: 1. Agree with fluid restriction as you are doing. 2. Continue bronchodilators and current steroid dosing. 3. Continue blood pressure medication. 4. Patient has a guarded prognosis. cc: Pascual Villafana MD
[2019-06-12] MEDS: DUONEB (A & A) INH SCH ×6 (03:38→23:52)
[2019-06-12] MEDS: SOLU-MEDROL IV SCH ×3 (04:46→20:49)
[2019-06-12] MEDS: ROCEPHIN 2 GM in NS 50 ML IV SCH ×2 (04:48→18:06)
[2019-06-12] MEDS: TYLENOL PO PRN (04:51)
[2019-06-12] MEDS: HUMALOG SUBQ SCH ×6 (06:06→17:25)
[2019-06-12] MEDS: PRILOSEC PO SCH (06:07)
[2019-06-12 08:04] LABS: ALBUMIN 3.1 g/dL (3.5-5.0); CREATININE 4.1 mg/dL (0.7-1.2); PHOSPHORUS 8.6 mg/dL (2.7-4.5); POTASSIUM 4.9 mmol/L (3.5-5.1)
[2019-06-12] MEDS ORDERED: LANTUS INSULIN SUBQ ONE (08:17)
[2019-06-12] MEDS: LANTUS INSULIN SUBQ SCH ×2 (08:18→20:49)
[2019-06-12] MEDS: PHOSLO PO SCH ×3 (08:19→17:25)
[2019-06-12] MEDS: ISORDIL PO SCH ×3 (08:34→20:48)
[2019-06-12] MEDS: CATAPRES PO SCH ×3 (08:35→17:24)
[2019-06-12] MEDS: APRESOLINE PO SCH ×3 (08:35→20:48)
[2019-06-12] MEDS: ZETIA PO SCH (08:36)
[2019-06-12] MEDS: CARDIZEM CD PO SCH (08:37)
--- NOTE | 2019-06-12 09:29 | NEPHROLOGY PROGRESS NOTE ---
DATE: 06/12/2019 TIME SEEN: 0645. SUBJECTIVE: Mr. Grove is resting quietly in bed. States that he has not slept most of the night. Complains of some increased work of breathing, with discomfort to the lower extremities with increased swelling. LABORATORY DATA: Still pending this a.m. Potassium yesterday was 4.6, BUN of 187, and a creatinine of 4, with a hemoglobin of 7.5 on previous labs. OBJECTIVE: Vital Signs: Temperature 97.3 degrees, blood pressure 137/72, heart rate 72, respirations 18. He is on 2 L nasal cannula. Last recorded saturation was 99%. He has had 50 mL in, he has had 600 mL out to void. He is in a -4 L fluid balance. General: This is a 64-year- old male. He is resting quietly in bed. He is in moderate distress secondary to dyspnea and lower extremity pain secondary to swelling. Skin: Warm and dry. Weeping noted to left upper arm. HEENT: Normocephalic, atraumatic. He appears to have positive JVD today. Cardiovascular: Irregular rate and rhythm. He has a systolic murmur that is present. Lungs: Inspiratory and expiratory wheezes. He has faint crackle noted to the left base. Remains on O2. Abdomen: Large, obese, soft, nontender. Positive bowel sounds. Genitourinary: Not inspected. Extremities: Continues with 3+ to 4+ edema. This is up into the thigh/mid hip region. Integumentary: He has a Johnson catheter to the right IJ. No rashes or lesions. Neurological: He is alert and oriented x3. ASSESSMENT AND PLAN: 1. Acute kidney injury on chronic kidney disease stage 4. The patient's BUN and creatinine had elevated yesterday. Labs are currently pending today. Urine output is slowly dropping off after having held his Lasix. The patient states that he is more swollen. The patient's weight this morning actually has weighed less than the last 4 days. He continues to be a daily weight. We have discussed with the family and the patient about possible dialysis. They have indicated at this time that they are willing. 2. Electrolytes and acid-base balance. These are pending. These have been fairly stable. 3. Anemia. This remains low with a hemoglobin of 7.5 previously. 4. Increased work of breathing. This continues with fluid volume overload. Continues with edema, crackles to the left base today, with possible indications of starting dialysis. 5. Pneumonia. The patient has a Johnson catheter to the right internal jugular. He continues to receive renal dosed antibiotics. I would like to thank you for allowing us to follow with this patient. I discussed this with the patient and . They are ready to try dialysis. I consulted Dr. Zarate for a tunneled dialysis catheter. rg Dictated by DELTA Sheffield for Artemio Mart MD Face to face encounter, data reviewed, discussed with Leonidas Greene on 06/12/19. I agree with the above assessment and plan of care. rg cc: DELTA Sheffield MD [facility]
--- NOTE | 2019-06-12 12:50 | PROGRESS NOTE ---
DATE: 06/12/2019 SUBJECTIVE: Mr. Grove says he is about the same. They are going to initiate dialysis today. OBJECTIVE: Vital Signs: He remains afebrile, temperature 98.6 degrees, pulse 65, respirations 18, blood pressure 178/59. HEENT: Pupils are equal and round. Lungs: Clear anteriorly. He has diffuse expiratory wheezing still and prolonged expiratory phase. Neck: His neck veins do show some distention. CVP appears to be greater than 10 cm. Extremities: He has 2+ pitting edema in his feet up to his mid chopra. DATA: His urine output was about 900 mL. Blood sugars 186, 207, 149, 139. ASSESSMENT AND PLAN: 1. Acute kidney injury on top of chronic kidney disease stage 4. BUN and creatinine had elevated yesterday. Labs suggest his urine output is slowly dropping off and he is more swollen. He continues to be at dry weight. He was discussed with family, patient possible dialysis, and they are willing to try, so I believe that is the plan. I think Dr. Mart is going to look at the labs today and then see about placing a Vas-Cath and pursuing dialysis. 2. Electrolyte and acid-base balance appear to be stable. 3. Anemia remains low, hemoglobin 7.5. 4. We are treating him for possible pneumonia and underlying chronic obstructive pulmonary disease with bronchospasm, active wheezing and exacerbation. We do have him on fluid restriction. Continue bronchodilators and steroid dosing. 5. Blood pressure has been between 137 and 182 over 48 to 77. REVIEWING HIS ORDERS: He is on Lipitor 40 mg a day, Lantus 15 units subcutaneously every night at bedtime, calcium acetate 667 mg p.o. t.i.d., Catapres 0.1 mg t.i.d., Cardizem CD 240 mg a day, Zetia 10 mg a day, Arixtra 2.5 mg subcutaneously daily, Apresoline 100 mg p.o. t.i.d., Lantus insulin 50 units subcutaneously daily, and he gets insulin lispro 10 units subcutaneously t.i.d., isosorbide dinitrate 80 mg p.o. t.i.d., methylprednisone 40 mg IV every 8 hours, Prilosec 40 mg a day, ceftriaxone 2 grams IV every 12 hours. REVIEW OF LABORATORY DATA: A review of his lab from today, sodium 134, potassium 4.9, chloride 95, BUN 198, creatinine 4.1. Blood sugars 187, 55, 149, 139. So, his creatinine is about the same. BUN is going up. cc: Lincoln Rosas MD
--- NOTE | 2019-06-12 13:22 | GENERAL SURGERY PROGRESS NOTE ---
DATE: 06/12/2019 SUBJECTIVE: He has had worsening renal function, volume overload, and has consented to dialysis. OBJECTIVE: Vital Signs: No fevers, pulse 68, blood pressure 178/59, O2 saturation 100%. General: He is alert. His right Johnson catheter is in place without cellulitis. Lungs: He is on nasal cannula. Some increased work of breathing, but in no distress. He does have a diffuse edema and anasarca. Extremities: Upper extremities are well perfused. LABORATORY DATA: White count was 8 yesterday. Creatinine is up to 4.1, potassium is 4.9, glucose has been elevated. ASSESSMENT AND PLAN: This is a 64-year-old gentleman with pneumonia, worsening renal function, acute on chronic, and some degree of volume overload. They have elected to pursue hemodialysis. Will go to the operating room tomorrow for a PermCath placement. I will hold his anticoagulants, and make him nothing by mouth at midnight. We have again discussed the risks and benefits. They consent. We had a long discussion regarding these with his . cc: Tobi Zarate MD [facility]
[2019-06-12] MEDS: LIPITOR PO SCH (20:49)
--- NOTE | 2019-06-12 21:04 | PULMONOLOGY PROGRESS NOTE ---
DATE: 06/12/2019 SUBJECTIVE: The patient is awake and alert. He has some increased dyspnea today. His BUN is approaching 200 and he is being scheduled for a dialysis catheter for tomorrow. OBJECTIVE: Vital Signs: Blood pressure 172/41, heart rate 62, respiratory rate 19, oxygen saturation 99% on 2 L per nasal cannula. HEENT: Pupils are equal and reactive. Oropharynx appears clear. Chest: Reveals scattered rhonchi bilaterally with diffuse wheezing. Cardiac exam: Distant heart sounds. Normal S1, normal S2. Abdomen: Obese and soft. Extremities: Reveal 1+ peripheral edema. LABORATORIES: Sputum culture is growing 2+ gram-negative rods. Sodium 134, potassium 4.9, chloride 95, bicarbonate 21, BUN 198, creatinine 4.1, glucose 106. White blood count not obtained today. IMPRESSION: A 64-year-old with 1. Chronic obstructive pulmonary disease with active exacerbation and wheezing. 2. Acute on chronic renal failure. 3. Proteinuria. 4. Morbid obesity. 5. Gram-negative organism identified in sputum. PLAN: 1. We will transition ceftriaxone to cefepime to increase gram-negative coverage including Pseudomonas. 2. Continue bronchodilators and steroids. 3. Anticipate initiation of dialysis tomorrow. cc: Pascual Villafana MD
[2019-06-12] MEDS: MAXIPIME 1 GM in NS 50 ML IV SCH (21:28)
[2019-06-13] MEDS: DUONEB (A & A) INH SCH ×6 (03:37→22:52)
[2019-06-13] MEDS: SOLU-MEDROL IV SCH ×3 (06:07→21:51)
[2019-06-13] MEDS: HUMALOG SUBQ SCH ×6 (06:08→17:43)
[2019-06-13] MEDS ORDERED: NS 2,000 ML MISC PRN (06:13)
[2019-06-13] MEDS: PRILOSEC PO SCH (06:23)
[2019-06-13 08:11] LABS: ALBUMIN 3.2 g/dL (3.5-5.0); PHOSPHORUS 8.5 mg/dL (2.7-4.5); POTASSIUM 4.9 mmol/L (3.5-5.1)
[2019-06-13] MEDS ORDERED: DIPRIVAN 1% ONE (08:23)
[2019-06-13] MEDS: PHOSLO PO SCH ×3 (08:25→19:07)
[2019-06-13] MEDS ORDERED: ROBINUL ONE (08:25)
[2019-06-13] MEDS ORDERED: XYLOCAINE-MPF 2% ONE (08:25)
[2019-06-13] MEDS: LANTUS INSULIN SUBQ SCH (08:26)
--- NOTE | 2019-06-13 08:35 | NEPHROLOGY PROGRESS NOTE ---
DATE: 06/13/2019 TIME SEEN: 0645. SUBJECTIVE: Mr. Grove states that he has had a miserable night. He has sat up on the side of the bed. He is unable to breathe well. He states that he cannot put his feet up because of the compromise in his abdomen with the increased swelling. LABORATORY DATA: His labs are currently pending this a.m. Previous potassium of 4.9. Previous BUN 198, with creatinine 4.1. Previous hemoglobin 7.5. The patient's sputum culture has grown gram-negative rods. Sensitivity is pending. OBJECTIVE: Vital Signs: Temperature 97.8 degrees, blood pressure 151/51, heart rate 66, respirations 14. He is on 2 L nasal cannula. Last recorded saturation 98%. He has had 1010 in, 1650 out to void. General: This is a 64-year-old, white male. He is currently resting on the side of the bed. He is in moderate distress secondary to increased work of breathing and just discomfort with increased swelling. HEENT: Normocephalic, atraumatic. Conjunctiva is pale. He has SUKI. Mucous membranes are dry. Neck: Supple. Positive JVD. Trachea midline. Cardiovascular: Irregularly irregular rate and rhythm. He has a systolic murmur. Lungs: Crackles to bilateral bases. Expiratory wheezes noted to the upper lobes. He remains on O2 support. Abdomen: Large, obese, soft, nontender. Positive bowel sounds. Genitourinary: Not inspected. The patient has been voiding adequate amounts. Extremities: The patient has 3+ to 4+ edema up into the midthigh, hip, abdominal region today. He also has edema to the upper extremities, right at this time greater than left. Left is weeping serosanguineous drainage. Integumentary: The patient has a Johnson catheter to the right IJ. He has oral healing blisters around his mouth. No rashes or lesions evident. Neurological: Alert and oriented x3. ASSESSMENT AND PLAN: 1. Acute kidney injury on chronic kidney disease stage 4. The patient's BUN and creatinine have continued to elevate. The patient remains in fluid volume overload. Dr. Zarate has the patient scheduled for a tunneled dialysis catheter placement in the operating room at 10 a.m. today, with plans for dialysis to start after this has been placed. 2. Electrolytes and acid-base balance. These are all pending. These have been stable. 3. Anemia. This remains low with a previous hemoglobin of 7.5. 4. Fluid volume overload with increased work of breathing. We will attempt to start dialysis today after tunnel dialysis catheter placement. We will try for a 2- potassium bath. We will dialyze for 2 hours. We will attempt to pull 3 to 4 liters of ultrafiltration as tolerated. 5. Pneumonia. The patient has a Johnson catheter for intravenous antibiotics to the right internal jugular. Sputum cultures have grown gram-negative rods. We will defer to the primary care team for antibiotics. At this time, they are renally dosed. I would like to thank you for allowing us to follow with this patient. Dictated by DELTA Sheffield for Artemio Mart MD Face to face encounter, data reviewed, discussed with Leonidas Greene on 06/13/19. I agree with the above assessment and plan of care. cc: DELTA Sheffield MD [facility]
[2019-06-13] MEDS ORDERED: HEPARIN ONE (10:12)
[2019-06-13] MEDS ORDERED: VERSED ONE (10:17)
[2019-06-13] MEDS ORDERED: NS 250 ML ONE (10:19)
[2019-06-13] MEDS ORDERED: XYLOCAINE 1%/EPI 1:100,000 ONE (10:19)
[2019-06-13] MEDS: MAXIPIME 1 GM in NS 50 ML IV SCH (10:24)
[2019-06-13] MEDS: DILAUDID ONE ×2 (11:12→11:20)
--- NOTE | 2019-06-13 11:49 | OPERATIVE NOTE ---
PROCEDURE DATE: 06/13/2019 PREOPERATIVE DIAGNOSIS: Chronic kidney disease POSTOPERATIVE DIAGNOSIS: Chronic kidney disease. PROCEDURE PERFORMED: Ultrasound-guided left internal jugular vein PermCath placement with fluoroscopy less than 1 hour. ANESTHESIA: MAC. OPERATIVE FINDINGS: 1. Ultrasound of the left neck showed a compressible internal jugular vein with no thrombus. 2. Final fluoroscopic image showed good position if the catheter in superior vena cava-atrial junction. No kinking of the catheter. No pneumothorax. INDICATION: Gentleman who has volume overload, worsening renal function after recent pneumonia needs PermCath placement. OPERATIVE NOTE: Risks, benefits, and alternatives were discussed. Patient consented to the procedure. She was seen preoperatively and surgical site was confirmed. He was taken to the operating room and placed in the supine position. IV anesthesia was administered. He was placed in Trendelenburg and his neck and chest prepped with Betadine and draped in usual fashion. After time-out, focused ultrasound was performed and we accessed the internal jugular vein on first pass. Dark nonpulsatile venous blood was noted on return. The wire threaded easily and was confirmed with fluoroscopy in the right side of the heart. We then made an incision in the chest after injecting local anesthetic and tunneled a 22 cm tip to curve Glide[employer] catheter up to the incision in the neck. We then serially dilated the tract under fluoroscopy, ending with a peel- away sheath, advancing the catheter until it was in good position in the superior vena cava. We peeled away the sheath and confirmed that it withdrew blood and flushed without resistance. Final fluoroscopic image was appropriate. We secured the catheter with a nylon suture. Closed incision neck and chest with Monocryl. Dermabond was applied to the neck dressing applied to the chest. He tolerated it well. I spoke with the family. Counts correct. cc: Tobi Zarate MD
--- NOTE | 2019-06-13 12:38 | PROGRESS NOTE ---
DATE: 06/13/2019 SUBJECTIVE: Mr. Grove is planned for dialysis today. He has remained afebrile. OBJECTIVE: Vital Signs: Temperature 97.4 degrees, pulse 72, respirations 18, blood pressure 194/60. His range has been from 137 to 194/41 to 77, systolic pressures usually above 160. Eyes: Pupils are equal. Lungs: Clear in all lung vanessa. Cardiovascular exam: Regular rhythm and rate without murmur or S3. Abdomen: Soft. Skin: Warm and dry. : Urine output is 3400 mL. ASSESSMENT AND PLAN: 1. The patient was given superior vena cava or internal jugular vein access for dialysis. 2. Acute kidney injury on chronic kidney disease stage IV. Patient's BUN and creatinine continue to elevate. He remains fluid overload, so we will begin to get a tunneled dialysis. The plan is to start dialysis after this is in place. 3. Electrolyte and acid-base balance are pending. Electrolytes this morning look good. Sodium 134, potassium 4.9, chloride 94. BUN 194, creatinine 4.0. 4. Diabetes. Blood sugars look well controlled. Last several numbers were 108, 121, 108 and 106. Still having some trouble with breathing. He has chronic obstructive pulmonary disease, active exacerbation with wheezing, acute on chronic renal failure, morbid obesity, gram- negative organisms identified in sputum, so we changed him from ceftriaxone to cefepime to increase gram-negative coverage and Pseudomonas, and continues bronchodilators and steroids. Anticipate dialysis today. cc: Lincoln Rosas MD
[2019-06-13] MEDS: CATAPRES PO SCH ×2 (13:19→15:20)
[2019-06-13] MEDS: ZETIA PO SCH (13:20)
[2019-06-13] MEDS: ISORDIL PO SCH ×3 (13:20→21:50)
[2019-06-13] MEDS: CARDIZEM CD PO SCH (13:21)
[2019-06-13] MEDS: APRESOLINE PO SCH ×3 (13:21→21:48)
[2019-06-13] MEDS ORDERED: LEVAQUIN 500 MG/D5W 500 MG/100 ML IVPB IV ONE (13:40)
[2019-06-13] MEDS: TYLENOL PO PRN (19:42)
[2019-06-13] MEDS: LIPITOR PO SCH (21:48)
--- NOTE | 2019-06-13 22:51 | PULMONOLOGY PROGRESS NOTE ---
DATE: 06/13/2019 INTERIM HISTORY: Patient has undergone ultrasound-guided PermCath placement earlier today followed by dialysis with 2 L fluid removal. His breathing has significantly improved and he is resting comfortably after being awake all last evening. OBJECTIVE: Vital Signs: Blood pressure 172/47, heart rate 72, respiratory rate 19, oxygen saturation 100% on nasal cannula. HEENT: Pupils are equal and reactive. Oropharynx appears clear. Neck: Is supple. Chest: Reveals rhonchi bilaterally. Cardiac exam: S1-S2. Abdomen: Is obese and soft. Extremities: Reveal 1 to 2+ peripheral edema. LABORATORIES: Sputum culture is growing Stenotrophomonas maltophilia. IMPRESSION: A 64-year-old with 1. Chronic obstructive pulmonary disease exacerbation with ongoing wheezing. 2. Acute on chronic renal failure. 3. Proteinuria. 4. Morbid obesity. 5. Stenotrophomonas maltophilia identified in sputum. Sensitivities include Bactrim and Levaquin. PLAN: 1. Discontinue cefepime given isolation of Stenotrophomonas. The patient will be initiated on Levaquin. 2. Continue bronchodilators and steroids. 3. Dialysis as per Nephrology for fluid management. cc: Pascual Villafana MD
[2019-06-14] MEDS: CATAPRES PO SCH ×4 (00:18→18:04)
[2019-06-14] MEDS: HUMALOG SUBQ SCH ×7 (00:18→21:48)
[2019-06-14] MEDS: LANTUS INSULIN SUBQ SCH ×3 (01:13→21:48)
[2019-06-14] MEDS: DUONEB (A & A) INH SCH ×6 (01:50→22:59)
[2019-06-14] MEDS: TYLENOL PO PRN (03:15)
[2019-06-14] MEDS: PRILOSEC PO SCH ×2 (04:59→06:38)
[2019-06-14] MEDS: SOLU-MEDROL IV SCH ×3 (05:00→21:48)
[2019-06-14] MEDS ORDERED: NS 2,000 ML MISC PRN (06:18)
[2019-06-14] MEDS ORDERED: TIGHT: 0.2 ML/HR FOR DIALYSIS MISC PRN (06:18)
[2019-06-14] MEDS ORDERED: HEPARIN IV PRN (06:18)
--- NOTE | 2019-06-14 08:22 | NEPHROLOGY PROGRESS NOTE ---
DATE: 06/14/2019 TIME SEEN: 0645. SUBJECTIVE: Mr. Grove is resting in bed. He had just gotten into bed with his feet up about 5 a.m. States that he had been having increased work of breathing, though not as bad as the day before. States he tolerated dialysis well. OBJECTIVE: Vital Signs: Temperature 97.5 degrees, blood pressure 174/45, heart rate 140, respirations are at 18 to 20. He is on 2 L nasal cannula. Last recorded saturation 96%. He has had 400 in, 2505 out with 2 L off on dialysis. Labs are currently pending this a.m. Previous potassium 4.9 with a BUN of 194 and a creatinine of 4. Hemoglobin of 7.5 on previous labs. Physical Examination: General: This is a 64-year-old, white male. He is currently resting in bed. He appears chronically ill. He is in mild distress secondary to increased work of breathing. HEENT: Normocephalic, atraumatic. Conjunctivae pale. He has SUKI. Mucous membranes are dry. Neck: Supple. Trachea midline. He has positive JVD. Cardiovascular: Irregularly irregular rate and rhythm. It appears his heart rate has gotten up as high as 140 last night, 98 at my count this a.m. He continues with a systolic murmur. His lungs have crackles at bilateral bases, though slightly improved. Continues with expiratory wheezes to the upper lobes. Continues on O2 support. Abdomen: Large, obese, soft, nontender. Positive bowel sounds. Genitourinary: Not inspected. Patient has been voiding adequate amounts, though diminished yesterday, with assist with dialysis. Lower extremity edema. The patient continues with 4+ edema up into the mid hip, abdominal region. Continues pitting into the right upper arm. Left is less swollen secondary to serosanguineous drainage. Integumentary: The patient has a Johnson catheter to the right IJ, tunneled catheter to the left. The patient also has oral blisters that are currently healing around his mouth. No lower rashes or lesions. Neurological: Alert and oriented x3. ASSESSMENT AND PLAN: 1. Acute kidney injury on chronic kidney disease stage 4. Patient's BUN got as high as 194 with a creatinine of 4 yesterday. He started dialysis, tolerated this well for 2 hours. We will plan to place him on a longer dialysis treatment for 6 hours today. We will attempt to pull 5 to 6 L as tolerated. 2. Pneumonia. The patient continues with a Johnson catheter with intravenous antibiotics. 3. Electrolytes and acid-base balance with plans for correction on dialysis. 4. Anemia. This is low but stable. 5. Fluid volume overload. Patient's BUN is elevated. He remains in anasarca. We will again attempt dialysis today for a longer period of time with attempt of low-flow to pull longer for ultrafiltration. I would like to thank you for allowing us to follow with this patient. Dictated by DELTA Sheffield for Artemio Mart MD Face to face encounter, data reviewed, discussed with Leonidas Greene on 06/14/19. I agree with the above assessment and plan of care. cc: DELTA Sheffield MD [facility]
[2019-06-14 08:41] LABS: ALBUMIN 3.1 g/dL (3.5-5.0); CALCIUM 8.3 mg/dL (8.8-10.2); CREATININE 3.7 mg/dL (0.7-1.2); PHOSPHORUS 8.2 mg/dL (2.7-4.5); POTASSIUM 4.9 mmol/L (3.5-5.1)
[2019-06-14] MEDS: CARDIZEM CD PO SCH (11:34)
[2019-06-14 11:35] LABS: HEPATITIS PROFILE ACUTE SEE COMMENTS
--- NOTE | 2019-06-14 13:16 | PROGRESS NOTE ---
DATE: 06/14/2019 SUBJECTIVE: Mr. Grove is breathing better and doing better. The plan is to go to dialysis again today. OBJECTIVE: Vital Signs: He remains afebrile, temperature 98.5 degrees, pulse 68, respirations 19, blood pressure 168/47. HEENT: Pupils are equal and round. Lungs: Clear in all lung vanessa. Cardiovascular: Regular rhythm and rate without murmur or S3. Urine output from yesterday from dialysis, they took off really 3 L. ASSESSMENT AND PLAN: 1. Acute kidney injury on chronic kidney disease stage 4. The patient's BUN got as high as 194, creatinine up to 4, so started on dialysis yesterday and plan this today as well, and they are going to do a little longer dialysis for about 6 hours. 2. Pneumonia. Continue present antibiotics. 3. Electrolytes and acid base balance look good. 4. His anemia is stable. 5. Fluid volume overload. He has underlying chronic pulmonary disease with exacerbation with fluid volume overload, and he grew out Stenotrophomonas maltophilia in the sputum. Sensitivities include Bactrim and Levaquin, so he was started on Levaquin. REVIEW OF ORDERS: He is on Lipitor 40 mg a day, Lantus 15 units subcutaneously at bedtime, calcium acetate 667 mg p.o. t.i.d., Catapres 0.1 mg t.i.d., diltiazem CD 240 mg a day, Zetia 10 mg a day, hydralazine 100 mg p.o. t.i.d., Lantus insulin 50 units subcutaneously daily, isosorbide dinitrate 80 mg p.o. t.i.d., and then he gets Humalog insulin 10 units subcutaneously t.i.d., I think before meals. He is on Levaquin 250 mg p.o. every 48 hours, methylprednisone 40 mg IV every 8 hours, omeprazole 40 mg a day. REVIEW OF LAB: This morning, sodium 134, potassium 4.9, chloride 95, BUN is 167, creatinine 3.7. Last several blood sugars 172, 228, and 234. cc: Lincoln Rosas MD
[2019-06-14] MEDS: PHOSLO PO SCH ×2 (15:38→17:05)
[2019-06-14] MEDS: ISORDIL PO SCH ×3 (15:39→21:48)
[2019-06-14] MEDS: APRESOLINE PO SCH ×3 (15:39→21:49)
[2019-06-14] MEDS: ZETIA PO SCH (15:57)
--- NOTE | 2019-06-14 21:39 | PULMONOLOGY PROGRESS NOTE ---
DATE: 06/14/2019 SUBJECTIVE: The patient is awake, alert, and conversant. He had 6 L of fluid removed on dialysis today. He reports his breathing has significantly improved. OBJECTIVE: Vital Signs: The patient has been afebrile for the last 24 hours. Blood pressure 155/69, heart rate 76, respiratory rate 18, oxygen saturation 98%. HEENT: Pupils are equal and reactive. Oropharynx appears clear. Neck: Is supple. Chest: Reveals occasional rhonchi bilaterally but with better air flow. Cardiac exam: S1-S2. Abdomen: Is obese and soft. Extremities: Reveal decrease edema, left greater than right hand. IMPRESSION: A 64-year-old with 1. Chronic obstructive pulmonary disease exacerbation with Stenotrophomonas maltophilia bronchitis. 2. Acute on chronic renal failure, status post initiation of hemodialysis. 3. Proteinuria. 4. Morbid obesity. DISCUSSION: A 64-year-old with problems outlined above. He has had significant improvement over the last 24 hours corresponding with dialysis and the removal of 8 L of fluid. PLAN: 1. Continue Levaquin for Stenotrophomonas. 2. Continue bronchodilators and steroids. 3. Begin weaning steroids with improvement in pulmonary status. cc: Pascual Villafana MD
[2019-06-14] MEDS: LIPITOR PO SCH (21:49)
[2019-06-15] MEDS: DUONEB (A & A) INH SCH ×5 (02:54→21:04)
[2019-06-15] MEDS: SOLU-MEDROL IV SCH ×3 (06:38→21:51)
[2019-06-15] MEDS: HUMALOG SUBQ SCH ×8 (06:38→21:50)
[2019-06-15] MEDS: PRILOSEC PO SCH (06:39)
[2019-06-15] MEDS ORDERED: TIGHT: 0.2 ML/HR FOR DIALYSIS MISC PRN (06:58)
[2019-06-15] MEDS ORDERED: NS 2,000 ML MISC PRN (06:58)
[2019-06-15] MEDS ORDERED: HEPARIN IV PRN (06:58)
--- NOTE | 2019-06-15 07:31 | Diag Imaging Result Doc PS360 ---
EXAM: CHEST-PORTABLE HISTORY: abnormal exam TECHNIQUE: Single view COMPARISON: 06/11/2019 FINDINGS: The lungs are well expanded. The heart is not enlarged. There is a small left pleural effusion with basilar atelectasis. Mild pulmonary edema. No change in the right jugular catheter. Interval placement of a left jugular line. Tip overlies the mid superior vena cava. No pneumothorax. IMPRESSION: Mild interval worsening Electronically signed by Leno Cloud 06/15/2019 7:28 AM
[2019-06-15 08:49] LABS: ALBUMIN 2.7 g/dL (3.5-5.0); CALCIUM 7.8 mg/dL (8.8-10.2); CREATININE 3.1 mg/dL (0.7-1.2); PHOSPHORUS 6.5 mg/dL (2.7-4.5); POTASSIUM 4.9 mmol/L (3.5-5.1)
[2019-06-15] MEDS: LANTUS INSULIN SUBQ SCH ×2 (09:45→21:50)
[2019-06-15] MEDS: PHOSLO PO SCH ×3 (09:47→17:05)
[2019-06-15] MEDS: APRESOLINE PO SCH ×3 (09:47→21:50)
[2019-06-15] MEDS: CATAPRES PO SCH ×3 (09:48→21:50)
[2019-06-15] MEDS: ISORDIL PO SCH ×3 (09:48→21:50)
--- NOTE | 2019-06-15 12:44 | PROGRESS NOTE ---
DATE: 06/15/2019 SUBJECTIVE: Mr. Grove has been doing better. He is able to sleep in his bed, lying on his back. He still has some swelling in his legs but it is diminished and he is much more comfortable. He remains afebrile. OBJECTIVE: Vital Signs: Temperature 98.0 degrees, pulse 69, respirations 16, blood pressure 150/54. HEENT: Pupils are equal and round. Lungs: Clear in all lung vanessa. Cardiovascular: Regular rhythm and rate without murmur or S3. Input and Output: Urine output is 7000 mL. LABORATORY DATA: Blood sugar 228, 139, 407, 228. Chest x-ray: Mild interval worsening on x-ray. Lungs are well expanded. Heart is not enlarged. There is small left pleural effusion, bibasilar atelectasis, mild pulmonary edema. No change in right jugular catheter interval, placement of left jugular line, tip overlies mid superior vena cava. No pneumothorax. ASSESSMENT AND PLAN: 1. Chronic obstructive pulmonary disease exacerbation with Stenotrophomonas maltophilia bronchitis. He is doing better. Radiographically, not any better, but clinically doing much better with volume overload. 2. Acute on chronic renal failure, status post initiation hemodialysis with volume removed, substantial volume. I think he had 4000 mL taken off yesterday. Urine output was a 1000 mL. The day before, it looks like it was 3300, so making progress. ORDERS: At the present time, Lipitor 40 mg at bedtime, Lantus insulin 15 units subcutaneous at bedtime, calcium acetate 667 mg p.o. t.i.d., diltiazem CD 240 mg a day, Zetia 10 mg a day, hydralazine 100 mg p.o. t.i.d., isosorbide dinitrate 80 mg p.o. t.i.d., Levaquin 250 mg p.o. q.48 hours, methylprednisone 40 mg IV q.8, and we will decrease the methylprednisone down to 20 mg. cc: Lincoln Rosas MD
--- NOTE | 2019-06-15 16:20 | NEPHROLOGY PROGRESS NOTE ---
DATE: 06/15/2019 SUBJECTIVE: Patient resting in bed. In no acute distress. OBJECTIVE: Vital Signs: Temperature 98.3 degrees, pulse 88, respiratory rate 18, blood pressure 156/51. Intake not measured, output 6.5 L UF. General: Chronically ill- appearing, elderly gentleman resting in bed. He is awake and alert. He does not appear in acute distress. He has some increased work of breathing with conversation. HEENT: Normocephalic, atraumatic. SUKI. Oral mucosa moist. Nasal cannula in place. Neck: Thick, supple with positive JVD. Cardiovascular: Irregular, irregular rhythm. Pulmonary: He has some rhonchi bilaterally. No rales, on O2 supplementation. Abdomen: Obese soft, positive bowel sounds. : Not inspected. Extremities: 4+ lower extremity edema. He has pitting edema in the upper extremities along with weeping. Integumentary: Skin is warm and dry. Neurologic: Nonfocal. LAB DATA: None today. ASSESSMENT AND PLAN: 1. Acute on chronic kidney disease stage 4 with fluid volume overload. The patient tolerated 6 L of fluid removal yesterday over a 6-hour period. We will dialyze him for a 4-hour period today in an attempt to remove 4 L. I did discuss with the patient and the family that tomorrow we will try to again treat him for a long treatment with a maximum fluid removal as tolerated. The patient has been slowly improving overall, but still is in significant fluid overload. 2. Electrolytes, acid-base balance. See above for plan. 3. Chronic obstructive pulmonary disease exacerbation with Stenotrophomonas maltophilia bronchitis, on appropriately dosed Levaquin. Dictated by DELTA Mujica for Artemio Mart MD cc: Artemio Mart MD [facility]
[2019-06-15] MEDS: CARDIZEM CD PO SCH (17:02)
[2019-06-15] MEDS: ZETIA PO SCH (17:03)
--- NOTE | 2019-06-15 17:30 | PROVIDER PROGRESS NOTE ---
Progress Note Dr. Biggs Progress Note/Pulmonary and or critical care We appreciated progress of care, Complications, change in diagnosis, and instructions to patient. Subjective: We note the level of consciousness, bed (chair) position, family presence (if any), level of lethargy, feeling of symptoms, and changes from baseline condition/symptom. Patient is lying in bed with no acute distress noted. He is on NC 2 L and tolerates well. He states he is feeling better and he is waiting for dialysis. Stepson at the bedside. Objective: Vital Signs: We reviewed EMR current values for Pulse rate, Blood pressure, Pulse rate, respiratory rate and Pulse oximetry. Also noted other values and trends if present (e.g. I/O, CVP). No fever in last 24 hours, VT 63, RR 16, BP 168/44 and SaO2 100% on NC 2 L. Physical Examination: General: Morbidly obese. Lying in bed with no acute distress noted. HEENT: Normocephalic. Trachea midline. Mucosa pink and moist. Chest: Even and unlabored. Symmetrical excursion. Auscultation reveals rhonchi bilaterally and mild wheezing bilaterally. CVS: S1 and S2 appreciated. Abdomen: Soft. Non-tender. Obese. Normoactive bowel sounds in all 4 quadrants. Extremities: BLE pitting edema 3-4+ up to the hip and abdominal region bilaterally. RUE pitting edema 2+. No cyanosis. Neuro: A/O x4. Speech fluent. Following commands. Labs and Radiology: Reviewed available labs and radiology values available at time of EMR review. Laboratory Results 06/14/19 06/15/19 06/15/19 20:24 05:49 07:20 Sodium 136 Potassium 4.9 Chloride 98 Carbon Dioxide 25 Anion Gap 13 BUN 107 H Creatinine 3.1 H Estimated GFR/1.73 m2 20 BUN/Creatinine Ratio 35 Glucose 351 H POC Glucose 275 H D 407 H Calculated Osmolality 320 Calcium 7.8 L Phosphorus 6.5 H Albumin 2.7 L 06/15/19 06/15/19 06/15/19 09:39 10:53 16:10 Sodium Potassium Chloride Carbon Dioxide Anion Gap BUN Creatinine Estimated GFR/1.73 m2 BUN/Creatinine Ratio Glucose POC Glucose 239 H 228 H 163 H Calculated Osmolality Calcium Phosphorus Albumin Assessment: COPD exacerbation. Stenotrophomonas maltophilia bronchitis with small left pleural effusion, basilar atelectasis and mild pulmonary edema. Acute on chronic renal failure, hemodialysis started on 06/13/[address] Mart. Proteinuria. Morbid obesity. Plan: Continue current treatment and supportive care per admitting and other teams on the case. Antibiotic (Levaquin). Bronchodilators. Solu-Medrol. GI and DVT prophylaxis. Dialysis per Dr. Mart. Input was appreciated from Admitting MD and other teams on the case.
[2019-06-15] MEDS: LEVAQUIN PO SCH (21:50)
[2019-06-15] MEDS: LIPITOR PO SCH (21:51)
[2019-06-15] MEDS: DUONEB (A & A) INH PRN (21:56)
[2019-06-16] MEDS: DUONEB (A & A) INH SCH ×8 (00:05→23:08)
[2019-06-16] MEDS: PRILOSEC PO SCH (06:39)
[2019-06-16] MEDS: SOLU-MEDROL IV SCH ×3 (06:39→20:45)
[2019-06-16] MEDS: HUMALOG SUBQ SCH ×7 (06:39→20:45)
[2019-06-16] MEDS ORDERED: TIGHT: 0.2 ML/HR FOR DIALYSIS MISC PRN (06:49)
[2019-06-16] MEDS ORDERED: HEPARIN IV PRN (06:49)
[2019-06-16] MEDS ORDERED: NS 2,000 ML MISC PRN (06:49)
[2019-06-16] MEDS: PHOSLO PO SCH ×3 (07:34→17:11)
[2019-06-16 08:26] LABS: ALBUMIN 2.8 g/dL (3.5-5.0); CREATININE 2.6 mg/dL (0.7-1.2); PHOSPHORUS 6.1 mg/dL (2.7-4.5); POTASSIUM 4.9 mmol/L (3.5-5.1)
--- NOTE | 2019-06-16 08:40 | NEPHROLOGY PROGRESS NOTE ---
DATE: 06/16/2019 SUBJECTIVE: Patient resting in bed. He states he is able to move his arms and legs better today. OBJECTIVE: Vital Signs: Temperature 98.78, respiratory rate 18, blood pressure 185/53. Intake was 600 mL, output was 4.8 L. 4000 mL of this was UF removal on dialysis yesterday; the remainder was urine voided. General: Chronically ill-appearing elderly gentleman sitting up in bed. He is awake and alert. He is in no acute distress. His shortness of breath is improved today. HEENT: Normocephalic, atraumatic. PERRL. Oral mucosa moist. Neck: Supple with positive JVD. Cardiovascular: Regular rate and rhythm. Pulmonary: No wheezes or rales. He does have a O2 supplementation via nasal cannula. Abdomen: Obese, soft with positive bowel sounds. Genitourinary: Not inspected. Extremities: With 4+ lower extremity edema. It is now soft, pitting. Upper extremity, his right upper extremity has greater edema than the left and significant improvement and no weeping today. Integumentary: Skin is pale, warm, and dry. Tunneled dialysis catheter upper right chest wall, clean dry and intact. Neurologic: Nonfocal. LABORATORY DATA: His labs today are pending. Yesterday, sodium 136, potassium 4.9, CO2 25, creatinine 3.1. This was prior to dialysis. ASSESSMENT AND PLAN: 1. Chronic kidney disease IV with fluid volume overload. We will continue the patient with aggressive UF removal today. I told him we would hold dialysis on Tuesday and then Tuesday re- evaluate as far as the amount of fluid removed. I discussed with the patient that once he has achieved a euvolemic state, if he remains in the hospital, then we would determine his continued need for dialysis. If he is discharged from the hospital, we would continue to evaluate him as an outpatient. His underlying chronic kidney disease was stage IV but he has been unable to manage his fluids and it is unclear if he will be able to do so in the future. 2. Chronic obstructive pulmonary disease with appropriately dosed treatment. 3. Electrolytes, acid-base balance, anemia. I have no labs today. I will plan to dialyze him on a 2K bath though. Dictated by DELTA Mujica for Artemio Mart MD cc: Artemio Mart MD
--- NOTE | 2019-06-16 09:31 | PROGRESS NOTE ---
DATE: 06/16/2019 SUBJECTIVE: Mr. Grove is breathing much better, feeling much better. He is planning his dialysis again this morning. OBJECTIVE: Vital signs: He remains afebrile, temperature 98.7 degrees, pulse 65, respirations 16, blood pressure 166/79. HEENT: Pupils are equal and round. Lungs: Clear in all lung vanessa. Cardiovascular: Regular rhythm and rate without murmur or S3. Urine output: 8600 mL. LABORATORY DATA: Blood sugar 407, 163, 186. ASSESSMENT AND PLAN: 1. Chronic kidney disease stage IV. Volume overload. Continue dialysis. Making good progress. 2. Underlying chronic obstructive pulmonary disease. 3. Electrolytes, acid base balance and anemia are stable. Hematocrit 23, hemoglobin 7.5, MCV is 81. Electrolytes from this morning, sodium 133, potassium 4.9, chloride 96, BUN 90, creatinine 2.6, blood sugars 163, 148, 186 and 193. Seems to be eating good. REVIEW OF HIS LAB: I will do not see any changes. Continue dialysis. cc: Lincoln Rosas MD
[2019-06-16] MEDS: APRESOLINE PO SCH ×3 (10:47→20:44)
[2019-06-16] MEDS: CATAPRES PO SCH ×3 (10:48→20:44)
[2019-06-16] MEDS: ISORDIL PO SCH ×3 (10:48→20:44)
[2019-06-16] MEDS: LANTUS INSULIN SUBQ SCH ×2 (10:49→20:45)
[2019-06-16] MEDS: ZETIA PO SCH (15:38)
[2019-06-16] MEDS: CARDIZEM CD PO SCH (15:39)
--- NOTE | 2019-06-16 16:51 | PROVIDER PROGRESS NOTE ---
Progress Note Dr. Biggs Progress Note/Pulmonary and or critical care We appreciated progress of care, Complications, change in diagnosis, and instructions to patient. Subjective: We note the level of consciousness, bed (chair) position, family presence (if any), level of lethargy, feeling of symptoms, and changes from baseline condition/symptom. Patient is lying in bed with no acute distress noted. He is on NC 2 L and tolerates well. He just came back from dialysis. He states he is feeling better. Before he can not catch his breath when he lies down, but in these two days, he can. Stepson at the bedside. Objective: Vital Signs: We reviewed EMR current values for Pulse rate, Blood pressure, Pulse rate, respiratory rate and Pulse oximetry. Also noted other values and trends if present (e.g. I/O, CVP). No fever in last 24 hours, DC 65, RR 16, BP 166/79 and SaO2 100% on NC 2 L. Physical Examination: General: Morbidly obese. Lying in bed with no acute distress noted. HEENT: Normocephalic. Trachea midline. Mucosa pink and moist. Chest: Even and unlabored. Symmetrical excursion. Auscultation reveals right side rhonchi and expiratory wheezing bilaterally with the right side significantly worse than the left side. CVS: S1 and S2 appreciated. Abdomen: Soft. Non-tender. Obese. Normoactive bowel sounds in all 4 quadrants. Extremities: BLE pitting edema 3+ up to the hip and abdominal region bilaterally. RUE pitting edema 2+. No cyanosis. Neuro: A/O x4. Speech fluent. Following commands. Labs and Radiology: Reviewed available labs and radiology values available at time of EMR review. Laboratory Results 06/15/19 06/16/19 06/16/19 20:52 05:56 06:58 Sodium 133 L Potassium 4.9 Chloride 96 L Carbon Dioxide 25 Anion Gap 12 BUN 90 H Creatinine 2.6 H Estimated GFR/1.73 m2 25 BUN/Creatinine Ratio 35 Glucose 193 H POC Glucose 148 H 186 H Calculated Osmolality 299 Calcium 8.0 L Phosphorus 6.1 H Albumin 2.8 L 06/16/19 16:18 Sodium Potassium Chloride Carbon Dioxide Anion Gap BUN Creatinine Estimated GFR/1.73 m2 BUN/Creatinine Ratio Glucose POC Glucose 74 D Calculated Osmolality Calcium Phosphorus Albumin Assessment: COPD exacerbation. Stenotrophomonas maltophilia bronchitis with small left pleural effusion, basilar atelectasis and mild pulmonary edema. Acute on chronic renal failure, hemodialysis started on 06/13/[address] Mart. Proteinuria. Morbid obesity. Plan: Continue current treatment and supportive care per admitting and other teams on the case. Antibiotic (Levaquin). Bronchodilators. Solu-Medrol. Dialysis per Dr. Mart. GI and DVT prophylaxis. Input was appreciated from Admitting MD and other teams on the case.
[2019-06-16] MEDS ORDERED: CALMOSEPTINE OINTMENT TOP PRN (18:16)
[2019-06-16] MEDS: LIPITOR PO SCH (20:44)
[2019-06-17] MEDS: DUONEB (A & A) INH SCH ×6 (03:42→22:46)
[2019-06-17] MEDS: SOLU-MEDROL IV SCH ×4 (05:36→21:59)
[2019-06-17] MEDS: PRILOSEC PO SCH (06:41)
[2019-06-17] MEDS: HUMALOG SUBQ SCH ×6 (06:41→17:22)
[2019-06-17] MEDS: PHOSLO PO SCH ×3 (08:11→17:51)
[2019-06-17] MEDS: ISORDIL PO SCH ×3 (08:11→21:59)
[2019-06-17] MEDS: APRESOLINE PO SCH ×3 (08:11→21:59)
[2019-06-17] MEDS: CATAPRES PO SCH ×3 (08:11→17:51)
[2019-06-17] MEDS: ZETIA PO SCH (08:11)
[2019-06-17] MEDS: CARDIZEM CD PO SCH (08:11)
[2019-06-17] MEDS: LANTUS INSULIN SUBQ SCH ×2 (08:14→21:59)
[2019-06-17 09:11] LABS: ALBUMIN 2.8 g/dL (3.5-5.0); CALCIUM 7.9 mg/dL (8.8-10.2); CREATININE 2.7 mg/dL (0.7-1.2); PHOSPHORUS 5.2 mg/dL (2.7-4.5); POTASSIUM 4.5 mmol/L (3.5-5.1)
--- NOTE | 2019-06-17 11:38 | PROGRESS NOTE ---
DATE: 06/17/2019 SUBJECTIVE: Mr. Grove is feeling better and breathing better. He had a good night sleep last night. He said it was the best night's sleep he has had. Remains afebrile. OBJECTIVE: Vital Signs: Temperature 98.1 degrees, pulse 70, respirations 18, blood pressure 183/75. HEENT: Pupils are equal and round. Lungs: Clear in all lung vanessa. Cardiovascular: Regular rhythm and rate without murmur or S3. Abdomen: Abdomen is soft. Skin: Warm and dry. ASSESSMENT AND PLAN: 1. Chronic kidney disease stage 4. Volume overload. Continue dialysis. Making good progress. Can tell his edema has gone down in his lower extremities and breathing better, radiographically improved. 2. Chronic obstructive pulmonary disease. 3. Electrolytes and acid base seem to be stable. 4. Anemia, normocytic anemia. Hematocrit is 23 hemoglobin 7.5. We will transfuse if hemoglobin gets below 7. 5. Blood sugars, last several numbers are 74, 211, 225, and 193. REVIEW OF HIS ORDERS: I do not see any change. cc: Lincoln Rosas MD
[2019-06-17] MEDS: TYLENOL PO PRN (13:02)
--- NOTE | 2019-06-17 15:39 | PROVIDER PROGRESS NOTE ---
Progress Note Dr. Biggs Progress Note/Pulmonary and or critical care We appreciated progress of care, Complications, change in diagnosis, and instructions to patient. Subjective: We note the level of consciousness, bed (chair) position, family presence (if any), level of lethargy, feeling of symptoms, and changes from baseline condition/symptom. Patient is lying in bed with no acute distress noted. He stays on NC 2 L. He complains of sharp pain from fever blister-like rash around his lips and tongue. And because of the pain, he could not eat the regular food. He still has some SOB with activities, but overall, he is feeling a lot better. at the bedside. Objective: Vital Signs: We reviewed EMR current values for Pulse rate, Blood pressure, Pulse rate, respiratory rate and Pulse oximetry. Also noted other values and trends if present (e.g. I/O, CVP). No fever in last 24 hours, [place] 73, RR 12, BP 149/65 and SaO2 100% on NC 2 L. Physical Examination: General: Morbidly obese. Lying in bed with no acute distress noted. HEENT: Normocephalic. Trachea midline. Mucosa pink and moist. Fever blister-like rash covered with dry blood on the lips noted. Chest: Even and unlabored. Symmetrical excursion. Auscultation reveals mild ex piratory wheezing bilaterally. CVS: S1 and S2 appreciated. Abdomen: Soft. Non-tender. Obese. Normoactive bowel sounds in all 4 quadrants. Extremities: BLE pitting edema 3+ up to the hip and abdominal region bilaterally. RUE pitting edema 1-2+. No cyanosis. Neuro: A/O x4. Speech fluent. Following commands. Labs and Radiology: Reviewed available labs and radiology values available at time of EMR review. Laboratory Results 06/16/19 06/17/19 06/17/19 20:22 05:54 07:27 Sodium 138 Potassium 4.5 Chloride 99 Carbon Dioxide 27 Anion Gap 12 BUN 62 H Creatinine 2.7 H Estimated GFR/1.73 m2 24 BUN/Creatinine Ratio 23 Glucose 193 H POC Glucose 211 H D 225 H Calculated Osmolality 299 Calcium 7.9 L Phosphorus 5.2 H Albumin 2.8 L 06/17/19 06/17/19 11:46 16:08 Sodium Potassium Chloride Carbon Dioxide Anion Gap BUN Creatinine Estimated GFR/1.73 m2 BUN/Creatinine Ratio Glucose POC Glucose 95 D 99 Calculated Osmolality Calcium Phosphorus Albumin Assessment: COPD exacerbation. Stenotrophomonas maltophilia bronchitis with small left pleural effusion, basilar atelectasis and mild pulmonary edema. Acute on chronic renal failure, hemodialysis started on 06/13/[address] Mart. Proteinuria. Morbid obesity. Plan: Continue current treatment and supportive care per admitting and other teams on the case. Antibiotic (Levaquin). Bronchodilators. Solu-Medrol. Dialysis per Dr. Mart. GI and DVT prophylaxis. Input was appreciated from Admitting MD and other teams on the case.
[2019-06-17] MEDS: LEVAQUIN PO SCH (21:59)
[2019-06-17] MEDS: LIPITOR PO SCH (21:59)
[2019-06-18] MEDS: DUONEB (A & A) INH SCH ×6 (03:30→23:10)
[2019-06-18] MEDS: HUMALOG SUBQ SCH ×8 (06:07→21:23)
[2019-06-18] MEDS ORDERED: HEPARIN IV PRN (06:27)
[2019-06-18] MEDS ORDERED: NS 2,000 ML MISC PRN (06:27)
[2019-06-18] MEDS ORDERED: TIGHT: 0.2 ML/HR FOR DIALYSIS MISC PRN (06:27)
[2019-06-18] MEDS: PRILOSEC PO SCH (06:37)
[2019-06-18 08:02] LABS: ALBUMIN 2.8 g/dL (3.5-5.0); CALCIUM 7.7 mg/dL (8.8-10.2); PHOSPHORUS 5.6 mg/dL (2.7-4.5)
[2019-06-18] MEDS: ISORDIL PO SCH ×3 (09:24→21:23)
[2019-06-18] MEDS: CATAPRES PO SCH ×3 (09:24→18:48)
[2019-06-18] MEDS: PHOSLO PO SCH ×3 (09:24→18:48)
[2019-06-18] MEDS: ZETIA PO SCH (09:25)
[2019-06-18] MEDS: APRESOLINE PO SCH ×3 (09:25→21:23)
[2019-06-18] MEDS: CARDIZEM CD PO SCH (09:25)
[2019-06-18] MEDS: HEMOCYTE PLUS CAPSULE PO SCH (09:37)
[2019-06-18] MEDS: SOLU-MEDROL IV SCH ×3 (09:37→21:22)
[2019-06-18] MEDS: LANTUS INSULIN SUBQ SCH ×2 (09:38→21:22)
--- NOTE | 2019-06-18 09:40 | NEPHROLOGY PROGRESS NOTE ---
DATE: 06/18/2019 DATE AND TIME SEEN: On 06/18/2019 at 0705 hours. SUBJECTIVE: Mr. Grove is resting quietly in bed, states that he is doing much better after having had 4 days of dialysis last week. OBJECTIVE: Vital signs: Temperature 98.3 degrees, blood pressure 144/52, heart rate 74, respirations are 18. He is on 2 liters nasal cannula, last recorded saturation 99%. The patient states that he has been voiding, though it has not been recorded this a.m. He is at a -18 liter fluid balance from dialysis. LABORATORY DATA: Sodium 136, potassium 5, chloride 97, CO2 of 25, BUN 85, creatinine 3, glucose 162. His anion gap is 14, calcium 7.7, phosphorus 5.6, albumin 2.8, previous hemoglobin 7.5. PHYSICAL EXAMINATION: General: This is a 64-year-old white male. He is currently resting quietly in bed. He appears chronically ill, no acute distress. Skin: Warm and dry. HEENT: Normocephalic, atraumatic. Conjunctiva is pale. He has SUKI. Mucous membranes are moist. Neck: Supple. Trachea midline. He has positive JVD of approximately 6 mm. Cardiovascular: Irregularly irregular rate and rhythm. He has a soft systolic murmur. Lungs: He has faint rhonchi with expiratory wheezes. Remains on room air. Abdomen: Large, obese, soft, nontender. Positive bowel sounds though soft, nonpitting. Genitourinary: Not inspected. The patient has been voiding adequate amounts. Extremities: The patient now has trace to 1+ lower extremity edema. Continues with upper extremity edema to the right upper arm. This remains tight. Neurological: Alert and oriented x3. ASSESSMENT AND PLAN: 1. Acute kidney injury on chronic kidney disease stage 4 secondary to fluid volume overload. Patient's BUN and creatinine have responded nicely to dialysis. He was dialyzed for 4 treatments in a row, allowed to rest yesterday, for a total of -18 liters. We will now plan for the patient to be dialyzed on a Tuesday, Tuesday, Tuesday basis until discharge, and we will at that time attempt to get the patient an outpatient appointment for continued outpatient hemodialysis. 2. Electrolytes and acid-base balance. These are acceptable with mild elevation in his phosphorus. We will plan to start him on Tums with meals. 3. Anemia. Patient's hemoglobin has been 7.5. We will recheck this again in the morning. 4. Swollen right upper arm that has not improved with dialysis. We will order a venous Doppler study to rule out deep vein thrombosis. I would like to thank you for allowing us to follow with this patient. Dictated by DELTA Sheffield for Artemio Mart MD Face to face encounter, data reviewed, discussed with Leonidas Greene on 06/18/19. I agree with the above assessment and plan of care. cc: DELTA Sheffield MD [facility]
--- NOTE | 2019-06-18 13:22 | PROGRESS NOTE ---
DATE: 06/18/2019 SUBJECTIVE: Mr. Grove is breathing better, had a good night's sleep. The little punctate lesions on his arms and legs are healing. The ulcerations on his lip seem to be dry and healing as well. OBJECTIVE: Vital Signs: He is afebrile, temperature 97.9 degrees, pulse 70, respirations 18, blood pressure 171/76. HEENT: Pupils are equal and round. Lungs: Clear in all lung vanessa. Cardiovascular: Regular rhythm and rate without murmur or S3. Abdomen: Soft. Skin: Warm and dry. ASSESSMENT AND PLAN: 1. Acute kidney injury on chronic kidney disease stage 4 secondary to volume overload. The patient is getting dialyzed and responding nicely, improved respiratory status and fluid going down in his extremities. The plan is to get dialyzed again today, Mondays, Wednesdays, and Fridays until discharge. 2. Electrolytes and acid base are acceptable. He had a mild elevation in his phosphorus. Dr. Mart is going to start him on some Tums with meals. 3. Anemia, stable. His hemoglobin is 7.5. We will transfuse if below 7. 4. Swollen right arm that is not improved with dialysis and so planning to do a venous Doppler to look at his arm. 5. Diabetes, his blood sugars have a wide fluctuation, but continue to monitor. 6. History of chronic obstructive pulmonary disease. His respiratory status is improving. REVIEW OF HIS ORDERS: I do not see any change. LABORATORY DATA: No new labs from today except for electrolytes. Sodium 136, potassium 5, chloride 97, BUN 83, creatinine 3. Blood sugars have been 188, 160, 162, and 177. cc: Lincoln Rosas MD
[2019-06-18] MEDS: LIPITOR PO SCH (21:23)
[2019-06-19] MEDS: DUONEB (A & A) INH SCH ×6 (03:50→23:07)
[2019-06-19] MEDS: HUMALOG SUBQ SCH ×7 (06:31→21:16)
[2019-06-19] MEDS: PRILOSEC PO SCH (06:31)
[2019-06-19] MEDS: SOLU-MEDROL IV SCH ×3 (06:31→21:15)
[2019-06-19 07:32] LABS: HEMATOCRIT 23.5 % (42.0-52.0); HEMOGLOBIN 7.5 g/dL (14.0-18.0); LYMPH# 0.24 X1000 (1.2-3.4); LYMPH% 3.4 % (20.5-51.1); MCH 27.4 PG (27-31); MCHC 31.9 g/dL (33-37); MCV 85.8 FL (81-99); MONO# 0.32 X1000 (0.11-0.59); MONO% 4.6 % (1.7-9.3); MPV 12.4 FL (7.4-10.4); NEUT# 6.43 X1000 (1.4-6.5); PLT 68 X1000 (130-400); RBC 2.74 XMIL (4.7-6.1); RDW 13.8 % (11.5-14.5); WBC 6.99 X1000 (4.8-10.8)
--- NOTE | 2019-06-19 07:43 | Diag Imaging Result Doc PS360 ---
CHEST-PORTABLE - 06/19/2019 INDICATION: abnormal exam COMPARISON: 06/15/2019 FINDINGS: Stable bilateral central lines. There has been improvement in aeration of the left lower lobe with better visualization of the left hemidiaphragm. Otherwise, stable increased markings centrally and in the lung bases suggesting mild pulmonary edema or atypical pneumonia. No significant pleural effusion. IMPRESSION: Improvement in the consolidation or atelectasis at the left lower lobe. Electronically signed by Alden Arenas 06/19/2019 7:41 AM
[2019-06-19 07:53] LABS: IRON SATURATION 76 %; TIBC 148 ug/dL; TOTAL IRON 113 ug/dL (53-167); UNBOUND IRON 35 ug/dL (112-346)
[2019-06-19 07:58] LABS: CALCIUM 7.7 mg/dL (8.8-10.2); CREATININE 2.5 mg/dL (0.7-1.2); PHOSPHORUS 5.1 mg/dL (2.7-4.5); POTASSIUM 4.6 mmol/L (3.5-5.1)
--- NOTE | 2019-06-19 08:43 | NEPHROLOGY PROGRESS NOTE ---
DATE: 06/19/2019 TIME SEEN: 06:25. SUBJECTIVE: Mr. Grove is lying quietly in bed. States that he is getting better sleep at night secondary to being able to breathe better. OBJECTIVE: Vital Signs: Temperature 97.6 degrees, blood pressure 155/58, heart rate 59, respirations 18. The patient is on 2 L nasal cannula. His last recorded saturation is 100%. He has had 260 in, 3949 out for an approximate -22 L from dialysis in 1 week. The patient is now down approximately 45 pounds over the last 2 weeks. States that he is feeling much better. Swelling has improved. Laboratory Data: These are still pending. His potassium was 5.0 yesterday, BUN 85, creatinine 3.0 and CO2 25. Previous hemoglobin 7.5, with labs still pending. Physical Examination: General: This is a 64-year-old, white male resting quietly in bed. He appears chronically ill. He is in no acute distress. His skin is warm and dry. HEENT: Normocephalic, atraumatic. Conjunctivae are pale. He has SUKI. Mucous membranes are dry. Neck: Supple. Trachea midline. The patient has positive JVD, approximately 6 mm. Cardiovascular: Irregularly irregular rate and rhythm. He has a soft systolic murmur. Lungs: Actually improved today. Faint expiratory wheezes only. No crackles or rhonchi. Remains on O2 support. Abdomen: Large, obese, soft, nontender. Positive bowel sounds. Genitourinary: Not inspected. Patient has been voiding adequate amounts documented with assist with dialysis. Extremities: Continues with trace to 1+ pretibial edema. This is improved up into the mid thigh. No edema to the abdomen and hips. Continues with edema into the right upper extremity. Neurological: He is alert and oriented x3. ASSESSMENT AND PLAN: 1. Acute kidney injury on chronic kidney disease stage 4 secondary to fluid volume overload with elevated BUN. This has continued to improve. Over the last several days, we have removed approximately 22 L on dialysis. He is down approximately 45 pounds in the last 2 weeks. We will allow the patient to rest today and plan for dialysis again on Tuesday. 2. Fluid volume overload. As mentioned above, we will hold dialysis today and attempt to get patient on a routine dialysis treatment. We continue with a fluid restriction of 1 L. This has been encouraged. Continue to keep strict intakes and outputs. 3. Electrolytes and acid-base balance. These are all pending, with correction on dialysis. 4. Anemia. Patient's hemoglobin is 7.5 since the . We are rechecking his CBC today along with an anemia panel to evaluate his anemia status. 5. Swelling to the right upper arm. The patient had a venous Doppler study yesterday. Results are still pending, though he indicated that he thought this was negative from his exam yesterday. I would like to thank you for allowing us to follow with this patient. Dictated by DELTA Sheffield for Artemio Mart MD Face to face encounter, data reviewed, discussed with Leonidas Greene on 06/19/18. I agree with the above assessment and plan of care. cc: DELTA Sheffield MD [facility]
[2019-06-19 09:31] LABS: FERRITIN 1254 ng/mL (30-400)
[2019-06-19] MEDS: HEMOCYTE PLUS CAPSULE PO SCH (10:45)
[2019-06-19] MEDS: ISORDIL PO SCH ×3 (10:45→21:15)
[2019-06-19] MEDS: ZETIA PO SCH (10:45)
[2019-06-19] MEDS: PHOSLO PO SCH ×3 (10:45→17:43)
[2019-06-19] MEDS: APRESOLINE PO SCH ×3 (10:45→21:15)
[2019-06-19] MEDS: CARDIZEM CD PO SCH (10:45)
[2019-06-19] MEDS: LANTUS INSULIN SUBQ SCH ×2 (10:46→21:16)
[2019-06-19] MEDS: CATAPRES PO SCH ×3 (10:46→17:43)
--- NOTE | 2019-06-19 13:35 | PROGRESS NOTE ---
DATE: 06/19/2019 SUBJECTIVE: Mr. Grove is breathing better, feeling better. Had a good night. They are not doing dialysis today. They are going to do it again tomorrow. He has lost quite a bit of fluid weight. Feels much better. On admission to this hospital, he was 310 pounds. He is down to 265. EXAMINATION: Afebrile, temperature 98.1 degrees, pulse 76, respirations 18, blood pressure 175/62. HEENT: Pupils are equal and round. Lungs are clear in all lung vanessa. Cardiovascular Examination: Regular rhythm and rate without murmur or S3. Urine output with dialysis close to 8 L from yesterday. Blood sugar 244, 159, 140. Chest x-ray, improvement in consolidation of atelectasis, left lower lobe. ASSESSMENT AND PLAN: 1. Acute kidney injury on chronic kidney injury stage IV, secondary to volume overload and elevated BUN. He has been diuresed and it looks like they removed almost 22 L. Lost approximately 45 pounds in the last 2 weeks. Clinically much better. 2. Volume overload. He is breathing better. Pedal edema has gone down. His right arm, we did an ultrasound. Did not find a blood clot but he has quite a bit of swelling in his upper extremities as well, just general anasarca. 3. Electrolytes and acid base balance look good. 4. Anemia. Hemoglobin around 7.5. 5. Diabetes. His blood sugars are fluctuating but in reasonable control. 6. He does have a history of chronic obstructive pulmonary disease. No trouble. At this point, his breathing is much better and he is able to lay supine and actually sleep supine. Blood pressures appear to be doing fairly well. cc: Lincoln Rosas MD
[2019-06-19] MEDS: TYLENOL PO PRN (14:48)
[2019-06-19] MEDS: LIPITOR PO SCH (21:15)
[2019-06-19] MEDS: LEVAQUIN PO SCH (21:15)
--- NOTE | 2019-06-19 22:46 | PULMONOLOGY PROGRESS NOTE ---
DATE: 06/19/2019 SUBJECTIVE: The patient is awake and alert. He is sitting in the bedside chair. He reports his breathing continues to improve. OBJECTIVE: The patient has been afebrile for the last 24 hours. Blood pressure 156/65, heart rate 98, respiratory rate 70, oxygen saturation 98% on 2 L per nasal cannula. HEENT: Pupils are equal and reactive. Oropharynx appears clear. Neck: Supple. Chest: Wheezing and rhonchi bilaterally, but his air flow has markedly improved over the last 4 to 5 days. Cardiac: S1-S2. Abdomen: Obese and soft. Extremities: Decreasing edema. He continues to have asymmetric arm edema. LABORATORY AND DIAGNOSTIC DATA: Chest x-ray reveals resolving basilar infiltrate on the left. The diaphragm can now be well visualized. White blood count 6.99, hemoglobin 7.5, platelet count 68,000. IMPRESSION: A 64-year-old with: 1. Chronic obstructive pulmonary disease exacerbation. 2. Stenotrophomonas maltophilia pneumonia. 3. Acute on chronic renal failure. He has had a significant amount of fluid withdrawn by dialysis. 4. Proteinuria. 5. Morbid obesity. 6. New-onset thrombocytopenia. PLAN: 1. Continue Levaquin. 2. Continue bronchodilators. Consider decreasing steroids. 3. Follow up CBC and send a PF4 antibody. cc: Pascual Villafana MD
[2019-06-20] MEDS: DUONEB (A & A) INH SCH ×6 (03:30→23:26)
[2019-06-20] MEDS ORDERED: TIGHT: 0.2 ML/HR FOR DIALYSIS MISC PRN (06:23)
[2019-06-20] MEDS ORDERED: NS 2,000 ML MISC PRN (06:23)
[2019-06-20] MEDS ORDERED: HEPARIN IV PRN (06:23)
[2019-06-20] MEDS: SOLU-MEDROL IV SCH ×2 (06:34→16:03)
[2019-06-20] MEDS: PRILOSEC PO SCH (06:34)
[2019-06-20] MEDS: HUMALOG SUBQ SCH ×7 (06:36→21:15)
[2019-06-20] MEDS: TYLENOL PO PRN (06:40)
[2019-06-20] MEDS: LANTUS INSULIN SUBQ SCH ×2 (07:59→21:15)
[2019-06-20] MEDS: HEMOCYTE PLUS CAPSULE PO SCH (08:00)
[2019-06-20] MEDS: ISORDIL PO SCH ×3 (08:00→21:14)
[2019-06-20] MEDS: APRESOLINE PO SCH ×3 (08:00→21:14)
[2019-06-20] MEDS: CATAPRES PO SCH ×3 (08:00→16:06)
[2019-06-20] MEDS: ZETIA PO SCH (08:00)
[2019-06-20] MEDS: PHOSLO PO SCH ×3 (08:00→16:06)
[2019-06-20] MEDS: CARDIZEM CD PO SCH (08:00)
[2019-06-20 08:43] LABS: ALBUMIN 2.8 g/dL (3.5-5.0); PHOSPHORUS 5.2 mg/dL (2.7-4.5); POTASSIUM 4.6 mmol/L (3.5-5.1)
--- NOTE | 2019-06-20 08:50 | NEPHROLOGY PROGRESS NOTE ---
DATE: 06/20/2019 DATE AND TIME SEEN: On 06/20/2019 at 0715 hours. SUBJECTIVE: Mr. Grove is resting quietly in bed. He states that he is doing well. He got up with physical therapy yesterday. OBJECTIVE: Vital signs: Temperature 98 degrees, blood pressure 187/58, heart rate 66, respirations 14. The patient is on room air. Last recorded saturation was 95%. He has had 480 input, and he has had 1350 output to void. LABS: Are currently pending this a.m. Previous potassium 4.6. Previous BUN 71 with a creatinine of 2.5 with a previous hemoglobin 7.5. PHYSICAL EXAMINATION: General: This is a 64-year-old white male. He is currently resting quietly in bed. Skin: Warm and dry. HEENT: Normocephalic, atraumatic. Conjunctiva is pale. He has SUKI. Mucous membranes are dry. Neck: Supple. Trachea midline. Positive JVD in the upright position, approximately 6 mm. Cardiovascular: Irregular irregular rate and rhythm. Soft systolic murmur. Lungs: Continue with an occasional expiratory wheeze. Remains on room air. Abdomen: Distended. Positive bowel sounds. Genitourinary: Not inspected. The patient has been voiding adequate amount. Extremities: Continues with 3+ lower extremity edema up into the hips. Right upper arm continues to have some swelling. Venous Doppler study was performed on that right upper arm. I do not see any report in the chart as of today, though the patient had indicated they told him it was negative for DVT. Integumentary: The patient has facial wound secondary to blisters around his mouth. These are dry. No drainage present. He does have some weeping to his right lower extremity and right upper arm. The patient has a Johnson catheter to the right chest wall, dialysis tunnel catheter to the left chest wall dry and intact. Neurological: Alert and oriented x3. ASSESSMENT AND PLAN: 1. Acute kidney injury on chronic kidney disease stage 4 secondary to fluid volume overload. BUN and creatinine have responded nicely to starting on dialysis. We will plan for dialysis again today with a routine of Tuesday, Tuesday, Tuesday. We will place him on a 2- potassium bath. He is to dialyze for 3-1/2 hours. We will attempt to pull him to his last post dry weight. 2. Electrolytes and acid-base balance. These are acceptable. 3. Anemia. The patient's hemoglobin has been stable at 7.5, pending this morning. Anemia panel was stable indicating an iron level of 113, total saturation of 76 with a ferritin of 1254. Based upon his hemoglobin today, if it returns stable, we will start him on Epogen. 4. Disposition. Will need SNF rehab. I would like to thank you for allowing us to follow with this patient. Dictated by DELTA Sheffield for Artemio Mart MD Face to face encounter, data reviewed, discussed with Leonidas Greene on 06/20/19. I agree with the above assessment and plan of care. cc: DELTA Sheffield MD [facility] [place]
[2019-06-20 08:51] LABS: HEMATOCRIT 23.5 % (42.0-52.0); HEMOGLOBIN 7.3 g/dL (14.0-18.0); LYMPH# 0.22 X1000 (1.2-3.4); LYMPH% 4.3 % (20.5-51.1); MCH 26.3 PG (27-31); MCHC 31.1 g/dL (33-37); MCV 84.5 FL (81-99); MONO# 0.22 X1000 (0.11-0.59); MONO% 4.3 % (1.7-9.3); MPV 11.9 FL (7.4-10.4); NEUT# 4.63 X1000 (1.4-6.5); NEUT% 91.4 % (42.2-75.2); PLT 68 X1000 (130-400); RBC 2.78 XMIL (4.7-6.1); RDW 13.6 % (11.5-14.5); WBC 5.07 X1000 (4.8-10.8)
[2019-06-20 10:34] LABS: LYMPHS 3 % (21-51); SEGS 97 % (42-75)
[2019-06-20] MEDS ORDERED: RETACRIT (ESRD PATIENTS) SUBQ SCH (12:30)
--- NOTE | 2019-06-20 17:14 | PROGRESS NOTE ---
DATE: 06/20/2019 INTERVAL HISTORY: No acute events overnight. SUBJECTIVE: Mr. Grove is feeling better. Denies new complaints. He is complaining of some sores in his mouth and the fact that it is painful. His is currently at the bedside. He denies any chest pain. He denies shortness of breath at rest. VITAL SIGNS: Temperature 97.5 degrees, pulse 50, respiratory 20, blood pressure 170/60. He is saturating 100% on nasal cannula. PHYSICAL EXAMINATION: General: Morbidly obese, not in acute distress. HEENT: Oral cavity is moist. He has some ulcers in the hard palate. Lungs: Air entry bilaterally equal. Mild end- expiratory wheezes. No rhonchi. No crackles. Cardiovascular: S1, S2 normal. No murmur or gallop. Abdomen: Soft, nontender. Active bowel sounds. Extremities: He has lower extremity edema extending up to the thigh level. Neurologic: He is alert and oriented x3. Input and output: Not charted today. LABS: Suggestive of WBC of 7.3, platelet 68,000. Sodium of 132, chloride 95, BUN 93, creatinine of 3. Blood glucose has been 74. MICROBIOLOGY: Stenotrophomonas pneumonia on June 11 for which he is on levofloxacin. IMAGING: Performed yesterday had improvement in consolidation or atelectasis of left lower lobe. ASSESSMENT AND PLAN: 1. Acute on chronic hypoxic respiratory failure, acute chronic obstructive pulmonary disease exacerbation, Stenotrophomonas pneumonia. Continue oral levofloxacin for about 10 to 14 days course, inhaled bronchodilators. Decrease steroid dosing from intravenous to oral and monitor respiratory status. 2. Acute kidney injury on chronic kidney disease leading to volume overload. The patient has been on intermittent hemodialysis. Nephrology team on board. I will continue him on calcium acetate for hyperphosphatemia and multivitamin with iron. 3. Essential hypertension. Currently acceptable. Continue clonidine, diltiazem, hydralazine, and isosorbide dinitrate, and adjust the dose according to his response. 4. History of insulin-dependent diabetes mellitus. Continue current dose of Lantus, mealtime insulin, and sliding scale insulin. 5. Disposition. I recommended that considering his multiple comorbidities and prolonged hospital stay, he may benefit from going to rehab. However, patient wanted to have a discussion with his ticket printer and tagger before making a decision. Nephrology team has been informed about this. Once the patient makes a decision, I will involve Par[employer] Computing Software Engineer for possible rehab. Continue to the monitor patient inside the hospital as we await the patient's decision about rehab and accordingly, I will consider discharge. Plan of care discussed with the patient and his . All of their questions have been answered. cc: Duncan Prieto MD
[2019-06-20] MEDS: LIPITOR PO SCH (21:15)
--- NOTE | 2019-06-20 21:48 | PULMONOLOGY PROGRESS NOTE ---
DATE: 06/20/2019 SUBJECTIVE: The patient is awake, alert, and conversant. He reports he feels better. He has a cough with minimal sputum production, although he does have some sputum production after nebulizer treatment. OBJECTIVE: Vital Signs: The patient has been afebrile for the last 24 hours. Blood pressure 171/65, heart rate 50, respiratory rate 20, oxygen saturation 97% on nasal cannula. HEENT: Pupils are equal and reactive. Oropharynx is clear. Neck: Supple. Chest: Reveals prolonged expiratory phase with some expiratory wheezing. Rhonchi have diminished. Cardiac: S1, S2. Abdomen: Obese. Extremities: Decreasing edema. IMPRESSION: A 64-year-old with: 1. Chronic obstructive pulmonary disease exacerbation. 2. Stenotrophomonas maltophilia pneumonia. 3. Acute on chronic renal failure. 4. Morbid obesity. 5. Thrombocytopenia. This has been stable at 68,000. RECOMMENDATIONS: 1. Will obtain 2 view chest x-ray tomorrow. 2. Anticipate rehab stay if this can be arranged. cc: Pascual Villafana MD
[2019-06-21] MEDS: DUONEB (A & A) INH SCH ×6 (03:36→23:35)
[2019-06-21] MEDS: PRILOSEC PO SCH ×2 (05:34→06:37)
[2019-06-21] MEDS: HUMALOG SUBQ SCH ×7 (06:37→21:24)
--- NOTE | 2019-06-21 07:34 | Diag Imaging Result Doc PS360 ---
CHEST-2 VIEWS - 06/21/2019 INDICATION: abnormal exam COMPARISON: 06/19/2019 FINDINGS: Stable bilateral central lines. Stable cardiomegaly and pulmonary vascular congestion. There has been improvement in the mild interstitial infiltrates/pulmonary edema. No significant pleural effusion. IMPRESSION: Mild cardiomegaly and pulmonary vascular congestion. Otherwise no acute process. Electronically signed by Alden Arenas 06/21/2019 7:32 AM
[2019-06-21 08:46] LABS: ALBUMIN 2.7 g/dL (3.5-5.0); CALCIUM 7.4 mg/dL (8.8-10.2); CREATININE 2.4 mg/dL (0.7-1.2); PHOSPHORUS 4.4 mg/dL (2.7-4.5); POTASSIUM 4.5 mmol/L (3.5-5.1)
[2019-06-21] MEDS: ISORDIL PO SCH ×3 (09:01→21:23)
[2019-06-21] MEDS: CATAPRES PO SCH ×3 (09:01→17:09)
[2019-06-21] MEDS: ZETIA PO SCH (09:02)
[2019-06-21] MEDS: PREDNISONE PO SCH (09:02)
[2019-06-21] MEDS: HEMOCYTE PLUS CAPSULE PO SCH (09:02)
[2019-06-21] MEDS: PHOSLO PO SCH ×3 (09:02→17:09)
[2019-06-21] MEDS: MBX SOLUTION MT PRN ×3 (09:02→21:27)
[2019-06-21] MEDS: CARDIZEM CD PO SCH (09:02)
[2019-06-21] MEDS: APRESOLINE PO SCH ×3 (09:02→21:23)
[2019-06-21] MEDS: LANTUS INSULIN SUBQ SCH ×2 (09:03→21:24)
[2019-06-21 11:22] LABS: HEMATOCRIT 22.8 % (42.0-52.0); HEMOGLOBIN 7.1 g/dL (14.0-18.0); LYMPH# 0.37 X1000 (1.2-3.4); LYMPH% 6.5 % (20.5-51.1); MCH 26.5 PG (27-31); MCHC 31.1 g/dL (33-37); MCV 85.1 FL (81-99); MONO# 0.33 X1000 (0.11-0.59); MONO% 5.8 % (1.7-9.3); MPV 12.4 FL (7.4-10.4); NEUT# 5.01 X1000 (1.4-6.5); NEUT% 87.7 % (42.2-75.2); PLT 61 X1000 (130-400); RBC 2.68 XMIL (4.7-6.1); RDW 13.6 % (11.5-14.5); WBC 5.71 X1000 (4.8-10.8)
[2019-06-21] MEDS ORDERED: BLISTEX MEDICATED BERRY LIP BALM TOP PRN (14:48)
[2019-06-21] MEDS: ABREVA CREAM TOP SCH ×2 (17:09→21:24)
[2019-06-21] MEDS ORDERED: VALTREX PO ONE (17:35)
--- NOTE | 2019-06-21 18:23 | PROGRESS NOTE ---
DATE: 06/21/2019 INTERVAL HISTORY: No acute events overnight. SUBJECTIVE: Mr. Grove is feeling better day by day. He says he was able to walk using a walker up to the door of the room. However, he was not able to get up from the commode and his legs gave out so he needed help to sit up. VITAL SIGNS: Temperature 97.9 degrees, pulse 63, respiratory 20, blood pressure 144/50, saturating 100% on 2 L nasal cannula. Input and output suggest -2.6 L yesterday. PHYSICAL EXAMINATION: General: Obese, not in acute distress. HEENT: He has several sores affecting hard palate as well as lips, likely herpes. Lungs: Air entry bilaterally equal. Mild end-expiratory wheezes. No rhonchi. Mild crackles in infrascapular region. Cardiovascular: S1, S2 normal. No murmur or gallop. Abdomen: Obese, soft, nontender. Extremities: Bilateral lower extremity edema. Neurologic: He is alert and oriented x3. LABS: Suggestive of hemoglobin of 7.1, platelet of 61,000. MICROBIOLOGY: No new data. IMAGING: No new imaging except chest x-ray which suggests mild cardiomegaly and pulmonary vascular congestion. ASSESSMENT AND PLAN: 1. Acute on chronic hypoxic respiratory failure, acute chronic obstructive pulmonary disease exacerbation, Stenotrophomonas pneumonia. Continue oral levofloxacin, first day being June 15, for approximately 10 to 14 days course, inhaled bronchodilators, oxygen to maintain saturation more than 94%, and oral steroids. 2. Acute kidney injury on chronic kidney disease leading to volume overload. Patient initially was receiving intravenous diuresis and considering the amount of volume overload he had, he ended up being on hemodialysis. Currently he is on Tuesday, Tuesday, Tuesday hemodialysis through left chest dialysis catheter. Continue calcium acetate for hyperphosphatemia and multivitamin with iron. 3. Essential hypertension. Also due to volume overload, now improving on clonidine, diltiazem, hydralazine, and isosorbide dinitrate. I will adjust the medications according to his response. 4. History of insulin-dependent diabetes mellitus. Continue current dose of Lantus, mealtime insulin, sliding scale insulin. 5. Thrombocytopenia with normocytic anemia. His anemia is chronic and current drop could be related to iatrogenic due to repeated blood draws. Heparin platelet factor 4 antibodies have been sent to rule out heparin-induced thrombocytopenia. He is currently not on anticoagulation. I will continue to encourage physical activity. 6. Herpes simplex labialis. I will start patient on topical docosanol cream as well as give him 1 time dose of oral valacyclovir. He may need an additional dose based on his response 3 to 5 days later. 7. Disposition. I had strongly recommended patient to go to rehab. However, patient has refused to go to rehab and wanted to go home. However, he also states that he is not ready to go home and would like to remain inside the hospital for 2 or 3 more days and get stronger. I will continue physical therapy. Medically though he appears to be ready for discharge. I discussed with him about the risk of hospital-acquired conditions including pneumonia, urine infection, among others. He understood it. Despite that, insists on remaining in the hospital for 2 to 3 days before he starts feeling stronger. cc: Duncan Prieto MD
--- NOTE | 2019-06-21 19:24 | NEPHROLOGY PROGRESS NOTE ---
DATE: 06/21/2019 DATE AND TIME SEEN: 06/21/2019 at 0740. SUBJECTIVE: Mr. Grove is resting quietly in bed. His head of the bed is elevated. He has just returned from a chest x-ray. VITAL SIGNS: Temperature 97.8 degrees, blood pressure 153/60, heart rate 60, respirations 20. He is on 3 L nasal cannula. Last recorded saturation 100%. He has had 840 in, 3442 out. LABORATORY AND DIAGNOSTIC DATA: Sodium is 134, potassium 4.5, chloride is 96, CO2 of 27, BUN 77, creatinine 2.4, glucose 123, anion gap of 11, calcium 8.4, phosphorus 4.4, albumin 2.7. White count 5.71, hemoglobin 7.1, hematocrit 22.8, with a platelet count of 61,000. Chest x-ray this a.m., shows mild pulmonary congestion. PHYSICAL EXAMINATION: General: This is a 64-year-old, white male. He is currently resting quietly in bed. He appears chronically ill. He is in no acute distress. Skin: Warm and dry. HEENT: Normocephalic, atraumatic. Conjunctivae pale. He is SUKI. Mucous membranes are dry. Neck: Supple. Trachea midline. He has positive JVD. Cardiovascular: Irregularly irregular rate and rhythm. He has a systolic murmur. Lungs: Clear to auscultation anteriorly, equal excursion. Remains on room air. Abdomen: Distended, soft, nontender. Positive bowel sounds. Genitourinary: Not inspected. Patient has been voiding an adequate amount. Extremities: Continues with 2 to 3+ lower extremity edema. This is slowly softening over the last week. Right upper arm continues to have swelling. The patient had a venous Doppler study performed on Tuesday evening. I have not found the results at this time. Neurological: Alert and oriented x3. ASSESSMENT AND PLAN: 1. Acute kidney injury on chronic kidney disease stage 4, associated with fluid volume overload. Patient has tolerated dialysis well. We will attempt to get him placement on an outpatient basis at the [facility]. We will plan for dialysis again in the morning. 2. Electrolytes and acid-base balance. These are acceptable. 3. Anemia. Hemoglobin has been slowly dropping. He was started on Epogen yesterday. He continues on Hemocyte Plus for his oral iron. 4. Fluid volume overload. This has been in assistance with dialysis. We will continue on an outpatient basis. I would like to thank you for allowing us to follow with this patient. Dictated by DELTA Sheffield for Artemio Mart MD Face to face encounter, data reviewed, discussed with Leonidas rGeene on 06/21/19. I agree with the above assessment and plan of care. cc: DELTA Sheffield MD [facility]
[2019-06-21] MEDS: LIPITOR PO SCH (21:24)
--- NOTE | 2019-06-21 23:42 | PULMONOLOGY PROGRESS NOTE ---
DATE: 06/21/2019 SUBJECTIVE: The patient reports he is fatigued after undergoing dialysis. OBJECTIVE: Vital Signs: The patient has been afebrile for the last 24 hours. Blood pressure 144/50, heart rate 60, respiratory rate 20, oxygen saturation 100%. HEENT: Pupils are equal and reactive. Oropharynx appears clear. Neck: Supple. Chest: Reveals prolonged expiratory phase with faint wheezing but no rhonchi. Cardiac: S1-S2. Abdomen: Obese and soft. Extremities: Reveal decreasing edema. LABORATORIES: Chest x-ray reveals cardiomegaly and vascular congestion but no evidence of pneumonia. IMPRESSION: A 64-year-old with: 1. Chronic obstructive pulmonary disease exacerbation. 2. Stenotrophomonas pneumonia. 3. Chronic renal failure. 4. Obesity. 5. Thrombocytopenia. PLAN: 1. Discontinue antibiotics. Chest x-ray has cleared. He has no evidence of active pneumonia at this time. 2. Steroid dosing per the hospitalist team. 3. Continue bronchodilators. cc: Pascual Villafana MD
[2019-06-22] MEDS: DUONEB (A & A) INH SCH ×5 (03:47→16:12)
[2019-06-22] MEDS: ABREVA CREAM TOP SCH ×4 (06:02→17:05)
[2019-06-22] MEDS: PRILOSEC PO SCH (06:02)
[2019-06-22] MEDS: MBX SOLUTION MT PRN ×3 (06:03→17:05)
[2019-06-22] MEDS: HUMALOG SUBQ SCH ×6 (06:03→17:06)
[2019-06-22] MEDS ORDERED: TIGHT: 0.2 ML/HR FOR DIALYSIS MISC PRN (07:12)
[2019-06-22] MEDS ORDERED: NS 2,000 ML MISC PRN (07:12)
[2019-06-22] MEDS ORDERED: HEPARIN IV PRN (07:12)
[2019-06-22 08:53] LABS: ALBUMIN 2.4 g/dL (3.5-5.0); CALCIUM 7.3 mg/dL (8.8-10.2); CREATININE 2.5 mg/dL (0.7-1.2); PHOSPHORUS 3.8 mg/dL (2.7-4.5); POTASSIUM 4.4 mmol/L (3.5-5.1)
[2019-06-22] MEDS: HEMOCYTE PLUS CAPSULE PO SCH (09:15)
[2019-06-22] MEDS: ISORDIL PO SCH ×2 (09:16→17:04)
[2019-06-22] MEDS: CATAPRES PO SCH ×3 (09:16→17:05)
[2019-06-22] MEDS: APRESOLINE PO SCH ×2 (09:16→17:04)
[2019-06-22] MEDS: LANTUS INSULIN SUBQ SCH (09:16)
[2019-06-22] MEDS: PREDNISONE PO SCH (09:16)
[2019-06-22] MEDS: CARDIZEM CD PO SCH (09:16)
[2019-06-22] MEDS: ZETIA PO SCH (09:16)
[2019-06-22] MEDS: PHOSLO PO SCH ×3 (09:16→17:04)
[2019-06-22] MEDS: TYLENOL PO PRN (09:24)
[2019-06-22] MEDS ORDERED: NS 500 ML IV ONE (10:30)
--- NOTE | 2019-06-22 13:26 | PROVIDER PROGRESS NOTE ---
Progress Note Dr. Biggs Progress Note/Pulmonary and or critical care We appreciated progress of care, Complications, change in diagnosis, and instructions to patient. Subjective: We note the level of consciousness, bed (chair) position, family presence (if any), level of lethargy, feeling of symptoms, and changes from baseline condition/symptom. Patient is lying in bed with no acute distress noted. He stays on NC 2 L. He still has some SOB with activities, but overall, he is feeling a lot better. at the bedside. Objective: Vital Signs: We reviewed EMR current values for Pulse rate, Blood pressure, Pulse rate, respiratory rate and Pulse oximetry. Also noted other values and trends if present (e.g. I/O, CVP). T- 96.5 No fever in last 24 hours, [place] 57 , RR 16 , BP 170/67 and SaO2 99 on NC 2 L. Physical Examination: General: Morbidly obese. Lying in bed with no acute distress noted. HEENT: Normocephalic. Trachea midline. Mucosa pink and moist. Fever blister-like rash covered with dry blood on the lips noted. Chest: Even and unlabored. Symmetrical excursion. Auscultation reveals mild expiratory wheezing bilaterally. CVS: S1 and S2 appreciated. Abdomen: Soft. Non-tender. Obese. Normoactive bowel sounds in all 4 quadrants. Extremities: BLE pitting edema 3+ up to the hip and abdominal region bilaterally. RUE pitting edema 1-2+. No cyanosis. Neuro: A/O x4. Speech fluent. Following commands. Evaluation, face to face management by Dr. Biggs. DELTA did scibing only. Labs and Radiology: Reviewed available labs and radiology values available at time of EMR review. Laboratory Results 06/20/19 06/21/19 06/21/19 07:30 11:58 15:15 Sodium Potassium Chloride Carbon Dioxide Anion Gap BUN Creatinine Estimated GFR/1.73 m2 BUN/Creatinine Ratio Glucose POC Glucose Calculated Osmolality Calcium Phosphorus Albumin Hep-Induced Plt Ab Elham SEE COMMENTS Blood Type O POSITIVE Blood Type Confirm O POSITIVE Antibody Screen NEGATIVE Crossmatch See Detail 06/21/19 06/21/19 06/22/19 16:15 20:33 05:43 Sodium Potassium Chloride Carbon Dioxide Anion Gap BUN Creatinine Estimated GFR/1.73 m2 BUN/Creatinine Ratio Glucose POC Glucose 162 H 125 H 127 H Calculated Osmolality Calcium Phosphorus Albumin Hep-Induced Plt Ab Elham Blood Type Blood Type Confirm Antibody Screen Crossmatch 06/22/19 06/22/19 07:20 10:29 Sodium 133 L Potassium 4.4 Chloride 96 L Carbon Dioxide 29 Anion Gap 8 BUN 89 H Creatinine 2.5 H Estimated GFR/1.73 m2 26 BUN/Creatinine Ratio 36 Glucose 83 POC Glucose 126 H Calculated Osmolality 293 Calcium 7.3 L Phosphorus 3.8 Albumin 2.4 L Hep-Induced Plt Ab Elham Blood Type Blood Type Confirm Antibody Screen Crossmatch Assessment: COPD exacerbation. Stenotrophomonas maltophilia bronchitis with small left pleural effusion, basilar atelectasis and mild pulmonary edema. Acute on chronic renal failure, hemodialysis started on 06/13/[address] Mart. Proteinuria. Morbid obesity. Plan: Continue current treatment and supportive care per admitting and other teams on the case. Antibiotic (Levaquin). Bronchodilators. Solu-Medrol. Dialysis per Dr. Mart. GI and DVT prophylaxis. Input was appreciated from Admitting MD and other teams on the case.
[2019-06-22 16:07] VITALS: BP 189/61
--- NOTE | 2019-06-22 17:59 | NEPHROLOGY PROGRESS NOTE ---
DATE: 06/22/2019 SUBJECTIVE: He states he is doing better. Appetite is much improved. He states he is stronger and was able to ambulate some with the help of therapy yesterday. OBJECTIVE: Vital Signs: Blood pressure 158/57, heart rate 58, respiration 18, afebrile. Intake 500 mL. Output 900 mL. General: No acute distress. Skin: Warm and dry. Eschars around the mouth. No change. Neck: Supple. Neck veins are not appreciated. Heart: Regular. No gallops are audible. Lungs: Have equal breath sounds with a few scattered wheezes. Abdomen: Obese, soft, nontender. Bowel sounds present. Extremities: With 2+ edema in upper and lower extremities. No clubbing or cyanosis. IMPRESSION: Acute kidney injury overlying chronic kidney disease. At baseline, his GFR was around 20 mL/minute. In that context, he had progressively worsening fluid retention that was unmanageable with diuretic therapy. On this basis, we have initiated dialysis. Creatinine 2.5 today. 2.4 yesterday, but his BUN ruddy from 77 to 89, and he remains markedly volume overloaded. Dialysis again today and we will plan for treatment 3 times weekly after discharge. Electrolytes and acid-base are in target. Hemoglobin is below target. We will give him 1 unit packed red blood cells during his treatment today. cc: Artemio Mart MD
--- NOTE | 2019-06-24 14:14 | DISCHARGE SUMMARY ---
ADMISSION DATE: 05/26/2019 DISCHARGE DATE: 06/22/2019 CONSULTS: Nephrology, Dr. Mart; Pulmonology, Dr. Villafana; Surgery, Dr. Zarate for line placement. DISCHARGE DIAGNOSES: 1. Chronic obstructive pulmonary disease exacerbation. 2. Pneumonia. 3. Acute kidney injury on chronic kidney disease 4. 4. Anemia of chronic disease. 5. Hypertension. 6. Herpes simplex virus. 7. Diabetes. 8. Hyperlipidemia. 9. Thrombocytopenia. HOSPITAL COURSE: The patient presented initially with complaints of sudden-onset shortness of breath, chills, generalized body aches. He was noted to have significant wheezing. Initial chest x-ray showed bibasilar atelectasis versus pneumonia. V/Q scan was low probability for DVT. The patient was placed on antibiotics with cefepime and Zyvox. He was given DuoNebs and steroids. Initial blood cultures came back for Streptococcus intermedius. Repeat blood cultures remained negative. ID was also involved, Dr. Richter, and the patient had 2 weeks of Rocephin to treat that. As the patient's respiratory issues and bacteremia were being treated, his kidney function declined. Nephrology was involved. He was given albumin and Lasix in attempt to mobilize some of his fluid, but he eventually required dialysis to deal with volume overload. Plans were made to continue his dialysis as an outpatient. His acute hypoxia resolved. His steroids were weaned down, and eventually he was discharged home. The patient did have fairly significant global weakness, and it was actually recommended that he go to rehab, but the patient refused. The patient was able to ambulate somewhat, although fatigued extremely quickly, and remained adamant in his desire to go home, so he was discharged to home with home health. His other issues were largely stable. DISCHARGE VITAL SIGNS: Temperature 97.9 degrees, pulse 60, respirations 18, blood pressure 109/61, O2 saturation 100% on room air. DISCHARGE DIET: Renal, diabetic, low salt. DISCHARGE MEDICATIONS: Atorvastatin 40 mg p.o. at bedtime, albuterol inhaler as needed, hydralazine 100 mg p.o. t.i.d., aspirin 325 mg p.o. daily, isosorbide dinitrate 80 mg p.o. t.i.d., Toujeo 20 units subcutaneously daily, Trelegy Ellipta 100/62.5/25 inhaled daily, Zetia as previously prescribed, DuoNebs as previously prescribed, Anoro Ellipta 1 puff inhaled daily, diltiazem CD 240 mg p.o. daily, Norvasc 10 mg p.o. daily, PhosLo 667 mg p.o. t.i.d., prednisone taper, Pulmicort nebulizers inhaled b.i.d. FOLLOWUP AND PLAN: Patient discharging home on steroid taper. He is finished with antibiotics. He is set up for outpatient dialysis. Patient to follow up with PCP and Nephrology. TIME SPENT: Greater than 30 minutes were spent arranging discharge and counseling the patient.
--- NOTE | 2019-06-25 11:15 | Extremity Venous Study ---
PROCEDURE NAME: Venous U/S Right Arm - 06/18/2019 STUDY: Right upper extremity venous duplex and color flow imaging study using the GE Vivid E9 ultrasound system with a 9 L-D transducer. REFERRING PHYSICIAN: Dr. Topete. IDENTIFICATION: A 64-year-old male. SODA FLAKER: Joan Samuel RVT. INDICATIONS: Pain and edema, right upper extremity. Rule out deep venous thrombosis. FINDINGS: There is flow in the right internal jugular vein, and it is compressible. There is also flow in the right subclavian and axillary vein, without evidence of thrombus. The right brachial vein had flow through it and was compressible. The basilic and cephalic veins were compressible, right arm, as well as the small vessels in the antecubital fossa and right forearm. INTERPRETATION: No evidence of acute deep or superficial venous thrombosis, right upper extremity. cc: MD Ros Macedo CRNP
== END 2019-06-22 18:27 | disposition home health service (06) | DRG 871 ==
LOC: P.ED 12:06 → SUATTDRO 15:27 → EDIPHOLD 15:27 → 3N 17:59
PROVIDERS: ATTEND Internal Medicine